=== PATIENT | male | born 1960 | race Caucasian/White ===

== ENCOUNTER 2024-08-05 10:20 | Outpatient (OUT) | payer BC, SELFPAY ==
--- NOTE | 2024-08-05 10:24 | XR_ITS ---
The [address] [address] Patient Name: CONCHIS ANDREWS MRN: [id number] date: 1960 Sex: M Assigned Patient Location: [facility] Current Patient Location: [facility] Accession/Order Number: [id number] Exam Date: 08/05/2024 10:24 Report Date: 08/05/2024 12:47 At the request of: AMARIS BURRELL Procedure: XR ankle SESAR min 3V EXAMINATION: XR foot SESAR min 3V, XR ankle SESAR min 3V HISTORY: Bilateral Foot Pain COMPARISON: No relevant comparison available. FINDINGS: RIGHT FINDINGS: BONES: No acute fracture or dislocation of the foot or ankle. Moderate to severe degenerative changes with hindfoot varus and flxm-fh-swyh articulation of the tibiotalar joint. Callus formation consistent with remote healed fracture of the third metatarsal SOFT TISSUES: Negative. No visible soft tissue swelling. OTHER: Negative. LEFT FINDINGS: BONES: No acute fracture or dislocation . Moderate to severe degenerative changes with hindfoot varus and knzw-qq-ahxg articulation the tibiotalar joint. There is bony remodeling of the medial talar dome SOFT TISSUES: Negative. No visible soft tissue swelling. OTHER: Negative. XR/XR ankle SESAR min 3V IMPRESSION: Moderate to severe osteoarthritis with bilateral hindfoot varus and wuiw-rv-aebl articulation of the tibiotalar joints Electronically authenticated by: NATHAN VAUGHN Date: 08/05/2024 12:47
--- NOTE | 2024-08-05 10:31 | XR_ITS ---
The [address] [address] Patient Name: CONCHIS ANDREWS MRN: [id number] date: 1960 Sex: M Assigned Patient Location: [facility] Current Patient Location: [facility] Accession/Order Number: [id number] Exam Date: 08/05/2024 10:30 Report Date: 08/05/2024 12:47 At the request of: AMARIS BURRELL Procedure: XR foot SESAR min 3V EXAMINATION: XR foot SESAR min 3V, XR ankle SESAR min 3V HISTORY: Bilateral Foot Pain COMPARISON: No relevant comparison available. FINDINGS: RIGHT FINDINGS: BONES: No acute fracture or dislocation of the foot or ankle. Moderate to severe degenerative changes with hindfoot varus and ktgc-pb-jslw articulation of the tibiotalar joint. Callus formation consistent with remote healed fracture of the third metatarsal SOFT TISSUES: Negative. No visible soft tissue swelling. OTHER: Negative. LEFT FINDINGS: BONES: No acute fracture or dislocation . Moderate to severe degenerative changes with hindfoot varus and yxdz-lt-xcmt articulation the tibiotalar joint. There is bony remodeling of the medial talar dome SOFT TISSUES: Negative. No visible soft tissue swelling. OTHER: Negative. XR/XR foot SESAR min 3V IMPRESSION: Moderate to severe osteoarthritis with bilateral hindfoot varus and uzeq-ms-jwip articulation of the tibiotalar joints Electronically authenticated by: NATHAN VAUGHN Date: 08/05/2024 12:47
--- NOTE | 2024-08-05 12:26 | CT_ITS ---
[place] [id number] Patient Name: CONCHIS ANDREWS MRN: [id number] date: 1960 Sex: M Assigned Patient Location: [facility] Current Patient Location: [facility] Accession/Order Number: [id number] Exam Date: 08/05/2024 12:30 Report Date: 08/05/2024 15:56 At the request of: AMARIS BURRELL Procedure: CT ankle LT wo con EXAMINATION: CT ankle LT wo con HISTORY: Ankle DJD COMPARISON: No relevant comparison available. TECHNIQUE: Multi-planar CT images were created without IV contrast. Dose reduction techniques were achieved by using automated exposure control and/or adjustment of mA and/or kV according to patient size and/or use of iterative reconstruction technique. FINDINGS: BONES: No acute fracture or dislocation. Moderate degenerative changes of the patella with enthesopathic spurring. Contour deformity of the proximal fibula, remote healed fracture. Enthesopathy of the anterior tibial tubercle, chronic apophysitis. Moderate to severe degenerative changes of the hindfoot with jynd-fa-grkb articulation bony remodeling and subchondral cystic changes of the tibial plateau and talus. Contour deformity of the fourth metatarsal, remote healed fracture. Mild to moderate enthesopathic spurring of the calcaneus SOFT TISSUES: Negative. No visible soft tissue swelling. EFFUSION: None visible. OTHER: Moderate diffuse vascular calcifications CT/CT ankle LT wo con IMPRESSION: Moderate to severe osteoarthritis, most significant along the tibiotalar joint Electronically authenticated by: NATHAN VAUGHN Date: 08/05/2024 15:56
== END 2024-08-05 10:21 | disposition home or self-care (01) ==
LOC: RAD 10:20
PROVIDERS: Visit Provider Podiatrist Foot & Ankle Surgery
DX: M25.572 Pain in left ankle and joints of left foot (principal); M25.571 Pain in right ankle and joints of right foot; M19.072 Primary osteoarthritis, left ankle and foot; M19.071 Primary osteoarthritis, right ankle and foot
CPT/HCPCS: 73610; 73630; 73700

== ENCOUNTER 2024-08-17 14:01 | Outpatient (OUT) | payer BC, SELFPAY ==
--- NOTE | 2024-08-17 14:05 | ECG_ITS ---
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
--- NOTE | 2024-08-17 14:53 | P.GSHP_ITS ---
History of Present Illness History of Present Illness Chief complaint: left ankle osteoarthritis Narrative: Patient presents for presurgical testing. Please see HPI from Dr. Gutierrez dated August 07, 2024. Review of Systems ROS Narrative REVIEW OF SYSTEMS: Negative except as stated in HPI, ten or more systems reviewed. Constitutional: No fever, chills, weakness ENT: No sore throat or epistaxis Cardiovascular: No edema, chest pain, palpitations, or activity intolerance Respiratory: No shortness of breath, cough, or wheezing Gastrointestinal: No abdominal pain, constipation, diarrhea, or vomiting Genitourinary: No dysuria or hematuria Neurological: No numbness, tingling, weakness, or headache Psychiatric: No mood changes PFSH [facility] Medical History (Updated 08/17/24 @ 14:56 by Tammy Gonzalez NP) Left ankle pain ?M25.572 - Pain in left ankle and joints of left foot (ICD-10) Rheumatic fever ?I00 - Rheumatic fever without heart involvement (ICD-10) Stress incontinence ?N39.3 - Stress incontinence (female) (male) (ICD-10) Erectile dysfunction ?N52.9 - Male erectile dysfunction, unspecified (ICD-10) Prostate cancer ?C61 - Malignant neoplasm of prostate (ICD-10) Elevated PSA ?R97.20 - Elevated prostate specific antigen [PSA] (ICD-10) Osteoarthritis ?M19.90 - Unspecified osteoarthritis, unspecified site (ICD-10) Hypertension ?I10 - Essential (primary) hypertension (ICD-10) Kidney stones ?N20.0 - Calculus of kidney (ICD-10) Contracture, left ankle ?M24.572 - Contracture, left ankle (ICD-10) Acquired clubfoot, left foot ?M21.542 - Acquired clubfoot, left foot (ICD-10) Varus deformity, not elsewhere classified, left ankle ?M21.172 - Varus deformity, not elsewhere classified, left ankle (ICD-10) Primary osteoarthritis, left ankle and foot ?M19.072 - Primary osteoarthritis, left ankle and foot (ICD-10) Surgical History (Updated 08/17/24 @ 14:26 by Tammy Gonzalez NP) S/P ureteral stent placement ?Z96.0 - Presence of urogenital implants (ICD-10) S/P cystoscopy ?Z98.890 - Other specified postprocedural states (ICD-10) H/O hand surgery ?Z98.890 - Other specified postprocedural states (ICD-10) H/O prostatectomy ?Z90.79 - Acquired absence of other genital organ(s) (ICD-10) H/O prostate biopsy ?Z98.890 - Other specified postprocedural states (ICD-10) S/P arthroscopic knee surgery ?Z98.890 - Other specified postprocedural states (ICD-10) H/O foot surgery ?Z98.890 - Other specified postprocedural states (ICD-10) History of surgery on arm ?Z98.890 - Other specified postprocedural states (ICD-10) Family History (Updated 08/17/24 @ 14:26 by Tammy Gonzalez NP) Other Family history of myocardial infarction Social History (Updated 08/17/24 @ 14:21 by Tammy Gonzalez NP) Within the past year, how often did you have a drink containing alcohol: 4 or more times a week Smoking status: Never smoker Non-prescribed substance use: denies use 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 Highest level of school completed/degree received: high school graduate Meds Home Medications and Allergies Home Medications ?Medication ?Instructions ?Recorded ?Confirmed ?Type diclofenac sodium 75 mg 75 mg PO Q12H 08/17/24 08/17/24 History tablet,delayed release lisinopril 20 1 tab PO QDAY 08/17/24 08/17/24 History mg-hydrochlorothiazide 12.5 mg tablet Allergies Allergy/AdvReac Type Severity Reaction Status Date / Time No Known Drug Allergies Allergy Verified 08/17/24 14:18 Exam Narrative Exam Narrative: Constitutional: Awake, alert, comfortable, well-appearing, nontoxic, interactive, vital signs as charted Head: Normocephalic, atraumatic Neck: Supple, normal appearance, normal range of motion, no meningeal signs, no lymphadenopathy Respiratory: No respiratory distress, breath sounds clear Cardiovascular: Regular rate and rhythm, strong and regular heart tones Abdomen: Nontender, normal bowel sounds, soft, no CVA tenderness Neuro: No neurological deficits, normal sensation Psychiatric: Oriented ?3, normal affect Assessment and Plan Assessment and Plan (1) Primary osteoarthritis, left ankle and foot: (2) Varus deformity, not elsewhere classified, left ankle: (3) Acquired clubfoot, left foot: (4) Contracture, left ankle: (5) Left ankle pain: Plan Left ankle and subtalar joint fusion with osteotomies, soft tissue balancing, and bone grafting as needed scheduled with Dr. Gutierrez August 31, 2024.
[2024-08-17 15:14] LABS: Anion Gap 12.1; BUN Creatinine Ratio 11.4; Carbon Dioxide 29.3 mmol/L (21.0-32.0); Chloride 100 mmol/L (98-107); Estimated GFR (African America >60 (>=60 mL/min/1.73m^2); Estimated GFR (Non-African Ame 55 (>=60 mL/min/1.73m^2); Glucose 96 mg/dL (74-106); Potassium 4.4 mmol/L (3.5-5.1); Sodium 137 mmol/L (136-145)
== END 2024-08-17 14:02 | disposition home or self-care (01) ==
LOC: PST 14:02
PROVIDERS: Visit Provider Podiatrist Foot & Ankle Surgery
DX: Z01.810 Encounter for preprocedural cardiovascular examination (principal); Z01.812 Encounter for preprocedural laboratory examination; Z01.818 Encounter for other preprocedural examination; M19.072 Primary osteoarthritis, left ankle and foot
CPT/HCPCS: 36415; 80048; 93005; G0463

== ENCOUNTER 2024-09-01 09:25 | Observation (INO) | payer BC, SELFPAY ==
[2024-08-17 14:49] VITALS: BP 138/83; PULSE 85; TEMP 36.4; O2SAT 100; BMI 27.1
[2024-08-31] VITALS (16 sets, daily range): BP systolic 95–129; BP diastolic 54–87; PULSE 73–106; TEMP 36.3–36.8; O2SAT 86–96; BMI 25.6; BMI 27.7
--- NOTE | 2024-08-31 | FL_ITS ---
[address] [address] Patient Name: CONCHIS ANDREWS MRN: [id number] date: 1960 Sex: M Assigned Patient Location: [facility] Current Patient Location: [place] Accession/Order Number: [id number] Exam Date: 08/31/2024 11:18 Report Date: 09/04/2024 07:46 At the request of: AMARIS BURRELL Procedure: FL fluoroscopy <1hr NON-READ EXAM: FL fluoroscopy <1hr NON-READ HISTORY: TECHNIQUE: FINDINGS: Please see Operative Report. Electronically authenticated by: RADIOLOGIST NO Date: 09/04/2024 07:46
--- OUTSIDE RECORDS SUMMARY | 2024-08-31 06:07 | XMS_ITS | CCD ---
Author Organization [facility] Care Team Providers Care Property Consultant Name Role Phone NATHAN PROCTOR Referring Unavailable ANDREW SHEN Primary Care Unavailable NATHAN PROCTOR Admitting Unavailable NATHAN PROCTOR Attending Unavailable ANDREW SHEN Primary Care Unavailable Andrew Shen Primary Care Provider Andrew Shen DO Primary Care Provider Andrew Shen Unavailable Kai Muse Unavailable MD Kai Muse Attending Provider [phone] DO Andrew Shen Primary Care Provider [phone] Kai Muse Attending Unavailable Andrew Shen Primary Care Unavailable Miley, Kai Admitting Unavailable Andrew Shen Admitting Unavailable Shruti, Andrew Primary Care Unavailable Andrew Shen Attending Unavailable Kai Muse Attending Unavailable Andrew Shen Primary Care Unavailable Oletana, Kai Admitting Unavailable Andrew Shen Primary Care Unavailable Oletana, Kai Admitting Unavailable Oletana, Kai Attending Unavailable ОЛЬГА PAIGE Attending Unavailable ОЛЬГА PAIGE Referring Unavailable ОЛЬГА PAIGE Referring Unavailable Andrew Shen MD Primary Care Provider [phone] ANDREW SHEN Attending Unavailable ANDREW SHEN Admitting Unavailable ANDREW SHEN Primary Care Unavailable MD Kai Muse Admitting Unavailable ANDREW SHEN Primary Care Unavailable MD Kai Muse Attending Unavailable Henri Gutierrez Attending Unavailable Henri Gutierrez Admitting Unavailable ANDREW SHEN Primary Care Unavailable MD Kai Muse Attending Unavailable MD Kai Muse Admitting Unavailable ANDREW SHEN Primary Care Unavailable Allergies Allergy Classification Reported Allergen(s) Allergy Type Date of Onset Reaction(s) Facility (20 sources) Iodine; Translations: [iodine] Drug Allergy 9 [place], [place] (2 sources) Shellfish-Deriv ed Products Propensity to adverse reactions to drug 9 [place], [place] (20 sources) Shellfish; Translations: [shellfish] Propensity to adverse reactions Unknown [facility] Repository (4 sources) Shellfish; Translations: [shellfish derived] Allergy to substance [address] [facility] (1 source) Iodine Drug Allergy 4 [facility] Repository Medications Current Medications Medication Drug Class(es) Dates Sig (Normalized) Sig (Original) acetaminophen 325 mg / HYDROcodone bitartrate 5 mg oral tablet (1 source) Opioid Agonist Start: 02-04-2024 take 1 tablet by mouth every four hours Hydrocodone-Aceta minophen Active 1 TAB PO Every 4 hours 10 5 February 04, 2024 Dispense quantity of ten tablets z98.890 post op Acetaminophen / oxyCODONE (2 sources) Opioid Agonist Start: 08-28-2019 oxyCODONE-acetami nophen (PERCOCET) 5-325 MG per tablet 1 tablet Start: 08-28-2019 End: 09-02-2019 take 1 tablet by mouth every six hours as needed for pain oxyCODONE-acetaminophen (PERCOCET) 5-325 MG per tablet Indications: Prostate cancer (HCC) Take 1 tablet by mouth every 6 hours as needed for Pain for up to 5 days. 20 tablet 0 08/28/2019 09/02/2019 Active celecoxib 100 mg oral capsule (7 sources) Nonsteroidal Anti-inflammatory Drug Start: 03-14-2022 take 1 capsule by mouth every twenty-four hours CeleBREX 100 MG 1 capsule with food Orally Once a day for 30 day(s) Feb, Active ciprofloxacin 500 mg oral tablet (1 source) Quinolone Antimicrobial Start: 08-28-2019 End: 08-31-2019 take 1 tablet by mouth twice daily ciprofloxacin (CIPRO) 500 MG tablet Take 1 tablet by mouth 2 times daily for 3 days Start taking the day before your catheter is scheduled to be removed. 6 tablet 0 08/28/2019 08/31/2019 Active diclofenac sodium 75 mg delayed release oral tablet (7 sources) Nonsteroidal Anti-inflammatory Drug Start: 10-30-2023 diclofenac (Voltaren) 75 MG EC tablet Take 75 mg by mouth 10/30/2023 Active Start: 08-28-2019 take 75 mg by mouth twice daily 75 mg, Oral, 2 TIMES DAILY, First dose on Sat08/28/19 at 2100 This medication is non-formulary. Please see if the patient can bring their home supply. Please send down to pharmacy for identification. take 75 mg by mouth twice daily DICLOFENAC PO Take 75 mg by mouth 2 times daily 0 Active docusate sodium 100 mg oral capsule (2 sources) Start: 08-28-2019 End: 09-27-2019 take 100 mg by mouth twice daily 100 mg, Oral, 2 TIMES DAILY, First dose on Sat08/28/19 at 2100 Do not crush or break fluticasone propionate 0.05 mg/actuat metered dose nasal spray (10 sources) Corticosteroid Start: 01-30-2022 take 1 spray(s) nasal route once daily Fluticasone Propionate 50 MCG/ACT 1 spray in each nostril Nasally Once a day for 30 day(s) January, Active hydroCHLOROthiazide 12.5 mg / lisinopril 20 mg oral tablet (20 sources) Thiazide Diuretic, Angiotensin Converting Enzyme Inhibitor Start: 01-22-2024 lisinopril-hydro CHLOROthiazide 20-12.5 MG tablet 2 tablets 01/22/2024 Active Start: 01-22-2024 take 2 tablets by mouth once daily in the morning Lisinopril-Hydrochlorothiazide Active 2 TAB PO Every morning January 22, 2024 12:00am Start: 11-13-2023 End: 01-22-2024 take 2 tablets by mouth once daily Lisinopril-Hydrochlorothiazide Discontin ued 0 .ROUTE .COMPLEX 180 November 13, 2023 11:16am January 22, 2024 3:12pm take 2 tablets by mouth once daily Start: 10-30-2023 End: 11-13-2023 take 2 tablets by mouth once daily Lisinopril-Hydrochlorothiazide Discontin ued 2 TAB PO Daily October 30, 2023 1:00am November 13, 2023 11:17am FreeTextSi tablet Orally Once a day; Note: Source Status: Taking; Refills: 3; Qty: 180 Tablet; Provider: Shruti Tamayo Start: 08-28-2019 take 2 tablets by mouth once daily 2 tablet, Oral, DAILY, First dose on Sat08/28/19 at 1830 take 2 tablets by mouth every twenty-four hours Lisinopril-hydroCHLOROthiazide 20-12.5 M G 2 tablet Orally Once a day for 90 days Active loratadine 10 mg oral tablet (20 sources) Start: 01-22-2024 take 1 tablet by mouth once daily Loratadine Active 10 MG PO Daily January 22, 2024 12:00am take 1 tablet by mouth once daily Start: 11-13-2023 End: 01-22-2024 take 1 tablet by mouth once daily Loratadine Discontinued 0 .ROUTE .COMPLEX 90 November 13, 2023 11:16am January 22, 2024 3:12pm take 1 tablet by mouth once daily Start: 10-30-2023 End: 11-13-2023 take 1 tablet by mouth once daily Loratadine Discontinued 1 TAB PO Daily October 30, 2023 1:00am November 13, 2023 11:17am Free[employer]Si tablet Orally Once a day; Note: Source Status: Taking; Refills: 0; Qty: 90 Tablet; Provider: Shruti Tamayo Start: 01-30-2022 take 1 tablet by jordi once daily Loratadine 10 MG 1 tablet Orally Once a day for 90 days January, Active meloxicam 15 mg oral tablet (6 sources) Nonsteroidal Anti-inflammatory Drug take 1 tablet by mouth every twenty-four hours Mobic 15 MG 1 tablet Orally Once a day for 90 day(s) Active methylPREDNISolone 4 mg oral tablet (3 sources) Corticosteroid Start: 2022 Medrol 4 MG as directed Orally Throughout the day as directed for 6 days Apr, Active Start: 01-30-2022 Medrol 4 MG as directed Orally Throughout the day as directed for 6 days January, Active morphine (PF) injection 2 mg (1 source) Start: 08-28-2019 morphine (PF) injection 2 mg ondansetron (ZOFRAN-ODT) disintegrating tablet 4 mg (1 source) Start: 08-28-2019 ondansetron (Z OFRAN-ODT) disintegrating tablet 4 mg potassium chloride 20 meq extended release oral tablet (12 sources) Start: 08-31-2021 take 1 tablet by mouth every twenty-four hours Potassium Chloride ER 20 MEQ 1 tablet with food Orally Once a day for 90 day(s) Aug, Active predniSONE 10 mg oral tablet (5 sources) Start: 07-29-2024 predniSONE (De ltasone) 10 MG tablet Indications: Primary osteoarthritis of left ankle , Pain and swelling of left ankle , Acquired talipes varus of left foot 1 tablet twice daily x 7 days; followed by 1 tablet daily as directed until complete 21 tablet 07/29/2024 Active Start: 12-25-2023 End: 01-07-2024 Prednisone Discontinued 10 M G PO .COMPLEX 05 05December 25, 2023 12:00am January 07, 2024 8:08am 10 mg orally Take 4 tablets X 2 days, then take 3 tablets X 2 days then take 2 tablets X 2 days then 1 tablet X 2 days then stop, take with food and without other NSAIDS.; 1000 ml sodium chloride 9 mg/ml injection (4 sources) Start: 08-28-2019 10 mL, Intrave nous, EVERY 12 HOURS SCHEDULED (2 times per day), First dose on Sat08/28/19 at 2100 Start: 08-28-2019 0.9 % sodium c hloride infusion Start: 08-28-2019 take 10 mL intraveno usly once as needed 10 mL, Intravenous, PRN, Line Care, After every IV line use, Starting Sat08/28/19 at 1808 Completed/Discontinued Medications Medication Drug Class(es) Dates Sig (Normalized) Sig (Original) azithromycin 250 mg oral tablet (3 sources) Macrolide Antimicrobial Start: 12-25-2023 End: 01-07-2024 Azithromycin (Zithromax) 250 mg tablet Discontinued 0 PO .COMPLEX December 25, 2023 12:00am January 07, 2024 8:08am For 250 mg dose pack: take 500 mg today (day 1), then 250 mg for 4 days (days 2-5) PO calcium chloride 0.0014 meq/ml / potassium chloride 0.004 meq/ml / sodium chloride 0.103 meq/ml / sodium lactate 0.028 meq/ml injectable solution (1 source) Start: 08-29-2019 End: 08-28-2019 lactated ringers infusion Start: 08-29-2019 End: 08-28-2019 lactated ringers infusion ceFAZolin (ANCEF) 2 g in dextrose 5 % 50 mL IVPB (1 source) Start: 08-28-2019 End: 08-29-2019 2 g, Intravenous, EVERY 8 HOURS, 3 doses, First dose on Sat08/28/19 at 2000, Last dose on Sat08/29/19 at 1200 2 ml fentaNYL 0.05 mg/ml injection (1 source) Opioid Agonist Start: 08-28-2019 End: 08-28-2019 fentaNYL (SUBLIMAZE) injection 25 mcg 1 ml heparin sodium, porcine 5000 unt/ml prefilled syringe (1 source) Unfractionated Heparin, Anti-coagulant Start: 08-28-2019 End: 08-28-2019 heparin (porcine) injection 5,000 Units naproxen 500 mg oral tablet (10 sources) Nonsteroidal Anti-inflammatory Drug Start: 10-30-2023 End: 10-30-2023 take 500 mg by mouth twice daily Naproxen Discontinued 500 MG PO Twice daily 180 90 October 30, 2023 1:00am October 30, 2023 5:00pm Start: 10-29-2022 take 1 tablet by jordi th every twelve hours at mealtime as needed Naproxen 500 MG 1 tablet with food or milk as needed Orally every 12 hrs Oct, Active triamcinolone acetonide 40 mg/ml injectable suspension (7 sources) Corticosteroid Start: 09-03-2022 Kenalog-40 Aug, 40 mg Problems Active Problems Problem Classification Problem Date Documented Date Episodic/Chronic Acquired foot deformities (2 sources) Talipes varus; Translations: [Acquired clubfoot, left foot] 07-29-2024 Episodic Anxiety disorders (13 sources) Generalized anxiety disorder; Translations: [Generalized anxiety disorder] Chronic Cancer of prostate (2 sources) Malignant tumor of prostate Onset: 08-28-2019 Chronic Cancer of prostate (20 sources) History of malignant neoplasm of prostate; Translations: [Personal history of malignant neoplasm of prostate] Episodic Essential hypertension (20 sources) Essential hypertension; Translations: [Essential (primary) hypertension] Onset: 08-14-2021 Resolved: 08-14-2021 Chronic Gout and other crystal arthropathies (13 sources) Primary gout; Translations: [Idiopathic gout, right ankle and foot] Chronic Joint disorders and dislocations; trauma-related (20 sources) Disorder of patellofemoral joint; Translations: [Chondromalacia patellae, left knee] Onset: 02-05-2024 Chronic Osteoarthritis (20 sources) Arthritis of left knee; Translations: [Unilateral primary osteoarthritis, left knee] Onset: 01-07-2024 Chronic Other connective tissue disease (1 source) Patellar tendinitis, left knee Episodic Other inflammatory condition of skin (16 sources) Plaque psoriasis; Translations: [Psoriasis vulgaris] 10-25-2023 Chronic Other inflammatory condition of skin (2 sources) Psoriasis vulgaris; Translations: [Other psoriasis] 10-30-2023 Chronic Other nervous system disorders (2 sources) Difficulty walking; Translations: [Difficulty in walking, not elsewhere classified] 07-29-2024 Chronic Other non-traumatic joint disorders (1 source) Pain in right shoulder Episodic Other non-traumatic joint disorders (2 sources) Pain in unspecified ankle and joints of unspecified foot; Translations: [Pain in joint, ankle and foot] 10-30-2023 Episodic Other non-traumatic joint disorders (2 sources) Ankle pain; Translations: [Pain in left ankle and joints of left foot] 07-29-2024 Episodic Other screening for suspected conditions (not mental disorders or infectious disease) (11 sources) Encounter for screening for cardiovascular disorders; Translations: [Encounter for screening for diseases of the blood and blood-forming organs and certain disorders involving the immune mechanism] Onset: 08-14-2021 Resolved: 03-15-2022 Episodic Other upper respiratory infections (3 sources) Acute sinusitis, unspecified; Translations: [Acute sinusitis, unspecified] 12-25-2023 Episodic Residual codes; unclassified (1 source) Postprocedural state finding; Translations: [Other specified postprocedural states] 02-04-2024 Episodic Spondylosis; intervertebral disc disorders; other back problems (13 sources) Lumbago with sciatica; Translations: [Lumbago with sciatica, unspecified side] Episodic Substance-related disorders (20 sources) Nicotine dependence; Translations: [Nicotine dependence, chewing tobacco, with other nicotine-induced disorders] 10-25-2023 Chronic Unclassified (1 source) Pain in right shoulder; Translations: [Pain in right shoulder] Onset: 04-30-2023 Past or Other Problems Problem Classification Problem Date Documented Da te Episodic/Chronic Immunizations and screening for infectious disease (2 sources) Encounter for immunization Onset: 01-30-2022 Resolved: 05-02-2022 Episodic Other non-traumatic joint disorders (2 sources) Pain in left knee Onset: 01-30-2022 Resolved: 02-28-2022 Episodic Unclassified (3 sources) Cough R05.9 Onset: 01-30-2022 Resolved: 01-30-2022 Results Test Name Value Interpretation Reference Range Facility Coding Summaryon 08-24-2024 Coding Summary [employer] 64 VthehukqTOx3tMh+PGhlYWQ +[id number] NMTElOSywgQVBQTElOSyIgb sOsAP4cmEVyUVCq IC8+LD1xOQSmUwcveBRej3B 4bVR9T26xql6iYArefGQ4FI CbGyFrmsnmk5tfkAy7HUngP mluOyBt XVNkyM52RYD2eQ63Bc27tXG fnCIft7nxjEp7WfGsPKAbCX T0nCncCOjpm4IbLMRwD15cy NQtg7G3 DURvfZnmrPVhAeImoIA3lO7 eRFpwqufll4dsnkgjRet2ht 50qTPgy8V1qGE7L4RrcjE8K GJvbGQg WmspfGOCjQ3jfegba5pvuat rIpWlFCDlPNw3XSr6OMRdfY ixSrCnPJ54CIM2ERObtaMqZ 2FsLWFs wDcoCmG2s0K9Ay3LD4RCYfw dM7GBBGRUTEszuKH+PC90cj 48E3VeIfuwJvp5EBSyLQI0m OE0pQ5l UEYuSOhzh5K6sFV1X4PduuP wmd1sq0jqAMFiNTswU13scH Hrh3V9KNDniKP0TQKnyDfxH iBzaG93 Oyc+BGHreAupb7WyLeaam0s gw6mjjSg1ZpnjXIRmetXsdC gjBMS0q3FpDq6xOWMpuYS9x KP8gU8p BtRkJkJ1ZFbkO984AfLorFS mWgukO46jU1YtbCS+PHRyPj z6SRZscEwzIT7kI3PqEQKvs mctbGVm nCkxEE9kSFEatwqbHIPsqJ2 nAMElG0j4NjBnDiX1TSrpX2 KmZBQaabooXz52cX7wAtYgR tW7JWfc U0BitjG1DUBaiCZxRFrlNBO 1O00no4K8WKToRDYnCNE1uK L1rQ9khRrfomkqzXEhpDdfm mVydGlj WRmyVQvyR780KGXdqIatAvE vZGluZyBEYXRlOiAgMTIvMD kvMjAyNDwvdGQ+OBSeKWS9u WxlPSAn wYZqASssTm3kiThnaBbuLW8 zLOJcqmgoZRCflU4rGVSztM EvdBxvIF1jOEPxzazmh100P iAxMHB0 FWAwgWUbZ2PieG8eYlPcINH pRBYrG2XobUQdDNmqQ966JG ihMiD5PWZyegYxK1EbFSNvr WduOiB0 f7F5Up2Ij5VmvjguU9ChiJJ cNpDxJgtgYNg3S1MzSrowfX I+AA25CZCjNV52EOx2DHC9i WxlPSdi MPXuF7RovE9bKjVnZIRmDHL kOyc+PHRhYmxlIHdpZHRoPS cxXNTsJaEqbRumTJ1lSv4fP GVyLWNv oEopdPDrJlKjv7krWPZwRJq gKT8pcHmtX3EbiJC1JYZdr0 d2Zy65M32lO7QrwGB+PGNvb IW6bJI9 iW2dHePjLxY5AHulK043WmE qkXHgCsufo8oqg9qoqDx7Tl D8IANhydHdlDviYRT2m0BiM w22F14o IHdpZHRoPSIxNSUiIHZhbGl zwl9doL2yIi2+RUUujZJ8sB C8cA4rCxIeKtS3AHrtM993A nRvcCIv Ijjzh7ejb8vmsCd1FtZnLQC hwyUjmYnvKLV7x1KcEa28U4 WsiAqey2FrWvr9jq52yUMft 8Y6sOA2 S8KjMWOdmvwnxYQmtZdzWD4 iUUKdretqBOPgkR9gNJHwF3 n8WfBdQnB8FZbbZ8YfwjW1K GJvbGQg KNDrrSSWdE0xvnhfh0iagpx uShLbSUMtRWi0BPu3EFOpqV fsDsKxXGX1OnX0SWV1vTHom G7ltYmj mblvcA5bRza+YMO0hBWrtHI KQR0gWibiwES+FCMpLGX5zD ddOCzgCKQhhE3qPEIuU3z9H iAwLjA1 VSwyI7JecgN0KNWpmUTpURJ sgVOFrM4wltjyo7zzwvndPk EnXXLqGNe3KSz7WRLjaXsvZ iBsZWZ0 GxQ3LQO4sVLrkB3ohIjznnb txK0aHcu+YdlsqAqxIKI1BG a3S1DfOzd1MHJchZroEY2sq GFkZGlu Ge7sxPbelZowUW8sCHMmfsx te604SkWzj9szTNUybXFyFX lvCSN0D99sp3A8AUTjSEEiH TC6xKB8 qE9qtBkxxtbarWDtpRtwsbI unRqeEBndUHblS875SCXhkV yeEgYrTXa7I7UmMdz6YCCjf KydSQ9x xBBeXRltEy4kyCvwqPzxIJ7 gKFYgleuui815WrZly0hqVP DqxYXyHFanCOM5G53yg3O4O CMwMDAw QIR1gOE8lK8omIxersvwgTK mdDsgdmVydGljYWwtYWxpZ2 20GFHfwXxqOwGzzAs5T9KxF dj6VSWh oZkbRI9dcTOcTTloCr6zfCo vcXufOK8tBWGporxlc028Ci Dgq9xdMCQagBHiEOnjKOR3L 57nt9U2 UOKaVOAlSUH7lLN9oD8myUq nbjogbGVmdDsgdmVydGljYW oeSWrnM038CYAwpAmiEtLix GllbnQg RJhdHEn4W8PkTumdbWG+PC9 4XNUsLF34mPJnbQBvw5wmeK e5HpAqCHGxMKD4bVtoOVqux 3JkZXIt V44roEHri2K2BMKcbYiacPX vYpGluDB4dC8oYFjahlmbf7 ayilinTubrz1kzut33gB50Y 29sIHdp ZHRoPSIzMCUiIHZhbGlnbj0 dlH4dPo6+FPSldWW8jJL3hN 5jZDHzJfD9CMciB908KoPdy CIvPjxj q1zzf0totAw8OjB3DBGdsdS ybYwhHTG3e5WxDh21P41aFA dpZHRoPSIyMCUiIHZhbGlnb r3izO4z Ii8+SIWgpBF0nIZ7qT0dBbE bAnX5XTyvY942AkDumSNaMk twO49jX2YukIW+MLUeMgh2Y CBzdHls ZT8llFSbGHsxYj1uRSM4FxG iNoHwPTogE9QbSCPjnyfqfh vgeNT2EAYhIERuzB18Nu8hj DogMTBw mCOScM3wbfbgh8dydmhrZuP oLQLsXAt8MVb2KSGazJafCb JdYIX9JbE5GAD4kHRbzI7zx Glnbjog eP4fL5DeLYPjrhovCj20oQ6 lNhLiKsU3BBirHzm+SEFWRU 9UKzvkMfMYR7SYSMFFZF62F K97uRJd c9H5rCI5V6ArKEQjrrzknru zxIX9ONLhFVImwU92wQRjXT zjPr2yk4M3h852DMGxWDJbr O44Jq2o xGagBZRebVJSxS1rnfivi8p fssrfQcDwWGCbKBu5UTk3OT TquCdzXqCeGVE2QuK5MFV9k IUqyJ2p gXpizzqvsZ6dIxk+MDUvMTM pVTe1DtbwsFB+JOJtWSR0wW ovGAhbPWQmkL7oAQRjM2i7F iAwLjA1 BPkmW1NdUOJvhhscJg37yY1 vLjMvRsG2AIytL8KnncR8UH EyqYUjIExlQQO5V01ix9C9E CMwMDAw GUE4vSG6sN3aaSzwukdvaUG mdDsgdmVydGljYWwtYWxpZ2 46IHRvcDsnPjYyIFllYXJzP X27YO69 iNNeh0L7wVI8P4YeNAYvutx pbwptqGU3WSTsMARkpJ46tF DfQDcoPc8bl1Q3y202PZBnE DUwaW47 Mq2utVxeCWGhuRSPmV7zqkc hk6fdsatjWvBjYZHqYHo5CZ b7VCFjeQnjPeQzBVM2OtQ6Z EY3tZAt aA4qqRyevrubbB4qNft+TUF MRTwvdGQ+MIZwFMM6yTmkWJ caNATrsP1iGTMfZ0i5LdCmU jQ7QDbv K4FmZBPssgnxHd34nN2sTgP gEgE1MNmbM6RzinJ8HPCkwB KeRTpdNRB6H32jl9L2WNTbE DAwMDA7 lDQ5uI1xvQdzlfkdsXZnqEe hhnWhlQlqNUhvFTbdY384ZS TboZtiRuMhT1CrbohbSoUEg XRwYXRp OC87GA41NU83I8PhNbkdgEB ibGU+PHRhYmxlIHdpZHRoPS bkFOHzVuIfoWsiWL1yCu5cB GVyLWNv gSfrkZUaLkJst6suRXStKXa dCQ4ysZsmO5IfmGZ2ESKjh5 v6Ca71A20gH7FgqXZ+PGNvb CN3kHH3 vA3mAaFrPnT1FTbjT776OfF egFHvHhcjw7lqo4imfSc8Gi JhZRRgebLtlVfgEFM3c4MbX w65V10k IHdpZHRoPSIyMCUiIHZhbGl lzd9msQ3pPk7+QAXyuGT6oC I1qJ8dWyFgRhL6YXnsG689U nRvcCIv JyqgB10kM7TceYX+PHRyPjx 5TRAwvOsdKP1mrEOfSWvaRb 1oZFA7HcRfYrUfQNuuY4KzS GRpbmct cfctvCC8AIEcGUVsgQ92Nj3 zvQjfKp1sTSEhRBG0GHSpcP QfH6DeyU1zKbSvHQXaCQQfS 3RleHQt OBvuW113TCpyHxY1DBFmaoI rS8ZeWARmtYytPxJ0c2K5Oa 8DvQqssRRxDW5rGdYeIQo4B 0DaItx6 RGPjeFbpLG9faVRnOHnlNx2 tcPzyjVkkMD4vBNIxzictp0 94ZePql4leNIHgmFIvJTygA BP4D75b a7S8THKrDJGkHCP8oLY8nJ6 hbGlnbjogbGVmdDsgdmVydG qyTPcdBOelK891PQOpqDwqX kZJTjo8 D4RsDfg0XUGalLwuSJ7omAR qPYjtTp9zxYurpTrnUW9pHL Togysuj117EdTza3hkXKBqm HQgVGlt CJN0G59dw6T7ZCJbLNKnRXN 0gGN8wN1syOvukglyfWFncN wcprCblTacGEnkCEaoI827M HRvcDsn Ir0LXsn8T0PkTrw5HRHtcDk iZN4deTLvTHqvEy3bjRzpxD tdHO4bLPHlantyq211MqImi 2xkIDEw fFZpCOzzYSL7K74nl8D4LJA yRCAgLDZ2mXV0xY7qaWkmfm ogbGVmdDsgdmVydGljYWwtY XlpQ469 IHRvcDsnPlBheWVyOjwvdGQ +QQ95hb16Q4UkVhkxNwp4GE UyRIB9uIP6xH7sMTIyKZmdq 8Q7iJB7 J2J (more content not included)... [facility] Provider Orderson 08-11-2024 Provider Orders [id number]#1.00O TGTIFF [facility] No Panel Informationon 07-29 Radiology Study observation (narrative) [facility] XR Ankle - left 3 [facility] Result: 3 vi ews left ankle: Weight-bearing: AP, mortise, lateral: 07/29/2024: Severe asymmetric joint space narrowing of the ankle mortise with significant ankle varus deformity. Relative sparing of the subtalar and midtarsal joints. Unremarkable for fracture or stress fracture changes unremarkable for acute osseous or joint pathology otherwise. [facility] XR Foot - left 2 [facility] Result: 2 vi ews left foot: Weight-bearing: DP and calcaneal axial: 07/29/2024: Unremarkable for acute osseous or joint pathology. Changes about the 4th metatarsal diaphysis likely consistent with old healed fracture or stress fracture. Mild metatarsus adductus. Calcaneal varus deformity appreciated. [facility] Coding Queryon 04-15-2024 Coding Query [id number] [facility] Coding Summaryon 04-14-2024 Coding Summary [facility] WnxrhzloHIu0dPd+PGhlYWQ +MW1EHGJvT62giVAmcH0yK0 NMTElOSywgQVBQTElOSyIgb kLeKM2xdCIfAKXt IC8+XD1fZUYqPgmwiFCtp7K 9gEM0T45pbr4tNDloaJA8KI OwQtQanuuxa0cenDa8JDgxH mluOyBt PWJruN58WTK1zP34Qa63hEB adAXea4uixYz2YwJeOYXpHS C0eVtoSTldc3KuVHTqX09kn GGwo2W3 MRQvoEpjaMNcJiReqUX6cH0 zUPymhggzh8zktfulUzk3ru 70zBVeq8J7eNH2B1YjslR1M GJvbGQg PaissKKOfP6niifah7cbppo gOfMnQQGsYOa7MPo2WDWmsE yxVjLnTW86COJ0RNHpfdLzL 2FsLWFs wGmsUjJ9p3Y5Vb7HZ6QBGks wY6BAXQFZDQisoTU+PC90cj 77I0WrZnmtGup2BTWjVXS6k NJ9tP7m QDIpPYdgn3W3kHQ4U7PyedH sgu2kr3qbSDEuAQkcC92fwF Kna2K5OPEwdSU1XPVufBjdX iBzaG93 Oyc+DVVhfKnro8MsWdvdc2p fs3hzcXi7MxbzLUHplxNjbL gaEZT1a2RdGu2tYJKpoEO9w RL3oZ2p OpPgVyF5SXumI821BxIktNF oCwebT51bI5YiqOT+PHRyPj q4WUQsdBjdYM8fC2RhNTKcg mctbGVm mDzyWG2wENQtmpolKDIwoE8 bQSElY6u0RvJeNbL1TQtzH9 DpTRMlatvdUt58kY4oLhUyW gE8XZoi P9WvnaQ9GLQhsQDnPCgcPHK 9R94bu3J2POHkGAKmJGP8fL W0oO5hwKjqjxmitFLlqCrrl mVydGlj IAwyZXtzY672ONIxxWsyBgG vZGluZyBEYXRlOiAgMDcvMz AvMjAyNDwvdGQ+TIZhGXW3b WxlPSAn rLMmWRzbMy7htTgazDrpZW6 eTTDkfofsFYOexV7dFOUzsU QbxAydRT3xVVPnlwqur640Z iAxMHB0 JHSlxCFpD3ZsnI4uQhVnTUS zEJCrK8WfuOYyREbpB354MN pgQdH6UVGmeuCqC2AvLLKcr WduOiB0 b2Q1Ww7Cu5JqhygiK8CmqHF oZlPsUhiwXVo9S5MnIjjugZ I+DW26VHHlOR13EKs8FYF8m WxlPSdi XCFbV3ZwsZ6kBoOdCNTaHJI kOyc+PHRhYmxlIHdpZHRoPS lpYUZlKlRtsCgnHI4wQb6dS GVyLWNv fDqxeVSkJkPiz1zcAVOfHTx aIN3ytJulN3BzcIR0DVDic9 m5Rw09H61nH9MugUV+PGNvb SQ5uXV7 kY4mIbWqJaO7ZMxlP423VyD yaLDaTtxwh8zfu1eugOb6Id E3YDGjtkVeiPwcFOS9z1ZfM o30A23n IHdpZHRoPSIxNSUiIHZhbGl fnn8ltB5eFe0+AABcwHU0pR E7jS7pNuIzOkJ3UAanD549J nRvcCIv Jvizl1vlg8nmvQl5VkDuIVE goxJhpDlkGVW8o8SlOv89O6 IyeQmvz4HbQwc1ei56nYUgb 2V0zTE3 F8QvRLNryulinYReiQsdEO1 nLHNvmuxvOCKhsK1fHCEsB6 m2MyZaPbJ7RUvvL2LsunZ7R GJvbGQg ZRDtrDMFjL3cwcyja8ncxlz iPtPcRBOxCAf1ABi9IWBjsW khRuZmJKZ7VaN7KHI1mSWfo H2enBkr cowadK9wYqc+CPF2iFQfeWH LQX3uBpwmjHY+GOCfPAA7qM bkLKzjJJTuyE2bUTKxE3e1N iAwLjA1 KJqcD5ApvlG1RVRieQQnZSI lyPKHwB8dkvwfm8qmduhqMl HgYUDuKGk0OOl3KOJoiMbeP iBsZWZ0 ZoZ6ZXN0dSEqeV1vkZvyzqb hnE4tUcu+UgrmjUbzRUY4OZ p0K1QfJng6SXStjUbcKL7js GFkZGlu Wn7kmZdagLqsAD5sEOFepdf zl368JfGsy5jhYKNmfLCkUL fyJHJ3L31ql5Y5JEEwMZBnS UZ7cFU4 oJ3qnYfujyxeaRJsoZrorgR zhQltWAvvQNdlX733DKKezC tyKyHsNQr9G1ZvIbd3DSYor DobUF8x uNIaAIsyXi7taOoxvWndVT5 oHDXjqknxz172YkRbv3jbWP NfcQGsCEfdEMU8P99hp5M8V CMwMDAw REO8vUE9rW2kbOoxhxehqPI mdDsgdmVydGljYWwtYWxpZ2 45RNUbiQcvKiEkwRh2G6NrF xy4PPJa qTcoVZ9gzGAjLDytVd9ajEi hnNwpHC3jCPBgrtnyw984Og Nqx7wxFRFgwQWwQBoiHBO3X 81rw2A4 TZWzOJVoLOF5sKI7oO7puCe nbjogbGVmdDsgdmVydGljYW yaGXdhG915NQOszMevLkAhe GllbnQg GZxdJSf0B3BwFybrxAZ+PC9 8PSXdFK48gCRmpGRgq3dzlF j8XeLqXADkYVT0aRaiEGsfb 3JkZXIt N40gyBHrl0V8QHThpAsmaYD gRlAwbRV2iS4fOKyjwvnyu3 afmusaVmgdp0zkak17sO02E 29sIHdp ZHRoPSIzMCUiIHZhbGlnbj0 coN0eKy2+BEBifKG0oOY8sM 8vSUZzRhT1PZabV601HzJqs CIvPjxj z9jsm6cuyUp6MjC9LVFxieX ztHibWUW8u0IfEk72I27zSO dpZHRoPSIyMCUiIHZhbGlnb k2ziI7m Ii8+YTEufCQ1fQE8jF0uOmD vZqE8HNkyN852TvPbmVUlXx yeH31oX6EqgVR+AZWoAfu5N CBzdHls ZG1suIPqNYnaOy0tVQY0UoR pTsOpSBfrX5UiPJJyfwsaoi yfzAF3QZDpUQIhjE18Sf7vj DogMTBw lQIJeQ2ltpxsj6nxdpewLwL oLFCiTTp8NGt9ZSMzjVroCd WmQAJ5NgU7YMP1sTDrsV3df Glnbjog zZ2rX2VaXORalgojVq96zL5 rMvWgOtV6XTpfJbi+SEFWRU 7VZdrsYdCFW7MXCCMRAT94J F87wIZv q0P7dWP7G0OlVGMvwtnwtft mdFE0IAHiVAZgpH65zGZbDC sjTg9db2Q8g020XTUmCOIob I14Ym6y iJccZENqeSKJdQ6eovmnt8i zggwlUeUsJMWbZSt8RWz3UC EbzNdnShTuAAP8FuS8GXK5l PGcfV7h bWusighduC3iZen+MDUvMTM pJSq8XhpsfLT+FSBxIMH8cF ddKLjyQONnxO2xMUTaW0u8W iAwLjA1 ZEavL3SuPOHmrrgsLu68yX4 hEhZxZtO9KNhzJ7SribC4VK IozFFkZVdjAZO9P41ge1W5T CMwMDAw DRW1uIN5qS1fyLmqlcoxfBG mdDsgdmVydGljYWwtYWxpZ2 46IHRvcDsnPjYyIFllYXJzP V10TQ61 bTOxr2I7oFF1Y4ToAUKptcl psqlreSB7TSKyBTCuzB90pM BjWPedXb0xx7E9l914IURoR DUwaW47 Sv8mwWrrBLLibOHNpO1twck aq3bezvcdGmAaDPPoLKr1EH s7BCLexHwcGcWfPOS2YaX4L SO0wVRz fF2jcSzlqegpaQ0uEkv+TUF MRTwvdGQ+HIYtTKT2lMmpOB gcZGQshL2aQOHrJ8b8YiDcH wC4MDbd E7NuEVYlklevBn25pV1iHcD uPqO8UQlcL7XzmyK5KGNxyJ IzUVqsJXB6K49sx3X0ESFwF DAwMDA7 iFG4fX6yjJdzzodjnVEnoGf nspYmxAcpBGigBTqmS802VT XbhNafImDgE4QyetuxTkEBz XRwYXRp MW62XK70TN28W2SsJukhsAO ibGU+PHRhYmxlIHdpZHRoPS tcERJsOqXnyUrfRR2vEq3qB GVyLWNv mHbxwQWjWlAuc8pyRDPlVPa kKL3gjRvvM3SuhCQ9AQUwe9 r9Ec93G60wR0QlcJO+PGNvb JD2kZU3 vA7aRhRuSiB5XNwoL894BnE cvHAsYfvzd0mzy3jdlQj2Dj SjVQVhaxKimCqvUNS3f1XvS b40O78q IHdpZHRoPSIyMCUiIHZhbGl toa9edM0sQb5+RKSucIT7hL O9pO6bQtYyWaO9HAtvX202W nRvcCIv DrpjK53kC6XdaPL+PHRyPjx 5TBJdcMflZQ0xjKQsKJpwQo 8tUSH9NzNnHfMhYLduJ7JbH GRpbmct fqvepVT2HWIeGBFdfN43Bx5 btDukBz4wPPPkEDA2UOGdrI LzT5OvlK0zBpTqVIHmCZZsX 3RleHQt LSgiS727EVumFcV3QHWedkM xN1BiTQEpjZbmVwK2p4L2Zh 5FmNfwwMDxVI2jSaLhDPn9M 0KtPyu0 MCIcrAcbTW3zcISzKCwsRn6 veBucfGhuDT7yIUNoadzbh8 57QyIrh6xsAUZqgPGtEUkhT OA4H32p x7L3JRIuCRZbXZX4oSY1xW3 hbGlnbjogbGVmdDsgdmVydG qwGYlvMGcuY233IUSykKaoZ kZJTjo8 L1ZeGco5BGEfgQxlBR1urGK rENzfAj2geVtddVgfPP2oOF Scwgryw511LgEnw0unXOGin HQgVGlt VAJ5S95sw4U7LDUgKZQjTDR 3rIL6bU0ncYevgadnfZOgsK okrnBwdVwtLUgtUWueS288N HRvcDsn Tc9NOyn8F1NeOac5ZMCpkSa eGN6swNUbNZatZm9eiXpzkK yjZQ4dPEGuszvms803AhHun 2xkIDEw tCAyESlpSMA9X84uf0Q4BVB vAMZfWBC9wSE8bV9mzDmuqp ogbGVmdDsgdmVydGljYWwtY PkkQ938 IHRvcDsnPlBheWVyOjwvdGQ +NS08mh36C5UlFobjWvl3XT CcADA6vLV5iI6pORXfZYqvt 1S9hLL9 J2J (more content not included)... [facility] Physical Therapy Noteon 03-16 Physical Therapy Note [id number] IFF [facility] Provider Orderson 02-28-2024 Provider Orders [id number] IFF [facility] Coding Summaryon 02-17-2024 Coding Summary HTMLBase 64 SssqdptrCSr4sUq+PGhlYWQ +LU6GXXHtI55yjJXrnF1oL0 NMTElOSywgQVBQTElOSyIgb jPhJN6awOLdOJPj IC8+RS4rPXFpEqhuhZPpv8Z 8iAV4G24nln5pGOygvBT6FI GmKsIwqxwhn9gqoCa9UMngK mluOyBt URGlaW26EJD0rU95Nd18cWU ixULbe2rakXh2JgQaEISzMJ Y7wEerQAzmz9NqNRCoL92do QTma8H5 GVOviPcuxXDtEcErsJW8pK0 rXQjrtqtck8riifhqYqc4yr 56jIAhw0K2vFE1X1FhgfT1Z GJvbGQg LojkbWPCgJ3gepigv3yknkb gWvZxRKTuINx2SYj5TRXfuL xsDwXzJR31JHR5BMDxboHnY 2FsLWFs yEfcSpZ8w2O3Xa2WN4ACZzq iS8VYJXGTUIdmoIQ+PC90cj 62A7TnEbeqEor3HXZoNPU8t PS7eR6g LVQyOUsyo1G8uLZ4L9RhutD yim5sn4wwXCWgUUvzI68edM Uge7R4FAUgeAD8SNQlxJmgW iBzaG93 Oyc+TZQvePtwp2HpXegsh2z hn4ikfQh0WanlQBIqipCvhZ qdLFZ0n4UiVy0cZESbaNX0p RH8iX2q EyWvCcD7GWliQ213AmOcxPH qOtpdG43pA9JrdFO+PHRyPj p0DMHpsZybFG4cB7JoPFIkq mctbGVm tOvhZB4eDZVuknqxVBZqdE1 pYOGdG4j3LmQyFlT1XRdiA4 WhMCPqmltnHx45gI1kMdZnU kG4XRlr D0TrxhB9MEQvjWHvLRamGMK 1B63lt7Q7UHPaDWElONY4fF W9jY9kqSouzphfgKSjrMqao mVydGlj XAraDCbaI190ULYooMpkTcB vZGluZyBEYXRlOiAgMDYvMD MvMjAyNDwvdGQ+JFBnFTT6b WxlPSAn rSCuPFdeCd3qhPkmyLggCQ2 uBXPaqlipKQOupI0uRLBvrD QfpYldVQ4aPXMsujsui806B iAxMHB0 DIArxYYpG4DrlO5nJyVlSLQ xSCLdJ8AmjKMgOBkmW133JX zxNkG4MNRsbpPkE4QgLVPrc WduOiB0 c8Q8Qd5Hi3UkyipoV7SxfDS pTlWsJcciVFz0N9HgOyxynV I+KU65CREpCJ90GLd1EKF5t WxlPSdi JSJfM9WzdR7zSkLxYUFoMVZ kOyc+PHRhYmxlIHdpZHRoPS mhNHSmYyMmfCgmJJ4uJg1dV GVyLWNv eFqohDFrOrPlh8kkHQQcOMf yAQ8owYjtI4JqpWH4IJJol0 n7Og98I72aP3PyzRZ+PGNvb WP9vME1 fN0rLkXgIlI8MSyiB598JgW yrYGkJreul0pqz7kuyPq5Gl L9CSTtlpImbNxhTMH3u9KlN f04E16g IHdpZHRoPSIxNSUiIHZhbGl wtb8saF1aGb7+BUUpzGG3tS G6fI4nFhBiAdW1NLqhT577O nRvcCIv Ldqps6wxw0aaxMg2KqIxEQX ignZdeRzvJBB3r6MsEy54K2 ZpyNcfp9TyUhp2wu57pEQjx 9G0zMI8 Y5WoTFQhknujhKYwdPplYP3 yZPWrfesyGSTaxE0jHHFmJ0 c7ReWpWvQ4BSieF5TbxfJ1M GJvbGQg QCDtoDGKmB8fqhfuo0phftc sMaGuYYTsEDy1MYj4NNHzzA uhQeQeCVD8ZtF6ELF9rBSpy K5mvEtg kzpsyR4uFha+BIZ8hEDgnLN VJE9zWqvpjHG+AXIcROL9kB vlHDedMQZtkS4sTFSzN4d5N iAwLjA1 EUwcR2HmrhT9QNSxcVIwJID jaCLNiH9ttqhwc5jszejgSa NkQBDoENr2LQv0NZBmhSsqN iBsZWZ0 UtM1VKS2tLUoxW9hvCmfxkf cdY3wDey+SgzfgZlwSRV4YI y9H9ArKho7ZCNfgSclZR0nl GFkZGlu Aa6xoHbafXwxDN5pGAAdrrf ct286LsZre7rjFCBwsDTcAJ euHNZ4H96nu0H7FLHiMFYgH OD2nYZ6 xP6faXwsdvknrKHaiGzzwqD neNpmSUjhZCpnE681VZAicK gaRdBzQXw9L2XnUmi2POBdn GthDN7x aKDgJOaaKn8jmKtpsBxmJV1 eZOFtuylfc482PhTvd0jxQB WkuYBbRGbwMOP9B41ho7M4J CMwMDAw JQZ2gVU0mD2uwNvawvuyjMA mdDsgdmVydGljYWwtYWxpZ2 07NYMrfIfqZyBwzLp5R8HoI ti3RHSa jLtwHQ1lcMBqAPljJo4vhNk bbGxuCF0lCNMbjcfmd222Ps Thr5jxKVOndSGkGFniIPN5K 23ys7N1 GZJuEGOaBMK2bDS8oM9dfOy nbjogbGVmdDsgdmVydGljYW xfGOptP326GHRcsZnoLoGjh GllbnQg ZGjyNCw8D3OsUmbbrGH+PC9 2TDPoWO66gHFpuAMpq0kaoE l8QmKtSGHrHBG7sQhuEVwjq 3JkZXIt F47rkAHvc6X9YXWgiPechPA gLoSchMP6eZ2tYNkyqaheb1 ferxrvDuhzo0tgzb78kJ62B 29sIHdp ZHRoPSIzMCUiIHZhbGlnbj0 clQ6aNj1+HOAjvAF2oQZ3rH 6jLPXeJgW7JSqqO947IkUvy CIvPjxj t7npd6fuuXa8XwQ9TJYukbR cyFhaGKG0d5TpHa53H25mKJ dpZHRoPSIyMCUiIHZhbGlnb u8smF5h Ii8+QUIhyML5gHR7dF6cGwO fNtY2YRykH936MtHyeGPqXj pnH30mR2GygQP+XZHjArm7S CBzdHls DF7liYZqRUnwGy4qWUT7WdV yJhSoAYswD1ZhTNXwhuxmxl umcKS2DDJrBCGxxD04Zh1ql DogMTBw xEUGcN8yivhbr6pkogccGeU hMLNiDOr0OMl2CKSyvTavXu KaROH3UhO8MML3zWMpxL6cu Glnbjog yU2lC9GqMWJulzswMb42rC5 sPcWhEuL2YOfvUjt+SEFWRU 1RMmweBoWJV2MKJIKTUN98K V58xGIk s4E5fLB0F3RgHRVltpfssso jnWO2AHIvZKKviM06hPCfCQ wlVu3mb5Y6a021SKDdKCBeg L92Tw6j vEqaKFHzgSDQfS6igapzg3f umoaoIhLvYRTuESd6BRl7NE ExhOjjWqZhVXX3BaN8UVP1b ZTvqU3k mHasaejngG7cKuq+MDUvMTM dDWj8LfkdxFG+PAMcLOW6mP zlQCwySSLcmV1iDXTqU4x8M iAwLjA1 ZRzoV8BmPAQpgveoRl50bH2 uEkOzSpT2YWlyK4FsngF3WT ZorNRqWDouDCD0Y81rk5P1G CMwMDAw NWG0uTV0tC9viStuxwrkaKV mdDsgdmVydGljYWwtYWxpZ2 46IHRvcDsnPjYyIFllYXJzP L50RM31 yRFtf6Y5dWY1P6LfFYLdcao ktxluhWH2YQVlOZWssN59mC RlLOceXh5xg7C4o632XOKvW DUwaW47 Hr9qsFjgUUUwzYHBwS0ojot fm8ahooqiIcEsNOPnSXu4TM p7USKjaYmjJeUoBFU7RlD9O FA1vESg oT9gcNmhgziutV4kPfu+TUF MRTwvdGQ+VVPbMJK2dKhrLF jaGEZbyL7zEVSiZ9z5DfFiH vZ7MZjw J1YfEMTldtxzWp83wC3lAbU dDyB4OCxtU3IrfmZ3ANIulD BrGOulJLL7M45pz4O2ZTToU DAwMDA7 gQM3eM5ufGnnuvpuqTPozSu jwgOoiNtxXOzuDDmzD881RO ImbNicRxXsD8IwlfcoIwNNj XRwYXRp VO51CT05OG41Y1IdJgvmsKI ibGU+PHRhYmxlIHdpZHRoPS srSUBaVoPdlBdsHP7pSm4vZ GVyLWNv pPbewXZvPpIvv1epCTDsSPu tUT2foJveJ6XkeLR8VAVaz7 q0Vu95V29rI2CcsTN+PGNvb FF9uJQ0 jA4lZvXmTcJ9OYiwG975VbB mzRQgQookl3lva4ejyOc7Jl HqUMQnqoSdmDnrUDI4j5GdC i67A11z IHdpZHRoPSIyMCUiIHZhbGl sfs7ooK7iDz0+OGYwqVX7eP X1nH5eSlCtEsC1ZYjxD947L nRvcCIv FtmxK04mP5HjwTX+PHRyPjx 6BPLcvYrpPN2eaKWwCGizTr 9gSNA0UwGrQoGmTDkuX6LxV GRpbmct bmgkfEO4VQIzDSQqtO82Aa8 zxJphJh4lBHOwGPR6UEBdzL IfR3KewY8sQqKwVTTvOLWpF 3RleHQt STxvL634IWjkDaW3KRHmhbT kQ4OxJKTsqYniTsF7w0U7Jw 7KjWfqhOKnTA1cIhHsKJi7A 5TfUvj7 ODQavKvxEN8ubRSoQCodEt5 gdTnzkRqhBT6xAPLgxaizx9 05VfJsq4bxCCTktTVvMIdjD EE0S44k g1R8QQGxWFGjKHZ3yWK7mU3 hbGlnbjogbGVmdDsgdmVydG hdYBllYBgmW276KMUhhObvJ kZJTjo8 M3ZwEuq0EVIsbSxnZR0jsJJ oFWnjUb9hqSpgvOvyDC7eFG Cwnithp349NuBzj9vrJMUer HQgVGlt PQP3P42uq0B0HEVwHGWfEEJ 1sTY3vP1qlRqsrcauuKObgI sugkOddTmxOMefFDbdM509T HRvcDsn Ak4BUwo2I9TdUwj5MPOwkYd dBW6lgWUiMYvaXq4evVxahP pnQC3sIZGrtburt331RfRxe 2xkIDEw nRUkVCxqAED8U85ck0B3MRW hSQMaKWS8aIP9aI3qlPkzuh ogbGVmdDsgdmVydGljYWwtY ZjhF533 IHRvcDsnPlBheWVyOjwvdGQ +RS58qh27G9SfDmlnKey2OQ UoYKQ3uET3hL2bFUKxJGtbu 8H0oKX2 J2J (more content not included)... [facility] Provider Orderson 02-06-2024 Provider Orders [id number] [id number] [facility] Alanine aminotransferase [En zymatic activity/volume] in Serum or PlasmaOrdered By: Kai Muse on 01-22-2024 ALT [Catalytic activity/Vol] 22 U/L Normal [facility] Comment on above: Performed By: #### C MP wRFX A1C, CBC, EBS A1C #### [address] Albumin [Mass/volume] in Ser um or Plasma by Bromocresol green (BCG) dye binding methoOrdered By: Kai Muse on 01-22-2024 Albumin BCG dye [Mass/Vol] 4.2 g/dL 3.5-5.7 [facility] Alkaline phosphatase [Enzyma tic activity/volume] in Serum or PlasmaOrdered By: Kai Muse on 01-22-2024 ALP [Catalytic activity/Vol] 81 U/L Normal 34-104 [facility] Comment on above: Result Comment: PERF ORMED BY: [place] [address] PATHOLOGIST SEO ENGINEER MARQUISE FIGUEROA M.D. Performed By: #### C MP wRFX A1C, CBC, EBS A1C #### [facility] [address] Aspartate aminotransferase [ Enzymatic activity/volume] in Serum or PlasmaOrdered By: Kai Muse on 01-22-2024 AST [Catalytic activity/Vol] 18 U/L Normal 13-39 [facility] Comment on above: Performed By: #### C MP wRFX A1C, CBC, EBS A1C #### [facility] [address] [place] [address] Automated basophil %Ordered By: Kai Muse on 01-22-2024 Basophils/100 WBC (Bld) 1.0 % Normal . [facility] Comment on above: Performed By: #### C MP wRFX A1C, CBC, EBS A1C #### [address] Automated basophil countOrde red By: Kai Muse on 01-22-2024 Basophils (Bld) [#/Vol] 0.1 10*3/uL Normal 0.0-0.2 [facility] Comment on above: Result Comment: PERF ORMED BY: [place] [address] PATHOLOGIST SEO ENGINEER MARQUISE FIGUEROA M.D. Performed By: #### C MP wRFX A1C, CBC, EBS A1C #### [address] Automated blood monocyte cou ntOrdered By: Kai Muse on 01-22-2024 Monocytes (Bld) [#/Vol] 1.0 10*3/uL High 0.0-0.8 [facility] Comment on above: Performed By: #### C MP wRFX A1C, CBC, EBS A1C #### [address] Automated eosinophil %Ordere d By: Kai Muse on 01-22-2024 Eosinophils/100 WBC (Bld) 3.3 % Normal . [facility] Comment on above: Performed By: #### C MP wRFX A1C, CBC, EBS A1C #### [address] Automated eosinophil countOr dered By: Kai Muse on 01-22-2024 Eosinophils (Bld) [#/Vol] 0.3 10*3/uL Normal 0.0-0.45 [facility] Comment on above: Performed By: #### C MP wRFX A1C, CBC, EBS A1C #### [address] Automated monocyte %Ordered By: Kai Muse on 01-22-2024 Monocytes/100 WBC (Bld) 11.3 % Normal . [facility] Comment on above: Performed By: #### C MP wRFX A1C, CBC, EBS A1C #### [address] Automated neutrophil %Ordere d By: Kai Muse on 01-22-2024 Neutrophils/100 WBC (Bld) 59.7 % Normal . [facility] Comment on above: Performed By: #### C MP wRFX A1C, CBC, EBS A1C #### [address] Bilirubin.total [Mass/volume ] in Serum or PlasmaOrdered By: Kai Muse on 01-22-2024 Bilirubin [Mass/Vol] 0.5 mg/dL Normal 0.3-1.0 [facility] Comment on above: Performed By: #### C MP wRFX A1C, CBC, EBS A1C #### [address] CMP with reflex to A1Con Albumin [Mass/Vol] 4.2 g/dL Normal 3.5-5.7 [facility] Comment on above: Performed By: #### C MP wRFX A1C, CBC, EBS A1C #### [facility] [address] [place] [address] [place] GFR/1.73 sq M.predicted MDRD (S/P/Bld) [Vol rate/Area] mL/min/{1.73_m2} Normal [facility] Comment on above: Performed By: #### C MP wRFX A1C, CBC, EBS A1C #### [facility] [address] Calcium [Mass/volume] in Ser um or PlasmaOrdered By: Kai Muse on 01-22-2024 Calcium [Mass/Vol] 9.1 mg/dL Normal 8.6-10.3 [place] [facility] Comment on above: Performed By: #### C MP wRFX A1C, CBC, EBS A1C #### [address] Carbon dioxide, total [Moles /volume] in Serum or PlasmaOrdered By: Kai Muse on 01-22-2024 CO2 [Moles/Vol] 26.4 mmol/L Normal 21.0-31.0 [facility] Comment on above: Performed By: #### C MP wRFX A1C, CBC, EBS A1C #### [place] [address] [place] Chloride [Moles/volume] in S antonia or PlasmaOrdered By: Kai Muse on 01-22-2024 Chloride [Moles/Vol] 104 mmol/L Normal 98-107 [facility] Comment on above: Performed By: #### C MP wRFX A1C, CBC, EBS A1C #### [address] Complete Blood Count Auto Di ffon 01-22-2024 Mean Corpuscular HGB Conc 34.6 g/dL Normal 32.5-35.6 [facility] Comment on above: Performed By: #### C MP wRFX A1C, CBC, EBS A1C #### [place] [address] [place] NRBC% 0.1 /100{WBC} Normal 0-0.5 [facility] Comment on above: Performed By: #### C MP wRFX A1C, CBC, EBS A1C #### [facility] [address] Creatinine [Mass/volume] in Serum or PlasmaOrdered By: Kai Muse on 01-22-2024 Creatinine [Mass/Vol] 1.21 mg/dL Normal 0.70-1.30 [facility] Comment on above: Performed By: #### C MP wRFX A1C, CBC, EBS A1C #### [facility] [address] EBS A1C with Estimated Ave G luon 01-22-2024 Glucose [Mass/Vol] 108 mg/dL Normal [facility] Comment on above: Result Comment: PERF ORMED BY: [place] [address] PATHOLOGIST SEO ENGINEER MARQUISE FIGUEROA M.D. Performed By: #### C MP wRFX A1C, CBC, EBS A1C #### [address] EBS A1C with Estimated Ave G luOrdered By: Kai Muse on 01-22-2024 HbA1c (Bld) [Mass fraction] 5.4 % Normal 4.3-5.6 [facility] Comment on above: Increased risk for d iabetes: 5.7 - 6.4diabetes: >6.4glycemic control for adults with diabetes: <7.0 Result Comment: Incr eased risk for diabetes: 5.7 - 6.4 diabetes: >6.4 glycemic control for adults with diabetes: <7.0 Performed By: #### C MP wRFX A1C, CBC, EBS A1C #### [address] ECG 12 lead ECGon 01-22-2024 ECG 12 lead ECG [facility] [place] [address] [place] [address] Electrocardiograph Report Signed Patient: Conchis Andrews MR#: [id number] : 1960 Acct:[id number] Age/Sex: 63 / M ADM Date: 01/22/24 Loc: PS Room: Type: [facility] Attending Dr: Kai Muse MD Ordering Provider: Kai Muse MD Date of Service: 01/22/2405/09/1449 ECG/ECG 12 lead ECG: Pre op Copies to: Test Reason : Blood Pressure : / mmHG Vent. Rate : 075 BPM Atrial Rate : 075 BPM P-R Int : 148 ms QRS Dur : 066 ms QT Int : 376 ms P-R-T Axes : 047 039 055 degrees QTc Int : 419 ms Normal sinus rhythm Normal ECG No previous ECGs available Confirmed by KADEN HOANG FACC, NORMA ([id number]) on 01/22/2024 4:39:03 PM Referred By: MILEY Electronically Signed By:NORMA BURTON MD FAC Transcribed By: ENRIQUE Signed By Norma Burton MD, FACC 01/22/24 1639 Normal [facility] Erythrocyte distribution wid th [Ratio] by Automated countOrdered By: Kai Muse on 01-22-2024 Erythrocyte distribution width (RBC) [Ratio] 13.7 % Normal 12.0-14.8 [facility] Comment on above: Performed By: #### C MP wRFX A1C, CBC, EBS A1C #### [facility] [address] [place] [address] [place] Erythrocytes [#/volume] in B lood by Automated countOrdered By: Kai Muse on 01-22-2024 RBC (Bld) [#/Vol] 3.96 10*6/uL Normal 3.90-5.60 [facility] Comment on above: Performed By: #### C MP wRFX A1C, CBC, EBS A1C #### [facility] [address] [place] [id number] [place] Glucose [Mass/volume] in Ser um or PlasmaOrdered By: Kai Muse on 01-22-2024 Glucose [Mass/Vol] 103 mg/dL High 70-100 [place] [facility] Comment on above: ADA recommended refe rence range Result Comment: ADA recommended reference range Performed By: #### C MP wRFX A1C, CBC, EBS A1C #### [facility] [address] Glucose mean value [Mass/vol ume] in Blood Estimated from glycated hemoglobinOrdered By: Kai Muse on 01-22-2024 Average glucose Estimated from glycated hemoglobin (Bld) [Mass/Vol] 108 mg/dL [facility] Hematocrit [Volume Fraction] of Blood by Automated countOrdered By: Kai Muse on 01-22-2024 Hematocrit (Bld) [Volume fraction] 38.8 % Normal 38.8-50.0 [facility] Comment on above: Performed By: #### C MP wRFX A1C, CBC, EBS A1C #### [address] Hemoglobin [Mass/volume] in BloodOrdered By: Kai Muse on 01-22-2024 Hemoglobin (Bld) [Mass/Vol] 13.4 g/dL Normal 13.0-17.0 [facility] Comment on above: Performed By: #### C MP wRFX A1C, CBC, EBS A1C #### [address] Leukocytes [#/volume] correc laurie for nucleated erythrocytes in Blood by Automated counOrdered By: Kai Muse on 01-22-2024 WBC corrected for nucl RBC Auto (Bld) [#/Vol] 8.7 10*3/uL 4.1-10.5 [facility] Leukocytes [#/volume] in Blo od by Automated countOrdered By: Kai Muse on 01-22-2024 WBC (Bld) [#/Vol] 8.7 10*3/uL Normal 4.1-10.5 [place] [facility] Comment on above: Performed By: #### C MP wRFX A1C, CBC, EBS A1C #### [facility] [address] [place] [address] [place] Lymphocytes [#/volume] in Bl ood by Automated countOrdered By: Kai Muse on 01-22-2024 Lymphocytes (Bld) [#/Vol] 2.1 10*3/uL Normal 1.00-4.8 [facility] Comment on above: Performed By: #### C MP wRFX A1C, CBC, EBS A1C #### [address] Lymphocytes/100 leukocytes i n Blood by Automated countOrdered By: Kai Muse on 01-22-2024 Lymphocytes/100 WBC (Bld) 24.7 % Normal . [facility] Comment on above: Performed By: #### C MP wRFX A1C, CBC, EBS A1C #### [address] MCH [Entitic mass] by Automa laurie countOrdered By: Kai Muse on 01-22-2024 MCH (RBC) [Entitic mass] 33.9 pg Normal 27.5-35.2 [facility] Comment on above: Performed By: #### C MP wRFX A1C, CBC, EBS A1C #### [address] MCHC Auto (RBC) [Mass/Vol]Or dered By: Kai Muse on 01-22-2024 MCHC (RBC) [Mass/Vol] 34.6 g/dL 32.5-35.6 [facility] MCV [Entitic volume] by Auto mated countOrdered By: Kai Muse on 01-22-2024 MCV (RBC) [Entitic vol] 98.0 fL Normal 83.5-101 [facility] Comment on above: Performed By: #### C MP wRFX A1C, CBC, EBS A1C #### [address] Neutrophils [#/volume] in Bl ood by Automated countOrdered By: Kai Muse on 01-22-2024 Neutrophils (Bld) [#/Vol] 5.2 10*3/uL Normal 1.8-7.7 [facility] Comment on above: Performed By: #### C MP wRFX A1C, CBC, EBS A1C #### [address] No Panel InformationOrdered By: Kai Muse on 01-22-2024 Estimated GFR (CKD-EPI) > 60.0 mL/Min [facility] Creatinine Clearance (Chem N/A [facility] Nucleated erythrocytes [Pres ence] in Blood by Automated countOrdered By: Kai Muse on 01-22-2024 Nucleated RBC Auto Ql (Bld) 0.1 /100{WBC} 0-0.5 [facility] Platelet mean volume [Entiti c volume] in Blood by Automated countOrdered By: Kai Muse on 01-22-2024 Platelet mean volume (Bld) [Entitic vol] 8.0 fL Normal 6.6-10.1 [facility] Comment on above: Performed By: #### C MP wRFX A1C, CBC, EBS A1C #### [facility] [address] [place] [address] [place] Platelets [#/volume] in Bloo d by Automated countOrdered By: Kai Muse on 01-22-2024 Platelets (Bld) [#/Vol] 293 10*3/uL Normal 150-450 [facility] Comment on above: Performed By: #### C MP wRFX A1C, CBC, EBS A1C #### [place] [address] [place] Potassium [Moles/volume] in Serum or PlasmaOrdered By: aKi Muse on 01-22-2024 Potassium [Moles/Vol] 4.1 mmol/L Normal 3.5-5.1 [facility] Comment on above: Performed By: #### C MP wRFX A1C, CBC, EBS A1C #### [facility] [address] [place] [address] [place] Protein [Mass/volume] in Ser um or PlasmaOrdered By: Kai Muse on 01-22-2024 Protein [Mass/Vol] 6.9 g/dL Normal 6.4-8.9 [facility] Comment on above: Performed By: #### C MP wRFX A1C, CBC, EBS A1C #### [place] [address] [place] Serum globulin measurement b y calculation (mass/volume)Ordered By: Kai Muse on 01-22-2024 Globulin (S) [Mass/Vol] 2.7 g/dL Normal [facility] Comment on above: Performed By: #### C MP wRFX A1C, CBC, EBS A1C #### [facility] [address] Serum or plasma albumin/glob ulin mass ratioOrdered By: Kai Muse on 01-22-2024 Albumin/Globulin [Mass ratio] 1.6 {ratio} Normal [facility] Comment on above: Performed By: #### C MP wRFX A1C, CBC, EBS A1C #### [facility] [address] Serum or plasma anion gap de terminationOrdered By: Kai Muse on 01-22-2024 Anion gap [Moles/Vol] 11.7 mmol/L Normal 6.0-15.0 [facility] Comment on above: Performed By: #### C MP wRFX A1C, CBC, EBS A1C #### [facility] [address] [place] [address] Sodium [Moles/volume] in Ser um or PlasmaOrdered By: Kai Muse on 01-22-2024 Sodium [Moles/Vol] 138 mmol/L Normal 136-145 [facility] Comment on above: Performed By: #### C MP wRFX A1C, CBC, EBS A1C #### [facility] [address] [place] [address] Urea nitrogen [Mass/volume] in Serum or PlasmaOrdered By: Kai Muse on 01-22-2024 Urea nitrogen [Mass/Vol] 22 mg/dL Normal 7-25 [facility] Comment on above: Performed By: #### C MP wRFX A1C, CBC, EBS A1C #### [facility] [address] Coding Summaryon 01-15-2024 Coding Summary HTMLBase 64 HxqusbxbKKo0qWn+PGhlYWQ +YC5OEXCuI48rrKYumR3gA0 NMTElOSywgQVBQTElOSyIgb yEkQK2ksWSrEAUy IC8+UV1rUMWiHksoeQOli5S 5uXX1E82xox6qQRattKA1NF EaHuKpmaqta8ajzCb3RArjG mluOyBt HMXvoZ95MRA7tG48Zt22cIC jyXJgc1zgsNv6TnInZCYzTA K6fYjvLPsdf0WzNDUaB37lo ULqk6D2 VHDjfMfeiLDmHqHtzDH4iW3 fSJfbxcuvg5bcyyhsCyl0dd 34wFUry4S1kCR6O0UzryB0G GJvbGQg KcdmnMPIrO4zkksjf5grwlw eJgKmKOZpNIn5UJq9YSFlqV wdTrUcUX61PZL1PGDjudMmD 2FsLWFs wXcsLeC1q4K6Xi9PH6NEVwa tD9UKQMXQMDsyuXM+PC90cj 75B5JyUrqvAhi0AFIxPKF4k ZA7bO3w OJKfGPnct2E1mWK1W0NmsyZ htm6zb4zsGYGiKIwtN10koV Ggl0Z8GZFeqSC7YPDsjZfqV iBzaG93 Oyc+KHIubDcge6UcCpclg6a hg6cfnIj7GjjhWRPefwKkzF iaGAB4c8WgMh0oNNRwzTQ8p QZ7xQ0r PkFsZoM8QPnaE639RjJesPA iBanmV33sO5RkwAW+PHRyPj q4ITIxiSxuYQ9cA1ZqIQWqa mctbGVm gFjzDE3gRCPijbtfJPTieJ5 dGJDoK3w7TyJrUuH5MDbgO3 IiXBEnldxnGt15xN8rGzKjA gF3VUfj V4YeywZ2SDEjrXNkGYzvUJP 7G01wj1D2VVBsUGFdHYH0oS O5jU5qnZpvsotmeDUztHedd mVydGlj UBrlQElyL379HQSicGmkVsF vZGluZyBEYXRlOiAgMDUvMD EvMjAyNDwvdGQ+TSXfDTH6n WxlPSAn gFOdMQypLk0qyPgbrNcoPN2 rREClfpgeUAFfmD2lJRLpeH VpqFgvLE4fIRXiphqqc601U iAxMHB0 GHCjqUMrY3VacJ0lIjDiVNR zSMNhX0KqtWKqXFwcC740BT hnTlA5EYGiegLmH4QqRHRkb WduOiB0 r0N7Ti2Jh4ToxpsyA6JnfSF qEfMvKplpYGb8F4KmXxfbyJ I+OI34VCJvVH46WSx7IDN8x WxlPSdi BDEhP8ZdiD3kEuTeYWVxJPP kOyc+PHRhYmxlIHdpZHRoPS clSSSpPuXmbPuwGK2zAn0eQ GVyLWNv sUfvcEXjZxAfz1ddOEApGDs dQV6hjFeeM6WsgMK4HQSsv3 z6Hv76S45jF0FgsFK+PGNvb DC3kMG8 hI5dRfRdGyS1CWzpF725QzQ jdJSyYxpge6zbz8axgTw5Hb B5JMMztwWhtZsiGJD2r8FnI j79F05r IHdpZHRoPSIxNSUiIHZhbGl yyc0mdJ9tQp1+VSLbyUD7nE D2pB2mByNsFeU4HFekX430J nRvcCIv Ywtxu2bvb8vaiIp1KlThQTC kyuJlwZmuOFJ4j2VcUr09L5 FfpEfqa1CvBnn2ug38qLRjt 3H0bZE5 X8PvNLFqwgmhxQGpgZykCE3 nCNLxjcksEHAkuK4gRNDvV1 m3UcIzPpH7DYjhO4KuvaC6J GJvbGQg RUNidVWBrR8vedkrl3plnsp gUjXeRHOqHKl6MAj9BDPgdD mkGrIuMCS9YgY4CHE9oURbj X7zkAdl wcnhwP5cRxz+NGV7qREmiTQ WFF0vLrhnhBF+VIAeICR2uS jbOVlgSKDseV1cVFAjZ4e5P iAwLjA1 YIqsC6YdzkE7QJLahJEgHNH pvNAXrY4ohcynu0lghlagNy JwEKYzVKz2WWo6LYJntJxuC iBsZWZ0 BeW5KTJ7cGZqsH8hgAdgakt cuK4bXji+MoaklMdkYRC7NJ h2F4RoWnb4PBDigUuxYT9zl GFkZGlu Xn9mpLpkbGhlUE6kZSAyflp oz602RvPee5cdYUBrgQYjPN vkYCY3R16zx6Q3REXxIKXoG CQ4vSS1 yV1wtSdzrlqahHAoxXgzvuO mdLptHDqfZOvjR905OKWxcM fjDpWeZIh0B2LiGmu1FXWsp OxcIO2n aYGpXBhxZn4usSqvuWnjNP2 qDYCgddhzd876EuEmw4uxYL CvjYYfBFvqJJA1F41nc8K4A CMwMDAw ZGA5bPV7sK5fbCymtoiadNJ mdDsgdmVydGljYWwtYWxpZ2 79GVBmnWpeOhVnwSa5C0IuZ cn7XWEm zYiwHA7rvNIaQUohRp0uhRb uzGvrUO1pYUIfekvro934Ne Buc5moDPLqlFKgWFccFOE4V 55hz2X2 GHKvYLYcMHA8wLQ4oF3vnIm nbjogbGVmdDsgdmVydGljYW vlPZfzZ627QENvcLcjAfDdg GllbnQg AQczHLf9G6LqTawtrCP+PC9 4QMWhME10tAOvzBYlt2wlbE u2RiTkMIBhHSL1uFpaEIsrs 3JkZXIt U81cbTUuc8F8HFVgmPbsfAK wHqWoqIS0xV0iJMzkiuiie0 lcizdqOhahs1awio03yZ71S 29sIHdp ZHRoPSIzMCUiIHZhbGlnbj0 cqD8kQg6+FEDubMM6wPX7iP 6dGSJyHjD1DVcoE334TnZub CIvPjxj q2wsj3lreZf3HnK9YSJyowR mkSfzRBR4m4FpPb65K84lKX dpZHRoPSIyMCUiIHZhbGlnb p4kgX7z Ii8+RWSznHU1fGI8kY1bIbZ fSoB3XOvdR213RkIxcZQtOr ceE66eL1UjlVA+SEWoMky4V CBzdHls ZX1nzVTiYQtwKf8wGTU7PqC aPxGcVExzF4CkHHIgfbbpvy jbiUL8NJMfVYOksY82Lw9yy DogMTBw dOKQdN4ojgbpl6gunygmEkR tPZShCUx5OQh3YMSqgXveRe QaAEK9JxT2MGR1kYDymP6xe Glnbjog bS1tI1KwMDRppqtuBo61hI2 vGqUyAtJ1SCzbDza+SEFWRU 4YAbeiJrWET4YAJNCURW04D K75dRGo j2J1tBE6I5AySWYwxkmsdgv lhYD5CBHiYVEtiX42bJRmWV ymPq1uh2G9r114NZXxCTYyr Q53Ve3p mFnqFQWpeVIJpG3ojmhwo8w pysyjAvWyVHSlDTh8TIx1DU VeaKyrRjMvVDH3YwC7TDN6z EXqhK9d rCqdbnrafP5iAfv+MDUvMTM jOGc7IotsfZY+MYKiGZZ5zC aiBRwoIPAqfH6yZSZtY1c4C iAwLjA1 THhyN4XjLYWutldwMl42yT9 aPbUjArR0APywU0JifbX9AX RybRVnAHgtIZW5B02br3Y5S CMwMDAw UWM1eFA2vS8viGizkddirCD mdDsgdmVydGljYWwtYWxpZ2 46IHRvcDsnPjYxIFllYXJzP N55IS48 vYTqu3L3qBW6G3HjRWNevhp atvbhgRV8XBHtQSGjhE70eK OhODkqIw8pm9M0n805HJEkJ DUwaW47 Kg9hbRjhJRXhqTSIeT5lexl ce7ekmxtjAwEjVQTuEMs5PL f7GHVriBneNkCnMNY7KzW2J SE0mZSs rR9tfEfrawvcpH4oFit+TUF MRTwvdGQ+QOElSNS8eMsaWX qbMOCuhP4eSPWsK5b3OlVhK oD6PMom T8QhUHIsxuvwYm99kO9uDpW zPmR0TMchR9VcbhC5HQOdjF GfYWozNEQ9G22mb3N7KFBiL DAwMDA7 cCO5fJ3ggJjpuecgaZFmpAh nweDmaYfiFPtaFCnaC581ZZ MymYtmNk9WYN88PC51F0MqI jwvdGFi bGU+PHRhYmxlIHdpZHRoPSc vMTUrVtKynQmaUJ2kEl8dFI DyKGUnnBkviNLfSdYbl6sgP XBzZTsg WV1hkCgwF9WtwUF4YNHpo5s 7Hz55C75mV8FoqUE+PGNvbC K5jUL6tA4gOoKnDwR9ARteB 249InRv xZPvWqssa6cem9tbbMd7ZdW vGFLeilMqxXkyZOV2x6PlHv 89H28yFBivAKGiSLOyMRHzA HZhbGln bg6laS5bTv9+UNDbpNE6qVS 9rF7kJvFbNqI5KMttK282Sn QlzIHdKtqmE78cI6KfbMX+P HRyPjx0 LNPymXgsSV3zsGKqKRjtPp5 cETC2JkBuGjVjOXdlT9VwRI SpcszqqjmliOO1HQMkCGJgy G80Yh6s aKxjOl4bGZDjDCQ1FBHxwPC mE5EtjC5bKxKgRYJoTQKtU4 XxyVSkTPuxL477VCikKzW2V HZlcnRp B3MmYFBxkLteGuL6e2J3Ua1 DqAgpsUBfAV8kNgXjHNa0P7 VbUfv8ZOHdnJohUN1ghPPcM GxrUp9j gOcrgTinYV4oJCXlaiouf87 5ZrUuk5hvWQBalUBkMCmyQV L1U97pc0D2PSQiUNIqXVC3b GN7eS0x bGlnbjogbGVmdDsgdmVydGl iNQgcLCxgI329YRUswNcuJv TVKpr3Z5TfDlg8PHOcsWfyU Y2taBQs DDljRq7ftPftdQytKA4fPMY psghih783QuYgk7mgPCImsL ElTVdpKET6L40rk6O2VEXcW DAwMDA7 vFI8gD6whMyysekgxOEiaRk sijGthIpkZKnkNVdtM380EM PmeXxnNn4MPva4C3GyPpd2N CBzdHls AH4vgGDnZEbaQz7atIeqzWw wXW8tKGYsbwkod759BuMsr1 ylBEVziNNhBKwsWJW0S91ut 7O9QCFs SYKfKXP5uTS0sD8usGdgmpf gbGVmdDsgdmVydGljYWwtYW apC401YOHhoXcuTkTggNTvW jwvdGQ+ FL13jx91T7QhSejzQqa0DVH cAFB9zVJ5oU0yHAWjDKjgr7 H7zKZ2L4UmegLdyz0wh4bqP XBzZTog Y29 (more content not included)... [facility] Rad - MRI Reporton Rad - MRI Report [id number] IFF Normal [facility] MRI LE Joint w/o Contrast Le fton 01-10-2024 MRI LE Joint w/o Contrast Left EXAM: MRI LE Joint w/o Contrast Left REASON FOR EXAM: Internal derangement of left knee. TECHNIQUE: Multiplanar, multisequence imaging of the left knee was performed without contrast COMPARISON: 03/20/2022. FINDINGS: Laterally, the iliotibial band, fibular collateral ligament, popliteus tendon and biceps tendon are intact. The ACL is intact. Lateral meniscus demonstrates focal free edge blunting of the lateral meniscal body (series 7, image 22) suspicious for small focal radial tear. No displaced meniscal fragment identified. Low to intermediate grade chondrosis of the lateral compartment. Medially, the medial collateral ligament is intact. The PCL is intact. There is some free edge fraying of the body of the medial meniscus. There is horizontal undersurface oblique tear involving the body posterior horn junction. No displaced meniscal fragment or significant meniscal extrusion. There is also free edge radial tear involving the posterior horn of the posterior horn root attachment. This is new from prior study. Low to intermediate grade chondrosis in the medial compartment. There is a chronic distal quadriceps tendon tear. A complete rupture not identified. Distal quadriceps enthesophytes are noted. The patella tendon is thickened with intermediate signal consistent with tendinosis. Proximal patellar enthesophytes is present. There is low-grade partial tearing of the proximal patellar tendon. The bone marrow signal is without fracture. Small joint effusion. The remaining regional musculature is without muscle strain or tendon tear. IMPRESSION: 1. New complex medial meniscal tear. 2. Likely small focal free edge radial tear of the lateral meniscus. 3. Chronic partial tear of the distal quadriceps tendon. 4. Moderate patellar tendinosis with low-grade partial tear involving the proximal tendon. 5. Moderate tricompartmental chondrosis. 6. Trace joint effusion Final Dictated by: Raymundo Almonte MD Dictated DT/TM: 01/10/24 1:32 Signed (Electronic Signature): Raymundo Almonte MD 01/10/24 1:46 pm Technologist: FILI Normal [facility] XR Skull < 4 Viewson 024 XR Skull < 4 Views EXAMINATION: XR Skul l < 4 Views HISTORY: PRE MRI COMPARISON: 03/20/2022 FINDINGS: ORBITS: Negative for a metallic foreign body. OTHER: Dentures are identified with metallic components IMPRESSION: No metallic foreign body in the orbits Final Dictated by: Christian Paniagua MD Dictated DT/TM: 01/10/24 8:19 Signed (Electronic Signature): Christian Paniagua MD 01/10/24 8:20 am Technologist: FILI [facility] Provider Orderson 01-07-2024 Provider Orders [id number] [facility] XR knee LT 2Von 01-07-2024 XR knee LT 2V [facility] [address] [place] [address] XRay Report Signed Patient: Conchis Andrews MR#: [id number] : 1960 Acct:[id number] Age/Sex: 63 / M ADM Date: 01/07/24 Loc: [facility] Room: Type: [facility] Attending Dr: Kai Muse MD Copies to: Kai Muse MD Ordering Provider: Kai Muse MD Date of Service: 01/07/24 XR/XR knee LT 2V: M17.12 - Unilateral primary osteoarthritis, left knee WEIGHTBEARING LEFT KNEE - 2 views COMPARISON: 04/11/2012 CLINICAL DATA: Generalized knee pain for months. No injury. AP and lateral views were obtained. There is no acute fracture or dislocation. No disproportionate joint space narrowing is present. There are enthesophytes at the superior and inferior pole of the patella as well as at the tibial tubercle. There are increasing bony ossicles superior to the patella which could be within the quadriceps tendon and/or loose bodies. There is no joint effusion. Atherosclerotic disease is seen. XR/XR knee LT 2V IMPRESSION: DEGENERATIVE CHANGES, GREATEST AROUND THE PATELLA. Impression dictated by: Chrissie Pfeiffer M.D.01/07/2024 12:12 PM Dictation Location: [place] [address] Transcribed By: PWS 01/07/24 1212 Dictated By: Chrissie Pfeiffer MD 01/07/24 1208 Signed By: 01/07/24 1212 Normal [facility] Coding Summaryon 11-13-2023 Coding Summary HTMLBase 64 YwqsfjslBYf4rKu+PGhlYWQ +EL2PJBDpA36nmJEqyB7bS8 NMTElOSywgQVBQTElOSyIgb eVkFM1wgMAhVKOh IC8+YM6iZRDgLrvvaBLqf3F 5iMS6L99gcp4wVHijcSD3ZT VlFfXpnhpbl7tteEz4BFgeA mluOyBt LQZeuE82XIG5eQ64Fz34xVN rnSZol6asdBr8FkDnVJUrEW L9cJydQDygf5QzQYTtC28id QTic2A1 PQYweIwjxIGpHeBvrXQ8dN5 nZNsywvzjs4khvjxbUyk5ip 41xTElr5V9bYV0T9UpubR4S GJvbGQg KkobyIZKyE6qwmmgq9rbqli qFwKyJPOaMYc7ZMa1MODgqD vfUvCcQA97KVT5UPNfqcFkT 2FsLWFs wDxeTcF4z8I3Ot7AB1PFCxx qA3WRJMHQVBhivDN+PC90cj 49R5VxDrjxVng4NDRbMZE0h BE1aT3d LCOgREwrk3S7oLC2H3AjvlF fyu2qt9lyVGYsVBfbB92ufJ Urg3L6LJXpeNQ0HJMqeBxbC iBzaG93 Oyc+AZOlxLjgy8VoVrluz0j pn5mslJe8NeljMDYhweKbxJ laUCR9t5NjOz2kDRApgCU2i QE1hS3o DiIvMpJ6MHxhQ731SxEeiPZ bErqhA44gH4LsnBN+PHRyPj s9YWWvgKrwRL3lQ9BtJOVll mctbGVm vXceHZ7lDOYxszafSECjqY0 zPIGvZ5l5FwWmPtG3HPblM9 UtBEQykgvrWo72fG9wFrJsU pV7VHnv W9KxecN3IEKhmIMdDDbdYMQ 3Z15ue5J0NKJhDFNrMZO2pL N2vI7vnTqdlaehnNXrrUxba mVydGlj MIeoKOqlE696FBJxnSrlUpG vZGluZyBEYXRlOiAgMDIvMj gvMjAyNDwvdGQ+HIGaNGN8s WxlPSAn tLNsQJxkHk9ggWyalFtbUY8 rCDFddzzsKZIhbN1vOIDpwK RsuXivOM6jNLJccythi962T iAxMHB0 FFFavZSeN8JxqW6qAtYnVYX jIVLzZ6GxkTCsZVrfL176QX okFxL0ARSzfuAcA0AsFEVgr WduOiB0 l9O7Vp1Gd2TpblrdL9GpeYA bVvQlLfibEMx8G4JuQazipP I+KD08WASjHT11JHa4XGO8y WxlPSdi RAVpG2TdiF2iPuXdQYGmVLX kOyc+PHRhYmxlIHdpZHRoPS laNEZoPrHudYdhMT4sEf7uE GVyLWNv bJtsuXSvKeNdo5jnRWGwJMh lNQ5dkDryM0DetAE4XZZbe7 y1Vw22V27hT0BnkFQ+PGNvb ZE2vZS2 dU8aClNoXzW5LVeyW298HxP mtJBkKictf7ydg3yqaMl6Da H2UNHoetUymHyxFHU7j0CnH w34T15b IHdpZHRoPSIxNSUiIHZhbGl vrp3bcF8aIr5+LKRuqPQ9xP A2aY6aAzOmLbF1WGztU187U nRvcCIv Igwcj7zur8qesLm4ImNwEED bpsBasDhfTCJ5c0DoTs86G6 NvoCehq5PnHxf1sa96rSXzz 3U1wRZ5 K5BbNTKgocvbsCHanOsfIF0 lARIfyijyYVGcvG7eBKXzG4 d8YsZkWkV7MYkrU5AojfA8L GJvbGQg ECFefRSTuQ1tdnmby9lvuqd aFtRhMZEbFWv3ZUc8RKZxvG tdLkSnQAW3OgH4KPB0aAJaj V1pyJlf ymzyqK3sCdb+JVS1xGKsuKX AIR8lEclreLP+SADpGKA3tX tdLXuiPBCyqB6vZESkJ7e5S iAwLjA1 RRpzB7SiwgD2ARUyhHZvLBF ikZFFwE4povqff7fybaqwYv LbWUIrURx6UJr9IROsbJmvY iBsZWZ0 AcR6RIH3iMXakI8twJbccgx glT1rZwt+JfqsbAscKJN0SK t0U2WiYvm1OTFyePivFS0bj GFkZGlu La9ilQthaFafZX9zSBTypgw vd047DpCea2kgSJJmkODnHQ dbDJU3F19uc3W4QZCsDCLyN BC9fJI8 uV5lmVqehabvuAZveFekouD vnSnjDZriTMmwX319OVBmkI pjJkExXKn5C7MlPbv5BHVqx SgdIK3u aYDqHCbeSq2jjQdtuQnpLB4 vZYBatbbwo025ZbAlp2rhXO DduMDfPAohYQB4S45jh6R4R CMwMDAw RPM7wCH0lH7ewUevctrpdCO mdDsgdmVydGljYWwtYWxpZ2 88EUMvaAyyPkBgsYp3C4BzC bg5SIWo nZvaLV5biIWnUCvqTo7wcGd njUewIU5kSYBkefymu062Vv Bzm0lcJERnjHDlJUzjTUG0V 89fe9E0 GAReYCDyRKH0uFS4yU7uuFf nbjogbGVmdDsgdmVydGljYW kyGZxrO383CTEvkNplAlCjm GllbnQg WBirKLx6S2HkMqkiwBX+PC9 6DNQpXW35hITsoRYlq9qnbN h2WfSsDVXeIKW4sWxoSTixg 3JkZXIt H94fkZFcv9T1ZLIjiXikfNT lXoVfzCQ0wM0fYGlrphycc8 hqdappAeslo5dxpn25gM76W 29sIHdp ZHRoPSIzMCUiIHZhbGlnbj0 lzH1kJn0+PALbtFL7uIE9gA 1pUMTsEhW0GJjdB356FyDgj CIvPjxj q7vry5lhaFl7MgB8TRIcrfJ hsGaxHIR6g5AoUq51S58sYT dpZHRoPSIyMCUiIHZhbGlnb u5nnD1v Ii8+RUTikJB8oII3qX8aAhO sPpH9XDowJ223ByJehBWqVi cpD96cE7FwuZK+ADCoSjl5L CBzdHls MR9iuHThHNafOq9hHDA5TnM hNnBwSLzuB6DqXPYwmutjuk ctxQU5GBUhJQMyzP57Vm5jc DogMTBw hOMZlQ3biwjrf2jqchayIkL wZBZrMQa9ERr2IHGxfPswJh RpJSW8GcB0NKI0xICuzY0us Glnbjog yJ2yY0WcFNSygwklMs90pZ2 sOxHdYdB2IIcwIns+SEFWRU 8PPdsoRtDES2UICPADEH52H O50uIXj y0T4xCL4C3DbQRWqwxetozz veIR6MXYrTRBvbY38aJSdIY jzPp0gp6Z7u535MKLdHIYds D78Kj0t oEfeQFBrzMWJbO6hkcueq4d qwerfTbAhVGWgDKp7PZt8PZ NkqXraPjEhKPG6PwB0DHW1g MJryP1t pFbmehyvwW2jOuh+MDUvMTM kYAj5UwbupOH+DFDfVRA4kR joRUqeLUWjrG1pFUEuG8a5K iAwLjA1 ASrzM9NlBHFssjprUe13eG4 fUnIcQoR5YUcwN3BoysR3SH ZivIQjUGqrZGL0P80bp6I0H CMwMDAw MGJ5vTR6tK1uvNqealnzoUE mdDsgdmVydGljYWwtYWxpZ2 46IHRvcDsnPjYxIFllYXJzP H33AT54 qAXln1N6eNK5R0SaDLApkiw ckcdltBD6FMIgFCNqnJ66mL FsCYjiTh4bf3W0c451QUPsR DUwaW47 Zc3crXtgUMTuiCJMfJ3swev dr7beslnfYkOuYIEvUEi6WH e1TLYjfEnaNrFlTVW3AiM7M RU1mXWc eU7qlJgkficnbM5rSdo+TUF MRTwvdGQ+RHDtYYR9jKqyPL kuYMGbeB5jLRCvZ1f3NxNoS vX4ZMlj X4ZsCPUbctefPe31gD4aQbO oGpK4BAvjW0ObhoQ3TJYlgV IyBLiuNXV1K54lu5B7KMVxS DAwMDA7 wEB5rG7hwBodoinsbOWfuTj ffqKygJdaRWepASdsR051BG VroTmpYr8CDC96MM82G6XuR jwvdGFi bGU+PHRhYmxlIHdpZHRoPSc vFWJkDnWitHcxGN8xTi6bEV MsENEdmSmzdXSiZwDkq7gvB XBzZTsg UX9orOfsZ2IfaLB6YQNth7f 0Oe87L56yP9KkaKN+PGNvbC K8cBG7uU6iDjAtCzW0LPzvF 249InRv aUCdGolnh1gyu8yceYn8NuV eAFMenfItqKsrPFE6x8HjSx 15F83jSMtkZYRdSLGfGFThE HZhbGln iw7qnJ5uRb4+GYJvgAS2hGW 7pA8dYdQcDiF4ADcqV051It IjcHHpIjviU39oY9KecKR+P HRyPjx0 VYQgaEwaOO1ewOJeJJpxQs0 fZHN9DrJzZeJpXOgyN3MuVI WujswqanldsSR2OHVpUOKcw I85Lb3n mRgkPz9kPIBsVPN6WFHzyIZ zF2HfgQ6oMlOcOGBdLFLtS4 CcmEQyBHobA194AZnrCpJ1G HZlcnRp D5NgZHOdoQziXgI2s0J3Wy8 KkVzjuNEvLA3cWtReEFi6N7 YcAsl7LACqsHehTD1vsFJkM ObpQp8t wIirxGgcDV2xTQJuawiuy07 0YqIhn0mgCRJnaBZlKAonQT B5J44lq9S7SLZlSEPcCDM0s YS7sB3a bGlnbjogbGVmdDsgdmVydGl fRYnrQCdrW869SQGrdOctOc QBErt7L5RkUmz0CEYeyEtuQ R4bzTDc AUxzQh2utYcemJyrTW7nSDA pbpsjq311ZwKtk7gjFHWwzX DrMHbuCJA4E49sp6Q2DYJmN DAwMDA7 gHN4kV2giLarfhdluYOigSs zzxHzdPujSIikHLtyJ514TB MbjFplCs1UDml0U2ZfCrx3E CBzdHls TO7fvFByQPadBa5ukWifrQk gAK0bWVSxblkax937BeBnt5 efAEVpzEVdBZlpFKD5Y44ib 6T2RFIx OLQnXVZ8hTX4gO6iiCcffiw gbGVmdDsgdmVydGljYWwtYW ebR846KJGwxWseNjCtxNPcH jwvdGQ+ AE11jm36Z4PrOcvzGxa6FJL rFSQ8bIR8xR8gNXSkFLqkv8 R5iBS7E7NlbsSwsa4fb1rjZ XBzZTog Y29 (more content not included)... Normal [facility] PSA Total+% Free (Serial) LC on 11-12-2023 % Free PSA Analyte Not Required Invalid Interpretation Code [facility] Comment on above: Result Comment: Unab le to calculate result since non-numeric result obtained for component test. The table below lists the probability of prostate cancer for men with non-suspicious CLARK results and total PSA between 4 and 10 ng/mL, by patient age (Lois et al, BHARATH 1998, 279:1542). % Free PSA 50-64 yr 65-75 yr 0.00-10.00% 56% 55% 10.01-15.00% 24% 35% 15.01-20.00% 17% 23% 20.01-25.00% 10% 20% >25.00% 5% 9% Please note: Lois et al did not make specific recommendations regarding the use of percent free PSA for any other population of men. Performed By: #### 7 592877, 48091729, [id number], [id number], [id number], [id number] ####[facility] (DEFAULT)[address] [place] [address] Prostate Specific Ag, Serum LC <0.1 Invalid Interpretation Code 0.0-4.0 [facility] Comment on above: Result Comment: Isabell martinez ECLUSHA methodology. According to the [employer], Serum PSA should decrease and remain at undetectable levels after radical prostatectomy. The AUA defines biochemical recurrence as an initial PSA value 0.2 ng/mL or greater followed by a subsequent confirmatory PSA value 0.2 ng/mL or greater. Values obtained with different assay methods or kits cannot be used interchangeably. Results cannot be interpreted as absolute evidence of the presence or absence of malignant disease. Performed By: #### 7 337638, 26032049, [id number], 904095050, [id number], [id number] ####[facility] (DEFAULT)[address] [place] [address] PSA, Free LC <0.02 Invalid Interpretation Code N/A [facility] Comment on above: Result Comment: Isabell AGOSTO methodology. Performed At: [facility] [address] [id number] Sanjay Dumas PhD Ph:[phone] Performed By: #### 7 206213, 50102380, [id number], 783316070, [id number], [id number] ####[facility] (DEFAULT)[address] [place] [address] .Auto Diff 11-09-2023 Auto [place] % 10 % Normal -12 [facility] Comment on above: Performed By: #### 7 876926, 66198934, 8759533690, 865465676, 4562730477, 55492482 ####[facility] (DEFAULT)[address] [place] [address] Baso Abs# 0.0 x10 Normal 0.0-0.2 [facility] Comment on above: Performed By: #### 7 988378, 98241043, 5121695128, 343291661, 0880938066, [id number] ####[facility] (DEFAULT)[address] [place] [address] Basophils/100 WBC (Bld) 0.8 % Normal 0.2-2.0 [facility] Comment on above: Performed By: #### 7 131634, 98741223, 4732801236, 163220193, 4779607213, 43777429 ####[facility] (DEFAULT)[address] [place] [address] Eos Abs# 0.4 x10 Normal 0.0-0.4 [facility] Comment on above: Performed By: #### 7 739366, 96475695, 4531017354, 134145295, 6382295124, 99200002 ####[facility] (DEFAULT)[address] [place] [address] Eosinophils/100 WBC (Bld) 7.1 % High 0.9-4.0 [facility] Comment on above: Performed By: #### 7 004704, 42023591, 2662716445, 553405216, 3318723350, 76123904 ####[facility] (DEFAULT)[address] [place] [address] Lymph Abs# 1.5 x10 Normal 1.3-2.9 [facility] Comment on above: Performed By: #### 7 852649, 22798651, 9410430084, 083327616, 8276421364, 30376879 ####[facility] (DEFAULT)[address] [place] [address] Lymphocytes/100 WBC (Bld) 25 % Normal 14-48 [facility] Comment on above: Performed By: #### 7 063022, 15801415, 5132715252, 135200677, 1659873391, 33346634 ####[facility] (DEFAULT)[address] [place] [address] [place] Abs# 0.7 x10 Normal 0.0-0.8 [facility] Comment on above: Performed By: #### 7 390491, 70244268, 1024846564, 095325800, 2728691493, 31854438 ####[facility] (DEFAULT)[address] [place] [address] 18858 Neut Abs# 3.6 x10 Normal 1.5-9.2 [facility] Comment on above: Performed By: #### 7 512152, 74324332, 5846804350, 466415092, 6602148939, 68025504 ####[facility] (DEFAULT)[address] [place] [address] Neutrophils/100 WBC (Bld) 57 % Normal 44-88 [facility] Comment on above: Performed By: #### 7 001560, 20975550, 8360226521, 488167314, 3733302198, 79339324 ####[facility] (DEFAULT)[address] [place] [address] Basophils Auto (Bld) [#/Vol] on 11-09-2023 Basophils (Bld) [#/Vol] 0.0 x10 0.0-0.2 [facility] Basophils/100 WBC Auto (Bld) on 11-09-2023 Basophils/100 WBC (Bld) 0.8 % 0.2-2.0 [facility] CBC w/ Auto Diffon Erythrocyte distribution width (RBC) [Ratio] 12.7 % Normal 11.5-15.0 [facility] Comment on above: Performed By: #### 7 120075, 86001499, 4782855395, 767571133, 3404794582, 68091578 ####[facility] (DEFAULT)[address] [place] [address] 22700 Hematocrit (Bld) [Volume fraction] 44.1 % Normal 34.8-51.9 [facility] Comment on above: Performed By: #### 7 049668, 62855650, 1360237605, 204217108, 1847380451, 51269067 ####[facility] (DEFAULT)[address] [place] [address] 29576 Hemoglobin (Bld) [Mass/Vol] 15.4 g/dL Normal 11.8-17.7 [facility] Comment on above: Performed By: #### 7 499332, 25771244, 2092167794, 203347396, 0954808274, 11703177 ####[facility] (DEFAULT)[address] [place] [address]604 Man Diff? Auto Invalid Interpretation Code [facility] Comment on above: Performed By: #### 7 293467, 74609904, 3581879131, 442179143, 7649439985, 33075652 ####[facility] (DEFAULT)[address] [place] [address] 07464 MCH (RBC) [Entitic mass] 34 pg Normal 24-34 [facility] Comment on above: Performed By: #### 7 318201, 63271070, 9296506076, 907893081, 9790971956, 22971303 ####[facility] (DEFAULT)[address] [place] [address] 89635 MCHC (RBC) [Mass/Vol] 35 g/dL Normal 26-37 [facility] Comment on above: Performed By: #### 7 125364, 21007109, 6614628466, 845371999, 1334973476, 69460569 ####[facility] (DEFAULT)[address] [place] [address] MCV (RBC) [Entitic vol] 96 fL Normal 81-100 [facility] Comment on above: Performed By: #### 7 656135, 84513986, 7156520037, 428693985, 5604283539, 04677202 ####[facility] (DEFAULT)[address] [place] [address] 25771 Platelet 314 x10 Normal 138-427 [facility] Comment on above: Performed By: #### 7 296957, 08290272, 3242188731, 819117215, 8819719448, 05004791 ####[facility] (DEFAULT)[address] [place] [address] 93053 Platelet mean volume (Bld) [Entitic vol] 7.7 fL Normal 6.3-10.2 [facility] Comment on above: Performed By: #### 7 637314, 23756492, 2646081363, 731041600, 9087636173, 99084541 ####[facility] (DEFAULT)[address] [place] [address] 07817 RBC 4.58 x10 Normal 3.70-5.30 [facility] Comment on above: Performed By: #### 7 639088, 39427489, 4472871884, 739259577, 5048250501, 95666536 ####[facility] (DEFAULT)[address] [place] [address] 08292 WBC 6.2 x10 Normal 3.5-10.5 [facility] Comment on above: Performed By: #### 7 251794, 01699828, 2968266442, 164720104, 2264450630, 09530120 ####[facility] (DEFAULT)[address] [place] [address] CMP Standardon 11-09-2023 eGFR Non AA >60 Invalid Interpretation Code [facility] Comment on above: Performed By: #### 7 282320, 09119576, 2037022637, 971330951, 2585939531, 90131778 ####[facility] (DEFAULT)[address] [place] [address] eGFR AA >60 Invalid Interpretation Code [facility] Comment on above: Performed By: #### 7 855087, 26554375, 9009728606, 251363847, 8692248080, 14894787 ####[facility] (DEFAULT)[address] [place] [address] Albumin [Mass/Vol] 3.9 g/dL Normal 3.5-5.0 [facility] Comment on above: Performed By: #### 7 977058, 62956868, [id number], 070854317, [id number], 89541183 ####[facility] (DEFAULT)[address] [place] [address] Albumin/Globulin [Mass ratio] 1.0 {ratio} Low 1.4-2.6 [facility] Comment on above: Performed By: #### 7 970609, 87574715, 0254956812, 111810162, 5460838469, 02657500 ####[facility] (DEFAULT)[address] [place] [address] 59095 Alk Phos 67 IU/L Normal 32-91 [facility] Comment on above: Performed By: #### 7 475810, 99046028, 2929147313, 004265102, 0321587482, 50138197 ####[facility] (DEFAULT)[address] [place] [address] ALT [Catalytic activity/Vol] 23.0 U/L Normal 17.0-63.0 [facility] Comment on above: Performed By: #### 7 439368, 79981878, 9336384853, 483516553, 3421171587, 81928468 ####[facility] (DEFAULT)[address] [place] [address] 18666 Anion gap [Moles/Vol] 12.9 mmol/L Normal 5.0-19.0 [facility] Comment on above: Performed By: #### 7 583577, 02895381, 0023782858, 819031369, 7969839754, 95790133 ####[facility] (DEFAULT)[address] [place] [address] 14519 AST [Catalytic activity/Vol] 25 U/L Normal 15-41 [facility] Comment on above: Performed By: #### 7 750398, 19067792, 9920914123, 881266403, 2000534887, 52417884 ####[facility] (DEFAULT)[address] [place] [address] 66654 Bili Total 0.8 mg/dL Normal 0.3-1.2 [facility] Comment on above: Performed By: #### 7 072723, 02669496, 1458446837, 784287017, 9884734868, 12424817 ####[facility] (DEFAULT)[address] [place] [address] 65342 Calcium [Mass/Vol] 9.0 mg/dL Normal 8.9-10.3 [facility] Comment on above: Performed By: #### 7 858936, 43422528, 7447033856, 924360546, 7462125129, 70466592 ####[facility] (DEFAULT)[address] [place] [address] 48520 Chloride [Moles/Vol] 102 mmol/L Normal 101-111 [facility] Comment on above: Performed By: #### 7 533579, 33694993, 7583588568, 683244528, 8927479219, 37900770 ####[facility] (DEFAULT)[address] [place] [address] 24717 CO2 [Moles/Vol] 24 mmol/L Normal 21-32 [facility] Comment on above: Performed By: #### 7 255586, 07015323, 0826728084, 877691598, 1500097663, 22756816 ####[facility] (DEFAULT)[address] [place] [address] 34493 Creatinine [Mass/Vol] 0.95 mg/dL Normal 0.90-1.30 [facility] Comment on above: Performed By: #### 7 584586, 21493966, 1571234051, 994648945, 7304044799, 56489316 ####[facility] (DEFAULT)[address] [place] [address] 07804 Globulin (S) [Mass/Vol] 3.8 g/dL Normal 1.5-4.3 [facility] Comment on above: Performed By: #### 7 818915, 90119729, 1424239911, 581624139, 2985253814, 60769852 ####[facility] (DEFAULT)[address] [place] [address] 92803 Glucose [Mass/Vol] 105.0 mg/dL Normal 74.0-118.0 [facility] Comment on above: Performed By: #### 7 763904, 07247004, 1718612326, 192731449, 8550882631, 98786240 ####[facility] (DEFAULT)[address] [place] [address] 05067 Osmolality 270 mOsm/L Invalid Interpretation Code [facility] Comment on above: Performed By: #### 7 883939, 03616417, 8849247242, 674765481, 7720359890, 44035455 ####[facility] (DEFAULT)[address] [place] [address] 21511 Potassium [Moles/Vol] 3.9 mmol/L Normal 3.6-5.1 [facility] Comment on above: Performed By: #### 7 179067, 31020551, 6228829917, 587295377, 6278699991, 39702336 ####[facility] (DEFAULT)[address] [place] [address] 03461 Protein [Mass/Vol] 7.7 g/dL Normal 6.5-8.1 [facility] Comment on above: Performed By: #### 7 055805, 34985408, 9954002257, 366852984, 8602092924, 48942272 ####[facility] (DEFAULT)[address] [place] [address] 99339 Sodium [Moles/Vol] 135.0 mmol/L Low 136.0-144.0 [facility] Comment on above: Performed By: #### 7 127063, 19454481, 0458168687, 191387000, 0917658923, 48900784 ####[facility] (DEFAULT)[address] [place] [address] 19135 Urea nitrogen [Mass/Vol] 13 mg/dL Normal 8-26 [facility] Comment on above: Performed By: #### 7 321976, 67871568, 0911573335, 069418980, 3371568429, 61356330 ####[facility] (DEFAULT)[address] [place] [address] 92889 Urea nitrogen/Creatinine [Mass ratio] 13.6 mg/mg Normal 4.6-16.2 [facility] Comment on above: Performed By: #### 7 260048, 92884207, 4146728945, 668782577, 7138669146, 16120190 ####[facility] (DEFAULT)[address] [place] [address] 60815 Cholesterol in LDL Calc [Mas s/Vol]on 11-09-2023 Cholesterol in LDL [Mass/Vol] 66 mg/dL 1-100 [facility] Cholesterol in VLDL Calc [Ma ss/Vol]on 11-09-2023 Cholesterol in VLDL [Mass/Vol] 48 mg/dL 5-40 [facility] Eosinophils/100 WBC Auto (Bl d)on 11-09-2023 Eosinophils/100 WBC (Bld) 7.1 % 0.9-4.0 [facility] Erythrocyte distribution wid th Auto (RBC) [Ratio]on 11-09-2023 Erythrocyte distribution width (RBC) [Ratio] 12.7 % 11.5-15.0 [facility] Estimated glomerular filtrat ion rate (GFR) non- Americanon 11-09-2023 GFR/1.73 sq M.predicted among non-blacks MDRD (S/P/Bld) [Vol rate/Area] mL/min/{1.73_m2} [facility] Globulin Calc (S) [Mass/Vol] on 11-09-2023 Globulin (S) [Mass/Vol] 3.8 g/dL 1.5-4.3 [facility] Hematocrit Auto (Bld) [Volum e fraction]on 11-09-2023 Hematocrit (Bld) [Volume fraction] 44.1 % 34.8-51.9 [facility] Hemoglobin [Mass/volume] in Bloodon 11-09-2023 Hemoglobin (Bld) [Mass/Vol] 15.4 g/dL 11.8-17.7 [facility] - Chemistry and C hemistry - challengeon 11-09-2023 Albumin [Mass/Vol] 3.9 g/dL 3.5-5.0 [facility] ALP [Catalytic activity/Vol] 67 U/L 32-91 [facility] ALT [Catalytic activity/Vol] 23.0 U/L 17.0-63.0 [facility] AST [Catalytic activity/Vol] 25 U/L 15-41 [facility] Bilirubin [Mass/Vol] 0.8 mg/dL 0.3-1.2 [facility] Calcium [Mass/Vol] 9.0 mg/dL 8.9-10.3 [facility] Chloride [Moles/Vol] 102 mmol/L 101-111 [facility] Cholesterol [Mass/Vol] 166.0 mg/dL 66.0-200.0 [facility] Cholesterol in HDL [Mass/Vol] 52 mg/dL 40-71 [facility] CO2 [Moles/Vol] 24 mmol/L 21-32 [facility] Creatinine [Mass/Vol] 0.95 mg/dL 0.90-1.30 [facility] GFR/1.73 sq M.predicted MDRD (S/P/Bld) [Vol rate/Area] mL/min/{1.73_m2} [facility] Glucose [Mass/Vol] 105.0 mg/dL 74.0-118.0 [facility] Potassium [Moles/Vol] 3.9 mmol/L 3.6-5.1 [facility] Protein [Mass/Vol] 7.7 g/dL 6.5-8.1 [facility] Sodium [Moles/Vol] 135.0 mmol/L 136.0-144.0 [facility] Triglyceride [Mass/Vol] 240.0 mg/dL 0.0-150.0 [facility] TSH Qn 3.23 m[IU]/L 0.45-5.33 [facility] Comment on above: General Population ( males and non- females, aged 21-88) 0.45 - 5.33 Females, 1st Trimester 0.05 - 3.70 Females, 2nd Trimester 0.31 - 4.35 Females, 3rd Trimester 0.41 - 5.18 Urea nitrogen [Mass/Vol] 13 mg/dL 8-26 [facility] Urea nitrogen/Creatinine [Mass ratio] 13.6 mg/mg 4.6-16.2 [facility] Leukocytes [#/volume] correc laurie for nucleated erythrocytes in Blood by Automated counon 11-09-2023 WBC corrected for nucl RBC Auto (Bld) [#/Vol] 6.2 x10 3.5-10.5 [facility] Lipid Panel Standardon 11-09 Cholesterol [Mass/Vol] 166.0 mg/dL Normal 66.0-200.0 [facility] Comment on above: Performed By: #### 7 [id number], [id number], [id number], [id number], [id number], [id number] ####[facility] (DEFAULT)[address] [place] [address] Cholesterol in HDL [Mass/Vol] 52 mg/dL Normal 40-71 [facility] Comment on above: Performed By: #### 7 [id number], [id number], [id number], [id number], [id number], [id number] ####[facility] (DEFAULT)[address] [place] [address] Cholesterol in LDL [Mass/Vol] 66 mg/dL Normal 1-100 [facility] Comment on above: Performed By: #### 7 [id number], [id number], [id number], [id number], [id number], [id number] ####[facility] (DEFAULT)[address] [place] [address] Cholesterol.total/Thania sterol in HDL [Mass ratio] 3.1 {ratio} Normal 0.0-4.5 [facility] Comment on above: Performed By: #### 7 [id number], [id number], [id number], [id number], [id number], [id number] ####[facility] (DEFAULT)[address] [place] [address] Triglyceride [Mass/Vol] 240.0 mg/dL High 0.0-150.0 [facility] Comment on above: Performed By: #### 7 [id number], [id number], [id number], [id number], [id number], [id number] ####[facility] (DEFAULT)[address] [place] [address] VLDL. 48 mg/dL High 5-40 [facility] Comment on above: Performed By: #### 7 [id number], [id number], [id number], [id number], [id number], [id number] ####[facility] (DEFAULT)[address] [place] [address] Lymphocytes Auto (Bld) [#/Vo l]on 11-09-2023 Lymphocytes (Bld) [#/Vol] 1.5 x10 1.3-2.9 [facility] Lymphocytes/100 WBC Auto (Bl d)on 11-09-2023 Lymphocytes/100 WBC (Bld) 25 % 14-48 [facility] MCH Auto (RBC) [Entitic mass ]on 11-09-2023 MCH (RBC) [Entitic mass] 34 pg 24-34 [facility] MCHC Auto (RBC) [Mass/Vol]on 11-09-2023 MCHC (RBC) [Mass/Vol] 35 g/dL 26-37 [facility] MCV Auto (RBC) [Entitic vol] on 11-09-2023 MCV (RBC) [Entitic vol] 96 fL 81-100 [facility] Microalb/Creat Ratioon 11-09 U Creatinine 95.71 mg/dL Invalid Interpretation Code [facility] Comment on above: Performed By: #### 2 [id number] ####[facility] (DEFAULT)[address] [place] [address] U Micro Albumin 5.7 mcg/mL Normal 0.0-18.9 [facility] Comment on above: Performed By: #### 2 [id number] ####[facility] (DEFAULT)[address] [place] [address] U Micro/Creat 6 mcg/mg Normal 0-30 [facility] Comment on above: Performed By: #### 2 [id number] ####[facility] (DEFAULT)[address] [place] [address] Monocytes Auto (Bld) [#/Vol] on 11-09-2023 Monocytes (Bld) [#/Vol] 0.7 x10 0.0-0.8 [facility] Monocytes/100 WBC Auto (Bld) on 11-09-2023 Monocytes/100 WBC (Bld) 10 % 1-12 [facility] Neutrophils Auto (Bld) [#/Vo l]on 11-09-2023 Neutrophils (Bld) [#/Vol] 3.6 x10 1.5-9.2 [facility] Neutrophils/100 WBC Auto (Bl d)on 11-09-2023 Neutrophils/100 WBC (Bld) 57 % 44-88 [facility] No Panel Informationon 11-09 Urine Microalbumin mg/dl 5.7 mcg/mL 0.0-18.9 [facility] Urine Random Creatinine 95.71 mg/dL [facility] Add Manual Differential Auto Auto [facility] Eosinophils # (Auto) 0.4 x10 0.0-0.4 [facility] Free Prostate Specific Antigen <0.02 ng/mL N/A [facility] Comment on above: Farhat ECLIA methodol ogy.Performed At: Lab[address] [id number] Vincent PhD Ph:[phone] Osmolality 270 mOsm/L [facility] Prostate Specific Antigen Total <0.1 ng/mL 0.0-4.0 [facility] Comment on above: Farhat ECLIA methodol ogy.According to the [employer] [employer], Serum PSAshould decrease and remain at undetectable levels afterradical prostatectomy. The AUA defines biochemicalrecurrence as an initial PSA value 0.2 ng/mL or greaterfollowed by a subsequent confirmatory PSA value 0.2 ng/mLor greater. Values obtained with different assay methods orkits cannot be used interchangeably. Results cannot beinterpreted as absolute evidence of the presence or absenceof malignant disease. Platelet mean volume Auto (B ld) [Entitic vol]on 11-09-2023 Platelet mean volume (Bld) [Entitic vol] 7.7 fL 6.3-10.2 [facility] Platelets Auto (Bld) [#/Vol] on 11-09-2023 Platelets (Bld) [#/Vol] 314 x10 138-427 [facility] Provider Orderson 11-09-2023 Provider Orders [id number] [facility] RBC Auto (Bld) [#/Vol]on RBC (Bld) [#/Vol] 4.58 x10 3.70-5.30 [facility] Serum or plasma albumin/glob ulin mass ratioon 11-09-2023 Albumin/Globulin [Mass ratio] 1.0 {ratio} 1.4-2.6 [facility] Serum or plasma anion gap de terminationon 11-09-2023 Anion gap [Moles/Vol] 12.9 mmol/L 5.0-19.0 [facility] Serum or plasma free prostat e specific antigen (PSA)/total PSA ratioon 11-09-2023 Free PSA/Total PSA [Mass fraction] Analyte Not Required % [facility] Comment on above: Unable to calculate result since non-numeric resultobtained for component test.The table below lists the probability of prostate cancer formen with non-suspicious CLARK results and total PSA between4 and 10 ng/mL, by patient age (Lois et al, BHARATH 1998,279:1542). % Free PSA 50-64 yr 65-75 yr 0.00-10.00% 56% 55% 10.01-15.00% 24% 35% 15.01-20.00% 17% 23% 20.01-25.00% 10% 20% >25.00% 5% 9%Please note: Lois et al did not make specific recommendations regarding the use of percent free PSA for any other population of men. Serum or plasma total choles terol/high density lipoprotein (HDL) cholesterol mass eneida 11-09-2023 Cholesterol.total/Thania sterol in HDL [Mass ratio] 3.1 {ratio} 0.0-4.5 [facility] TSH w/ Reflex to FT4on 11-09 TSH Qn 3.23 m[IU]/L Normal 0.45-5.33 [facility] Comment on above: Result Comment: Gene ral Population (males and non- females, aged 21-88) 0.45 - 5.33 Females, 1st Trimester 0.05 - 3.70 Females, 2nd Trimester 0.31 - 4.35 Females, 3rd Trimester 0.41 - 5.18 Performed By: #### 7 [id number], [id number], [id number], [id number], [id number], [id number] ####[facility] (DEFAULT)[address] [place] [address] Urine microalbumin/creatinin e mass ratioon 11-09-2023 Albumin/Creatinine DL <= 20 mg/L (U) [Mass ratio] 6 mcg/mg 0-30 [facility] XR shoulder RT min 2V*on XR shoulder RT min 2V* [facility] [place] [address] XRay Report Signed Patient: Conchis Andrews MR#: [id number] : 1960 Acct:[id number] Age/Sex: 63 / M ADM Date: 04/30/23 Loc: [facility] Room: Type: [facility] CLI Attending Dr: Andrew Shen DO Copies to: Andrew Shen DO Ordering Provider: Andrew Shen DO Date of Service: 04/30/23 XR/XR shoulder RT min 2V*: M25.511 RIGHT SHOULDER - 3 views CLINICAL HISTORY: Right shoulder pain for the past month COMPARISON: None AP, Y and Grashey views were obtained. There is no evidence of fracture or dislocation. There is slight superior subluxation of the humeral head with narrowing of the acromiohumeral interval. This may suggest impingement, if not rotator cuff disease. There is mild hypertrophic degenerative change at the acromioclavicular joint. There is subchondral cystic change and sclerosis at the greater tuberosity. There is minimal marginal spurring at the inferior glenohumeral joint. There are no significant soft tissue abnormalities. XR/XR shoulder RT min 2V* IMPRESSION: DEGENERATIVE CHANGES AND POSSIBLE ROTATOR CUFF DISEASE. Impression dictated by: Chrissie Pfeiffer M.D.04/30/2023 2:29 PM Dictation Location: [place] [address] Transcribed By: [facility] 04/30/23 1429 Dictated By: Chrissie Pfeiffer MD 04/30/23 1427 Signed By: 04/30/23 1429 Normal [facility] Basic Metabolic PanelOrdered By: Nathan Proctor on 08-29-2019 Anion gap [Moles/Vol] 10 mmol/L 9 - 17 mmol/L [facility] Phone: Bun/Cre Ratio 13 [employer] Phone: Calcium [Mass/Vol] 8.6 mg/dL 8.6 - 10. 4 mg/dL [facility] Phone: Chloride [Moles/Vol] 102 mmol/L 98 - 10 7 mmol/L [facility] Phone: CO2 [Moles/Vol] 26 mmol/L 20 - 31 mmol/L [facility] Phone: Creatinine [Mass/Vol] 1.05 mg/dL 0.7 - 1.2 mg/dL [facility] Phone: GFR >60 >60 mL/min [employer] Phone: GFR Comment [facility] Phone: Comment on above: Average GFR for 50-5 9 years old: 93 mL/min/1.73sq m Chronic Kidney Disease: <60 mL/min/1.73sq m Kidney failure: <15 mL/min/1.73sq m eGFR calculated using average adult body mass. Additional eGFR calculator available at: http://www.SentiOne/Cheezburger_crcl_2011.htm GFR Non- >60 >60 mL/min [facility] Phone: GFR Staging NOT REPORTED [employer] Phone: Glucose [Mass/Vol] 132 mg/dL High 70 - 99 mg/dL [facility] Phone: Interpretation and review of laboratory results Abnormal [facility] Phone: Potassium [Moles/Vol] 4.2 mmol/L 3.7 - 5.3 mmol/L [facility] Phone: Sodium [Moles/Vol] 138 mmol/L 135 - 144 mmol/L [facility] Phone: Urea nitrogen [Mass/Vol] 14 mg/dL 6 - 20 mg/dL [facility] Phone: Basic Metabolic Profon 08-29 (cont.) Normal [facility] Comment on above: Result Comment: Aver age GFR for 50-59 years old: 93 mL/min/1.73sq m Chronic Kidney Disease: <60 mL/min/1.73sq m Kidney failure: <15 mL/min/1.73sq m eGFR calculated using average adult body mass. Additional eGFR calculator available at: http://www.SentiOne/Cheezburger_crcl_2011.htm Performed By: #### C BC, BMP #### [facility] [address] [place] [address] Veneer Sample Maker: Zhou Blackburn MD Anion gap [Moles/Vol] 10 mmol/L Normal 9-17 [facility] Comment on above: Performed By: #### C MATEUS, BMP #### [facility] [address] [place] [address] [employer]eneer Sample Maker: Zhou Blackburn MD BUN/CRE Ratio 13 Normal 9-20 [facility] Comment on above: Performed By: #### C MATEUS, BMP #### [facility] [address] [place] [address] [employer]eneer Sample Maker: Zhou Blackburn MD Calcium [Mass/Vol] 8.6 mg/dL Normal 8.6-10.4 [facility] Comment on above: Performed By: #### C MATEUS, BMP #### [facility] [address] [place] [address] [employer]eneer Sample Maker: Zhou Blackburn MD Chloride [Moles/Vol] 102 mmol/L Normal 98-107 [facility] Comment on above: Performed By: #### C MATEUS, BMP #### [facility] [address] [place] [address] [employer]eneer Sample Maker: Zhou Blackburn MD CO2 [Moles/Vol] 26 mmol/L Normal 20-31 [facility] Comment on above: Performed By: #### C MATEUS, BMP #### [facility] [address] [place] [address] [employer]eneer Sample Maker: Zhou Blackburn MD Creatinine [Mass/Vol] 1.05 mg/dL Normal 0.70-1.20 [facility] Comment on above: Performed By: #### C BC, BMP #### [facility] [address] [place] [address] [employer] Sample Maker: Zhou Blackburn MD GFR, Amer >60 Normal >60 [facility] Comment on above: Performed By: #### C BC, BMP #### [facility] [address] [place] [place] [address] Veneer Sample Maker: Zhou Blackburn MD GFR,non Amer >60 Normal >60 [facility] Comment on above: Performed By: #### C BC, BMP #### [facility] [place] [address] Veneer Sample Maker: Zhou Blackburn MD Glucose [Mass/Vol] 132 mg/dL High 70-99 [facility] Comment on above: Performed By: #### C BC, BMP #### [facility] [place] [address] Veneer Sample Maker: Zhou Blackburn MD Potassium [Moles/Vol] 4.2 mmol/L Normal 3.7-5.3 [facility] Comment on above: Performed By: #### C BC, BMP #### [facility] [place] [address] Veneer Sample Maker: Zhou Blackburn MD Sodium [Moles/Vol] 138 mmol/L Normal 135-144 [facility] Comment on above: Performed By: #### C BC, BMP #### [facility] [place] [address] Veneer Sample Maker: Zhou Blackburn MD Urea nitrogen [Mass/Vol] 14 mg/dL Normal 6-20 [facility] Comment on above: Performed By: #### C BC, BMP #### [facility] [place] [place] [address] Veneer Sample Maker: Zhou Blackburn MD Staging: NOT REPORTED Normal [facility] Comment on above: Performed By: #### C BC, BMP #### [facility] [address] [facility] [place] [address] Veneer Sample Maker: Zhou Blackburn MD CBCon 08-29-2019 Erythrocyte distribution width (RBC) [Ratio] 11.9 % Normal 11.8-14.4 [facility] Comment on above: Performed By: #### Krys IGNACIO, BMP #### [facility] [place] [address] Veneer Sample Maker: Zhou Blackburn MD Hematocrit (Bld) [Volume fraction] 41.2 % Normal 40.7-50.3 [facility] Comment on above: Performed By: #### C MATEUS, BMP #### [facility] [place] [address] Veneer Sample Maker: Zhou Blackburn MD Hemoglobin (Bld) [Mass/Vol] 13.6 g/dL Normal 13.0-17.0 [facility] Comment on above: Performed By: #### Krys IGNACIO, BMP #### [facility] [address] [place] [address]. [place] [address] Veneer Sample Maker: Zhou Blackburn MD MCH (RBC) [Entitic mass] 32.9 pg Normal 25.2-33.5 [facility] Comment on above: Performed By: #### C MATEUS, BMP #### [facility] [address] [place] [address]. [place] [address] Veneer Sample Maker: Zhou Blackburn MD MCHC (RBC) [Mass/Vol] 33.0 g/dL Normal 28.4-34.8 [facility] Comment on above: Performed By: #### C MATEUS, BMP #### [facility] [place] [place] [address] Veneer Sample Maker: Zhou Blackburn MD MCV (RBC) [Entitic vol] 99.8 fL Normal 82.6-102.9 [facility] Comment on above: Performed By: #### C MATEUS, BMP #### [facility] [address] [place] [address] Veneer Sample Maker: Zhou Blackburn MD NRBC Automated 0.0 per 100 WBC Normal 0.0 [facility] Comment on above: Performed By: #### C MATEUS, BMP #### [facility] [place] [address] Veneer Sample Maker: Zhou Blackburn MD Platelet mean volume (Bld) [Entitic vol] 10.1 fL Normal 8.1-13.5 [facility] Comment on above: Performed By: #### C MATEUS, BMP #### [facility] [address] [place], [place] [address] [place] [address] Veneer Sample Maker: Zhou Blackburn MD Platelets (Bld) [#/Vol] 245 10*3/uL Normal 138-453 [facility] Comment on above: Performed By: #### C MATEUS, BMP #### [facility] [facility] [place] [address] Veneer Sample Maker: Zhou Blackburn MD RBC (Bld) [#/Vol] 4.13 10*6/uL Low 4.21-5.77 [facility] Comment on above: Performed By: #### C MATEUS, BMP #### [facility] [facility] [place] [address] Veneer Sample Maker: Zhou Blackburn MD WBC (Bld) [#/Vol] 19.3 10*3/uL High 3.5-11.3 [facility] Comment on above: Performed By: #### C MATEUS, BMP #### [facility] [place] [address] Veneer Sample Maker: Zhou Blackburn MD CBCOrdered By: Nathan Proctor on 08-29-2019 Erythrocyte distribution width (RBC) [Ratio] 11.9 % 11.8 - 14.4 % [facility] Phone: Hematocrit (Bld) [Volume fraction] 41.2 % 40.7 - 50.3 % [facility] Phone: Hemoglobin (Bld) [Mass/Vol] 13.6 g/dL 13 - 17 g/dL [facility] Phone: Interpretation and review of laboratory results Abnormal [facility] Phone: MCH (RBC) [Entitic mass] 32.9 pg 25.2 - 33.5 pg [facility] Phone: MCHC (RBC) [Mass/Vol] 33.0 g/dL 28.4 - 34.8 g/dL [facility] Phone: MCV (RBC) [Entitic vol] 99.8 fL 82.6 - 102.9 fL [facility] Phone: NRBC Automated 0.0 0.0 per 100 WBC [facility] Phone: Platelet mean volume (Bld) [Entitic vol] 10.1 fL 8.1 - 13.5 fL [facility] Phone: Platelets (Bld) [#/Vol] 245 10*3/uL [facility] Phone: RBC (Bld) [#/Vol] 4.13 10*6/uL Low 4.21 - 5.7 7 m/uL [facility] Phone: WBC (Bld) [#/Vol] 19.3 10*3/uL High [facility] Phone: Basic Metabolic PanelOrdered By: Nathan Proctor on 08-28-2019 Anion gap [Moles/Vol] 15 mmol/L 9 - 17 mmol/L [facility] Phone: Bun/Cre Ratio 15 [employer] Phone: Calcium [Mass/Vol] 8.9 mg/dL 8.6 - 10. 4 mg/dL [facility] Phone: Chloride [Moles/Vol] 99 mmol/L 98 - 10 7 mmol/L [facility] Phone: CO2 [Moles/Vol] 22 mmol/L 20 - 31 mmol/L [facility] Phone: Creatinine [Mass/Vol] 1.06 mg/dL 0.7 - 1.2 mg/dL [facility] Phone: GFR >60 >60 mL/min [employer] Phone: GFR Comment [facility] Phone: Comment on above: Average GFR for 50-5 9 years old: 93 mL/min/1.73sq m Chronic Kidney Disease: <60 mL/min/1.73sq m Kidney failure: <15 mL/min/1.73sq m eGFR calculated using average adult body mass. Additional eGFR calculator available at: http://www.SentiOne/multiple_crcl_2012.htm GFR Non- >60 >60 mL/min [facility] Phone: GFR Staging NOT REPORTED [employer] Phone: Glucose [Mass/Vol] 154 mg/dL High 70 - 99 mg/dL [facility] Phone: Interpretation and review of laboratory results Abnormal [facility] Phone: Potassium [Moles/Vol] 4.3 mmol/L 3.7 - 5.3 mmol/L [facility] Phone: Sodium [Moles/Vol] 136 mmol/L 135 - 144 mmol/L [facility] Phone: Urea nitrogen [Mass/Vol] 16 mg/dL 6 - 20 mg/dL [facility] Phone: Basic Metabolic Profon 08-28 (cont.) Normal [facility] Comment on above: Result Comment: Aver age GFR for 50-59 years old: 93 mL/min/1.73sq m Chronic Kidney Disease: <60 mL/min/1.73sq m Kidney failure: <15 mL/min/1.73sq m eGFR calculated using average adult body mass. Additional eGFR calculator available at: http://www.SentiOne/multiple_crcl_2012.htm Performed By: #### C MATEUS, BMP #### [facility] [address] [place] [address] Veneer Sample Maker: Zhou Blackburn MD Anion gap [Moles/Vol] 15 mmol/L Normal 9-17 [facility] Comment on above: Performed By: #### C MATEUS, BMP #### [facility] [address] [place] [address] [employer]eneer Sample Maker: Zhou Blackburn MD BUN/CRE Ratio 15 Normal 9-20 [facility] Comment on above: Performed By: #### C MATEUS, BMP #### [facility] [address] [place] [address] Veneer Sample Maker: Zhou Blackburn MD Calcium [Mass/Vol] 8.9 mg/dL Normal 8.6-10.4 [facility] Comment on above: Performed By: #### C MATEUS, BMP #### [facility] [address] [place] [address] Veneer Sample Maker: Zhou Blackburn MD Chloride [Moles/Vol] 99 mmol/L Normal 98-107 [facility] Comment on above: Performed By: #### C MATEUS, BMP #### [facility] [address] [place] [address] [employer]eneer Sample Maker: Zhou Blackburn MD CO2 [Moles/Vol] 22 mmol/L Normal 20-31 [facility] Comment on above: Performed By: #### C BC, BMP #### [facility] [address] [place] [address] [employer] Sample Maker: Zhou Blackburn MD Creatinine [Mass/Vol] 1.06 mg/dL Normal 0.70-1.20 [facility] Comment on above: Performed By: #### C BC, BMP #### [facility] [address] [place] [address] [employer] Sample Maker: Zhou Blackburn MD GFR, Amer >60 Normal >60 [facility] Comment on above: Performed By: #### C MATEUS, BMP #### [facility] [address] [place] [address] [employer] Sample Maker: Zhou Blackburn MD GFR,non Amer >60 Normal >60 [facility] Comment on above: Performed By: #### C BC, BMP #### [facility] [address] [facility] [place] [address] [employer]eneer Sample Maker: Zhou Blackburn MD Glucose [Mass/Vol] 154 mg/dL High 70-99 [facility] Comment on above: Performed By: #### C MATEUS, BMP #### [facility] [address] [facility] [place] [address] [employer] Sample Maker: Zhou Blackburn MD Potassium [Moles/Vol] 4.3 mmol/L Normal 3.7-5.3 [facility] Comment on above: Performed By: #### C BC, BMP #### [facility] [address] [place] [address] [employer] Sample Maker: Zhou Blackburn MD Sodium [Moles/Vol] 136 mmol/L Normal 135-144 [facility] Comment on above: Performed By: #### C MATEUS, BMP #### [facility] [address] [place] [place] [address] [employer] Sample Maker: Zhou Blackburn MD Urea nitrogen [Mass/Vol] 16 mg/dL Normal 6-20 [facility] Comment on above: Performed By: #### C MATEUS, BMP #### [facility] [address] [place] [address] [employer] Sample Maker: Zhou Blackburn MD Staging: NOT REPORTED Normal [facility] Comment on above: Performed By: #### C MATEUS, BMP #### [facility] [address] [place] [address] [employer] Sample Maker: Zhou Blackburn MD CBCon 08-28-2019 Erythrocyte distribution width (RBC) [Ratio] 12.0 % Normal 11.8-14.4 [facility] Comment on above: Performed By: #### C MATEUS, BMP #### [facility] [address] [place] [address] [employer] Sample Maker: Zhou Blackburn MD Hematocrit (Bld) [Volume fraction] 44.7 % Normal 40.7-50.3 [facility] Comment on above: Performed By: #### C MATEUS, BMP #### [facility] [address] [place] [address] [employer] Sample Maker: Zhou Blackburn MD Hemoglobin (Bld) [Mass/Vol] 15.1 g/dL Normal 13.0-17.0 [facility] [facility] Comment on above: Performed By: #### C MATEUS, BMP #### [facility] [address] [place] [id number] Veneer Sample Maker: Zhou Blackburn MD MCH (RBC) [Entitic mass] 33.2 pg Normal 25.2-33.5 [facility] Comment on above: Performed By: #### C MATEUS, BMP #### [facility] [address] [place] [address] Veneer Sample Maker: Zhou Blackburn MD MCHC (RBC) [Mass/Vol] 33.8 g/dL Normal 28.4-34.8 [facility] Comment on above: Performed By: #### C MATEUS, BMP #### [facility] [facility] [place] [address] Veneer Sample Maker: Zhou Blackburn MD MCV (RBC) [Entitic vol] 98.2 fL Normal 82.6-102.9 M [facility] Comment on above: Performed By: #### C MATEUS, BMP #### [facility] [address] [place] [address]. [place] [address] Veneer Sample Maker: Zhou Blackburn MD NRBC Automated 0.0 per 100 WBC Normal 0.0 [facility] Comment on above: Performed By: #### C MATEUS, BMP #### [facility] [address] [place] [address]. [place] [address] Veneer Sample Maker: Zhou Blackburn MD Platelet mean volume (Bld) [Entitic vol] 9.9 fL Normal 8.1-13.5 [facility] Comment on above: Performed By: #### C MATEUS, BMP #### [facility] [place] [address] Veneer Sample Maker: Zhou Blackburn MD Platelets (Bld) [#/Vol] 264 10*3/uL Normal 138-453 [facility] Comment on above: Performed By: #### C MATEUS, BMP #### [facility] [address] [place], [place] [address] [place] [address] Veneer Sample Maker: Zhou Blackburn MD RBC (Bld) [#/Vol] 4.55 10*6/uL Normal 4.21-5.77 [facility] Comment on above: Performed By: #### C MATEUS, BMP #### [facility] [address] [place], [place] [id number] Veneer Sample Maker: Zhou Blackburn MD WBC (Bld) [#/Vol] 11.9 10*3/uL High 3.5-11.3 [facility] Comment on above: Performed By: #### C MATEUS, BMP #### [facility] [address] [facility] [place], [place] [id number] Veneer Sample Maker: Zhou Blackburn MD CBCOrdered By: Nathan Proctor on 08-28-2019 Erythrocyte distribution width (RBC) [Ratio] 12.0 % 11.8 - 14.4 % [facility] Phone: Hematocrit (Bld) [Volume fraction] 44.7 % 40.7 - 50.3 % [facility] Phone: Hemoglobin (Bld) [Mass/Vol] 15.1 g/dL 13 - 17 g/dL [facility] Phone: Interpretation and review of laboratory results Abnormal [facility] Phone: MCH (RBC) [Entitic mass] 33.2 pg 25.2 - 33.5 pg [facility] Phone: MCHC (RBC) [Mass/Vol] 33.8 g/dL 28.4 - 34.8 g/dL [facility] Phone: MCV (RBC) [Entitic vol] 98.2 fL 82.6 - 102.9 fL [facility] Phone: NRBC Automated 0.0 0.0 per 100 WBC [facility] Phone: Platelet mean volume (Bld) [Entitic vol] 9.9 fL 8.1 - 13.5 fL [facility] Phone: Platelets (Bld) [#/Vol] 264 10*3/uL [facility] Phone: RBC (Bld) [#/Vol] 4.55 10*6/uL 4.21 - 5.7 7 m/uL [facility] Phone: WBC (Bld) [#/Vol] 11.9 10*3/uL High [facility] Phone: Surgical Pathologyon 019 Surgical Pathology (NOTE) [id number] [employer] CONSULTING PATHOLOGISTS [facility] ANATOMIC PATHOLOGY [address] [place] [id number] SURGICAL PATHOLOGY CONSULTATION Patient Name: CONCHIS ANDREWS [facility] Rec: [id number] Path Number: [id number] Collected: 08/28/2019 Received: 08/31/2019 Reported: 09/01/2019 16:41 -- Diagnosis -- 1. PROSTATE GLAND INCLUDING SEMINAL VESICLES, RADICAL RESECTION: - ADENOCARCINOMA, TYRONE 4+3 = 7; WHO GRADE GROUP 3. - NEGATIVE FOR EXTRAPROSTATIC EXTENSION. - NEGATIVE FOR BLADDER NECK INVASION. - NEGATIVE FOR SEMINAL VESICLE INVASION. - MARGINS OF APEX, BLADDER NECK, AND SURFACES NEGATIVE FOR CARCINOMA. 2. LYMPH NODES, REGIONAL RESECTION (BILATERAL PELVIC): - NO NEOPLASM DETECTED. 3. PERIURETHRAL TISSUES (NEW RIGHT MARGIN): - NO NEOPLASM DETECTED. Gelacio Hein M.D. Electronically Signed Out [facility]/09/01/2019 Clinical Information Pre-op Diagnosis: PROSTATE CANCER Operative Findings: PROSTATE AND SEMINAL VESICLES; BILATERAL PELVIC LYMPH NODES; NEW RIGHT URETHRAL MARGIN Operation Performed: PROSTATECTOMY LAPAROSCOPIC XI ROBOTIC WITH BILATERAL PELVIC LYMPH NODE DISSECTION Source of Specimen 1: PROSTATE AND SEMINAL VESSICLES 2: BILATERAL PELVIC LYMPH NODES 3: NEW RIGHT URETHRAL MARGIN Gross Description 1. CONCHIS ANDREWS, PROSTATE AND SEMINAL VESICLES 32 gram, 4.0 x 3.5 x 3.0 cm (L x W x H) prostate with attached intact seminal vesicles, left vas deferens, short attached right vas deferens and separate, are fragments of fat, 2.0 x 2.0 x 1.0 cm in aggregate and a vas deferens segment, 1.8 cm long x 0.4 cm in diameter. The external surface of the prostate is ragged pink-torres with the right half inked blue, left half black and anterior aspect tagged green. Sectioning reveals ill-defined periurethral induration that extends anteriorly in the mid portion of the gland. The seminal vesicles and vasa deferentia are grossly unremarkable. Cassette summary: A-B apex margin perpendicular, C-L cross sections submitted from apex to base, M additional base of seminal vesicles, N-P bladder neck margin perpendicular, Q seminal vesicles and left vas deferens, R separate segment of vas deferens and separate fat. 2. CONCHIS DARRYL, BILATERAL PELVIC LYMPH NODES Fragments of fat, 8.0 x 4.5 x 2.5 cm in aggregate. Sectioning reveals fatty nodes that measure up to 3.5 cm. Cassette summary: A intact nodes, B-C one node. 3. CONCHIS ANDREWS, NEW RIGHT URETHRAL MARGIN 0.6 x 0.4 x 0.2 cm rubbery victor-torres fragment. Intact, 1cs. tm Microscopic Description 1-3. PROCEDURE: Radical prostatectomy HISTOLOGIC TYPE: Adenocarcinoma HISTOLOGIC GRADE (TYRONE SCORE): 4+3 = 7 GRADE GROUP (ISUP / WHO): 3 PERCENT PATTERN 4 IN TYRONE 7: 70% TUMOR QUANTITATION: Carcinoma is present in 8 of 16 slides of prostate examined EXTRAPROSTATIC EXTENSION (pT3a): Negative URINARY BLADDER NECK INVASION (pT3a): Negative SEMINAL VESICLE INVASION (MUSCLE WALL) (pT3b): Negative MARGINS (LOCATION IF POSITIVE): [place], bladder neck, surface margins negative for carcinoma TREATMENT EFFECT ON CARCINOMA: N/A REGIONAL LYMPH NODES -NUMBER OF LYMPH NODES EXAMINED: 4 -NUMBER WITH METASTASIS: 0 DISTANT METASTASIS (pM only if confirmed in this case):N/A PATHOLOGIC STAGE CLASSIFICATION: pT2 pN0 (add TNM descriptors if applicable) Hand Developer slides are reviewed by a second Pathologist who concurs with the diagnosis (OMID). CAP Prostate 4041 in conjunction with AJCC 8 ed. Normal [facility] Comment on above: Performed By: #### P PPVS #### [facility] [place] [address] Veneer Sample Maker: Portillo Hein MD Cult,Urine,CCon 08-08-2019 Cult,Urine,CC Specimen Description .CLEAN CATCH URINE Special Requests NOT REPORTED Culture NO GROWTH Report Status FINAL 08/08/2019 Normal [facility] Comment on above: Performed By: #### C TYSON #### [facility] [address] [place], [place] [id number] Veneer Sample Maker: Zhou Blackburn MD [place] [address] [place], [place] [id number] Veneer Sample Maker: Portillo Hein MD Culture NO GROWTH [place] Special Requests NOT REPORTED [place] Specimen Description .CLEAN CATCH URINE [place] Basic Metabolic Profon 08-07 (cont.) Normal [facility] Comment on above: Result Comment: Aver age GFR for 50-59 years old: 93 mL/min/1.73sq m Chronic Kidney Disease: <60 mL/min/1.73sq m Kidney failure: <15 mL/min/1.73sq m eGFR calculated using average adult body mass. Additional eGFR calculator available at: http://www.SentiOne/multiple_crcl_2012.htm Performed By: #### C BC, BMP #### [facility] [address] [place], [place] [phone] Veneer Sample Maker: Zhou Blackburn MD Anion gap [Moles/Vol] 11 mmol/L Normal 9-17 [facility] Comment on above: Performed By: #### C BC, BMP #### [facility] [address], [place] [phone] Veneer Sample Maker: Zhou Blackburn MD BUN/CRE Ratio 15 Normal 9-20 [facility] Comment on above: Performed By: #### C BC, BMP #### [facility] [address] [place], [place] [phone] Veneer Sample Maker: Zhou Blackburn MD Calcium [Mass/Vol] 9.3 mg/dL Normal 8.6-10.4 [facility] Comment on above: Performed By: #### C BC, BMP #### [facility] [address] [place] [address] Veneer Sample Maker: Zhou Blackburn MD Chloride [Moles/Vol] 102 mmol/L Normal 98-107 [facility] Comment on above: Performed By: #### C BC, BMP #### [facility] [address] [place] [address] Veneer Sample Maker: Zhou Blackburn MD CO2 [Moles/Vol] 26 mmol/L Normal 20-31 [facility] Comment on above: Performed By: #### C BC, BMP #### [facility] [address] [place] [address] Veneer Sample Maker: Zhou Blackburn MD Creatinine [Mass/Vol] 0.89 mg/dL Normal 0.70-1.20 [facility] Comment on above: Performed By: #### C BC, BMP #### [facility] [address] [place] [address] Veneer Sample Maker: Zhou Blackburn MD GFR, Amer >60 Normal >60 [facility] Comment on above: Performed By: #### C BC, BMP #### [facility] [place] [address] Veneer Sample Maker: Zhou Blackburn MD GFR,non Amer >60 Normal >60 [facility] Comment on above: Performed By: #### C BC, BMP #### [facility] [address] [place] [address] Veneer Sample Maker: Zhou Blackburn MD Glucose [Mass/Vol] 89 mg/dL Normal 70-99 [facility] Comment on above: Performed By: #### C BC, BMP #### [facility] [place] [address] Veneer Sample Maker: Zhou Blackburn MD Potassium [Moles/Vol] 3.8 mmol/L Normal 3.7-5.3 [facility] Comment on above: Performed By: #### C MATEUS, BMP #### [facility] [address] [place] [address] Veneer Sample Maker: Zhou Blackburn MD Sodium [Moles/Vol] 139 mmol/L Normal 135-144 [facility] Comment on above: Performed By: #### C MATEUS, BMP #### [facility] [address] [place] [address] Veneer Sample Maker: Zhou Blackburn MD Urea nitrogen [Mass/Vol] 13 mg/dL Normal 6-20 [facility] Comment on above: Performed By: #### C MATEUS, BMP #### [facility] [address] [facility] [place] [address] Veneer Sample Maker: Zhou Blackburn MD Staging: NOT REPORTED Normal [facility] Comment on above: Performed By: #### C MATEUS, BMP #### [facility] [address] [place] [address] Veneer Sample Maker: Zhou Blackburn MD Anion gap [Moles/Vol] 11 mmol/L 9 - 17 mmol/L [place] Bun/Cre Ratio 15 [place] Calcium [Mass/Vol] 9.3 mg/dL 8.6 - 10. 4 mg/dL [place] Chloride [Moles/Vol] 102 mmol/L 98 - 10 7 mmol/L [place] CO2 [Moles/Vol] 26 mmol/L 20 - 31 mmol/L [place] Creatinine [Mass/Vol] 0.89 mg/dL 0.7 - 1.2 mg/dL [place] GFR >60 >60 mL/min [place] GFR Non- >60 >60 mL/min [place] GFR/1.73 sq M predicted among non-blacks MDRD (S/P/Bld) [Vol rate/Area] NOT REPORTED [place] GFR/1.73 sq M predicted among non-blacks MDRD (S/P/Bld) [Vol rate/Area] [place] Comment on above: Average GFR for 50-5 9 years old: 93 mL/min/1.73sq m Chronic Kidney Disease: <60 mL/min/1.73sq m Kidney failure: <15 mL/min/1.73sq m eGFR calculated using average adult body mass. Additional eGFR calculator available at: http://www.SentiOne/Cheezburger_crcl_2011.htm Glucose [Mass/Vol] 89 mg/dL 70 - 99 mg/dL [place] Potassium [Moles/Vol] 3.8 mmol/L 3.7 - 5.3 mmol/L [place] Sodium [Moles/Vol] 139 mmol/L 135 - 144 mmol/L [place] Urea nitrogen [Mass/Vol] 13 mg/dL 6 - 20 mg/dL [place] CBCon 08-07-2019 Erythrocyte distribution width (RBC) [Ratio] 12.4 % Normal 11.8-14.4 [facility] Comment on above: Performed By: #### C MATEUS, BMP #### [facility] [address] [place], [place] [id number] Veneer Sample Maker: Zhou Blackburn MD Hematocrit (Bld) [Volume fraction] 43.7 % Normal 40.7-50.3 [facility] Comment on above: Performed By: #### C BC, BMP #### [facility] [address] [place] [address] Veneer Sample Maker: Zhou Blackburn MD Hemoglobin (Bld) [Mass/Vol] 14.9 g/dL Normal 13.0-17.0 [facility] Comment on above: Performed By: #### C MATEUS, BMP #### [facility] [address] [facility] [place] [address] Veneer Sample Maker: Zhou Blackburn MD MCH (RBC) [Entitic mass] 33.3 pg Normal 25.2-33.5 [facility] Comment on above: Performed By: #### C MATEUS, BMP #### [facility] [place] [place] [address] Veneer Sample Maker: Zhou Blackburn MD MCHC (RBC) [Mass/Vol] 34.1 g/dL Normal 28.4-34.8 [facility] Comment on above: Performed By: #### C MATEUS, BMP #### [facility] [address] [place] [address]. [place] [address] Veneer Sample Maker: Zhou Blackburn MD MCV (RBC) [Entitic vol] 97.8 fL Normal 82.6-102.9 [facility] Comment on above: Performed By: #### C MATEUS, BMP #### [facility] [address] [place] [address]. [place] [address] Veneer Sample Maker: Zhou Blackburn MD NRBC Automated 0.0 per 100 WBC Normal 0.0 [facility] Comment on above: Performed By: #### C MATEUS, BMP #### [facility] [address] [place] [address]. [place] [address] Veneer Sample Maker: Zhou Blackburn MD Platelet mean volume (Bld) [Entitic vol] 9.9 fL Normal 8.1-13.5 [facility] Comment on above: Performed By: #### C MATEUS, BMP #### [facility] [address] [place] [address]. [place] [address] Veneer Sample Maker: Zhou Blackburn MD Platelets (Bld) [#/Vol] 273 10*3/uL Normal 138-453 [facility] Comment on above: Performed By: #### C MATEUS, BMP #### [facility] [address] [facility] [place] [address] Veneer Sample Maker: Zhou Blackburn MD RBC (Bld) [#/Vol] 4.47 10*6/uL Normal 4.21-5.77 [facility] Comment on above: Performed By: #### C MATEUS, BMP #### [facility] [address] [facility] [place] [address] Veneer Sample Maker: Zhou Blackburn MD WBC (Bld) [#/Vol] 7.6 10*3/uL Normal 3.5-11.3 [facility] Comment on above: Performed By: #### C MATEUS, BMP #### [facility] [address] [place] [address]. [place] [address] Veneer Sample Maker: Zhou Blackburn MD Erythrocyte distribution width (RBC) [Ratio] 12.4 % 11.8 - 14.4 % [place] Hematocrit (Bld) [Volume fraction] 43.7 % 40.7 - 50.3 % [place] Hemoglobin (Bld) [Mass/Vol] 14.9 g/dL 13 - 17 g/dL [place] MCH (RBC) [Entitic mass] 33.3 pg 25.2 - 33.5 pg [place] MCHC (RBC) [Mass/Vol] 34.1 g/dL 28.4 - 34.8 g/dL [place] MCV (RBC) [Entitic vol] 97.8 fL 82.6 - 102.9 fL [place] Platelet mean volume (Bld) [Entitic vol] 9.9 fL 8.1 - 13.5 fL [place] Platelets (Bld) [#/Vol] 273 10*3/uL [place] RBC (Bld) [#/Vol] 4.47 10*6/uL 4.21 - 5.7 7 m/uL [place] WBC (Bld) [#/Vol] 7.6 10*3/uL [place] WBC (Bld) [#/Vol] 0.0 10*3/uL 0.0 per 10 0 WBC [place] TYPE AND SCREENon 08-07-2019 ABO/Rh Positive [place], [place] Arm Band Number BE [id number] [place] Expiration Date 08/31/2019,2359 [place], [place] Type + Screenon 08-07-2019 Type + Screen Sample Expiration 08/31/2019,2359 Arm Band Number BE [id number] ABO/Rh(D) O POSITIVE Antibody Screen NEGATIVE Normal [facility] Comment on above: Performed By: #### T YS #### [facility] [address] [place], [place] [id number] Veneer Sample Maker: Zhou Blackburn MD Urinalysis, Routineon 2018 Acetoacetic Acid,Ur Negative Normal NEG [facility] Comment on above: Performed By: #### U A #### [facility] [address] [place] [address] Veneer Sample Maker: Zhou Blackburn MD Bilirubin, SemiQt,Ur Negative Normal NEG [facility] Comment on above: Performed By: #### U A #### [facility] [address] [place] [address] Veneer Sample Maker: Zhou Blackburn MD Color (U) YELLOW Normal YEL [facility] Comment on above: Performed By: #### U A #### [facility] [address] [place] [address] Veneer Sample Maker: Zhou Blackburn MD Comment Microscopic exam not performed based on chemical results unless requested in Normal [facility] Comment on above: Result Comment: orig inal order. Performed By: #### U A #### [facility] [address] [place] [address] Veneer Sample Maker: Zhou Blackburn MD Glucose Ql (U) Negative Normal NEG [facility] Comment on above: Performed By: #### U A #### [facility] [address] [place] [address] Veneer Sample Maker: Zhou Blackburn MD Hemoglobin, Ur Negative Normal NEG [facility] Comment on above: Performed By: #### U A #### [facility] [address] [place] [place] [address] Veneer Sample Maker: Zhou Blackburn MD Leukocyte esterase Test strip Ql (U) Negative Normal NEG [facility] Comment on above: Performed By: #### U A #### [facility] [address] [facility] [place] [address] Veneer Sample Maker: Zhou Blackburn MD Nitrite,Ur Negative Normal NEG [facility] Comment on above: Performed By: #### U A #### [facility] [address] [place] [place] [address] Veneer Sample Maker: Zhou Blackburn MD pH (U) 6.0 [pH] Normal 5.0-8.0 [facility] Comment on above: Performed By: #### U A #### [facility] [address] [facility] [place] [address] Veneer Sample Maker: Zhou Blackburn MD Protein Ql (U) Negative Normal NEG [facility] Comment on above: Performed By: #### U A #### [facility] [address] [facility] [place] [address] Veneer Sample Maker: Zhou Blackburn MD Specific gravity (U) [Rel density] 1.020 Normal 1.005-1.030 [facility] Comment on above: Performed By: #### U A #### [facility] [address] [facility] [place], [place] [phone] Veneer Sample Maker: Zhou Blackburn MD Turbidity CLEAR Normal CLEAR [facility] Comment on above: Performed By: #### U A #### [facility] [address] [facility] [place], [place] [phone] Veneer Sample Maker: Zhou Blackburn MD Urobilinogen,Ur Normal Normal NORM [facility] Comment on above: Performed By: #### U A #### [facility] [address] [facility] [place], [place] [id number] Veneer Sample Maker: Zhou Blackburn MD Bilirubin Urine Negative NEGATIVE [facility] [employer]- [place], [place] Color, UA YELLOW YELLOW [facility] [employer] Glucose, Ur Negative NEGATIVE [facility] [employer] Ketones Ql (U) Negative NEGATIVE [facility] [place] Leukocyte esterase Test strip Ql (U) Negative NEGATIVE [facility] [employer] Nitrite, Urine Negative NEGATIVE [facility] [employer] pH, UA 6.0 [facility] [employer] Protein (U) [Mass/Vol] Negative NEGATIVE [facility] [employer] Specific [place], UA 1.020 [facility] [employer] Turbidity UA CLEAR CLEAR [facility]- [place] Urinalysis Comments Microscopic exam not performed based on chemical results unless requested in original order. [facility] [employer] Urine Hgb Negative NEGATIVE [facility] [employer] Urobilinogen, Urine Normal Normal [facility] Vital Signs Date Time Vital Sign Value Performing Clinician Facility 07-29-2024 10:59-0500 Body height 180.3 cm Ольга Paige DPM Work Phone: [facility] 07-29-2024 10:59-0500 Body mass index (BMI) [Ratio] 26.22 kg/m2 Ольга Paige DPM Work Phone: [facility] 07-29-2024 10:59-0500 Body weight 85.28 kg Ольга Paige DPM Work Phone: [facility] 02-05-2024 13:30-0400 Diastolic blood pressure 63 mm[Hg] DO Andrew Shen Work Phone: [facility] 02-05-2024 13:30-0400 Heart rate 60 /min DO Andrew Shen Work Phone: [facility] 02-05-2024 13:30-0400 Respiratory rate 16 /min DO Andrew Shen Work Phone: [facility] 02-05-2024 13:30-0400 SaO2% (BldA) [Mass fraction] 96 % DO Andrew Shen Work Phone: [facility] 02-05-2024 13:30-0400 Systolic blood pressure 120 mm[Hg] DO Andrew Shen Work Phone: [facility] 02-05-2024 12:22-0400 Body temperature 97.2 [degF] DO Andrew Shen Work Phone: [facility] 02-05-2024 12:22-0400 Inhaled oxygen flow rate 6 L/min DO Andrew Shen Work Phone: [facility] 02-05-2024 10:36-0400 Body height 180.34 cm DO Andrew Shen Work Phone: [facility] 02-05-2024 10:36-0400 Body mass index (BMI) [Ratio] 25.4 kg/m2 DO Andrew Shen Work Phone: [facility] 02-05-2024 10:36-0400 Body weight 82.6 kg DO Andrew Salazari Work Phone: [facility] 01-20-2024 08:56-0400 Body height 180.34 cm DO Andrew Shen Work Phone: [facility] 01-20-2024 08:56-0400 Body mass index (BMI) [Ratio] 24.7 kg/m2 DO Andrew Salazari Work Phone: [facility] 01-20-2024 08:56-0400 Body weight 80.28 kg DO Andrew Salazari Work Phone: [facility] 12-25-2023 10:19-0400 Body height 180.34 cm DO Andrew Salazari Work Phone: [facility] 12-25-2023 10:19-0400 Body mass index (BMI) [Ratio] 24.7 kg/m2 DO Andrew Salazari Work Phone: [facility] 12-25-2023 10:19-0400 Body weight 80.28 kg DO Andrew Salazari Work Phone: [facility] 12-25-2023 10:19-0400 Diastolic blood pressure 66 mm[Hg] DO Andrew Shen Work Phone: [facility] 12-25-2023 10:19-0400 Heart rate 87 /min DO Andrew Shen Work Phone: [facility] 12-25-2023 10:19-0400 SaO2% (BldA) [Mass fraction] 96 % DO Andrew Salazari Work Phone: [facility] 12-25-2023 10:19-0400 Systolic blood pressure 103 mm[Hg] DO Andrew Salazari Work Phone: [facility] 10-30-2023 15:26-0500 Body height 180.34 cm DO Andrew Salazari Work Phone: [facility] 10-30-2023 15:26-0500 Body mass index (BMI) [Ratio] 26.4 kg/m2 DO Andrew Moorecki Work Phone: [facility] 10-30-2023 15:26-0500 Body weight 86.18 kg DO Andrew Shen Work Phone: [facility] 10-30-2023 15:26-0500 Diastolic blood pressure 86 mm[Hg] DO Andrew Shen Work Phone: [facility] 10-30-2023 15:26-0500 Respiratory rate 18 /min DO Andrew Shen Work Phone: [facility] 10-30-2023 15:26-0500 SaO2% (BldA) [Mass fraction] 97 % DO Andrew Shen Work Phone: [facility] 10-30-2023 15:26-0500 Systolic blood pressure 137 mm[Hg] DO Andrew Shen Work Phone: [facility] 04-30-2023 08:45-0400 Body height 180.34 cm Andrew Shen Other [employer] [facility] [employer] Other 04-30-2023 08:45-0400 Body mass index (BMI) [Ratio] 26.22 kg/m2 Andrew Shen Other [employer] Other 04-30-2023 08:45-0400 Body weight 85.28 kg Andrew Shen Other [employer] Other 04-30-2023 08:45-0400 Diastolic blood pressure 84 mm[Hg] Andrew Shen Other [employer] Other 04-30-2023 08:45-0400 Respiratory rate 18 /min Andrew Shen Other [employer] Other 04-30-2023 08:45-0400 SaO2% (BldA) [Mass fraction] 100 % Andrew Shen Other [employer] Other 04-30-2023 08:45-0400 Systolic blood pressure 130 mm[Hg] Andrew Shen Other [employer] Other 10-29-2022 16:00-0500 Body height 180.34 cm Andrew Shen Other [employer] Other 10-29-2022 16:00-0500 Body mass index (BMI) [Ratio] 26.64 kg/m2 Andrew Shen Other [employer] Other 10-29-2022 16:00-0500 Body weight 86.64 kg Andrew Shen Other [employer] Other 10-29-2022 16:00-0500 Diastolic blood pressure 86 mm[Hg] Andrew Shen Other [employer] Other 10-29-2022 16:00-0500 Respiratory rate 16 /min Andrew Shen Other [employer] Other 10-29-2022 16:00-0500 SaO2% (BldA) [Mass fraction] 99 % Andrew Shen Other [employer] Other 10-29-2022 16:00-0500 Systolic blood pressure 138 mm[Hg] Andrew Shen Other [employer] Other 10-01-2022 15:30-0500 Body height 180.34 cm Kai Muse Other [employer] Other 10-01-2022 15:30-0500 Body mass index (BMI) [Ratio] 26.22 kg/m2 Kai Chowdhuryxa Other [employer] Other 10-01-2022 15:30-0500 Body weight 85.28 kg Kai Chowdhuryxa Other [employer] Other 05-02-2022 16:00-0400 Body height 180.34 cm Andrew Shruti Other [employer] Other 02-28-2022 16:00-0400 Body height 180.34 cm Andrew Shruti Other [employer] Other 02-28-2022 16:00-0400 Body mass index (BMI) [Ratio] 26.22 kg/m2 Andrewwil Shen Other [employer] Other 02-28-2022 16:00-0400 Body weight 85.28 kg Andrew Shruti Other [employer] Other 02-28-2022 16:00-0400 Diastolic blood pressure 82 mm[Hg] Andrewwil Shen Other [employer] Other 02-28-2022 16:00-0400 Respiratory rate 18 /min Andrew Shruti Other [employer] Other 02-28-2022 16:00-0400 SaO2% (BldA) [Mass fraction] 98 % Andrewwil Shen Other [employer] Other 02-28-2022 16:00-0400 Systolic blood pressure 130 mm[Hg] Andrew Shen Other [employer] Other 01-30-2022 16:30-0400 Body height 180.34 cm Andrew Shen Other [employer] Other 01-30-2022 16:30-0400 Body mass index (BMI) [Ratio] 26.36 kg/m2 Andrew Shen Other [employer] Other 01-30-2022 16:30-0400 Body temperature 98.5 [degF] Andrew Shen Other [employer] Other 01-30-2022 16:30-0400 Body weight 85.73 kg Andrew Shen Other [employer] Other 01-30-2022 16:30-0400 Diastolic blood pressure 94 mm[Hg] Andrew Shen Other [employer] Other 01-30-2022 16:30-0400 Respiratory rate 18 /min Andrwe Shen Other [employer] Other 01-30-2022 16:30-0400 SaO2% (BldA) [Mass fraction] 97 % Andrew Shen Other [employer] Other 01-30-2022 16:30-0400 Systolic blood pressure 155 mm[Hg] Andrew Shen Other [employer] Other 08-14-2021 11:30-0500 Body height 180.34 cm Andrew Shen Other [employer] Other 08-14-2021 11:30-0500 Body mass index (BMI) [Ratio] 26.64 kg/m2 Andrew Shen Other [employer] Other 08-14-2021 11:30-0500 Body weight 86.64 kg Andrew Shen Other [employer] Other 08-14-2021 11:30-0500 Diastolic blood pressure 86 mm[Hg] Andrew Shen Other [employer] Other 08-14-2021 11:30-0500 Respiratory rate 20 /min Andrew Shen Other [employer] Other 08-14-2021 11:30-0500 SaO2% (BldA) [Mass fraction] 99 % Andrew Shen Other [employer] Other 08-14-2021 11:30-0500 Systolic blood pressure 120 mm[Hg] Andrew Shen Other [employer] Other 08-29-2019 07:24-0500 Body temperature 97.9 [degF] Nathan Proctor MD Work Phone: [employer] Work Phone: 08-29-2019 07:24-0500 Diastolic blood pressure 68 mm[Hg] Nathan Proctor MD Work Phone: [employer] Work Phone: 08-29-2019 07:24-0500 Heart rate 57 /min Nathan Proctor MD Work Phone: [employer] Work Phone: 08-29-2019 07:24-0500 Respiratory rate 16 /min Nathan Proctor MD Work Phone: [employer] Work Phone: 08-29-2019 07:24-0500 SaO2% (BldA) [Mass fraction] 98 % Nathan Proctor MD Work Phone: [employer] Work Phone: 08-29-2019 07:24-0500 Systolic blood pressure 128 mm[Hg] Nathan Proctor MD Work Phone: [employer] Work Phone: 08-28-2019 18:16-0500 Body height 180.3 cm Nathan Proctor MD Work Phone: [employer] Work Phone: 08-28-2019 18:16-0500 Body mass index (BMI) [Ratio] 26.62 kg/m2 Nathan Proctor MD Work Phone: [employer] Work Phone: 08-28-2019 18:16-0500 Body weight 86.58 kg Nathan Proctor MD Work Phone: [employer] Work Phone: 08-07-2019 10:30-0500 BMI (Body Mass Index) 26.63 kg/m2 [address] [place] 08-07-2019 10:30-0500 Body weight 86.[address] [place] 08-07-2019 10:30-0500 BP Diastolic 78 mm[Hg] [address] 08-07-2019 10:30-0500 BP Systolic 140 mm[Hg] [address] 08-07-2019 10:30-0500 Height 180.[address] 08-07-2019 10:30-0500 Pulse (Heart Rate) 58 /min [address] [place] 08-07-2019 10:30-0500 Pulse Oximetry 100 % [address] 08-07-2019 10:30-0500 Respiratory Rate 16 /min [address] [place], [place] Encounters Encounter Date Encounter Type Care Provider Facility Start: 08-20-2024 End: 08-20-2024 ambulatory Henri Headleyjosé Facility:[facility] Start: 07-29-2024 End: 07-29-2024 Bamboo flowsheet Ольга Paige DPM Work Phone: [facility] Start: 07-29-2024 End: 07-29-2024 Bamboo flowsheet Ольга Paige DPM Work Phone: [facility] Start: 07-29-2024 End: 07-29-2024 ambulatory ОЛЬГА PAIGE Not Available Start: 07-29-2024 End: 07-29-2024 ambulatory ОЛЬГА PAIGE Not Available Start: 07-29-2024 End: 07-29-2024 Office outpatient new 45 minutes Ольга Paige DPM Work Phone: [facility] Comment on above: Primary osteoarthrit is of left ankle (Primary Dx); Pain and swelling of left ankle; Acquired talipes varus of left foot; Difficulty walking Start: 02-06-2024 End: 03-25-2024 ambulatory MD Kai Muse Facility:[facility] Start: 02-05-2024 End: 02-05-2024 Admission to same day surgery center DO Andrew Shen Work Phone: [facility] [place] Start: 02-05-2024 End: 02-05-2024 ambulatory DO Andrew Shen Work Phone: [facility] Work Phone: Start: 01-22-2024 End: 01-22-2024 Patient encounter procedure DO Andrew Shen Work Phone: [facility] Work Phone: Start: 01-22-2024 End: 01-22-2024 ambulatory DO Andrew Shen Work Phone: [facility] Work Phone: Start: 01-22-2024 Encounter for preprocedural laboratory examination Kai Muse [facility] Start: 01-20-2024 End: 01-20-2024 Patient encounter procedure DO Andrew Mooretamelatwin Work Phone: [facility] Work Phone: Start: 01-10-2024 End: 01-10-2024 ambulatory MD Kai Muse Facility:[facility] Start: 01-07-2024 End: 01-07-2024 ambulatory DO Andrew Mooretamelai Work Phone: [facility] Work Phone: Start: 01-07-2024 End: 01-07-2024 Patient encounter procedure DO Andrew Mooretamelai Work Phone: [facility] Work Phone: Start: 12-25-2023 End: 12-25-2023 Patient encounter procedure DO Andrew Mooretamelatwin Work Phone: [facility] Work Phone: Start: 11-14-2023 Non-patient / Non-visit DO Mat maureenpeter Moorecki Work Phone: [facility] Work Phone: Start: 11-09-2023 Non-patient / Non-visit DO Mat aaron Teresacki Work Phone: [facility] Work Phone: Start: 11-09-2023 End: 11-09-2023 ambulatory ANDREW SHEN Facility:[facility] Start: 10-30-2023 End: 10-30-2023 Encounter for general adult medical examination without abnormal findings DO Andrew Samaniegomynortamelai Work Phone: [facility] Start: 10-30-2023 End: 10-30-2023 Patient encounter procedure DO Andrew Salazari Work Phone: [facility] Work Phone: Start: 10-23-2023 Non-patient / Non-visit DO Jerald Shen Work Phone: [facility] Work Phone: Start: 04-30-2023 Office outpatient vi sit 25 minutes Andrew Mooreyue [facility] Start: 04-30-2023 End: 04-30-2023 ambulatory Andrew Samaniegogladystwin [facility] Other Start: 10-29-2022 End: 10-29-2022 ambulatory Andrew Mooretamelatwin Other [employer] Other Start: 10-29-2022 Encounter for genera l adult medical examination without abnormal findings Andrew Shruti [facility] Start: 10-29-2022 Periodic preventive med est patient 40-64yrs Andrew Shruti [facility] Start: 10-29-2022 Telephone encounter Andrew Salazar i [facility] Start: 10-16-2022 End: 10-16-2022 ambulatory Andrew Shen Other [employer] Other Start: 10-16-2022 Telephone encounter Andrew Salazar i [facility] Start: 10-01-2022 End: 10-01-2022 ambulatory Kai Olexa Other [employer] Other Start: 10-01-2022 Office outpatient vi sit 15 minutes Kai Trentonxa [facility] Start: 09-18-2022 End: 09-18-2022 ambulatory Andrew Mooreyue Other [employer] Other Start: 09-18-2022 Telephone encounter Andrew Mooretamela twin [facility] Start: 09-04-2022 End: 09-04-2022 ambulatory Kai Olexa Other [employer] Other Start: 09-04-2022 Telephone encounter Kai Muse [facility] Start: 08-17-2022 End: 08-17-2022 ambulatory Andrew Shen Other [employer] Other Start: 08-17-2022 Telephone encounter Andrew Salazar i [facility] Start: 05-02-2022 End: 05-02-2022 ambulatory Andrew Shen Other [employer] Other Start: 05-02-2022 Nursing evaluation o f patient and report Andrew Shen [facility] Start: 04-20-2022 End: 04-20-2022 ambulatory Andrew Shen Other [employer] Other Start: 04-20-2022 Telephone encounter Andrew Salazar i [facility] Start: 03-22-2022 End: 03-22-2022 ambulatory Andrew Shen Other [employer] Other Start: 03-22-2022 Telephone encounter Andrew Salazar i [facility] Start: 03-20-2022 End: 03-20-2022 ambulatory Andrew Shen Other [employer] Other Start: 03-20-2022 Telephone encounter Andrew Salazar i [facility] Start: 03-15-2022 End: 03-15-2022 ambulatory Andrew Shen Other [employer] Other Start: 03-15-2022 Telephone encounter Andrew Salazar i [facility] Start: 03-14-2022 End: 03-14-2022 ambulatory Andrew Shen Other [employer] Other Start: 03-14-2022 Telephone encounter Andrew Salazar i [facility] Start: 02-28-2022 End: 02-28-2022 ambulatory Andrew Shen Other [employer] Other Start: 02-28-2022 Office outpatient vi sit 15 minutes Andrew Shen [facility] Start: 02-19-2022 End: 02-19-2022 ambulatory Andrew Shen Other [employer] Other Start: 02-19-2022 Telephone encounter Andrew Salazar i [facility] Start: 01-30-2022 End: 01-30-2022 ambulatory Andrew Shen Other [employer] Other Start: 01-30-2022 Office outpatient vi sit 25 minutes Andrew Shen [facility] Start: 01-08-2022 End: 01-08-2022 ambulatory Andrew Shen Other [employer] Other Start: 01-08-2022 Telephone encounter Andrew Salazar i [facility] Start: 08-31-2021 End: 08-31-2021 ambulatory Andrew Shen Other [employer] Other Start: 08-31-2021 Telephone encounter Andrew Salazar i [facility] Start: 08-14-2021 End: 08-14-2021 ambulatory Andrew Shen Other [employer] Other Start: 08-14-2021 Encounter for genera l adult medical examination without abnormal findings Andrew Shen [facility] Start: 08-14-2021 Periodic preventive med est patient 40-64yrs Andrew Samaniegogladystwin [facility] Start: 08-28-2019 End: 08-29-2019 Patient encounter procedure NATHAN PROCTOR [facility] Start: 08-28-2019 End: 08-29-2019 Subsequent hospital visit by physician Nathan Proctor MD Work Phone: [facility] Comment on above: Prostate cancer (HCC ) (Primary Dx) Start: 08-07-2019 End: 08-12-2019 Patient encounter procedure NATHAN PROCTOR [facility] Start: 08-07-2019 End: 08-11-2019 Subsequent hospital visit by physician Diana Lara Rm 1 [facility] PRE-ADMIT TESTING Procedures Date Procedure Procedure Detail Performing Clinician Start: 07-29-2024 Radex ankle complete minimum 3 views Ольга CRAIGM Work Phone: Start: 02-05-2024 Arthroscopy of knee DO Andrew Shruti Work Phone: Start: 01-07-2024 X-ray of left knee DO Shawn hermosillo Shurti Work Phone: Start: 08-29-2019 DISCHARGE PATIENT LORI IBARRA DUSTIN Start: 08-29-2019 INITIATE OXYGEN THER APY PROTOCOL NATHAN PROCTOR Start: 08-29-2019 Basic metabolic pane l calcium total NATHAN PROCTOR Start: 08-29-2019 Blood count complete automated NATHAN PROCTOR Start: 08-29-2019 Basic metabolic pane l calcium total Nathan Proctor MD Work Phone: Start: 08-29-2019 INTAKE AND OUTPUT LORI PROCTOR Start: 08-28-2019 Basic metabolic pane l calcium total NATHAN PROCTOR Start: 08-28-2019 Blood count complete automated NATHAN PROCTOR Start: 08-28-2019 AMBULATE PATIENT SHERRILL PROCTOR Start: 08-28-2019 DIET GENERAL NATHAN MILLARD CK Start: 08-28-2019 ARMAS/UROLOGY CARE ZOHAIB ANDREWS DUSTIN Start: 08-28-2019 FULL CODE NATHAN MILLARD CK Start: 08-28-2019 Gluc bld gluc mntr d ev cleared fda spec home use NATHAN PROCTOR Start: 08-28-2019 INITIATE OXYGEN THER APY PROTOCOL NATHAN PROCTOR Start: 08-28-2019 INTAKE AND OUTPUT LORI FRED DUSTIN Start: 08-28-2019 PLACE INTERMITTENT PNEUMATIC COMPRESSION DEVICE NATHAN PROCTOR Start: 08-28-2019 REASON FOR NO CHEMIC AL VTE PROPHYLAXIS NATHAN DUSTIN Start: 08-28-2019 VITAL SIGNS NATHAN MILLARD CK Start: 08-28-2019 PATIENT STATUS (FROM ED OR OR/PROCEDURAL) NATHAN PROCTOR Start: 08-28-2019 TRANSFER PATIENT SHERRILL Newell DUSTIN Start: 08-28-2019 Basic metabolic pane l calcium total Nathan Proctor MD Work Phone: Start: 08-28-2019 Level iv surg pathol ogy gross&microscopic exam NATHAN PROCTOR Start: 08-07-2019 Culture bacterial quanttative colony count urine NATHAN PROCTOR Start: 08-07-2019 Urnls dip stick/tabl et rgnt auto w/o microscopy NATHAN PROCTOR Start: 08-07-2019 Basic metabolic pane l calcium total NATHAN PROCTOR Start: 08-07-2019 Blood count complete automated NATHAN DUSTIN Start: 08-07-2019 TYPE AND SCREEN NATHAN DUSTIN Start: 08-07-2019 Antibody screen Sta 1 Start: 08-07-2019 Culture bacterial quanttative colony count urine Nathan Proctor Work Phone: Start: 08-07-2019 Urnls dip stick/tabl et rgnt auto w/o microscopy Nathan Proctor Work Phone: Start: 08-07-2019 Basic metabolic pane l calcium total Hermela Tezera Work Phone: Start: 08-07-2019 Blood count complete automated Hermela Tezera Work Phone: Start: 08-07-2019 Blood typing serologic abo Nathan Proctor Work Phone: Plan of Treatment Date Care Activity Detail Author Start: 02-05-2024 [facility] Start: 02-05-2024 [facility] Start: 12-25-2023 Patient referral [facility] Work Phone: Start: 08-28-2020 Creatinine monitoring Creatinine mon [facility] Work Phone: Start: 08-28-2020 Potassium monitoring Potassium monit [facility] Work Phone: Start: 08-07-2020 Creatinine monitoring Creatinine mon [place] Start: 08-07-2020 Potassium monitoring Potassium monit [place] Start: 08-28-2019 End: 08-28-2019 Hospital Encounter [facility] OR Comment on above: RADICAL PROSTATECTOM Y LAPAROSCOPIC ROBOTIC XI WITH POSSIBLE PELVIC LYMPH NODE DISSECTION Start: 05-17-2019 Influenza vaccination Flu vaccine (# 1) [place] Start: 01-27-2012 Colon cancer screen colonoscopy Colon cancer screen colonoscopy [place] Start: 01-27-2012 Shingles Vaccine (1 of 2) Shingles Vaccine (1 of 2) [place], [place] Start: 2002 Diabetes screen Diabetes screen [facility] [employer] [facility] Phone: Start: 2002 Lipid screen Lipid screen [place], [place] Start: 1977 HIV screen HIV screen [place], [place] Start: 1973 DTaP/Tdap/Td vaccine (1 - Tdap) DTaP/Tdap/Td vaccine (1 - Tdap) [place], [place] Start: 1962 Hepatitis C screen Hepatitis C scree [place] End: 08-29-2019 Blood glucose - POCT Blood glucose - POCT Point of Care Testing Routine One Time for 1 Occurrences starting 08/29/2019 until 08/29/2019 [facility] Phone: Comment on above: One Time for 1 Occur rences starting 08/29/2019 until 08/29/2019 Initiate Oxygen Ther apy Protocol Initiate Oxygen Therapy Protocol Respiratory Care Routine Daily until discontinued starting 08/28/2019 [facility] Phone: Comment on above: Daily until disconti nued starting 08/28/2019 MR Knee - left WO contrast [facility] Patient Education Know your Meds [facility] Work Phone: Patient referral [facility] Work Phone: Surgical Pathology Surgical Path ology Lab Routine ONE TIME for 1 Occurrences starting 08/28/2019 [facility] Phone: Comment on above: ONE TIME for 1 Occur rences starting 08/28/2019 [facility] Immunizations Immunization Date Immunization Notes Care Provider Flori basiarose marie 05-02-2022 zoster vaccine recombinant Andrew Branmynorcki Other [facility] 03-21-2022 tetanus toxoid, reduced diphtheria toxoid, and acellular pertussis vaccine, adsorbed Ольга Rusher DPM Work Phone: [facility] 01-30-2022 zoster vaccine recombinant Andrew Branmynorcki Other [facility] 07-18-2020 influenza, injectable, quadrivalent, preservative free DO Andrew Moorecki Work Phone: [facility] 07-18-2020 influenza, injectable, quadrivalent, contains preservative Andrew Braniecki Other [employer] Other 07-09-2019 influenza, injectable, quadrivalent, preservative free DO Andrew Braniecki Work Phone: [facility] 07-09-2019 influenza, injectable, quadrivalent, contains preservative Andrew Braniecki Other [employer] Other 07-09-2017 influenza, injectable, quadrivalent, preservative free Ольга Rusher DPM Work Phone: [facility] 05-03-2017 influenza, injectable, quadrivalent, preservative free Ольга Rusher DPM Work Phone: [facility] 06-27-2016 influenza, injectable, quadrivalent, preservative free Ольга Rusher DPM Work Phone: [facility] NEGATED: Highlighted row has not occurred!08-14-2021 influenza, seasonal, injectable Patient Objection Andrew Teresacki Other [employer] Other NEGATED: Highlighted row has not occurred!12-25-2018 influenza, seasonal, injectable Patient Objection Andrew Shen Other [employer] Other Payers Date Payer Category Payer Self-pay [id number] 2018 [facility] [employer] [id number] 2018 Unknown BCBS BCBS OUT OF STATE xxxxxxxxxxxx 2018-Present [address] [place] [address] xxxxxxxxxxxx [id number] 2018 Unknown [id number] 1960 Unknown [id number] 1962 Unknown [id number] .177 1962 Unknown [id number] [id number] .1259 1962 Unknown [id number] [id number] .1259 1962 Unknown [id number] [id number] .1259 1962 Unknown [id number] [id number] .718 1962 Unknown [id number] [id number] .718 1962 Unknown [id number] [id number] .718 1962 Unknown [id number] [id number] .718 Unknown [id number] [id number] .531 Unknown [id number] [id number] .531 Unknown [id number] [id number] .531 Unknown [id number] .531 [employer]er'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 [employer] [facility] [id number] Social History Date Type Detail Facility Start: 08-07-2019 End: 07-29-2024 Tobacco smoking status WAIS Never smoker [facility] Start: 08-07-2019 End: 07-29-2024 Alcohol intake Current drinker of alcohol (finding) [place], [place] Start: 1960 Sex Assigned At Not on file [facility] [place] Start: 07-29-2024 Sex Assigned At N [facility] [employer] Other Start: 10-22-2018 Tobacco smoking status WAIS Ex-smoker (finding) [facility] Start: 1960 Sex Assigned At Male F [facility] Start: 02-05-2024 Tobacco smoking status WAIS Smoker (finding) [facility] Start: 07-29-2024 Tobacco use and exposure Smokeless tobacco non-user [facility] Start: 07-29-2024 History of Social function [facility] Start: 07-29-2024 Alcohol Comment socially [facility] Medical Equipment Procedure Code Equipment Code Equipment Origin al Text Equipment Identifier Dates Pasha-Matrix Kathia x 1k Regenerative 6x3cm - [id number] Start: 08-28-2019 Clip Lg Binding Printer Hem-[employer]-Breanne Polymer Endo Ster Pk/6 [id number] Start: 08-28-2019 Clip Lg Binding Printer [employer] Endo Ster Pk/6 [id number] Start: 08-28-2019 Goals Date Patient Goal Desired Activity /State Clinical Notes 08-28-2019 to 08-21-2024 Ольга Paige DPM - 07/29/2024 10:45 AM ESTPatient Instructions Note Date & Type Note Facility 08-21-2024 Note [id number] 07-29-2024 History of Presen t illness Narrative Images from the original note were not included. Subjective Patient ID: Lisandro Andrews is a 64 y.o. 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 Relates popping in left ankle, pain with ankle. No recent xrays. SS: 10.5). HPI Initial patient encounter and assessment. Accompanied by his spouse. Chief complaint: Pain and swelling with deformity of the left ankle. Denies injury or trauma. Patient indicates that both ankles have been somewhat problematic/symptomatic with deformity over multiple years. Reports progressive pain, swelling, crepitus and deformity of the left ankle subsequent to left knee endoprosthesis in 2022. His spouse comments looks like his leg is falling off his foot . Symptoms have been unresponsive to various OTC compression sleeves and Voltaren EC. Progressive symptoms impacting ADLs, walking and work activity. He is able to gain temporary relief with relative rest and/or activity modification. Medications Current Outpatient Medications: diclofenac (Voltaren) 75 MG EC tablet, Take 75 mg by mouth, Disp: , Rfl: lisinopril-hydroCHLOROthiazide 20-12.5 MG tablet, 2 tablets, Disp: , Rfl: Allergies Patient has no known allergies. Past Surgical History Past Surgical History: Procedure Laterality Date FOOT SURGERY Bilateral 1983 KNEE SURGERY 1989 KNEE SURGERY Left 2022 OTHER SURGICAL HISTORY Left 2003 arm PROSTATE SURGERY 08/2019 removal Family History Family History Problem Relation Name Age of Onset Heart attack Father Objective GENERAL ASSESSMENT: Alert and oriented. Pleasant disposition. Wearing high top work boots. Accompanied by his spouse. Vascular: DP 2/4 bilateral. PT 2/4 bilateral. CFT brisk all digits. Gradient temperature: Warm-warm bilateral. Mild swelling of the left ankle; associated with arthritic ankle deformity. Neurologic: Tactile and light touch sensation intact. Dermatologic: Skin turgor is good. Unremarkable for eczema or dermatitis. Orthopedic: Focused exam left foot and ankle: Passive ankle range of motion is limited; notable for joint crepitus, pops, clicks and guarding. Maintains functional subtalar and midtarsal joint range of motion without crepitus or guarding. Stance assessment: Relaxed hindfoot position is notably inverted; somewhat worse on the left; with concomitant ankle varus deformity. Lesion pattern: No forefoot or digital discrete keratotic lesions are noted. Gait assessment: Notably antalgic. Radiology: Radiographs 2 views left foot: Weight-bearing: DP and calcaneal axial: 07/29/2024: Unremarkable for acute osseous or joint pathology. Changes about the 4th metatarsal likely consistent with old healed fracture or stress fracture. Mild metatarsus adductus. Calcaneal varus deformity appreciated. Radiographs: 3 views left ankle: Weight-bearing: AP, mortise, lateral: 07/29/2024: Severe asymmetric joint space narrowing of the ankle mortise with significant ankle varus deformity. Relative sparing of the subtalar and midtarsal joints. Unremarkable for acute osseous or joint pathology. Assessment/Plan Progressively symptomatic DJD/ankle varus deformity left. Acquired hindfoot varus deformity bilateral. Left knee endoprosthesis (2022). Plan: Review of clinical and x-ray findings, differential diagnosis, etiology and contributing/aggravating factors, treatment strategy, rationale and objectives. Lindsay agreement for prednisone taper dose as a means of temporary relief. Referral: Dr. Gutierrez for elective surgical care options. Procedure: This note was created with the assistance of a speech recognition program. While intending to generate a timely document that accurately reflects the content of the visit, no guarantee can be provided that every grammatical or spelling mistake has been or will be identified or corrected. Thank you for your understanding. Ольга Paige DPM documented in this encounter [facility] 07-29-2024 Instructions Ольга Paige DPM - 07/29/2024 10:45 AM EST Appropriate referral as noted documented in this encounter [facility] 02-07-2024 Note [id number] 04-30-2023 Evaluation note Encounter Date Diagnosis Assessment Notes Apr, Acute pain of right shoulder (ICD-10 - M25.511) Will start with x-rays. Suspect he has some degree of rotator cuff tendonitis, possible impingement syndrome. I will have him hold on the naproxen while taking a 6 day steroid taper. Ice the area. further recommendations pending x-rays and his progress. [employer] Other 02-13-2023 Evaluation note* Encounter Date Diagnosis Assessment Notes Treatment Notes Treatment Clinical Notes Oct, Cough (ICD-10 - R05.9) [facility] [employer] Other 02-13-2023 Evaluation note* Encounter Date Diagnosis Assessment Notes Treatment Notes Treatment Clinical Notes Oct, Wellness examination (ICD-10 - Z00.00) Overall, patient doing quite well. Continue current care. He will update his screening labs at this time. I will add a PSA, as he is no longer seeing Dr. Proctor. Oct, Essential hypertension (ICD-10 - I10) Controlled. Continue current care. 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 I will trial him on a longer-acting NSAID, not to be combined with other NSAIDs. Stop the medication and notify me immediatley of any SEs. Oct, History of prostate cancer (ICD-10 - Z85.46) Patient is no longer following with Dr. Proctor. He is s/p prostatectomy (2019). I will check a PSA now. Oct, Screening for cardiovascular condition (ICD-10 - Z13.6) Oct, Screening for deficiency anemia (ICD-10 - Z13.0) Oct, Screening for metabolic disorder (ICD-10 - Z13.228) Oct, Screening for colon cancer (ICD-10 - Z12.11) Patient refuses colonoscopy and cologuard. He will call at any time if he changes his mind. [employer] Other 01-31-2023 Evaluation note* Encounter Date Diagnosis Assessment Notes Treatment Notes Treatment Clinical Notes Sep, Essential hypertension (ICD-10 - I10) [employer] Other 01-16-2023 Evaluation note* Encounter Date Diagnosis Assessment Notes Treatment Notes Treatment Clinical Notes Sep, Patellar tendinitis, left knee (ICD-10 - M76.52) Sep, Arthritis of left knee (ICD-10 - M17.12) Patient instructed on light controlled non impact exercises like biking and swimming. 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) [employer] Other 01-03-2023 Evaluation note* Encounter Date Diagnosis Assessment Notes Treatment Notes Treatment Clinical Notes Sep, Cough (ICD-10 - R05.9) [employer] Other 08-17-2022 Evaluation note* Encounter Date Diagnosis Assessment Notes Treatment Notes Treatment Clinical Notes Apr, Encounter for vaccination (ICD-10 - Z23) [employer] Other 06-30-2022 Evaluation note* Encounter Date Diagnosis Assessment Notes Treatment Notes Treatment Clinical Notes Feb, Screening for other eye conditions (ICD-10 - Z13.5) [employer] Other 06-15-2022 Evaluation note* Encounter Date Diagnosis Assessment Notes Treatment Notes Treatment Clinical Notes Feb, Acute pain of left knee (ICD-10 - M25.562) Exam findings and history continue to be concerning for injury to the meniscus. PT has only exacerbated his pain, so I feel he will not benefit from any further attempts and instead he will need MRI to evaluate the meniscus. Further recommendations pending. [employer] Other 05-17-2022 Evaluation note* Encounter Date Diagnosis Assessment Notes Treatment Notes Treatment Clinical Notes January, Acute pain of left knee (ICD-10 - M25.562) Exam findings and history are concerning for injury to the meniscus. Recommend he trial PT and supportive care as discussed. If no improvement by f/u, will need to consider MRI to evaluate the meniscus. He has not seen improvement with NSAIDs, so I will trial him on a steroid taper to help with pain/swelling. January, Cough (ICD-10 - R05.9) It seems most likely that his cough is seconary to allergies/PND. I've recommended he start loratadine and flonase qHS. If no better in 1-2 weeks, he can call and I will consider adding Singulair. Less likely causes would include nocturnal reflux, SE to lisinopril, and adult-onset asthma. January, Encounter for vaccination (ICD-10 - Z23) [employer] Other 11-29-2021 Evaluation note* Encounter Date Diagnosis Assessment Notes Treatment Notes Treatment Clinical Notes Jul, Wellness examination (ICD-10 - Z00.00) Overall, patient doing quite well. Continue current care. He will update his screening labs at the time of his next PSA draw for Dr. Proctor. Jul, Essential hypertension (ICD-10 - I10) Controlled. Continue current care. Jul, Screening for cardiovascular condition (ICD-10 - Z13.6) Jul, Screening for deficiency anemia (ICD-10 - Z13.0) Jul, Screening for metabolic disorder (ICD-10 - Z13.228) Jul, Screening for colon cancer (ICD-10 - Z12.11) Patient refuses colonoscopy and cologuard. He will call if he changes his mind. [employer] Other 12-14-2019 Hospital Discharge instructions* Discharge Instr - Activity* Dagmar Cardoso RN - 08/29/2019 1:16 PM EST Light activity * Discharge Instr - Diet* Dagmar Cardoso RN - 08/29/2019 1:17 PM EST ? Good nutrition is important when healing from an illness, injury, or surgery. Follow any nutrition recommendations given to you during your hospital stay. ? If you were given an oral nutrition supplement while in the hospital, continue to take this supplement at home. You can take it with meals, in-between meals, and/or before bedtime. These supplements can be purchased at most local grocery stores, pharmacies, and [employer]. ? If you have any questions about your diet or nutrition, call the hospital and ask for the dietitian. General Diet * Additional Instructions* Ira Jung RN - 08/29/2019 -Regular Diet. -Resume all home medications. 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 These medications may affect your reaction time and impair your decision making abilities. Additionally, these medications are quite constipating. To combat this you will be prescribed a medication called Colace (docusate sodium). We recommend that youtake this stool softener twice daily. -At this time it is ok for you to resume showering. If you have wounds, gently pat them dry when toweling off. Additionally, you should avoid from submerging any wounds under water. -Walking is important and encourage. Although you may experience pain after leaving us, frequent short walks are important. -Please no lifting more than 10 lbs until your follow-up with me in clinic. Best, Dr. Nathan Proctor MD CALL DR AGUILAR OFFICE ON Saturday TO GIVE THEM AN UPDATE. * Attachments The following attachments cannot be sent through Care Everywhere. * Radical Prostatectomy: Laparoscopic: Post-op (Hebrew) * Prostate Cancer (Hebrew) documented in this [employer] Work Phone: [phone] [phone] History of Present illness Narrative* Elodia Patino RN - 08/28/2019 6:25 PM EST Pt admitted to room 2002 from PACU Oriented to room and call light/tv controls. Bed in lowest position, wheels locked, 2/4 side rails up Call light in reach, room free of clutter, adequate lighting provided. [facility]: evaluation note* Diagnosis Prostate cancer (HCC)- Primary Malignant neoplasm of prostate documented in this encounter [facility] [employer] Work Phone: [email or web address] noteNo [employer] [employer] Other Evaluation note* Diagnosis Onset Date Resolution Status Essential hypertension acute History of prostate cancer a cute Nicotine dependence, chewing tobacco, with other nicotine-induced disorders acute Plaque psoriasis acute Screening for colon cancer n oneactive Encounter for wellness examination noneactive Ankle pain noneactive Tricompartment degenerative joint disease of knee acute Acute sinus infection noneac tive Arthritis of left knee acute Internal derangement of left knee acute Patellofemoral chondrosis of left knee acute [facility] Work Phone: Evaluation note* Diagnosis Onset Date Resolution Status Essential hypertension acute History of prostate cancer a cute Nicotine dependence, chewing tobacco, with other nicotine-induced disorders acute Plaque psoriasis acute Screening for colon cancer n oneactive Encounter for wellness examination noneactive Ankle pain noneactive Tricompartment degenerative joint disease of knee acute Acute sinus infection noneac tive Arthritis of left knee acute Internal derangement of left knee acute Patellofemoral chondrosis of left knee acute Arthritis of left knee acute Degenerative tear of left medial meniscus acute Internal derangement of left knee acute Patellofemoral chondrosis of left knee acute [facility] Work Phone: Evaluation note* Diagnosis Onset Date Resolution Status Tricompartment degenerative joint disease of knee acute Acute sinus infection noneac tive Arthritis of left knee acute Internal derangement of left knee acute Patellofemoral chondrosis of left knee acute Arthritis of left knee acute Degenerative tear of left medial meniscus acute Internal derangement of left knee acute Patellofemoral chondrosis of left knee acute [facility] Work Phone: Evaluation note* Diagnosis Primary osteoarthritis of left ankle- Primary Pain and swelling of left ankle Acquired talipes varus of left foot Difficulty walking Difficulty in walking documented [facility] - Reported* Type Description Date Medical History Hypertension Medical History Plaque psoriasis Surgical History left knee surgery Surgical History bialteral foot Surgery Surgical History toe surgery Surgical History left elbow surgery Surgical History prostate removal 08/2019 Hospitalization History see above Hospitalization History sob at [facility] Hospitalization History Fell [employer] 06/2020 [employer] Other History general Narrative - Reported* Type Description Date Medical History Hypertension Medical History Plaque psoriasis Surgical History left knee surgery Surgical History bialteral foot Surgery Surgical History toe surgery Surgical History left elbow surgery Surgical History prostate removal 08/2019 Surgical History right finger amp- surgery 2 Hospitalization History see above Hospitalization History sob at [facility] Hospitalization History Fell [place] 06/2020 [employer] Other Hospital Discharge instructions Additional Instructions DISCHARGE INSTRUCTIONS FOR KNEE ARTHROSCOPY The following instructions must be followed very closely: 1. If you need pain pills, start before pain becomes intense. Antibiotics and pain pills are frequently less upsetting to your stomach if you take them with food such as crackers or bread. 2. If you are having excessive or persistent pain in, swelling, bleeding, nausea, vomiting, or any other problems, you should first call your surgeon for advice. If you are unable to contact your surgeon, seek help from a hospital emergency room. If you are given drugs to make you drowsy and/or pain medication, follow these instructions: 1. You should spend the remainder of the day and evening resting. 2. You should not attempt to walk, including going to the bathroom, without assistance. You may be lightheaded from the medications you received. 3. Eat light today to avoid nausea. You should be able to return to normal diet 24-36 hours after surgery. 4. For the next 24 hours he should not consume alcohol, attempt to drive, use any power tools, site important documents or make important personal or business decisions. After that do so only if you feel perfectly normal and alert. 5. Follow carefully any verbal or written instructions your surgeon may have given you. Surgeon's written instructions: It's very important to take aspirin after surgery if your surgeon has directed you to do so. This helps prevent post-op blood clots. If you are unsure about an aspirin regimen, contact your surgeon as soon as possible. 1. Weightbearing as tolerated, use crutches as needed, begin bending your knee. 2. Take pain medications as directed. 3. Ice bag to knee for 24 hours. 4. Elevate leg above the level of the heart to reduce swelling and pain. 5. Remove the dressing in 24 hours. Apply Band-Aids, and then you may shower. If there are tape strips over the incision line, do not remove them. 6. Call the office to confirm your postoperative appointment to see the surgeon in 1 week. 7. If you are having excessive or persistent pain, swelling, fever, yellow-green foul smelling drainage or bleeding from the incision, excessive redness of incision, nausea, vomiting, or any other problems, you should first call your surgeon at [phone] for advice. If your are unable to contact your surgeon, seek help from a hospital emergency room.[facility] Work Phone: Summary Purpose Family History No Family History Records Found Relationship Condition Age at Onset Recorded Date/T laine father Heart disease Unknown Unknown Relationship Condition Age at Onset Recorded Date/T laine father Heart disease Unknown Unknown Myocardial infarction Unknown Advance Directives No Advanced Directives Records FoundDocuments on File Type Date Recorded Patient Hand Developer Expl anation Advance Directives and Living Will Power of Manager Communication Documents on File Type Date Recorded Patient Hand Developer Expl anation Advance Directives and Living Will Power of Manager Communication Latest Code Status on File Code Status Date Activated Date Inactivated Comments Full Code 08/28/2019 6:08 PM Advance Directive Response Recorded Date/ Time Advance Directives No December 24, 2 024 8:57am Chief Complaint and Reason for Visit Chief Complaint Amb Documentation annual Amb Documentation possible pinched nerve/left leg pain CONSULT JHONATAN NAVRATIL OP/SP LT KNEE PAIN M17.12 - Unilateral primary osteoarthritis, left k Reason for Visit Essential hypertensi on History of prostate cancer Nicotine dependence, chewing tobacco, with other nicotine-induced disorders Plaque psoriasis Screening for colon cancer Encounter for wellness examination Ankle pain Tricompartment degenerative joint disease of knee Acute sinus infection Arthritis of left knee Internal derangement of left knee Patellofemoral chondrosis of left knee Chief Complaint annual Amb Documentation possible pinched nerve/left leg pain CONSULT JHONATAN NAVRATIL OP/SP LT KNEE PAIN M17.12 - Unilateral primary osteoarthritis, left k Knee Pain Reason for Visit Essential hypertensi on History of prostate cancer Nicotine dependence, chewing tobacco, with other nicotine-induced disorders Plaque psoriasis Screening for colon cancer Encounter for wellness examination Ankle pain Tricompartment degenerative joint disease of knee Acute sinus infection Arthritis of left knee Internal derangement of left knee Patellofemoral chondrosis of left knee Arthritis of left knee Degenerative tear of left medial meniscus Internal derangement of left knee Patellofemoral chondrosis of left knee Chief Complaint Amb Documentation possible pinched nerve/left leg pain CONSULT JHONATAN HERNÁNDEZ OP/SP LT KNEE PAIN M17.12 - Unilateral primary osteoarthritis, left k Knee Pain Knee Pain Reason for Visit Tricompartment degen erative joint disease of knee Acute sinus infection Arthritis of left knee Internal derangement of left knee Patellofemoral chondrosis of left knee Arthritis of left knee Degenerative tear of left medial meniscus Internal derangement of left knee Patellofemoral chondrosis of left knee Additional Source Comments (unrecognized sect ion and content) No Status Records FoundNo Status Records FoundNo Status Records FoundNo Status Records Found INFORMATION SOURCE (unrecogn ized section and content) DATE CREATED AUTHOR 09/02/2019 [facility] DATE CREATED AUTHOR AUTHOR'S ORGANIZ ATION 03/11/2024 [facility] DATE CREATED AUTHOR AUTHOR'S ORGANIZ ATION 07/31/2024 [facility] EP[facility] DATE CREATED AUTHOR AUTHOR'S ORGANIZ ATION 08/26/2024 [facility] Reason for Visit (unrecogniz ed section and content) Status Reason Specialty Diagnoses / Procedures Referre d By Contact Referred To Contact Diagnoses Prostate CA (HCC) DX PROSTATE CA Procedures [place] LAP,PROSTATECTOMY,RADICA L,W/NERVE SPARE,INCL ROBOTIC RADICAL PROSTATECTOMY LAPAROSCOPIC ROBOTIC XI WITH POSSIBLE PELVIC LYMPH NODE DISSECTION Nathan Proctor MD [address] [place] [address] [facility] Reason Comments Foot Deformity 64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 Relates popping in left ankle, pain with ankle. No recent xrays. SS: 10.5 Care Teams (unrecognized sec tion and content) Team Status: Active Member Role Status Dates Andrew Shen DO Primary Care Provider Active Team Status: Active Member Role Status Dates Andrew Shen DO Primary Care Prov ider, Attending Provider Active Start: November 09, 2023 Team Status: Active Member Role Status Dates Andrew Shen DO Primary Care Provider Active Start: November 14, 2023 Alma Saul LPN Attending Provider Active Star t: November 14, 2023 Team Status: Inactive Member Role Status Dates Andrew Shen DO Primary Care Provider Active Start: December 25, 2023 End: December 25, 2023 Babs Hernández APRN Attending Provider Active Start: December 25, 2023 End: December 25, 2023 Team Status: Inactive Member Role Status Dates Andrew Shen DO Primary Care Provider Active Start: January 07, 2024 End: January 07, 2024 Kai Muse MD Attending Provider Active Star t: January 07, 2024 End: January 07, 2024 Team Status: Inactive Member Role Status Dates Kai Muse MD Attending Provider Active Star t: January 07, 2024 End: January 07, 2024 Andrew Shen DO Primary Care Provider Active Start: January 07, 2024 End: January 07, 2024 Team Status: Inactive Member Role Status Dates Andrew Shen DO Primary Care Provider Active Start: January 20, 2024 End: January 20, 2024 Kai Muse MD Attending Provider Active Star t: January 20, 2024 End: January 20, 2024 Team Status: Inactive Member Role Status Dates Andrew Shen DO Primary Care Provider Active Start: January 22, 2024 End: January 22, 2024 Kai Muse MD Attending Provider Active Star t: January 22, 2024 End: January 22, 2024 Team Status: Inactive Member Role Status Dates Andrew Shen DO Primary Care Provider Active Start: February 05, 2024 End: February 05, 2024 Kai Muse MD Attending Provider Active Star t: February 05, 2024 End: February 05, 2024 Team Status: Inactive Member Role Status Dates Andrew Shen DO Primary Care Prov ider, Attending Provider Active Start: October 30, 2023 End: October 30, 2023 Team Status: Active Member Role Status Dates Andrew Shen DO Primary Care Provider Active Start: October 23, 2023 Alma Saul LPN Attending Provider Active Star t: October 23, 2023 Property Consultant Relationship Specialty Start Date End Date Andrew Shen MD NPI: [id number] [place] [id number] PCP - General Family Medicine 07/29/24 Property Consultant Relationship Specialty Start Date End Date Andrew Shen MD NPI: [id number] [place] [phone] PCP - General Family Medicine 07/29/24 Goals (unrecognized section and content) Goals may be documented in a n alternate section FOR RECORDS PERTAINING TO PATIENTS WHO ARE OR HAVE BEEN ENROLLED IN A CHEMICAL DEPENDENCY/SUBSTANCEABUSE PROGRAM, SOME INFORMATION MAY BE OMITTED. This clinical summary was aggregated from multiple sources. Caution should be exercised in using it in the provision of clinical care. This summary normalizes information from multiple sources, and as a consequence, information in this document may materially change the coding, format and clinical context of patient data. In addition, data may be omitted in some cases. CLINICAL DECISIONS SHOULD BE BASED ON THE PRIMARY CLINICAL RECORDS. [facility] [employer] [facility]. provides no warranty or guarantee of the accuracy or completeness of information in this document.
[2024-08-31 06:16] LABS: Basophils Absolute Auto 0.1 10^3/uL (0.0-0.1); Basophils Percent Auto 0.6 % (0.2-2.0); Eosinophils Absolute Auto 0.3 10^3/uL (0.0-0.7); Eosinophils Percent Auto 2.9 % (0.9-7.0); Hematocrit 42.9 % (42.0-54.0); Hemoglobin 15.1 g/dL (14.0-18.0); Immature Granulocytes Abs Auto 0.08 10^3/uL (0.00-0.03); Immature Granulocytes Pct Auto 0.8 % (0.0-0.5); Lymphocytes Absolute Auto 2.4 10^3/uL (1.2-3.8); Lymphocytes Percent Auto 24.5 % (20.5-60.0); Mean Corpuscular HGB Conc 35.2 g/dL (29.9-35.2); Mean Corpuscular Hemoglobin 33.9 pg (25.9-34.0); Mean Corpuscular Volume 96.2 fL (80.0-94.0); Mean Platelet Volume 9.2 fL (9.5-13.5); Monocytes Absolute Auto 1.2 10^3/uL (0.3-0.8); Monocytes Percent Auto 11.9 % (1.7-12.0); Neutrophils Absolute Auto 5.7 10^3/uL (1.4-6.5); Neutrophils Percent Auto 59.3 % (43.0-75.0); Platelet Count 304 10^3/uL (150-450); Red Blood Count 4.46 10^6/uL (4.70-6.10); Red Cell Distribution Width 11.9 % (11.0-15.0); White Blood Count 9.6 10^3/uL (4.0-11.0)
[2024-08-31 06:27] LABS: Glucometer 106 mg/dL (74-106)
[2024-08-31] MEDS: LACTATED RINGER'S SOLUTION 1,000 ML 50 ML IV ×2 (07:00→09:23)
[2024-08-31] MEDS: CEFAZOLIN SODIUM 2 GM/50 ML D5W PREMIX IV (07:52)
--- NOTE | 2024-08-31 08:02 | PC.NURSE ---
0725 TIME OUT PERFORMED 1MG VERSED GIVEN 0732 1 MG VERSED GIVEN ( FOR A TOTAL OF 2 MG) LOOKING WITH ULTRASOUND IN FEMORAL AREA TO BEGIN BLOCK SITE LOCATED AREA CLEANED WITH CHLORHEXIDINE 0736 INJECTION BEGAN 0738 INJECTION COMPLETED 738 POPLITEAL AREA CLEANSED WITH CHLORHEXIDINE 0740 INJECTION BEGAN 90154 INJECTION COMPLETED POPLITEAL BLOCK ROPIVACAINE WAS MEDICATION USED
--- NOTE | 2024-08-31 08:26 | XR_ITS ---
The [address] [address] Patient Name: CONCHIS ANDREWS MRN: [id number] date: 1960 Sex: M Assigned Patient Location: [facility] Current Patient Location: [place] Accession/Order Number: [id number] Exam Date: 08/31/2024 12:00 Report Date: 09/01/2024 07:56 At the request of: AMARIS BURRELL Procedure: XR ankle LT min 3V PROCEDURE: XR ankle LT min 3V COMPARISON: None. HISTORY: deformity + DJD FINDINGS: BONES:Ankle fusion utilizing a retrograde intramedullary nail and proximally and distally. Resection of the distal fibula. Underlying degenerative changes with [id number] articulation of the tibiotalar joint SOFT TISSUES:Negative. No visible soft tissue swelling. EFFUSION:None visible. OTHER: Negative. XR/XR ankle LT min 3V IMPRESSION: Ankle fusion Electronically authenticated by: NATHAN VAUGHN Date: 09/01/2024 07:56
--- NOTE | 2024-08-31 08:29 | PM.ORONB ---
Brief Operative Note Date of procedure: 08/31/24 Pre-op diagnosis general: Left ankle/foot arthritis with varus deformity, acquired clubfoot deformity and equinus Post-op diagnosis: same as pre-op Procedure: Procedure performed: Left ankle and subtalar joint fusion, harvest of tibial bone graft, tendo Achilles lengthening, application of short leg splint Indications for procedure: Patient is a 64-year-old male who presented to me for second opinion regarding worsening pain, deformity and dysfunction associated with bilateral lower extremities with the left being more symptomatic than the right. He has daily pain despite NSAIDs such as diclofenac, prednisone taper, ankle bracing, shoe modification. Pain and dysfunction have limited activities of daily living, work and recreation. Patient related to difficulty with uneven surfaces. X-rays and CT scan show advanced arthrosis of the ankle and severe varus deformity of the ankle and hindfoot. I discussed the potential risks and benefits of continued nonsurgical treatment versus surgical reconstruction. In addition I discussed potential risks and benefits of fusion versus ankle replacement. Given patient's goals and degree of deformity it was my recommendation that he undergo fusion as opposed to replacement. Patient agreed and consent was obtained. Intraoperative findings: Contracture of the Achilles and posterior tibial tendons. Severe varus deformity of ankle and hindfoot. 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 Bone of the lateral most aspect of the tibiotalar joint was relatively soft compared to the central and medial portions. Subtalar joint with moderate to severe degenerative joint disease as well. Synovitis and inflammatory tissue noted in the periarticular tissues. Procedure in detail: Patient was identified in preop holding by myself which time correct side and site were marked and consent was obtained. Regional anesthesia was performed by the anesthesia team and patient brought back to the operating theater placed on table in supine position with a thigh tourniquet. General anesthesia was administered. Preoperative antibiotics were started and the left lower extremity was prepped and draped in usual sterile fashion. Formal timeout was performed. Standard triple hemisection tendo Achilles lengthening was performed through 3 percutaneous incisions placed over the noninsertional area of the Achilles tendon. The lateral half of the tendon was released in the proximal and distal most incisions while the medial half was released in the central. The operative extremity was exsanguinated and the tourniquet was inflated. Lateral extensile incision was placed along the distal fibula curving distally towards the sinus tarsi. Combination of sharp and blunt dissection with all bleeders being coagulated gained access to the distal fibula. The distal fibula was freed of all soft tissue attachments and an oblique osteotomy was placed lateral to medial of the distal fibula. The distal fibula was then excised and passed the back table. Access was then gained to the ankle and subtalar joint respectively. The joints were then prepped for fusion using standard technique with osteotomes, curettes, rongeur's then the subchondral bone was further drilled with a 2.0 mm drill bit. Surgical site was irrigated with copious saline. The nonreducible deformity could now be reduced which was done so on the table and under fluoroscopic guidance and under direct visualization on the table. The ankle joint was pinned in a neutral position. Then a linear incision was placed on the plantar aspect of the heel and blunt dissection was taken down to bone. A guidepin was then placed from the plantar heel across the subtalar joint and ankle joint into the distal tibia. Fluoroscopy confirmed proper positioning of this guidepin. 9.0 mm and 10.0 mm opening reamers were then used under fluoroscopic guidance and taken to the depth of the distal tibia metaphysis. The guidepin was removed and replaced with a ball-tipped guidewire which was inserted approximately within the canal of the tibia. Then flexible reamers starting with 10.5 mm were used to ream the calcaneus, talar body and tibial canal. Reamer size was increased by 0.5 mm until chatter was heard through the tibial isthmus. Reamings were collected using the [employer] bone press system. Largest reamer used within the tibial canal was 11.5 mm. And largest reamer used in the calcaneus and talus was 13.5 mm accordingly. On the back table solid bone graft was from liquid components with the bone press system then mixed with 5 cc of Sparc allograft. The surgical site was irrigated with copious saline and the ball tip guidewire and temporary fixation was removed. Bone graft was packed into the fusion sites. 10 x 300 mm DynaNail was then placed onto the jig accordingly and the nitinol component was stretched to 6 mm. The nail was then placed accordingly ensuring proper depth and rotation. The posterior to anterior calcaneal screw was placed accordingly under fluoroscopic guidance followed by a lateral to medial screw using the jig accordingly. Then the trocars and cannulas were placed into the jig corresponding to the dynamic hole in the nail. An incision was placed medially corresponding to the 2 trocars and cannulas medially and an additional 2 cm incision was placed laterally corresponding to the dynamic slot on the lateral skin. Blunt dissection allowed the the trocars and cannulas to be placed onto the cortices of the mid tibial shaft. A drill was placed medial to lateral through the dynamic slot passing into a lateral cannula. Manual compression was then initiated and 3 mm of compression was obtained. Then the static cross lock hole was then drilled accordingly medial to lateral and a 5.0 millimeter screw was placed under fluoroscopic guidance. Compression was released and then drill used as a compression justo was removed. An additional 5.0 mm cross lock screw was placed through the dynamic slot medial to lateral accordingly. Hardware and position were then checked on fluoroscopy and the jig was then removed. An end cap was placed under fluoroscopic guidance on the distal aspect of the nail. Using fluoroscopic guidance it was noted that the anterior aspect of the tibiotalar joint was gapped slightly and although this was filled with bone graft to ensure stability across the tibiotalar joint additional fixation was placed. A 2 cm incision was placed over the distal anterior?medial tibia and blunt dissection was taken down to bone. A guide wire was drilled from the anterior?medial distal tibia metaphysis and into the talar body spanning the ankle joint. A drill was used over this guidewire and a 6.5 mm Vilex beam was placed accordingly achieving a additional stability. All surgical sites were irrigated. The lateral extensile incision was then closed deeply with observable suture and the tourniquet was deflated noting a prompt hyperemic response. All incisions were then closed in layers. A dry sterile dressing followed by a multilayer modified Onofre posterior splint was placed with the foot and ankle in a neutral position. Patient tolerated the procedure and anesthesia well was transferred to the recovery room with vital signs stable and brisk capillary refill to left toes. Following a period of postop monitoring patient will be transferred to the medical surgical unit under the hospitalist for admission. Postoperative plan: Admit to the hospitalist to medical surgical unit Orders for multimodal pain management, DVT prophylaxis and perioperative antibiotics were placed. Strict nonweightbearing left lower extremity Physical therapy consulted for gait training Plan for patient to be discharged home once medically stable, cleared by physical therapy and pain controlled on oral pain medicine Implants: Medshape DynaNail [id number] mm Vilex 6.5 mm beam 5 cc Sparc allograft Anesthesia: regional and General-LMA Surgeon: Henri Gutierrez Estimated blood loss (mL): 25 Tourniquet time (min): 120 Pathology: none sent Condition: stable Disposition: PACU
[2024-08-31 12:19] LABS: Glucometer 139 mg/dL (74-106)
[2024-08-31] MEDS: CYCLOBENZAPRINE HCL 10 MG TABLET PO (12:35)
--- OUTSIDE RECORDS SUMMARY | 2024-08-31 12:48 | XMS_ITS | CCD ---
Author Organization [facility] Care Team Providers Care Rush Seater Name Role Phone NATHAN PROCTOR Referring Unavailable ANDREW SHEN Primary Care Unavailable NATHAN PROCTOR Admitting Unavailable NATHAN PROCTOR Attending Unavailable ANDREW SHEN Primary Care Unavailable Andrew Shen Primary Care Provider [phone] Andrew Shen DO Primary Care Provider Andrew Shen Unavailable Kai Muse Unavailable MD Kai Muse Attending Provider DO Andrew Shen Primary Care Provider Kai Muse Attending Unavailable Andrew Sehn Primary Care Unavailable Miley, Kai Admitting Unavailable [...] Unavailable Andrew Shen MD Primary Care Provider ANDREW SHEN Attending Unavailable ANDREW SHEN Admitting [...] Iodine; Translations: [iodine] Drug Allergy 9 [place], [place] (2 sources) Shellfish-Deriv ed Products Propensity to adverse reactions to drug 9 [place], [place] (20 sources) Shellfish; Translations: [shellfish] Propensity to adverse reactions Unknown [facility] Repository (4 sources) Shellfish; Translations: [shellfish derived] Allergy to substance 4 Unknown Reaction [facility] (1 source) Iodine Drug Allergy 4 [facility]ository Medications Current Medications Medication Drug [...] Coding Summaryon 08-24-2024 Coding Summary HTMLBase 64 PedrqyygWIi7xUj+PGhlYWQ +QK0ZQLLfQ94nuXCarZ7nC4 NMTElOSywgQVBQTElOSyIgb jSrRY0ocGPaALTs IC8+BY8fIYPoCazbzKGzh0S 6gMA1C59iou6mXYldbZK4UT NgNsWcwjrma6irsFh0RWgkL mluOyBt SIJnlV65KGV0kF11Ty00sYB mxJAmy3lilNv2KqOyGACaQN C8hQaqBRmaw0GlRZGeF41tr XRep4L3 IBTbdRchsIYhTaLyaGW2hA7 sOVrsklajt8wvowqtNbx3vm 77dNFhf5M0dZT7I5GrobX1D GJvbGQg IodkgQYGaD2fycthx4aebuk rAdMxTGUbZCn0KHq0ALMzgF wyQcQwSF05QLD3QVCjxfReA 2FsLWFs iSjrMuY4h8V2Mg9CY5KPDcd hL1YRUVXZAXjorKT+PC90cj 52S6FdRsecLbd7FKZyWEM6s BW2oZ4j XQXuMNdap1L0lKR6H1NyvnT pmg3ss1vdSQZgHEneO43ckM Isy6K2XBPqkTV8FYXfwQriZ iBzaG93 Oyc+DVNrqQncy8IiJptja6y hh1uikKf2BoosKGBjczQfzD lzRWE2n7ZoLu8sTAOsnTQ2j DW5wR5i PtFoYeJ3EPmdX080RkEilNG yQurmO05jV4WodLU+PHRyPj k6GTLkcMffTC3tU8SmJCJtu mctbGVm nDdzTM0aODMqcydaLDUhtF5 zHXUtA3c5SlYsJsG9QGpxR3 PfGJVwrlhsFx95mY8iHlEnY sT6KOjw A9HghyG4WWAofHKmZIifSDA 2A37uz1I9YRIcJPBeDYF4tY F5zQ7dxJkyvpjhvGLuqYfxo mVydGlj FDqrGHeaW519MGQgqYflDtS vZGluZyBEYXRlOiAgMTIvMD kvMjAyNDwvdGQ+AYBzVIH6o WxlPSAn uJPyGMksQa4gdEybtYiqTJ9 aYFMubeeeLJXvuQ3oKXIfaO XgoOgpYI9xESQiujbxv410E iAxMHB0 MNTzsNUfN2UssR6pWfVgTHT aLEWwA7QbxICqGYywR369WS tjEmK1CXFexsDfH0SaCMEdj WduOiB0 u0L8He5Jd6YbesgkY5FybHZ jDzOyYvmrRIm0D4EgZlufmJ I+FE63YFMxRN24OBr2PHH0r WxlPSdi NYJdZ3ZpzO3dXmJpOIBbEBB kOyc+PHRhYmxlIHdpZHRoPS jwXWKsTvRodDylLL5rGr5gS GVyLWNv hYcsfQUoHeZlu9rnWXSmVPo nXA6ltRbnQ2IxlPB2BGExl0 j9Dw83U22vE4LwwPL+PGNvb ML6jXD5 sQ9fJoTvMbY6BWqlV696JmV hhFBvFakmd6jmp1khvQd4Aq D3WJZwtcWllLyuDZE3h6SvZ t17R16i IHdpZHRoPSIxNSUiIHZhbGl dgw2rkZ5fTs5+HYZavEY3gU M0gJ1rLuFgVdT7CRpmD429T nRvcCIv Gohei6svk4hmhAx5AiVdDBH sjyNkeCkfBGU0m1SuGs71J6 DllKirg4UfIyw9ks08bUEaw 1K3zBQ4 D0AsUEYzhwlztMVqcPqsVW8 rCNQyasgtJLDizB4cRZUfU1 y9JvLtQaN7JLekQ9MkosJ3T GJvbGQg QLLjoPHVdZ7vugrut4qzswv dXqHnVRNeQEl8AQt0WDFatK aiBeHnZFG8IjR5MOV4rISvt R5riYup fvpqqX1sJmx+LPB7nLZpzBW KRM5lKdyxkKM+MWUtDME4rM pcEJziQHWxgG1kUYZuO0w0Q iAwLjA1 HOxpH7MvlcM5CIAinNDsOUS giVZXaS4aseozx5xxsnvgKd IsUYSwZUo0XEn6PHJvwLoiT iBsZWZ0 NgZ6JWE7gCInoA4qdYhjjco gbY5tNes+GrsikEbwDHG0RB j7D7BoWnb3MFGhySueVR1ox GFkZGlu Nb4roGovrJauHI4uFVVubqf ke352YbHqp2dbBEGeaQKsLE bsCES8B19bv4N5PDFlZAExT LA4yRT9 pT4etYfagwxeuRBlfGnfmgA mbNoxXGroMSgwO627EXDrlG stSmYnQXw3Z2XbYcp8ABVlo RvpIU9o vPQqYSveHe9icXvblJmnBN0 kCJOvuadrk196PqKco5glRT MtvQRgCNvfGCS3S72dm9I8I CMwMDAw DYG0yGV2fR4kkTfmqicygEP mdDsgdmVydGljYWwtYWxpZ2 67LUVoxMmhSyAcsZg2X1BmI nw4DMBu rJozDK2qlLBuQXwnSj1nhJo gxTgwCY7vBAPdtabld710Tq Gxw8onXFFarWPqKFqxYML3W 08bk3K1 RPVbAXFhKEQ2fUH8dB1pxCi nbjogbGVmdDsgdmVydGljYW goDVihW278LJOwhBedEpRvd GllbnQg SFyrIHa9C4MsVfpfbMT+PC9 7LIKmXK12fHKrfINup4ledS g7UhMyYMXeBQR0oAbxEZyrw 3JkZXIt B21sgUGlo3O7OROcfSdqwRW rIjLmlZV4hS6xSXyrylcbg3 afmvuhUoujp0koma12xZ44V 29sIHdp ZHRoPSIzMCUiIHZhbGlnbj0 lkJ1bPh2+IFZwzMW4jEP5bD 8dDKSpOpN8INxfM251AsZcx CIvPjxj k2joi2xcaTs2AkK1HVWluiZ wgJdeDKG0k9WlPq49Z78pLH dpZHRoPSIyMCUiIHZhbGlnb q2rzN6m Ii8+ULRfcPJ2bZQ3pW8qZiL lIuI9CAwxT082TlWriGSuUi shA66kM7MahJR+HXEjSoy3A CBzdHls BX0flUJdHSpbUn2xREA0OxW rXaSdVFgrN0DvMIZaqbqdgi ckySF7MTVdUFXenR73Ak8cd DogMTBw dPFRkK9qsbotc7duryitHhR aHFXbBOc8MXu3UKGezRsdOh CvKRH7KgB1TOX9lPUqhO6bi Glnbjog tI8jE3MuUOSfkpzdPn24cA8 gIhNvPpP5IZbaJrv+SEFWRU 6IDftmNrDEB4KNOAHJZY39O G57xGKy d9Z0pPK4V2PpSABkhfhpows brWV0PGJgIQLlmL92pWAwJM mmHp6rh8G4j372JRKnWWPjy O95Bf3y vZphYMUjcTKBkM6egaciy7f aftwfTtIuIODvZIx0FTq7TQ PotQbgYjRvYBV9IaG5UBC5c XQvwT7x sZvqozniqA6dKlk+MDUvMTM lVPu5YanqaKK+DDDtPQW3rY wnCXynXMYrjN3uTZSnZ4u6V iAwLjA1 ENzqQ2OnXOQwfoddIv99rS2 ySyKpEpN0GPubA1TvbgF4RQ GvrEMwRUdbNJQ5K74oz2R1H CMwMDAw NID2aMR7iT5aeSqomhntxJN mdDsgdmVydGljYWwtYWxpZ2 46IHRvcDsnPjYyIFllYXJzP G35QJ38 sGYon6C7qJB9T5WsKBPrqau wfbkbkOI3LICsFORmxI14qV PbCIzdMc6gb8A7e537PKXnM DUwaW47 Rf0pyHdlWACcnCGNuH8rfpc lj1ycfduqSeJdRHInYZn3DU e4PALuiSuiLqArBKE1KyN8W CQ8oNJr bY2fkEeurkalwZ6oNcr+TUF MRTwvdGQ+KDJuWMF8rDvzSQ hwCYEstE7zLGExY0q0PlLhU nS5ODvu O1OmJOUysrxcXw42sQ3vTlZ bVxP5EByqM6BfsuK2VFYcrI HgPNaqSPM0F09pr3K9RLLbK DAwMDA7 eZN8gQ1bvCfundfkaPGlrVz tgiYctLowLVmmYEruK370YT OulWmxNmFwG6StpzuxBsHUg XRwYXRp EN82VJ92DB74V0MmCnqmbTG ibGU+PHRhYmxlIHdpZHRoPS stIMItEdOoiVbpTE1zGr9xH GVyLWNv pGwdoXDpAzCfv2saWGCjYUa hGK0wdFxdV4LigPA2NGNdq7 r5Qk01F95hD6EwfML+PGNvb GN6yCD9 vP6cZsPuMkR2GXjfK346LfE thPKdAfhrv6rtu8qhfKv1Ng KtMGJtswQxxOhcHPO8v6MvY o85C12a IHdpZHRoPSIyMCUiIHZhbGl qwi4vxP4oUo7+SIOhoTA7rP F8jK0gZgCkAyP0JMdgE059V nRvcCIv CloxL83cL9FcmCZ+PHRyPjx 7KYDytPfvFR3kcVRiJLviKq 2wDJI4BtDlLzFoYHobH1KjZ GRpbmct vrojxXM2EFGqXSSbeZ87Mx2 leXfzTm5uDMFuPIH5MUPufG KcV8HmdV6kJxBrLOQsBCAjC 3RleHQt KXvgV288TWktYiT4VLLbstG sA9IsBEWroWfvGjI9z7O7Dx 7PmHgtbJNvRF3iMiGbDIw6I 7JyYwj3 ASOypOnoLU4nrWAiGFkxAv2 ocAwqnFjkLA9oAWFewskxd1 39IqBhj5jnRBHmvUFtVKdlC MC2P98g o9T2XBEoCYVuQVI7kIU7tY1 hbGlnbjogbGVmdDsgdmVydG dnSLvzGOopR032ITDesPhgY kZJTjo8 B6OpHiq4UEFiyGopII6gnBF jJFzhDd9fhXneaTikAS1zST Wewrwkx197SpTgg0cbWQJxm HQgVGlt MRK5V59oe8O1RJIlOHWcJJV 2jUZ1jV6yfFlcwmmhjHGhbQ qchdMauAfeCFlbRIklV394S HRvcDsn Ho5LYyb0D2UnUvf2LEGbqBi qNI6bkWLbYSadZi4lpNgmfK ulAU7nWGSgjgbqw204PuVoo 2xkIDEw sHHmTLpnTFS5Z68ii5I9RAK lXQRySVC6gQU4bE5gvWonpx ogbGVmdDsgdmVydGljYWwtY HllC537 IHRvcDsnPlBheWVyOjwvdGQ +TQ75oo44A9WiDbbeCbc3PW BcRJL3qET6eM9fPJZuKRxgy 4X7mTI5 J2J (more content not included)... [facility] Provider Orderson 08-11-2024 Provider Orders [id number]#[id number] TGTIFF [facility] No Panel Informationon 07-29 Radiology Study observation (narrative) [facility] XR Ankle - left 3 [facility] Result: 3 vi ews left ankle: Weight-bearing: AP, mortise, lateral: 07/29/2024: Severe asymmetric joint space narrowing of the ankle mortise with significant ankle varus deformity. Relative sparing of the subtalar and midtarsal joints. Unremarkable for fracture or stress fracture changes unremarkable for acute osseous or joint pathology otherwise. [facility] XR Foot - left 2 [facility] Result: 2 vi ews left foot: Weight-bearing: DP and calcaneal axial: 07/29/2024: Unremarkable for acute osseous or joint pathology. Changes about the 4th metatarsal diaphysis likely consistent with old healed fracture or stress fracture. Mild metatarsus adductus. Calcaneal varus deformity appreciated. Formerly [facility] Coding Queryon 04-15-2024 Coding Query [id number]#1.00OT [facility] Coding Summaryon 04-14-2024 [facility]oding Summary [facility] RaodkartHJa3wRy+PGhlYWQ +RV4EDNBsQ53haNHdmC3cT5 NMTElOSywgQVBQTElOSyIgb pYhAV3vjBDaMAVm IC8+XW1dZOZaZogvxBXym9U 9wVL4S63gio3yLRbbzAM6LD EuPwLiuapdi6ibxAu2HVwzR mluOyBt YMQajQ26MIB2kT36Jt35nFN pzSOzu8evfJs8DjCkUQSaSC G3dOfoBHuln6FkFVUwA13hb OTcd4R0 QTTtgZlqqBFtUtAsoXX4hK1 tZPybhrfgh2ulfvemItk0bf 76fMXxn7F4cCP4T6TwlhM7D GJvbGQg MtbddPEIqB4djanxw4osuxk tZaRxWCVnFOh6XGz3YLTxhS ndLaKzID54DCK6GPBywwTdA 2FsLWFs rQyeKhL7e5N9Kf3CJ1VYWkk lR2BYAZTQIMocwDH+PC90cj 80F5KaKaedDbi6IXQjFTK9t CF1mG6c EIDxIJbgz7K5vJR0U2EjvzD ofm0qv7hhIKJyFDhuC26soC Ucj3B1AVPvuJP9DIBxaNcqX iBzaG93 Oyc+KRWybPxat8KnLnxoi6l gl3banPx9IkfsKBAigcYitE zsLWR9p5FjYc0fSGTxwNP9n AN6uV8b NoQbYhC4DByfW031NoWcdYQ kGwyqY70gI2MefXG+PHRyPj t8YGBhpSfnIH8oD2UdJDLqv mctbGVm jHylWH8dCOTfovjjLQGsxF7 nNNWeC4v9OyRvKaU2MZodO5 EjYXTcbjdgYz54eH5tUwBmN uZ6IGvk C9LhmoM4HXLkoESyZUzvCDY 8T47mz1W2KNWkOVUbXXT6fS G9oT4mjJswtstazYWdoUdhk mVydGlj EXfuQRisE848PABdrDxcIvO vZGluZyBEYXRlOiAgMDcvMz AvMjAyNDwvdGQ+JPYqDPK2i WxlPSAn uKHyTNmvQo2eiYwraOflQE5 rORSfhowmCCJqfR2dIJUebE WdmSnbNF9iFEMlusbkh644M iAxMHB0 ZUIzzGRdZ8UfwL0sEwAsEJS zGPJqR3LloLJzYJknE597MY weHlF0FVGzogPkG3ZhYRUyq WduOiB0 t4M4By6Sb7GrbassW6FryMB yWgZpGbixFRg8P3VeScgzzR I+ND16SSLjOG60GAx0TSH1z WxlPSdi ESJiI3NovV5nPcTbHFZiINB kOyc+PHRhYmxlIHdpZHRoPS ieCEZhYqMjzSydEG5nUd2wK GVyLWNv dNqzdKGoQgVtz5mcKDKbEBz rAO1qvNeuE5OafQR1UCXzj5 o6Uy36L44jG8LnwYW+PGNvb MS1aRX8 mU4rDaKxMgD0VXucD114AsI joQZiZetgi8kga5lmvGk4Ck K0YJMgqbDqpEhvWXV8v3MrN d15L19b IHdpZHRoPSIxNSUiIHZhbGl jqn3osQ5pJs8+CKOluKT0nX R0rR6hSjCqOzI3ACoxL971Z nRvcCIv Cgeat0ywl1brnJw9MjPwATS iavHlaGsfDRZ6y3TmJw91Q6 IutMtcj5AmVvh5uz22nHLvj 5Q3zKD5 I2SuUAFsfgvlkFRvtFmtTR2 nTMLlqakwSQIifT8lGZXaV8 m5PxMrWsV8ACvdQ5YignT2S GJvbGQg VGIfnTSTqA6sxuhgh0asijl bVuKiUWGbXQp2WAi7ZNSagC gxJeViMKG6NpJ4DVE8bXMfb T3yzQrz bqbssW7pGoz+EYH9hWHywSY LEB8gLwszcNA+SCTqYMX1eW cpRDlwATXlpQ7dSRUcB2u3Z iAwLjA1 MQqzZ0ZozsH6MOClbAVlIWT cqJTToY4mowggf1xpndeeQt EuPEFpNOn6YAl3SUNbcKdiY iBsZWZ0 KfL3RIP4lRKklM1bhKwjexk jaG1nRgf+QxsnzVpzIHK8IC c1K2IkFmu7DABpkUctMZ5ib GFkZGlu Zr2xxPlmwUlwWY9xXMHzbdz px608HaTmf1knNHSlsZReGV ucPIU3E06pe5F1OIBbNNLiO RB7jLA2 bI1ztNgbupnllCJczKutmcP oaAebQRpqQXecR982BKDmrN enJgXnIAc9G4AqSfr9OBPbz GyqOU8y jJNiAAsgAi1exGyujEbdAO7 nRRSsveqtx818KwFle0dxBG FmyCFlGRbtVDM0X26an0Q1A CMwMDAw SZP8vIG5tX0aqIxnfofloVB mdDsgdmVydGljYWwtYWxpZ2 45RWIdwJsjIvZcmWe2G5CsA ke3WHYg zWuuYN7dsYSdRMicBm8zqYc jkYvhUU9hAEPwegtlf275Ji Eth7mhBLJygAHhBGgyNVS5F 15fq7G2 BMKaWADvPCJ1yJT5fA0fvDz nbjogbGVmdDsgdmVydGljYW wyAAiyU058ORMtsTfpSaLos GllbnQg DNspQGz6U8NiCqtynFD+PC9 1OKVnFK68yVRgwSOzh1owpK c5UlHxLDZmXJH9dHkcEMgpx 3JkZXIt U62anOUrt2J7BJEfnUlteHE iLaFnyVT8mD2rJKmujktie8 dttbphKynnz6arom26hW07U 29sIHdp ZHRoPSIzMCUiIHZhbGlnbj0 nqF1vBh9+CWHxuOL5kBJ7eA 1zPBNgOlP1EEuvF363WcNqx CIvPjxj i9ypm8spjDf0IvJ5WOIhupK leUojQOV4h1HfUp13O09jLP dpZHRoPSIyMCUiIHZhbGlnb r5moQ3i Ii8+VLGknNC9hGV1jJ1tNuO pBrT9OUdlZ922KbNmoTMlAb aoT95eQ9IonGD+MDRfBxr2W CBzdHls QR2vvNDkOYpvMh2kKBA6HzK bKoYxMTtsJ6KkHHKzeoirti gzkLS8RHUoAZJzdA62Cw6lo DogMTBw lXJZfW6ppxrxs9mvkfnqWhN rZARtWSi7DBv6WKLdrAhoHk QwXAT0XgC5BVO4sGQpmP9qe Glnbjog kM4vE2ElJFAimaqaPl91uO9 gRlOoWiH0EEowYoy+SEFWRU 2LCyswGjSGO0LGELFMBT00B J56pDHl b0F2tJZ1K3XtTGFnonpvnwh krKB3TSInKVBvlR99bLHhPX lsDu5wa4Y4g942QANiHUNnu W63Tp5a yKlyYRFicICFnO4lgkjpm0f ndhyhPxIkLXAdHDe7XSa1KP VuvVkiTcYmQNG8NbV2LOO6a TRkmJ6p pDrwnnksrC2aCid+MDUvMTM rJRv1VgfhsBQ+FGCbGMA2oY lmLPipIBXjfU9sOWTaG6e3Z iAwLjA1 CWegA0RaZJWwqktlLg08mT3 dDmWcPvH5VDhjI9QxjhT8PW EedKFlFEfqWUT4Z30ei7Z9G CMwMDAw UQU0nAG4qV5wzPcmgqyomOX mdDsgdmVydGljYWwtYWxpZ2 46IHRvcDsnPjYyIFllYXJzP H42MD85 cANok6W1cQO3O2YlIOApbaz yrufmgOV1IVBvWYBfuS30nN RrRCzxBe3wb3X9e369GOSpO DUwaW47 Yz5zpZgrHOQayFPAqU7wlrd bz2iecrvoZcYgWSLrBDx9UE t2VOZzpZdnKsJiLYR9LdT8D XU0qZXs hE0agWxguaypqO2qBja+TUF MRTwvdGQ+BXJeUGP2pCgnWS hoVEQbbG7gUJSsO0a7UqNeP tP7BJhe C9OaENKvvwzsLw52rZ1zGgD wBsZ8ICzwC9KdzdX6NBPapC WeZMuwEMB1E34ck7M7USIvK DAwMDA7 hDZ8vA5duIdwfeyifDBleTi ahtDciVfnYQveWTisV466ND DlaSicWzMgR8PhmqilYmVRo XRwYXRp HD06EN01QZ50C9XpGffivWT ibGU+PHRhYmxlIHdpZHRoPS poHVKpFrKymAfeFV9fSk1eH GVyLWNv vBdgzAVqJpAez1ztOWVeDNq tTC7eqTbgZ4ZisEF4ZGPut3 y3Df00R47pN5WpxMW+PGNvb YX4aGD0 gQ8nAtDfBxV7QJgzD129VlD kmYBoPpoyw7sii3vhjPy9Yq PsSAGnnjBnfZahSPP1e4BqH p14K43x IHdpZHRoPSIyMCUiIHZhbGl blf7raR1gDz8+MFEssWP4gK Z2uZ1hQrGfHfF5KOutK331K nRvcCIv ZihjC27sR9JxuOT+PHRyPjx 4GIGrcPrwUK0ooGWoXEshFa 7fAHB1VpJySjHxSIfnN1KpM GRpbmct wqhmiHW0UMEgPIWedD17Ud4 ojKvdQa4bVQXlKJC0YKPceE LrI6OijF4iQiXzILLbOWVbH 3RleHQt FEaqF343BQyaEzC0MZXzpkZ tD1GeNINplEueQjN8r4K1Fm 5RrFrqcMFyCS6pByXiYIg0F 7IdQrb9 YZOxkPkeLQ7qqJTjKIrvIo9 kpUcpoShrQL5mGSSbuxzmk8 19EjSjt9wjRRKlkDAxOZpkH VM5F14u c6K0MUNmHZWlZWB9wLD6iX1 hbGlnbjogbGVmdDsgdmVydG fsNWjvQIsvS313CZPlqBraY kZJTjo8 K2KpYvu3CMMzkUlyGL9ctAW qDTlgXi6grCsiqKpxJV4cWH Xmdwgcn629HrXmh8hpSRNns HQgVGlt LZX8I23fj7T8DWWeXDUhXQG 4rWV8rV2asVtutejdvDKmbR fzzmFsmPftFPnbCZefZ821Y HRvcDsn Pi2WFwm1B4LyHyu3IDSeoKz lOS0wbZCpGVfjQw4spIxolK woVT5cHIUmlqfrd465AwOww 2xkIDEw uUDiUMkdQJC1O33ui9W8KFE sHGTtCYO3yIP3oE5zxSagra ogbGVmdDsgdmVydGljYWwtY LiyA384 IHRvcDsnPlBheWVyOjwvdGQ +PA35sy69N5JjHzrnLfp0ZS XgERF2tDO4tM1uDNYoTTrws 4T9qEM5 J2J (more content not included)... [facility] Physical Therapy Noteon 03-16 Physical Therapy Note [id number]#1.00OT IFF [facility] Provider Orderson 02-28-2024 Provider Orders [id number]#1.00OT IFF [facility] Coding Summaryon 02-17-2024 Coding Summary [employer] 64 VskzvgygXOq8hZi+PGhlYWQ +RP9KHPUnM87vlMOfqQ2cG9 NMTElOSywgQVBQTElOSyIgb nLtIW0cxTPeRYGa IC8+WY7vHARzGvrkqREgl1P 6lNX1Y51uwa9pYAtqaNJ7IV UkQrUzwhqcr5wfiEs8KRvnW mluOyBt DYBfjG04WXD0aE24Oi54lJH zvQMir5cydIx9GsFkUTDoOD N4oGumODtzr7WtALEuA61nc DCrb3X2 XIIthRukiMZcVrDbfOC2pA5 kFRegemtlx8uunwwlXel7gw 26bZJra2Q3mPX5N7TtrgK8J GJvbGQg UgdvqKFToN0mkawub2xnpca vZyBzTYSaXQv3XIf2KLIiqK nqHqFwSP41ZPJ9JPSflyRbL 2FsLWFs cXkgXnF5e0O1Qq8JU6GHDdi hY6AAIOTOFRdqzZS+PC90cj 25F3GzYqevMxh5AIYyZMK7z LU0wK8o UMFkQZkjj5L0kTQ8O1XuqaD kpp2gm2crVYIgKIxiX19ccF Ole5D4HWOytRQ7NZLcvVykB iBzaG93 Oyc+XLYoaEnop6DmVkesw7q me2osrWy9LgjbPKZzuuHhpS kcGAS2o7XcIy4lDTYbaFI8b KA8sU5b VsXqEeK5VPtlH984UmNxvXA gSxnhE99eZ5FrxGK+PHRyPj h4CAUijZprHU2nP5ApXIQya mctbGVm pTfuIT0jEOPuvrhvASTsiL3 mMWAtN7f1NxGjAiT7BLfuH8 DrIOJevjrdZq42tY4lRtHbL hV4UWtw A9FileR1ZYQubEXuKKkxJJT 9R06ju8T8FXOaGZHsXVQ1hP O6mW0icKyscvowgPVisBnlt mVydGlj RFkxNYrqF291GBIasUumRdJ vZGluZyBEYXRlOiAgMDYvMD MvMjAyNDwvdGQ+HGNqBQB3e WxlPSAn eZXzBUpdTy4juTfdpCarPE9 jTTYpwfmaSVZawU6qDHJjrA HmjVouYA6bKBBxiarpz693X iAxMHB0 JJAtiQOgK3OvsZ6zXcKeDBD cESKaE0JfxRBjUPsnY067XV uiFwP7DIYmusJeO9AjABUgb WduOiB0 u4T7Yj9Tr5PycdkwO7ZidVX iTpPdBlzvGUb8B2HrVpwokC I+EZ04KVBeGU81ZIu2FDL1d WxlPSdi LMUtH6BfmC4aGqTaHGPjBBS kOyc+PHRhYmxlIHdpZHRoPS ulVNUqQlUnbUvqZS3dZd1hI GVyLWNv jPrxxBVpHuUay4stJXEeXSs mMP3iuOzmO7YoyHB4YIUza7 j4Jo00G03nP6WsfAH+PGNvb UH2wQW6 xE9pLzEtAuX1JIvqL236CcA odMTkYtqyq5wel1hpqKk3Fr T8AXRildFpuTqtHRT5a6IxG n01P21p IHdpZHRoPSIxNSUiIHZhbGl ymb0gvU9jDy1+SIApzYY1sI S1kD8wKkYxSrG6JEntA544L nRvcCIv Vvjua1vjz9itvTy1JlSmBQI bgsFepTemNAA0u5CaOb41V8 MxeCtvi5YsQqa8hj10dEMoy 6N6rWK2 D2GuFDWcjturiDQvkHeyIA8 mDHYgoihkWEGjdY9fWTWyN4 z9GsVlLcU4KOueJ5VlruF3W GJvbGQg DYIjcEXZaQ3njjsyh6jccxl wAdJsEQCwILg2KGb2GJRndM uaGtMaBZZ5KoG0TRM8yXWop H4njUlx eifqtR7vRvr+FLT5bTQcgNE YGZ9oAdldlAK+TWYrOVV0mD ypIPcpIFSavB6yDNXhE9m5J iAwLjA1 TLxuI7LgjkP9ABWkoYGgIBJ whVCYmP6brfafv3kvcovwHp VkFERtWGa7MHh3VFHgjKozR iBsZWZ0 ZeM3DTO2kFDjwH8tnPgqdmy suH9nXpb+WragpZrwVVI7AF l2L7VeMcg7NHBxyWypSO8sj GFkZGlu Mp3huFmmvTjaVH7fLDWzcyg lv920YpUbt4yzVBWwhEUoMJ vkTXE4L49sw1O0YZYtVXJsD LD6uZN5 kZ8wbIstjqsefRLozVawebC lzUluOLzzXCrrD208GMBltY kkBxSaIOa6J3GmIgi5MXGab WfaDZ9s rREgKXzhCz7bbAokmIlgPL8 gUMAxxccwz193SkBsl4koMC TfnIOxCTlaNTM1L13je6X6J CMwMDAw EKY2iNC9zX3ptAcrbzyykOD mdDsgdmVydGljYWwtYWxpZ2 87URIheJrmPyGncAe8E5EcV gb7EZVa mOrfYS4alUMmYTnwUh4ifOj rnKvpQG2aHNLtgqroe518Rq Swa9geLNRxzCRmGDliAWB0B 60hf0G4 SLWkLLDbOKT6mYD2mF6oaUh nbjogbGVmdDsgdmVydGljYW wqNPzhH869GWCuvGnsTmNjv GllbnQg QMfuASi7N3SvQxatsTJ+PC9 1VMRqYU52aAJvkFUkc2jodK o9XhLjTZYfVMD5pUksMAxmb 3JkZXIt F27nzDNse7Q5KAWrvOekpGJ gUuNiyVW4xB5hKNdqnabkq5 zzmiafEmwmq9aaxr12bG33J 29sIHdp ZHRoPSIzMCUiIHZhbGlnbj0 tcY5fIf7+CPYyhOY7lBE0uH 9tQXCsScR8GWzdW369CqQhc CIvPjxj w8tik6rthMy5ZmC6KKCfiaA bjWxbSGM4i1IxUk17X27xQB dpZHRoPSIyMCUiIHZhbGlnb u4ouP8u Ii8+ILLwjZN9xNW6aK6gOvO kJnS0RIuzW312PqFokUYvFm lfJ27nJ1VffIK+BEGxVxz3C CBzdHls GE4waITvTSldQe0pDGN3FsP qAyAxXUuuD1WsKGDgjrhjhi gukIQ8QAWlWZHolK93Fw3jt DogMTBw rRRTiF8twjwoh9zbnloxWlD nFPIsJFp0ATh7EUQobZsbMk DxNKD9VjO0LPE2dNCobA3oy Glnbjog eP7lE9YtRUFhubhzUc55bS9 pVsSvKqZ4LZhqJsj+SEFWRU 3YEhavZmOAA1DRLGOBVG08G O16gMLd v3X2oDL8D5QxIQIrxinrejc plSI2DDDfTNLphP08zAEgPF wyZt9oi3U6g069TKCgDDZek P53Zw4g yCpuSOViqMSBaS8mtlqsu7q yqnhjCtRlBPVyODo4LCu4DK PpwHcoGaFvJSM3NhY3OCE4r KBkvF5b rMwmhrnjhM2xBxm+MDUvMTM pNUe9UlhgrHQ+FKFtAKW1xD tkIIctMHBixS5vOWXkM1t2X iAwLjA1 DZlnP3RfOEKmkhyrFg86hF8 oIgLqHfZ9TNlfX8DircX1PK YvhWMlAHguJPU0K18fh5F0Q CMwMDAw GWO2zYL0pF4ocOobunrfdTZ mdDsgdmVydGljYWwtYWxpZ2 46IHRvcDsnPjYyIFllYXJzP W64MJ63 jYOcm6P7fET9S6QeDWSsiqj ffgifwUQ9CLXrMTMhsM33jX EnXAbpOg6mt6O6g786ZGJmP DUwaW47 Ly9fvWxiEUBcdGTZkA3yvjh ox2ulycnwDmLqNFIzTWh8RM u6YZWroNpmDsIhEIG7ElG6Y UN1cXYb zD1kqUcygfgosB7lQfr+TUF MRTwvdGQ+QDOsNRQ4fImyDS miXGBazR2pZMQiI9d4XfHgQ uL0WWhl W0ZhJYFfftjoBf52jH4kImA sNkV6XJprJ4CrerG4MHAuuY KwIStaSME6U97mp2M6SFQjD DAwMDA7 fGR7sZ2mnMspokefuJLniWa pooQynPosGRxyWPbuA197IF VdzKmbVvWxA4IezwupTaQEy XRwYXRp PZ92YN65JV21F2MxDhwonXE ibGU+PHRhYmxlIHdpZHRoPS pjLJXvHhZidVtyZW1xPr9qN GVyLWNv gOzcsVIeFdVsb9seRZXoCNg qIH6yeWoyR4EteLX0QPKna4 d7Vi92D52uJ9ZcoET+PGNvb WY3hXH8 fC8cJsQtCzX4DQxeB187XeC euXBpFajkc9xla2tjsLi9Bd FhREEphvPnzHeoXCR2v0EwB m58M55f IHdpZHRoPSIyMCUiIHZhbGl dyd3jmJ0bIt5+OTCgmVX6zJ Z5uW6uGtWdYgU2AHtwQ264Z nRvcCIv IcwqE14fX5RuySC+PHRyPjx 8WORbvJdvYX7svAJkDDktSm 0cGAV0QtWlZnBnNNyuY8LdG GRpbmct uudlkBI2LFOzXKTipM85Gp2 lmFtlHf8sCOEtYUY1UFCwnB BkX0TmxL6sDhJoNJDxROIdD 3RleHQt RHdoN032ZPkqTrM6OIHsxsQ iQ5EgSDFyyIepLiT7q8M2Xy 1SaWtriEQbCW2vIbNtDIu8O 7HlSmc5 HWVndPotET5wrHItJLuqQh0 tmAzubBncBO8oXFNubutqe1 79XlAhe2noYORauBZkRUplT FN0Y42k q5B5LXKmDZHpAHG7xWF6dM6 hbGlnbjogbGVmdDsgdmVydG wmKYcpZLprI188BUHwbOnbO kZJTjo8 I6UyZnn4TNAjtKfzGU6tlUY hQIioHj0ibXvnaZgeCJ9qMP Ampxxcg686ObTmi7duSCPos HQgVGlt CXV5K52ym1E6PSRqSHKnNXD 7kPX8rX0orZpnnmghsKOujZ myjzIqvMwrZZwgEIraR306N HRvcDsn Gn8SQhx6J4HtZce6DDJafRp mCE0vqNBkKUsjCx9lqEdxuU koNF0yTGTpzptup500JgXpg 2xkIDEw oBWmJHyzVCU6H87th8S1UOE mEQCcLCY5mWY2pA9oaYvojl ogbGVmdDsgdmVydGljYWwtY TtyL143 IHRvcDsnPlBheWVyOjwvdGQ +IG95uu65X9YjQdonWmj6GE SkFNE4bBS0jD2bAOMoQHqsz 8F5dNN5 J2J (more content not included)... [facility] Provider Orderson 02-06-2024 Provider Orders [id number] [facility] Alanine aminotransferase [En zymatic activity/volume] in Serum or PlasmaOrdered By: Kai Muse on 01-22-2024 ALT [Catalytic activity/Vol] 22 U/L Normal [facility] Comment on above: Performed By: #### C MP wRFX A1C, CBC, EBS A1C #### [address] Albumin [Mass/volume] in Ser um or Plasma by Bromocresol green (BCG) dye binding methoOrdered By: Kai Muse on 01-22-2024 Albumin BCG dye [Mass/Vol] 4.2 g/dL 3.5-5.7 [facility] Alkaline phosphatase [Enzyma tic activity/volume] in Serum or PlasmaOrdered By: Kai Muse on 01-22-2024 ALP [Catalytic activity/Vol] 81 U/L Normal 34-104 [facility] Comment on above: Result Comment: PERF ORMED BY: [place] [address] PATHOLOGIST [employer] OPERATOR MARQUISE FIGUEROA M.D. Performed By: #### C MP wRFX A1C, CBC, EBS A1C #### [facility] [address] Aspartate aminotransferase [ Enzymatic activity/volume] in Serum or PlasmaOrdered By: Kai Muse on 01-22-2024 AST [Catalytic activity/Vol] 18 U/L Normal 13-39 [facility] Comment on above: Performed By: #### C MP wRFX A1C, CBC, EBS A1C #### [facility] [address] [place] [address] Automated basophil %Ordered By: Kai Muse on 01-22-2024 Basophils/100 WBC (Bld) 1.0 % Normal . [facility] Comment on above: Performed By: #### C MP wRFX A1C, CBC, EBS A1C #### [address] Automated basophil countOrde red By: Kai Muse on 01-22-2024 Basophils (Bld) [#/Vol] 0.1 10*3/uL Normal 0.0-0.2 [facility] Comment on above: Result Comment: PERF ORMED BY: [place] [address] PATHOLOGIST [employer] MACH[employer] OPERATOR MARQUISE FIGUEROA M.D. Performed By: #### C MP wRFX A1C, CBC, EBS A1C #### [address] Automated blood monocyte cou ntOrdered By: Kai Muse on 01-22-2024 Monocytes (Bld) [#/Vol] 1.0 10*3/uL High 0.0-0.8 [facility] Comment on above: Performed By: #### C MP wRFX A1C, CBC, EBS A1C #### [address] Automated eosinophil %Ordere d By: Kai Muse on 01-22-2024 Eosinophils/100 WBC (Bld) 3.3 % Normal . [facility] Comment on above: Performed By: #### C MP wRFX A1C, CBC, EBS A1C #### [address] Automated eosinophil countOr dered By: Kai Muse on 01-22-2024 Eosinophils (Bld) [#/Vol] 0.3 10*3/uL Normal 0.0-0.45 [facility] Comment on above: Performed By: #### C MP wRFX A1C, CBC, EBS A1C #### [address] Automated monocyte %Ordered By: Kai Muse on 01-22-2024 Monocytes/100 WBC (Bld) 11.3 % Normal . [facility] Comment on above: Performed By: #### C MP wRFX A1C, CBC, EBS A1C #### [address] Automated neutrophil %Ordere d By: Kai Muse on 01-22-2024 Neutrophils/100 WBC (Bld) 59.7 % Normal . [facility] Comment on above: Performed By: #### C MP wRFX A1C, CBC, EBS A1C #### [address] Bilirubin.total [Mass/volume ] in Serum or PlasmaOrdered By: Kai Muse on 01-22-2024 Bilirubin [Mass/Vol] 0.5 mg/dL Normal 0.3-1.0 [facility] Comment on above: Performed By: #### C MP wRFX A1C, CBC, EBS A1C #### [address] CMP with reflex to A1Con Albumin [Mass/Vol] 4.2 g/dL Normal 3.5-5.7 [facility] Comment on above: Performed By: #### C MP wRFX A1C, CBC, EBS A1C #### [facility] [address] [place] [address] [place] GFR/1.73 sq M.predicted MDRD (S/P/Bld) [Vol rate/Area] mL/min/{1.73_m2} Normal [facility] Comment on above: Performed By: #### C MP wRFX A1C, CBC, EBS A1C #### [facility] [address] Calcium [Mass/volume] in Ser um or PlasmaOrdered By: Kai Muse on 01-22-2024 Calcium [Mass/Vol] 9.1 mg/dL Normal 8.6-10.3 [facility] Comment on above: Performed By: #### C MP wRFX A1C, CBC, EBS A1C #### [address] Carbon dioxide, total [Moles /volume] in Serum or PlasmaOrdered By: Kai Muse on 01-22-2024 CO2 [Moles/Vol] 26.4 mmol/L Normal 21.0-31.0 [facility] Comment on above: Performed By: #### C MP wRFX A1C, CBC, EBS A1C #### [place] [address] [place] Chloride [Moles/volume] in S antonia or PlasmaOrdered By: Kai Muse on 01-22-2024 Chloride [Moles/Vol] 104 mmol/L Normal 98-107 [facility] Comment on above: Performed By: #### C MP wRFX A1C, CBC, EBS A1C #### [address] Complete Blood Count Auto Di ffon 01-22-2024 Mean Corpuscular HGB Conc 34.6 g/dL Normal 32.5-35.6 [facility] Comment on above: Performed By: #### C MP wRFX A1C, CBC, EBS A1C #### [place] [address] [place] NRBC% 0.1 /100{WBC} Normal 0-0.5 [facility] Comment on above: Performed By: #### C MP wRFX A1C, CBC, EBS A1C #### [facility] [address] Creatinine [Mass/volume] in Serum or PlasmaOrdered By: Kai Muse on 01-22-2024 Creatinine [Mass/Vol] 1.21 mg/dL Normal 0.70-1.30 [facility] Comment on above: Performed By: #### C MP wRFX A1C, CBC, EBS A1C #### [facility] [address] EBS A1C with Estimated Ave G luon 01-22-2024 Glucose [Mass/Vol] 108 mg/dL Normal [facility] Comment on above: Result Comment: PERF ORMED BY: [place] [address] PATHOLOGIST [employer] M[employer] OPERATOR MARQUISE FIGUEROA M.D. Performed By: #### C MP wRFX A1C, CBC, EBS A1C #### [address] EBS A1C with [address]imated [address] G luOrdered By: Kai Muse on 01-22-2024 HbA1c (Bld) [Mass fraction] 5.4 % Normal 4.3-5.6 [facility] Comment on above: Increased risk for d iabetes: 5.7 - 6.4diabetes: >6.4glycemic control for adults with diabetes: <7.0 Result Comment: Incr eased risk for diabetes: 5.7 - 6.4 diabetes: >6.4 glycemic control for adults with diabetes: <7.0 Performed By: #### C MP wRFX A1C, CBC, EBS A1C #### [address] ECG 12 lead ECGon 01-22-2024 ECG 12 lead ECG [facility] [address] [place] [address] [place] [address] Electrocardiograph Report Signed Patient: Conchis Andrews MR#: [id number] : 1960 Acct:[id number] Age/Sex: 63 / M ADM Date: 01/22/24 Loc: PS Room: Type: [facility] Attending Dr: Kai Muse MD Ordering Provider: [...] Burton MD, FACC 01/22/24 1639 Normal [facility] Erythrocyte distribution wid th [Ratio] by Automated countOrdered By: Kai Muse on 01-22-2024 Erythrocyte distribution width (RBC) [Ratio] 13.7 % Normal 12.0-14.8 [facility] Comment on above: Performed By: #### C MP wRFX A1C, CBC, EBS A1C #### [facility] [address] [place] [address] [place] Erythrocytes [#/volume] in B lood by Automated countOrdered By: Kai Muse on 01-22-2024 RBC (Bld) [#/Vol] 3.96 10*6/uL Normal 3.90-5.60 [facility] Comment on above: Performed By: #### C MP wRFX A1C, CBC, EBS A1C #### [facility] [address] [place] [id number] [place] Glucose [Mass/volume] in Ser um or PlasmaOrdered By: Kai Muse on 01-22-2024 Glucose [Mass/Vol] 103 mg/dL High 70-100 [facility] Comment on above: ADA recommended refe rence range Result Comment: ADA recommended reference range Performed By: #### C MP wRFX A1C, CBC, EBS A1C #### [facility] [address] Glucose mean value [Mass/vol ume] in Blood Estimated from glycated hemoglobinOrdered By: Kai Muse on 01-22-2024 Average glucose Estimated from glycated hemoglobin (Bld) [Mass/Vol] 108 mg/dL [facility] Hematocrit [Volume Fraction] of Blood by Automated countOrdered By: Kai Muse on 01-22-2024 Hematocrit (Bld) [Volume fraction] 38.8 % Normal 38.8-50.0 [facility] Comment on above: Performed By: #### C MP wRFX A1C, CBC, EBS A1C #### [address] Hemoglobin [Mass/volume] in BloodOrdered By: Kai Muse on 01-22-2024 Hemoglobin (Bld) [Mass/Vol] 13.4 g/dL Normal 13.0-17.0 [facility] Comment on above: Performed By: #### C MP wRFX A1C, CBC, EBS A1C #### [address] Leukocytes [#/volume] correc laurie for nucleated erythrocytes in Blood by Automated counOrdered By: Kai Muse on 01-22-2024 WBC corrected for nucl RBC Auto (Bld) [#/Vol] 8.7 10*3/uL 4.1-10.5 [facility] Leukocytes [#/volume] in Blo od by Automated countOrdered By: Kai Muse on 01-22-2024 WBC (Bld) [#/Vol] 8.7 10*3/uL Normal 4.1-10.5 [facility] Comment on above: Performed By: #### C MP wRFX A1C, CBC, EBS A1C #### [facility] [address] [place] [address] [place] Lymphocytes [#/volume] in Bl ood by Automated countOrdered By: Kai Muse on 01-22-2024 Lymphocytes (Bld) [#/Vol] 2.1 10*3/uL Normal 1.00-4.8 [facility] Comment on above: Performed By: #### C MP wRFX A1C, CBC, EBS A1C #### [address] Lymphocytes/100 leukocytes i n Blood by Automated countOrdered By: Kai Muse on 01-22-2024 Lymphocytes/100 WBC (Bld) 24.7 % Normal . [facility] Comment on above: Performed By: #### C MP wRFX A1C, CBC, EBS A1C #### [address] MCH [Entitic mass] by Automa laurie countOrdered By: Kai Muse on 01-22-2024 MCH (RBC) [Entitic mass] 33.9 pg Normal 27.5-35.2 [facility] Comment on above: Performed By: #### C MP wRFX A1C, CBC, EBS A1C #### [address] MCHC Auto (RBC) [Mass/Vol]Or dered By: Kai Muse on 01-22-2024 MCHC (RBC) [Mass/Vol] 34.6 g/dL 32.5-35.6 [facility] MCV [Entitic volume] by Auto mated countOrdered By: Kai Muse on 01-22-2024 MCV (RBC) [Entitic vol] 98.0 fL Normal 83.5-101 [facility] Comment on above: Performed By: #### C MP wRFX A1C, CBC, EBS A1C #### [address] Neutrophils [#/volume] in Bl ood by Automated countOrdered By: Kai Muse on 01-22-2024 Neutrophils (Bld) [#/Vol] 5.2 10*3/uL Normal 1.8-7.7 [facility] Comment on above: Performed By: #### C MP wRFX A1C, CBC, EBS A1C #### [address] No Panel InformationOrdered By: Kai Muse on 01-22-2024 Estimated GFR (CKD-EPI) > 60.0 mL/Min [facility] Creatinine Clearance (Chem N/A [facility] Nucleated erythrocytes [Pres ence] in Blood by Automated countOrdered By: Kai Muse on 01-22-2024 Nucleated RBC Auto Ql (Bld) 0.1 /100{WBC} 0-0.5 [facility] Platelet mean volume [Entiti c volume] in Blood by Automated countOrdered By: Kai Muse on 01-22-2024 Platelet mean volume (Bld) [Entitic vol] 8.0 fL Normal 6.6-10.1 [facility] Comment on above: Performed By: #### C MP wRFX A1C, CBC, EBS A1C #### [facility] [address] [place] [address] [place] Platelets [#/volume] in Bloo d by Automated countOrdered By: Kai Muse on 01-22-2024 Platelets (Bld) [#/Vol] 293 10*3/uL Normal 150-450 [facility] Comment on above: Performed By: #### C MP wRFX A1C, CBC, EBS A1C #### [place] [address] [place] Potassium [Moles/volume] in Serum or PlasmaOrdered By: Kai Muse on 01-22-2024 Potassium [Moles/Vol] 4.1 mmol/L Normal 3.5-5.1 [facility] Comment on above: Performed By: #### C MP wRFX A1C, CBC, EBS A1C #### [facility] [address] [place] [address] [place] Protein [Mass/volume] in Ser um or PlasmaOrdered By: Kai Muse on 01-22-2024 Protein [Mass/Vol] 6.9 g/dL Normal 6.4-8.9 [facility] Comment on above: Performed By: #### C MP wRFX A1C, CBC, EBS A1C #### [place] [address] [place] Serum globulin measurement b y calculation (mass/volume)Ordered By: Kai Muse on 01-22-2024 Globulin (S) [Mass/Vol] 2.7 g/dL Normal [facility] Comment on above: Performed By: #### C MP wRFX A1C, CBC, EBS A1C #### [facility] [address] Serum or plasma albumin/glob ulin mass ratioOrdered By: Kai Muse on 01-22-2024 Albumin/Globulin [Mass ratio] 1.6 {ratio} Normal [facility] Comment on above: Performed By: #### C MP wRFX A1C, CBC, EBS A1C #### [facility] [address] Serum or plasma anion gap de terminationOrdered By: Kai Muse on 01-22-2024 Anion gap [Moles/Vol] 11.7 mmol/L Normal 6.0-15.0 [facility] Comment on above: Performed By: #### C MP wRFX A1C, CBC, EBS A1C #### [facility] [address] [place] [address] Sodium [Moles/volume] in Ser um or PlasmaOrdered By: Kai Muse on 01-22-2024 Sodium [Moles/Vol] 138 mmol/L Normal 136-145 [facility] Comment on above: Performed By: #### C MP wRFX A1C, CBC, EBS A1C #### [facility] [address] [place] [address] Urea nitrogen [Mass/volume] in Serum or PlasmaOrdered By: Kai Muse on 01-22-2024 Urea nitrogen [Mass/Vol] 22 mg/dL Normal 7-25 [facility] Comment on above: Performed By: #### C MP wRFX A1C, CBC, EBS A1C #### [facility] [address] Coding Summaryon 01-15-2024 Coding Summary HTMLBase 64 BbwkmnhyENj6xDs+PGhlYWQ +MW7YZRUwQ29alKXthE9cX9 NMTElOSywgQVBQTElOSyIgb kDvMR5czEFnJENw IC8+DB1cFBNnJedriHHze0W 6hRY6Y53nzi2nYGrquUU1RK SnGuHsrtxmg7ilbUc9CCasG mluOyBt ZSNibW26HOO9dZ05Je63gJM ocWCco3ddxKk1ZuDkKODdKO H1hXqvKLsgm6PeODMiX72iz KYim5L9 MUXyfHjpwFIqMeHxbMN5cK3 nBKtcaobov1qwyjkqDeu9iy 78uYOld9M1iDG4P2ReewA0A GJvbGQg NybkuLGXiJ9fblldt4gkwqf tXyTaCGGrLPc4LTg6GQDbfC xdUwHuFO08JJZ8LMFkywPuC 2FsLWFs uUyaGlP6t6Q1Qb5AA7MNWhw fP3EEHOMZUGlhuRS+PC90cj 39T8AyFlnyGuq5SIEwIED1e LR4xA8p TQHnQWbrj8J4tOA3Z1TgrhX dmd2ix8hcBXTmQWwzO82ylR Spc3U5ZEAzlBG5JTAxzQfoP iBzaG93 Oyc+HYHwkHmpc9BzXpcxv1x va3tdkLq7GqotGUTcbxJrcW hfERC1c9TzLu0dBABgwBP6h MC7uB5p VgSmWlR8TQdoX930WhYthTS vDuhcQ37aI8WijOC+PHRyPj b7SZHrvEstYK6eI8MlNZNjz mctbGVm wMzuDW3kPJDwzanbKITotM1 kOKFnQ4l0OxKkIqQ2CEwkL8 SmTAKfwqsrQm07jC6nUoMbO fW3QYig W7GucmP1FAZtxMYeFRyqCRL 2W51vj5J9OVUjECVpQOU0uR Q4gD5ghQlemwmqmVAphXckd mVydGlj ZSduRErvY023TDWzmMazIaN vZGluZyBEYXRlOiAgMDUvMD EvMjAyNDwvdGQ+LAGcUHY8v WxlPSAn kHXtLGtuBg5ziXaknZruES8 eMDGkayugHEErsQ0iIQGrkA ZbrSviIQ4mTTUabnqdo477Z iAxMHB0 XEKvsZLsC9ZatT0xMxMoXIX cTXSdH3AjxFMqIAplW944KJ pgNgH8ZUHiegPiE8UuFQGdq WduOiB0 u6R0It1Fr5VhgwnrL7JdlOA nAoOsDexaUFd3K0RaNkboyG I+QH80EZWaZM75QKi6IZI3i WxlPSdi TZCcB8SffL9oXhEnXWBgDNV kOyc+PHRhYmxlIHdpZHRoPS rsSOIlZtIqeKpxNI2xRh7eX GVyLWNv mWkpmHVqDrBmd5qiPBPcGDl mRX9ygCdaB4CqsZE8TZKpj1 s9Ut67U60bO5XekWJ+PGNvb JO8nXF4 fC9sZmGwJhQ0DUdaP938DpC esLReXhqax1jux4mkeYe3Ws A2GUGximNxtUlnGAS9u4QvT a68O91l IHdpZHRoPSIxNSUiIHZhbGl uqa2kaH3yWk0+JZJzhAT7nX M3lZ9rOlYuDwD1XLneI768J nRvcCIv Nhqwx4kbi8iefLu4MeGxOZP tbyDjiLqnFJR4b8AbDl40G2 FgmUyby9VeHsa7rz24oBMgf 4D7wFM1 I5DqFWDdchirkMBbiCtnBW0 rFSExzfwfYZNsiY6hUIXtS5 y3MmIjFrE7ZYurX3CuyfI1L GJvbGQg ZAPylNLFqM7bznesk7tjxdw zSdNxGXJyJGd8NOl0POFkyR oiBnNvKXV6XtN1JMU8eKOjm L7grOxx svsnfT9mGmu+NPE6cXGqpXQ FMO5rEqvmrTV+JRMeDVA5iJ puXGsxXJChoM8qRTFiJ2i2F iAwLjA1 WPqdN4EohfB3FQOrlGYcIKY jeQITyZ4btpzwn1dpkcnhWy BpQHFcWPa5NFi5UYSvtEacL iBsZWZ0 MpI6PYC0vLBepU1hpIayutq voC0cZpr+ObkmxPrfHBO8ZZ k6J5KjZhn0XEUxvJsxLP5mm GFkZGlu Rb9vuDumhGepBX1xHSPjakn uq366TtIsn9ogQUYtpOSfMD coUTZ5M63ir4H4NIKiCQNsV FV2dEE0 vT8deDcnxwlmuAVxzJgudrP lqAnrXIjzPQptS885RBGedX psEyTfNZj9X1YoNrx9DTPcw OjeJY2m uCWcALikWf0mbBxiiRygYI2 aJMWendwri545RkLzm0mcWJ QwnKYeWTrkWJU7W63nn5C7L CMwMDAw WID3dSO3vG5yvKfbvjjopNO mdDsgdmVydGljYWwtYWxpZ2 21YKSfcMkfMhTybUn1S4TmT rz0VWXw mWclBX4svPNrNHqoLt2jcHd vuEadTZ6wHUKiugsil291Tm Eow0hhHDWjaVLxUSpaVQJ1X 23jr6L2 PJSsAILcYFH4lWQ4tH9rmMu nbjogbGVmdDsgdmVydGljYW cwLDruV214SEKgeCrhXvGbf GllbnQg XYnkLAl4M2UhAltfsLA+PC9 6VRQlEW62vZTasBZxs0ofkC l2VmArVXZgEOT5vNmaFOkeu 3JkZXIt H24jfZXkk6L9CTMzhFiesQQ eVqXdsQZ0xB8lLVddgyddx4 wwtcxoCryiz2dhbl41wK96Y 29sIHdp ZHRoPSIzMCUiIHZhbGlnbj0 byZ0jXw1+IVKmjUO4rNF0hK 9bJTWdEpK8BZuwG966YuUpn CIvPjxj i2ums2turOo0XiH7DJUtxaH cxZbgSUJ9t8LzIg78W66gCV dpZHRoPSIyMCUiIHZhbGlnb m5rpA1w Ii8+AEBwiBP5kWC3pO6jLtV pIaX5ESowB880DsGgyDPdQb isF42xQ6KyaGA+JJUyHhz0N CBzdHls LQ0veCDmAJhvFa7aOID0OfL nFpUdYAbxN3CoGDQkgxfnom mpyJA5GAYqWUZvdL14Gp6ql DogMTBw gRZFkA6msahca8lzqbjvDhC qBUQcCNu1KWg4FBGykHztTj VrCMI0DpW0OHJ6yKVubU4yz Glnbjog dM0vU1GwNMNemriiHl44zO5 nWcRnJgF0OAieAgw+SEFWRU 6LAzooYvSZS2CQKWEHZG19F G79oYJx n1V1nYT2B6HhBABrscteixy zuUW8IEZjLLCxvM60qRBfNV xkWd4pd2D0e383UAWjTNUlr V12Ha2r iOklZBAphOWCpQ3iyajgz0y bduquZuAhRXLsPCw3JFz9ZI MlaKpkOdZbHTC4ZfH9FKR0z SBezU2d zCffovldcF2kFka+MDUvMTM tXDe4HlvsmBS+DCYgZFV0aX qsCFhhHTNnjZ2dPKXgD9u7X iAwLjA1 VDcvN9PfJRZezfnzYe96oX9 vLuVbEkU9OZqxK7PbzyH8NJ CcxNViUOnyULB6F93pj2G1L CMwMDAw DOF9tKE7qB5ogXnsnvqglMP mdDsgdmVydGljYWwtYWxpZ2 46IHRvcDsnPjYxIFllYXJzP X18VZ94 eGKot7Z0qWN5F0TpJAUvwuy mlepuiXE7LIOyROXlxZ90fJ BcQJowOg3pq7A1h613ZNXfG DUwaW47 Ay9liRknGZNkyLNQmG3fgld tj7gdwervSsFaGABrWEy7IJ l4XFOjfCzySkGyTTL7ExU0K TP9pYMw fE5bwBklalibyG1oNym+TUF MRTwvdGQ+ZEYkNWX7uBruDL slRFIwrT8aTBQiI7t9RyYnW mP6EOww R3WnQUYfkpxjIw63eV7mLgU mUnR1HShyA4OhdxE7WORbkR NwIFyqESP0G41wc9V0GTSeD DAwMDA7 uAG2dP5mbDksvynhdHJltTb iapXwmBojGVstCZqxU480UQ AesQomLq4YEW73YT67C8XqM jwvdGFi bGU+PHRhYmxlIHdpZHRoPSc hXNZpSlBtuUwmKB7nOw3uSH SkMFPhbYfotIFzVxSyl2nnD XBzZTsg IQ2xyNcpG6KrvXB7WGFan6e 1Rl80O84oW5CwwSS+PGNvbC G3cGL3iU3mQqTlNpQ8TEtaW 249InRv dJCqFihqn3pee7tegDm2CtQ aLYDxexAaxXjcUVL8i7EuGt 51G20fTHjoLIWaGLNoLXKsS HZhbGln wy6twB6eXi6+WYPmfKY2lDR 3iK6jJgAbNoR7LJmgM154Vr WjeWNpDdwpI46hM8EqdNZ+P HRyPjx0 NXKxiOsmXI5ifFLcLTcnBi0 xOZQ2SoNgEbLlNPmsR4ZuSB AkfmjytqspoUZ4IWUlBSOnz A58Tn3x hUlzDk7yXZWzBUG1VXSbmGH pU1JsfQ6cGiPuRGZaMQLuK4 BznXRjCCfpO455EUgjYaW0V HZlcnRp D1BmQAMwtDfyMlA6i8L2Fb7 LfGbozQTsPQ3kJbZtYWt9M2 QkEnj1BXLewQipWN3nhWQhA HnwMs8c aWfgsVwbOQ2gBFFmtsflx57 5KnWck9kuLHKhtKCjZKjoTH B9Z27hb0C0SDAcPZXyCIE6f BU8yU1j bGlnbjogbGVmdDsgdmVydGl oRQmkZEnmQ418COGwtUhyTx GKDsd7P1LzFua5SDLiuKqkC X9gdQFz RJkbTt0cnCcajUubYS9vYKT eeswgd637EwAjm3glSAFqwJ HbOVqpPJF4Y55at9T6NQLxJ DAwMDA7 yFR8eW1yfKlueygiuPPckMa mjoGjmHanIBlyQCijQ633OC XtqPfyAy5WMyu5K4GwRon6V CBzdHls GK9ndZNyKSewVb5acEpxjSf iHN4zXBRcoeoyi537UsNxu5 bsNPJuwBInEFhzFOP8W63ko 5X4LQMh ANLjEOG7tHZ4yI2dxEdbxlq gbGVmdDsgdmVydGljYWwtYW prE922GSLojTqbLnRtnFKxY jwvdGQ+ YM96gp03G5KbDomcAnm9RPG iOGF8eNS2xI8aPEJbXLvio9 O3iYQ8A8NahdSsyi7gw5paP XBzZTog Y29 (more content not included)... [facility] Rad - MRI Reporton Rad - MRI Report [id number] IFF Normal [facility] MRI LE Joint w/o Contrast Le fton [...] MD 01/10/24 1:46 pm Technologist: FILI Normal [facility] XR Skull < 4 Viewson 024 XR [...] Paniagua MD 01/10/24 8:20 am Technologist: FILI [facility] Provider Orderson 01-07-2024 Provider Orders [id number] OTGTIFF [facility] XR knee LT 2Von 01-07-2024 XR knee LT 2V [facility] [address] [place] [address] XRay Report Signed Patient: Conchis Andrews MR#: [id number] : 1960 Acct:[id number] Age/Sex: 63 / M ADM Date: 01/07/24 Loc: [place] Room: Type: [facility] Attending Dr: Kai Muse MD Copies to: [...] Chrissie Pfeiffer M.D.01/07/2024 12:12 PM Dictation Location: [place] [address] Transcribed By: PWS 01/07/24 1212 Dictated By: Chrissie Pfeiffer MD 01/07/24 1208 Signed By: 01/07/24 1212 Normal [facility] Coding Summaryon 11-13-2023 Coding Summary HTMLBase 64 CbywoyonQTg9zCo+PGhlYWQ +OQ0WRQSdC16zjUHloX5hU3 NMTElOSywgQVBQTElOSyIgb sIiQK7pxDWhFGMu IC8+JF9eDSFlUcnufEEom4M 5jRO6S79gca9cOItubSL5JR DtQpVbrkkvq7ltzLh2QGqaF mluOyBt TBFbyZ45GZM1qM27Je33oSQ pjZBdg5kdtHg7SwGhEQPxDA R2bTyuUHvqd6IaEOYnX90ub RKne9U4 GWFtlXmllFHzGoQxiUI2tM3 qLWuxcdkeg4aozfppFrm1dc 15eDXbe6Y5xMA8J8WrogY8D GJvbGQg LnlztHKFuO5yccqgo6crlok uBzOoYRHmAQo6HOc9IGIotM suNcHoQS28ART2XBMenzNlY 2FsLWFs qGlpJjC8e7F7Ic5ZY1HSWuf fJ2UDUUYGQJtaeEO+PC90cj 56S1BqSrofGhc7CQMuHAE6o PI8sU1w EFUrUHqza2Y2lYH5V7RsapU ecn8yg8qwKUSjKNlnC52epD Jzb1R8LQYkbXL1ETFjqKazC iBzaG93 Oyc+ZCPkbIpme1CtDzcyx1s kb9espTk2ZxedXDAisoOtaB rgLSL6m7DyAf7uADZbjVU6h MR4hF1z CzAqGlL6XZvvW703LhRikSX vXemrN33aR5LgcDH+PHRyPj y5XJObzWxfWV5sG4QmQFFfx mctbGVm xOyzLN2yLHIgntjhJAUrhG1 rNVLlO1n3RgSsPjH5HNwqS4 MzHXAbenzvGs50oW0kGhCkN yU1PIxy X3FljyN8BIPqrGCcSHzrUNW 1D49qm5A9AHSjFJUzYDY3eB D5uZ6gcEflqdtnkDEtxTyka mVydGlj MUdtZFeaD962MOGceCsjHeB vZGluZyBEYXRlOiAgMDIvMj gvMjAyNDwvdGQ+ILRzUZC4s WxlPSAn sJIdVIctMj2icYueeSopWU2 jRXVcwqhvIJVsfI7sEXEakJ RieRjfLI4rQCMpewpwf862L iAxMHB0 CDLhhNAyB3AuyW1oCgTaEZK gWEKdP8TkiBWmPQcgT666TY zxZoX2YHPaacUqT2MdDEFmw WduOiB0 e2C5Ve3Lu2NaiqgtF6RlwKA oIbEpBvhoDOo5Q7SmGcfiyS I+HC03WMJmYY43JTm5TXD9d WxlPSdi ECMmP7AlzS0sVlZbKOJzLYG kOyc+PHRhYmxlIHdpZHRoPS abIFYyWbCcnMlpLF9gJg7pQ GVyLWNv xYujwREfBsPvo4yoKYSfWRz iPQ1nbRoqI5FjmPE7GEJjy9 c0Gt22B88oH6RskBD+PGNvb ET6nIV2 yL5tJuHrZxC8SNsmU359TgP biWLjHtbsu7pqs2jfrTp3Pk A4LRVnwdOyoThhWMR8k6WhT o34Y61x IHdpZHRoPSIxNSUiIHZhbGl ddx5oeM8jFn5+FUTetZP9eV N0zD7fHmCgKzS1KQwmB184M nRvcCIv Dabge6vcy8auqWo9FpMqXDN wnyZqnOneLSQ3f6FpQo95Z1 ZgiQbkf0YoRuo6zo06aFCto 5T7cWG2 S9FnDCFajrkenKWkgGgiNX7 qTFXrhfepUJJxfR4nEXXnV1 y0YzHtLxD3JCqoU3VyrmU2Y GJvbGQg GDCpjRVGhZ7zsqdnc0lzesk mZzWcIFLdPFw1KSt4KBXyaJ kdJdCsJUE4QeT4RIQ5qXCxy T9cfKri zmygyV8vWwh+NLB5uMJxvTR NJV8wMuiftEO+MGQtHLL9oX ncHWtpXODrrM3nPOScH5i6J iAwLjA1 FQgkU3QlpgG0XSYgxRHfIPU pcWYSoK9ipqtwd6jfgjttPm AlVHLuWRp4MSa2VLBvePioM iBsZWZ0 VnC7AVD0jYXcyW1rtWqdqne srS8vRxe+AspsaZbeHGR8QQ k4I2OhCms9LDCinWjrTJ7fu GFkZGlu Xp2jeHuaeHzkVS3wLIHvuea bz555CbAnl4slCCDxlFBtOX kvPGO7H17cj8T3IXCpKBItV SI4wIQ7 mM0plIqnexeffJViyFxspeA lvVfnMRljOWixE942EWHtbJ utWwRmPNb9N4PsEdy3WABfq XzaKE5s oBRlLHrkBz1vbKfwoWvnZV0 wZFUjodpmu241VbBue8uoWG HxgDJvXFyfQHL9J84vj5M0D CMwMDAw FDL7iKX1oV4yfIivrznjfVA mdDsgdmVydGljYWwtYWxpZ2 54OZZvkVhhOqVaiGf4B4MxI hz5QHFk fFlbCH2cqHZtTMoqKz0caBa poGlyUB4xOQRiwkqon027Qt Rqs9ljLJNdzDMhIDeiAAS5V 23sd5V4 EOYzAHAnPKE4nSX2eD6bkKb nbjogbGVmdDsgdmVydGljYW bhEBmrQ442TNGnyJerIePqr GllbnQg TOnxFEl5V9ZpRwnelCB+PC9 9CPKeAL61gPRpnUElz3yguL u9GhPvNVZyPWU5bXvaCJgis 3JkZXIt G11plCKhw5X8CTZorNdaaLW yVkUwrQR2uJ8eUWdbatbjj2 ovagehZfidd9jnuj66dI97E 29sIHdp ZHRoPSIzMCUiIHZhbGlnbj0 rxT0qEs8+VPUzyPK2vLM1qU 4fJTIcPqJ1AQkqR790KpOwf CIvPjxj v6vxz2msjTl5BpN3KOTmlmM zpKteNBP6u7OhHs41E20zST dpZHRoPSIyMCUiIHZhbGlnb t2bsQ8x Ii8+KDMyqEK5sIC0jZ3uXrS iGsQ0RFbdL248BaWxjLPoYe fpM45fN8NlyBW+DOMyKkm7S CBzdHls YN5uvMShJWtcKl9hLXM9RjN uPyNtPYknS7NuATVegqnwjh mrpSA4GYTxIZDlyT72Ob0mb DogMTBw mMZBwV0otpjhc0jcgiuzCaA pGALnDNk7GYl1XZWixGjzIx WdAJB2ZkR1EOQ6oQCbyF8mr Glnbjog iV2fK0CmIEAueynyMf11gV4 wCyTkYjX7MEctKjt+SEFWRU 9VOopwFiWPD0NJNMCUFJ89Z H20cDBd c9X4zII8G7TeLPZsexgyrfo msJI0SSTtNXRgiD32wLVwUV feFa3gk9C2n785CYPpBZUxq E18Rn5w vHleYNCzkVDZvJ4ibswuf7u nrsxmTvKzKIIiVAr3PJc4XG AuhOhvUgYzCID0ByL1LTM2m ZPpxN8i bOqoxbnzoR0qOkn+MDUvMTM yAJy7UxfiaMS+HTPkLIB6wK sxDCugAREhmM7wJJJgI8k5O iAwLjA1 TOyuY4EfYCTlblouIa31sA7 fGqTuMzY9XRuyY1UepvV5RP DskNBpQNwfMQJ1J88ec2E9D CMwMDAw MTY0cOT7rH7ucHakpdwkfGW mdDsgdmVydGljYWwtYWxpZ2 46IHRvcDsnPjYxIFllYXJzP S85ED68 eOMie7S8oMW7F8JiFERkztj xmnocoRA4ZWNzHTMpkU76mD ShMEokYj4xw3X1w966WZNzU DUwaW47 Dh2jhGjrQQHbqNBMoL1asob ls7vfvhmyJwFrVCBoRPc4WO p3LBAauVgpSjAeDRP7OvS5I SW8gCVb tQ5joPrpbqassG5xIsz+TUF MRTwvdGQ+BOFgIAR6rXdfDX ufRMNyyD4vUYIhP4l8HcJgT sE4MPio J7TeAPFxrnzcUv65bC2sQiD dDxI6AWgyP9HzdnI0BHKbjB McYXykGVJ1U07iy9E4FMEgW DAwMDA7 oDS1cU5mfXjfnvotxTRxfBg rkcEvjBjuVZrdZZjmR144EG LdoIjpIi6YEU18ZK31N6DdQ jwvdGFi bGU+PHRhYmxlIHdpZHRoPSc iQSMmCbNofRioAE7vBp2pXK PtVQMelXoumYZjAkMip6xqL XBzZTsg SM5lfJbjQ3QcrHV9WOPng3x 9Ra95T62gH1ZbtCQ+PGNvbC I5yWV6vC7zRgVvKgJ4FJnuL 249InRv bTSnOvplh6bwg7oczEx3YxV dZLVzpiSsdTloZES0o9WpPa 38Z19hXRvnIYIaJLGgGRJyC HZhbGln sy5zoI5nVj7+CQYwbDS5hIW 5iU8aGbUvHnW5IDtoN001Qc OlyCUiPoklZ15xZ6SshWA+P HRyPjx0 ILKogDldGV5syFFpEKavHk9 lPVB6LeMlUcYqJDijT1ByTV MrpuifsecvlJL2SMZwBVEpm H93Rz6s eEdyZy1aZHWkART3YQKnuHJ gP4StsM5cJfIxYALoNTGlP2 ZqoQApRZsdW103KPizZjP5P HZlcnRp U8JjJDArrBtrUrS4x9Q0Rh7 HsZdfqYUyNJ2aUeDpRSe9R8 PlBmk4FOGjeCstCL6gvCGlZ DxvGb8f bJrxrSbwEZ2zUKXtrchkd44 4PjMhh5qfERNlbJTeHEhdPX K3W63ta0R3OZVnPOCkANM6s ZS1gX8q bGlnbjogbGVmdDsgdmVydGl iJFjhDUzkE045DQSgxSqvUy HNZjg2M5CgTwd8ONTtnKvtM F8nkKOy ZMffXe7jvRzvoDatIV6vRWZ dxjfzs966NxWbg1xlQXEgdD PhDNsrJCP5W69nj8E6PSKkX DAwMDA7 tPO6tA5zcNnvsfypdQTymOm ppwDkkDgbNEleXQijX510VL XdyVkqMx9QPgg8F7EzFpv6J CBzdHls EG1meQXzSIoiAv2usCciqWy vGM1wGRRizzdgb908UwDzr7 fuOGPldSSlPCcbDPN2G44xm 0Z8EVNu BNDmBEH5vFE3vS0beYycggm gbGVmdDsgdmVydGljYWwtYW nqX640XPQzxXnjMeCkxIJiS jwvdGQ+ AB71fb07V2LrNliqCzk4DVV vYJI1eDH5oU1uOSWnYPexx9 D6dDM0Q7TomdUauw2fx2coI XBzZTog Y29 (more content not included)... Normal [facility] PSA Total+% Free (Serial) LC on 11-12-2023 % Free PSA Analyte Not Required Invalid Interpretation Code [facility] Comment on above: Result Comment: Unab le [...] population of men. Performed By: #### 7 [id number], [id number], [id number], [id number], [id number], [id number] ####[facility] (DEFAULT)[address] [place] [address] Prostate Specific Ag, Serum LC <0.1 Invalid Interpretation Code 0.0-4.0 [facility] Comment on above: Result Comment: Isabell martinez ECLUSHA methodology. According to the [place] [employer], Serum PSA should decrease and [...] of malignant disease. Performed By: #### 7 [id number], [id number], [id number], [id number], [id number], [id number] ####[facility] (DEFAULT)[address] [place] [address] PSA, Free LC <0.02 Invalid Interpretation Code N/A [facility] Comment on above: Result Comment: Isabell AGOSTO methodology. Performed At: [facility] [address] [id number] Sanjay Dumas PhD Ph:[phone] Performed By: #### 7 [id number], [id number], [id number], [id number], [id number], [id number] ####[facility] (DEFAULT)[address] [place] [address] .Auto Diff 11-09-2023 Auto [place] % 10 % Normal -12 [facility] Comment on above: Performed By: #### 7 [id number], [id number], [id number], [id number], [id number], [id number] ####[facility] (DEFAULT)[address] [place] [address] Baso Abs# 0.0 x10 Normal 0.0-0.2 [facility] Comment on above: Performed By: #### 7 630587, [id number], [id number], [id number], [id number], [id number] ####[facility] (DEFAULT)[address] [place] [address] Basophils/100 WBC (Bld) 0.8 % Normal 0.2-2.0 [facility] Comment on above: Performed By: #### 7 [id number], [id number], [id number], [id number], [id number], [id number] ####[facility] (DEFAULT)[address] [place] [address] Eos Abs# 0.4 x10 Normal 0.0-0.4 [facility] Comment on above: Performed By: #### 7 302835, [id number], [id number], [id number], [id number], [id number] ####[facility] (DEFAULT)[address] [place] [address] Eosinophils/100 WBC (Bld) 7.1 % High 0.9-4.0 [facility] Comment on above: Performed By: #### 7 [id number], [id number], [id number], [id number], [id number], [id number] ####[facility] (DEFAULT)[address] [place] [address] Lymph Abs# 1.5 x10 Normal 1.3-2.9 [facility] Comment on above: Performed By: #### 7 728894, [id number], [id number], [id number], [id number], [id number] ####[facility] (DEFAULT)[address] [place] [address] Lymphocytes/100 WBC (Bld) 25 % Normal 14-48 [facility] Comment on above: Performed By: #### 7 097114, 75791598, [id number], 582194085, [id number], [id number] ####[facility] (DEFAULT)[address] [place] [address] [place] Abs# 0.7 x10 Normal 0.0-0.8 [facility] Comment on above: Performed By: #### 7 546269, 17146098, [id number], [id number], [id number], [id number] ####[facility] (DEFAULT)[address] [place] [address]41 Neut Abs# 3.6 x10 Normal 1.5-9.2 [facility] Comment on above: Performed By: #### 7 923727, 58077246, [id number], [id number], [id number], [id number] ####[facility] (DEFAULT)[address] [place] [address] Neutrophils/100 WBC (Bld) 57 % Normal 44-88 [facility] Comment on above: Performed By: #### 7 774362, 26386109, [id number], [id number], [id number], [id number] ####[facility] (DEFAULT)[address] [place] [address]146 Basophils Auto (Bld) [#/Vol] on 11-09-2023 Basophils (Bld) [#/Vol] 0.0 x10 0.0-0.2 [facility] Basophils/100 WBC Auto (Bld) on 11-09-2023 Basophils/100 WBC (Bld) 0.8 % 0.2-2.0 F [facility] CBC w/ Auto Diffon Erythrocyte distribution width (RBC) [Ratio] 12.7 % Normal 11.5-15.0 [facility] Comment on above: Performed By: #### 7 346362, 30264975, [id number], [id number], 9239051486, [id number] ####[facility] (DEFAULT)[address] [place] [address] 16994 Hematocrit (Bld) [Volume fraction] 44.1 % Normal 34.8-51.9 [facility] Comment on above: Performed By: #### 7 544043, 57407072, [id number], 938342531, [id number], [id number] ####[facility] (DEFAULT)[address] [place] [address]693 Hemoglobin (Bld) [Mass/Vol] 15.4 g/dL Normal 11.8-17.7 [facility] Comment on above: Performed By: #### 7 161210, 43421419, [id number], [id number], [id number], [id number] ####[facility] (DEFAULT)[address] [place] [address] Man Diff? Auto Invalid Interpretation Code [facility] Comment on above: Performed By: #### 7 000178, [id number], [id number], [id number], [id number], [id number] ####[facility] (DEFAULT)[address] [place] [address] 27898 MCH (RBC) [Entitic mass] 34 pg Normal 24-34 [facility] [facility] Comment on above: Performed By: #### 7 473451, [id number], [id number], [id number], [id number], [id number] ####[facility] (DEFAULT)[address] [place] [address] 89138 MCHC (RBC) [Mass/Vol] 35 g/dL Normal 26-37 [facility] Comment on above: Performed By: #### 7 182085, 19521492, [id number], 582320644, 7355537225, [id number] ####[facility] (DEFAULT)[address] [place] [address] MCV (RBC) [Entitic vol] 96 fL Normal 81-100 [facility] Comment on above: Performed By: #### 7 791076, 09735030, [id number], 016023973, [id number], 81029792 ####[facility] (DEFAULT)[address] [place] [address] 98280 Platelet 314 x10 Normal 138-427 [facility] Comment on above: Performed By: #### 7 597089, 44921331, [id number], 833101360, 6404705186, 07020308 ####[facility] (DEFAULT)[address] [place] [address] 80146 Platelet mean volume (Bld) [Entitic vol] 7.7 fL Normal 6.3-10.2 [facility] Comment on above: Performed By: #### 7 027069, 61751896, 0087143476, 989572983, 3177673820, 63302674 ####[facility] (DEFAULT)[address] [place] [address] 34046 RBC 4.58 x10 Normal 3.70-5.30 [facility] Comment on above: Performed By: #### 7 243311, 72603200, 9109777373, 811904905, 3624773825, 62539315 ####[facility] (DEFAULT)[address] [place] [address] 77697 WBC 6.2 x10 Normal 3.5-10.5 [facility] Comment on above: Performed By: #### 7 821619, 87629361, 2781068228, 597559133, 9247797293, 81125994 ####[facility] (DEFAULT)[address] [place] [address] CMP Standardon 11-09-2023 eGFR Non AA >60 Invalid Interpretation Code [facility] Comment on above: Performed By: #### 7 006616, 31042711, 6800544748, [id number], 9133077131, 08088517 ####[facility] (DEFAULT)[address] [place] [address] eGFR AA >60 Invalid Interpretation Code [facility] Comment on above: Performed By: #### 7 786583, 74397619, 7411649907, 696622284, 5340441869, 60955865 ####[facility] (DEFAULT)[address] [place] [address] Albumin [Mass/Vol] 3.9 g/dL Normal 3.5-5.0 [facility] Comment on above: Performed By: #### 7 631101, 12087335, 0964232677, 711078059, 2630628811, 17445578 ####[facility] (DEFAULT)[address] [place] [address] Albumin/Globulin [Mass ratio] 1.0 {ratio} Low 1.4-2.6 [facility] Comment on above: Performed By: #### 7 815288, 04275255, 3492291431, 169039227, 6340507535, 10647021 ####[facility] (DEFAULT)[address] [place] [address] 89530 Alk Phos 67 IU/L Normal 32-91 [facility] Comment on above: Performed By: #### 7 384873, 19505819, 2756067538, 381754575, 4034145628, 79341822 ####[facility] (DEFAULT)[address] [place] [address] ALT [Catalytic activity/Vol] 23.0 U/L Normal 17.0-63.0 [facility] Comment on above: Performed By: #### 7 881755, 59514792, 4626808477, 160076654, 2461691260, 72605636 ####[facility] (DEFAULT)[address] [place] [address] 04721 Anion gap [Moles/Vol] 12.9 mmol/L Normal 5.0-19.0 [facility] Comment on above: Performed By: #### 7 943718, 24205636, 4112140358, 986130409, 7074461016, 07318848 ####[facility] (DEFAULT)[address] [place] [address] 03806 AST [Catalytic activity/Vol] 25 U/L Normal 15-41 [facility] Comment on above: Performed By: #### 7 694110, 06826030, 3793069019, 023251409, 4710806540, 95143011 ####[facility] (DEFAULT)[address] [place] [address] 82820 Bili Total 0.8 mg/dL Normal 0.3-1.2 [facility] Comment on above: Performed By: #### 7 515155, 91026815, 7376915526, 487285052, 9298231694, 75596026 ####[facility] (DEFAULT)[address] [place] [address] 42216 Calcium [Mass/Vol] 9.0 mg/dL Normal 8.9-10.3 [facility] Comment on above: Performed By: #### 7 431979, 76927270, 2716632246, 502439251, 4498944238, 26342333 ####[facility] (DEFAULT)[address] [place] [address] 95809 Chloride [Moles/Vol] 102 mmol/L Normal 101-111 [place] Comment on above: Performed By: #### 7 878827, 97121430, 3546810152, 302123140, 4807061717, 01702795 ####[facility] (DEFAULT)[address] [place] [address] 77860 CO2 [Moles/Vol] 24 mmol/L Normal 21-32 [facility] Comment on above: Performed By: #### 7 965013, 71964377, 5207652589, 925282719, 7337438274, 82183574 ####[facility] (DEFAULT)[address] [place] [address] 43608 Creatinine [Mass/Vol] 0.95 mg/dL Normal 0.90-1.30 [facility] Comment on above: Performed By: #### 7 782797, 94492984, 9884679265, 244254190, 5234661375, 65538597 ####[facility] (DEFAULT)[address] [place] [address] 24510 Globulin (S) [Mass/Vol] 3.8 g/dL Normal 1.5-4.3 [facility] Comment on above: Performed By: #### 7 432791, 38349817, 0417615408, 222164992, 9274932645, 67887914 ####[facility] (DEFAULT)[address] [place] [address] 02158 Glucose [Mass/Vol] 105.0 mg/dL Normal 74.0-118.0 [facility] Comment on above: Performed By: #### 7 480789, 81245638, 6577772989, 275020682, 8245356884, 69609632 ####[facility] (DEFAULT)[address] [place] [address] 57050 Osmolality 270 mOsm/L Invalid Interpretation Code [facility] Comment on above: Performed By: #### 7 593355, 73046153, 9906393922, 493708352, 1687095601, 74254034 ####[facility] (DEFAULT)[address] [place] [address] 57906 Potassium [Moles/Vol] 3.9 mmol/L Normal 3.6-5.1 [facility] Comment on above: Performed By: #### 7 470616, 29420696, 7995820983, 324897662, 3644036329, 66392338 ####[facility] (DEFAULT)[address] [place] [address] 92140 Protein [Mass/Vol] 7.7 g/dL Normal 6.5-8.1 [facility] Comment on above: Performed By: #### 7 412028, 54017843, 5000356119, 879500889, 7377440855, 97648030 ####[facility] (DEFAULT)[address] [place] [address] 44189 Sodium [Moles/Vol] 135.0 mmol/L Low 136.0-144.0 [facility] Comment on above: Performed By: #### 7 065908, 82280334, 1227952004, 759960832, 4575700789, 75047366 ####[facility] (DEFAULT)[address] [place] [address] 01144 Urea nitrogen [Mass/Vol] 13 mg/dL Normal 8-26 [facility] Comment on above: Performed By: #### 7 305609, 88549215, 6652876276, 611185704, 7274168347, 20259379 ####[facility] (DEFAULT)[address] [place] [address] 70174 Urea nitrogen/Creatinine [Mass ratio] 13.6 mg/mg Normal 4.6-16.2 [facility] Comment on above: Performed By: #### 7 665455, 39240109, 3235842280, 303151213, 2631724843, 12835010 ####[facility] (DEFAULT)[address] [place] [address] 18711 Cholesterol in LDL Calc [Mas s/Vol]on 11-09-2023 Cholesterol in LDL [Mass/Vol] 66 mg/dL 1-100 [facility] Cholesterol in VLDL Calc [Ma ss/Vol]on 11-09-2023 Cholesterol in VLDL [Mass/Vol] 48 mg/dL 5-40 [facility] Eosinophils/100 WBC Auto (Bl d)on 11-09-2023 Eosinophils/100 WBC (Bld) 7.1 % 0.9-4.0 [facility] Erythrocyte distribution wid th Auto (RBC) [Ratio]on 11-09-2023 Erythrocyte distribution width (RBC) [Ratio] 12.7 % 11.5-15.0 [facility] Estimated glomerular filtrat ion rate (GFR) non- Americanon 11-09-2023 GFR/1.73 sq M.predicted among non-blacks MDRD (S/P/Bld) [Vol rate/Area] mL/min/{1.73_m2} [facility] Globulin Calc (S) [Mass/Vol] on 11-09-2023 Globulin (S) [Mass/Vol] 3.8 g/dL 1.5-4.3 [facility] Hematocrit Auto (Bld) [Volum e fraction]on 11-09-2023 Hematocrit (Bld) [Volume fraction] 44.1 % 34.8-51.9 [facility] Hemoglobin [Mass/volume] in Bloodon 11-09-2023 Hemoglobin (Bld) [Mass/Vol] 15.4 g/dL 11.8-17.7 [facility] Laboratory - Chemistry and C hemistry - challengeon 11-09-2023 Albumin [Mass/Vol] 3.9 g/dL 3.5-5.0 [facility] ALP [Catalytic activity/Vol] 67 U/L 32-91 [facility] ALT [Catalytic activity/Vol] 23.0 U/L 17.0-63.0 [facility] AST [Catalytic activity/Vol] 25 U/L 15-41 [facility] Bilirubin [Mass/Vol] 0.8 mg/dL 0.3-1.2 [facility] Calcium [Mass/Vol] 9.0 mg/dL 8.9-10.3 [facility] Chloride [Moles/Vol] 102 mmol/L 101-111 [facility] Cholesterol [Mass/Vol] 166.0 mg/dL 66.0-200.0 [facility] Cholesterol in HDL [Mass/Vol] 52 mg/dL 40-71 [facility] CO2 [Moles/Vol] 24 mmol/L 21-32 [facility] Creatinine [Mass/Vol] 0.95 mg/dL 0.90-1.30 [facility] GFR/1.73 sq M.predicted MDRD (S/P/Bld) [Vol rate/Area] mL/min/{1.73_m2} [facility] Glucose [Mass/Vol] 105.0 mg/dL 74.0-118.0 [facility] Potassium [Moles/Vol] 3.9 mmol/L 3.6-5.1 [facility] Protein [Mass/Vol] 7.7 g/dL 6.5-8.1 [facility] Sodium [Moles/Vol] 135.0 mmol/L 136.0-144.0 [facility] Triglyceride [Mass/Vol] 240.0 mg/dL 0.0-150.0 [facility] TSH Qn 3.23 m[IU]/L 0.45-5.33 [facility] Comment on above: General Population ( males and non- females, aged 21-88) 0.45 - 5.33 Females, 1st Trimester 0.05 - 3.70 Females, 2nd Trimester 0.31 - 4.35 Females, 3rd Trimester 0.41 - 5.18 Urea nitrogen [Mass/Vol] 13 mg/dL 8-26 [facility] Urea nitrogen/Creatinine [Mass ratio] 13.6 mg/mg 4.6-16.2 [facility] Leukocytes [#/volume] correc laurie for nucleated erythrocytes in Blood by Automated counon 11-09-2023 WBC corrected for nucl RBC Auto (Bld) [#/Vol] 6.2 x10 3.5-10.5 [facility] Lipid Panel Standardon 11-09 Cholesterol [Mass/Vol] 166.0 mg/dL Normal 66.0-200.0 [facility] Comment on above: Performed By: #### 7 195386, 56175491, [id number], 643779442, 7137579394, 13828918 ####[facility] (DEFAULT)[address] [place] [address] 30411 Cholesterol in HDL [Mass/Vol] 52 mg/dL Normal 40-71 [facility] Comment on above: Performed By: #### 7 297955, 87593088, 4752445278, 154239087, 4939366897, 99027149 ####[facility] (DEFAULT)[address] [place] [address] 15268 Cholesterol in LDL [Mass/Vol] 66 mg/dL Normal 1-100 [facility] Comment on above: Performed By: #### 7 418762, 69304624, 2030688844, 962708826, 8385389665, 77579122 ####[facility] (DEFAULT)[address] [place] [address] Cholesterol.total/Thania sterol in HDL [Mass ratio] 3.1 {ratio} Normal 0.0-4.5 [facility] Comment on above: Performed By: #### 7 913181, 56930328, 3568136220, 752430400, 2479690391, 81813175 ####[facility] (DEFAULT)[address] [place] [address] Triglyceride [Mass/Vol] 240.0 mg/dL High 0.0-150.0 [facility] Comment on above: Performed By: #### 7 803607, 23009623, 3074760621, 796227596, 9897817796, 44328217 ####[facility] (DEFAULT)[address] [place] [address] VLDL. 48 mg/dL High 5-40 [facility] Comment on above: Performed By: #### 7 148732, 64008741, 2612459396, 323489477, 1608168053, 27384851 ####[facility] (DEFAULT)[address] [place] [address] Lymphocytes Auto (Bld) [#/Vo l]on 11-09-2023 Lymphocytes (Bld) [#/Vol] 1.5 x10 1.3-2.9 [facility] Lymphocytes/100 WBC Auto (Bl d)on 11-09-2023 Lymphocytes/100 WBC (Bld) 25 % 14-48 [facility] MCH Auto (RBC) [Entitic mass ]on 11-09-2023 MCH (RBC) [Entitic mass] 34 pg 24-34 [facility] MCHC Auto (RBC) [Mass/Vol]on 11-09-2023 MCHC (RBC) [Mass/Vol] 35 g/dL 26-37 [facility] MCV Auto (RBC) [Entitic vol] on 11-09-2023 MCV (RBC) [Entitic vol] 96 fL 81-100 [facility] Microalb/Creat Ratioon 11-09 U Creatinine 95.71 mg/dL Invalid Interpretation Code [facility] Comment on above: Performed By: #### 2 [id number] ####[facility] (DEFAULT)[address] [place] [address] 40883 U Micro Albumin 5.7 mcg/mL Normal 0.0-18.9 [facility] Comment on above: Performed By: #### 2 [id number] ####[facility] (DEFAULT)[address] [place] [address] 16231 U Micro/Creat 6 mcg/mg Normal 0-30 [facility] Comment on above: Performed By: #### 2 [id number] ####[facility] (DEFAULT)[address] [place] [address] 39789 Monocytes Auto (Bld) [#/Vol] on 11-09-2023 Monocytes (Bld) [#/Vol] 0.7 x10 0.0-0.8 [facility] Monocytes/100 WBC Auto (Bld) on 11-09-2023 Monocytes/100 WBC (Bld) 10 % 1-12 [facility] Neutrophils Auto (Bld) [#/Vo l]on 11-09-2023 Neutrophils (Bld) [#/Vol] 3.6 x10 1.5-9.2 [facility] Neutrophils/100 WBC Auto (Bl d)on 11-09-2023 Neutrophils/100 WBC (Bld) 57 % 44-88 [facility] No Panel Informationon 11-09 Urine Microalbumin mg/dl 5.7 mcg/mL 0.0-18.9 [facility] Urine Random Creatinine 95.71 mg/dL [facility] Add Manual Differential Auto Auto [facility] Eosinophils # (Auto) 0.4 x10 0.0-0.4 [facility] Free Prostate Specific Antigen <0.02 ng/mL N/A [facility] Comment on above: Farhat ECLIA methodol ogy.Performed At: Lab[address] [id number] Vincent PhD Ph:[phone] Osmolality 270 mOsm/L [facility] Prostate Specific Antigen Total <0.1 ng/mL 0.0-4.0 [facility] Comment on above: Farhat ECLIA methodol ogy.According to the [place] [employer], Serum PSAshould decrease and remain [...] volume (Bld) [Entitic vol] 7.7 fL 6.3-10.2 [facility] Platelets Auto (Bld) [#/Vol] on 11-09-2023 Platelets (Bld) [#/Vol] 314 x10 138-427 [facility] Provider Orderson 11-09-2023 Provider Orders [id number] [facility] RBC Auto (Bld) [#/Vol]on RBC (Bld) [#/Vol] 4.58 x10 3.70-5.30 [facility] Serum or plasma albumin/glob ulin mass ratioon 11-09-2023 Albumin/Globulin [Mass ratio] 1.0 {ratio} 1.4-2.6 [facility] Serum or plasma anion gap de terminationon 11-09-2023 Anion gap [Moles/Vol] 12.9 mmol/L 5.0-19.0 [facility] Serum or plasma free prostat e specific antigen (PSA)/total PSA ratioon 11-09-2023 Free PSA/Total PSA [Mass fraction] Analyte Not Required % [facility] Comment on above: Unable to calculate [...] in HDL [Mass ratio] 3.1 {ratio} 0.0-4.5 [facility] TSH w/ Reflex to FT4on 11-09 TSH Qn 3.23 m[IU]/L Normal 0.45-5.33 [facility] Comment on above: Result Comment: Gene ral Population (males and non- females, aged 21-88) 0.45 - 5.33 Females, 1st Trimester 0.05 - 3.70 Females, 2nd Trimester 0.31 - 4.35 Females, 3rd Trimester 0.41 - 5.18 Performed By: #### 7 568819, 65183374, 1860362990, 787286785, 8161717646, [id number] ####[facility] (DEFAULT)[address] [place] [address] Urine microalbumin/creatinin e mass ratioon 11-09-2023 Albumin/Creatinine DL <= 20 mg/L (U) [Mass ratio] 6 mcg/mg 0-30 [facility] XR shoulder RT min 2V*on XR shoulder RT min 2V* [place] [address] XRay Report Signed Patient: Conchis Andrews MR#: [id number] : 1960 Acct:[id number] Age/Sex: 63 / M ADM Date: 04/30/23 Loc: [facility] Room: Type: [facility] CLI Attending Dr: Andrew Shen DO Copies [...] Chrissie Pfeiffer M.D.04/30/2023 2:29 PM Dictation Location: [place] [address] Transcribed By: [facility] 04/30/23 1429 Dictated By: Chrissie Pfeiffer MD 04/30/23 1427 Signed By: 04/30/23 1429 Normal [facility] Basic Metabolic PanelOrdered By: Nathan Proctor on 08-29-2019 Anion gap [Moles/Vol] 10 mmol/L 9 - 17 mmol/L [employer] Phone: Bun/Cre Ratio 13 [employer] Work Phone: Calcium [Mass/Vol] 8.6 mg/dL 8.6 - 10. 4 mg/dL [employer] Phone: Chloride [Moles/Vol] 102 mmol/L 98 - 10 7 mmol/L [employer] Phone: CO2 [Moles/Vol] 26 mmol/L 20 - 31 mmol/L [employer] Phone: Creatinine [Mass/Vol] 1.05 mg/dL 0.7 - 1.2 mg/dL [employer] Phone: GFR >60 >60 mL/min [employer] Phone: GFR Comment [employer] Phone: Comment on above: Average GFR for 50-5 9 years old: 93 mL/min/1.73sq m Chronic Kidney Disease: <60 mL/min/1.73sq m Kidney failure: <15 mL/min/1.73sq m eGFR calculated using average adult body mass. Additional eGFR calculator available at: http://www.ScanNano/Ecoviate_crcl_2011.htm GFR Non- >60 >60 mL/min [employer] Phone: GFR Staging NOT REPORTED [employer] Work Phone: Glucose [Mass/Vol] 132 mg/dL High 70 - 99 mg/dL [employer] Phone: Interpretation and review of laboratory results Abnormal [employer] Phone: Potassium [Moles/Vol] 4.2 mmol/L 3.7 - 5.3 mmol/L [employer] Phone: Sodium [Moles/Vol] 138 mmol/L 135 - 144 mmol/L [employer] Phone: Urea nitrogen [Mass/Vol] 14 mg/dL 6 - 20 mg/dL [employer] Phone: Basic Metabolic Profon 08-29 (cont.) Normal [facility] Comment on above: Result Comment: Aver age GFR for 50-59 years old: 93 mL/min/1.73sq m Chronic Kidney Disease: <60 mL/min/1.73sq m Kidney failure: <15 mL/min/1.73sq m eGFR calculated using average adult body mass. Additional eGFR calculator available at: http://www.ScanNano/Ecoviate_crcl_2011.htm Performed By: #### C BC, BMP #### [facility] [address] [place] [address] Soap Drier Operator: Zhou Blackburn MD Anion gap [Moles/Vol] 10 mmol/L Normal 9-17 [facility] Comment on above: Performed By: #### C MATEUS, BMP #### [facility] [address] [place] [address] Soap Drier Operator: Zhou Blackburn MD BUN/CRE Ratio 13 Normal 9-20 [facility] Comment on above: Performed By: #### C MATEUS, BMP #### [facility] [address] [place] [address] Soap Drier Operator: Zhou Blackburn MD Calcium [Mass/Vol] 8.6 mg/dL Normal 8.6-10.4 [facility] Comment on above: Performed By: #### C MATEUS, BMP #### [facility] [address] [place] [address] Soap Drier Operator: Zhou Blackburn MD Chloride [Moles/Vol] 102 mmol/L Normal 98-107 [facility] Comment on above: Performed By: #### C MATEUS, BMP #### [facility] [address] [place] [address] Soap Drier Operator: Zhou Blackburn MD CO2 [Moles/Vol] 26 mmol/L Normal 20-31 [facility] Comment on above: Performed By: #### C MATEUS, BMP #### [facility] [address] [place] [address] Soap Drier Operator: Zhou Blackburn MD Creatinine [Mass/Vol] 1.05 mg/dL Normal 0.70-1.20 [facility] Comment on above: Performed By: #### C BC, BMP #### [facility] [address] [place] [address] Soap Drier Operator: Zhou Blackburn MD GFR, Amer >60 Normal >60 [facility] Comment on above: Performed By: #### C BC, BMP #### [facility] [address] [facility] [place] [address] Soap Drier Operator: Zhou Blackburn MD GFR,non Amer >60 Normal >60 [facility] Comment on above: Performed By: #### C BC, BMP #### [facility] [place] [address] Soap Drier Operator: Zhou Blackburn MD Glucose [Mass/Vol] 132 mg/dL High 70-99 [facility] Comment on above: Performed By: #### C BC, BMP #### [facility] [place] [address] Soap Drier Operator: Zhou Blackburn MD Potassium [Moles/Vol] 4.2 mmol/L Normal 3.7-5.3 [facility] Comment on above: Performed By: #### C BC, BMP #### [facility] [place] [address] Soap Drier Operator: Zhou Blackburn MD Sodium [Moles/Vol] 138 mmol/L Normal 135-144 [facility] Comment on above: Performed By: #### C BC, BMP #### [facility] [place] [address] Soap Drier Operator: Zhou Blackburn MD Urea nitrogen [Mass/Vol] 14 mg/dL Normal 6-20 [facility] Comment on above: Performed By: #### C BC, BMP #### [facility] [place] [address] Soap Drier Operator: Zhou Blackburn MD Staging: NOT REPORTED Normal [facility] Comment on above: Performed By: #### C BC, BMP #### [facility] [address] [facility] [place] [address] Soap Drier Operator: Zhou Blackburn MD CBCon 08-29-2019 Erythrocyte distribution width (RBC) [Ratio] 11.9 % Normal 11.8-14.4 [facility] Comment on above: Performed By: #### Krys IGNACIO, BMP #### [facility] [place] [address] Soap Drier Operator: Zhou Blackburn MD Hematocrit (Bld) [Volume fraction] 41.2 % Normal 40.7-50.3 [facility] Comment on above: Performed By: #### C MATEUS, BMP #### [facility] [place] [address] Soap Drier Operator: Zhou Blackburn MD Hemoglobin (Bld) [Mass/Vol] 13.6 g/dL Normal 13.0-17.0 [facility] Comment on above: Performed By: #### Krys IGNACIO, BMP #### [facility] [address] [place] [address]. [place] [address] Soap Drier Operator: Zhou Blackburn MD MCH (RBC) [Entitic mass] 32.9 pg Normal 25.2-33.5 [facility] Comment on above: Performed By: #### C MATEUS, BMP #### [facility] [address] [place] [address]. [place] [address] Soap Drier Operator: Zhou Blackburn MD MCHC (RBC) [Mass/Vol] 33.0 g/dL Normal 28.4-34.8 [facility] Comment on above: Performed By: #### C MATEUS, BMP #### [facility] [place] [address] Soap Drier Operator: Zhou Blackburn MD MCV (RBC) [Entitic vol] 99.8 fL Normal 82.6-102.9 [facility] Comment on above: Performed By: #### C MATEUS, BMP #### [facility] [address] [place] [address] Soap Drier Operator: Zhou Blackburn MD NRBC Automated 0.0 per 100 WBC Normal 0.0 [facility] Comment on above: Performed By: #### C MATEUS, BMP #### [facility] [place] [address] Soap Drier Operator: Zhou Blackburn MD Platelet mean volume (Bld) [Entitic vol] 10.1 fL Normal 8.1-13.5 [facility] Comment on above: Performed By: #### C MATEUS, BMP #### [facility] [address] [place], [place] [address] [place] [address] Soap Drier Operator: Zhou Blackburn MD Platelets (Bld) [#/Vol] 245 10*3/uL Normal 138-453 [facility] Comment on above: Performed By: #### C MATEUS, BMP #### [facility] [place] [address] Soap Drier Operator: Zhou Blackburn MD RBC (Bld) [#/Vol] 4.13 10*6/uL Low 4.21-5.77 [facility] Comment on above: Performed By: #### C MATEUS, BMP #### [facility] [facility] [place] [address] Soap Drier Operator: Zhou Blackburn MD WBC (Bld) [#/Vol] 19.3 10*3/uL High 3.5-11.3 [facility] Comment on above: Performed By: #### C MATEUS, BMP #### [facility] [place] [address] Soap Drier Operator: Zhou Blackburn MD CBCOrdered By: Nathan Proctor on 08-29-2019 Erythrocyte distribution width (RBC) [Ratio] 11.9 % 11.8 - 14.4 % [employer] Phone: Hematocrit (Bld) [Volume fraction] 41.2 % 40.7 - 50.3 % [employer] Phone: Hemoglobin (Bld) [Mass/Vol] 13.6 g/dL 13 - 17 g/dL [employer] Phone: Interpretation and review of laboratory results Abnormal [employer] Phone: MCH (RBC) [Entitic mass] 32.9 pg 25.2 - 33.5 pg [employer] Phone: MCHC (RBC) [Mass/Vol] 33.0 g/dL 28.4 - 34.8 g/dL [employer] Phone: MCV (RBC) [Entitic vol] 99.8 fL 82.6 - 102.9 fL [employer] Phone: NRBC Automated 0.0 0.0 per 100 WBC [employer] Phone: Platelet mean volume (Bld) [Entitic vol] 10.1 fL 8.1 - 13.5 fL [employer] Phone: Platelets (Bld) [#/Vol] 245 10*3/uL [employer] Phone: RBC (Bld) [#/Vol] 4.13 10*6/uL Low 4.21 - 5.7 7 m/uL [employer] Phone: WBC (Bld) [#/Vol] 19.3 10*3/uL High [employer] Phone: Basic Metabolic PanelOrdered By: Nathan Proctor on 08-28-2019 Anion gap [Moles/Vol] 15 mmol/L 9 - 17 mmol/L [employer] Phone: Bun/Cre Ratio 15 [employer] Phone: Calcium [Mass/Vol] 8.9 mg/dL 8.6 - 10. 4 mg/dL [employer] Phone: Chloride [Moles/Vol] 99 mmol/L 98 - 10 7 mmol/L [employer] Phone: CO2 [Moles/Vol] 22 mmol/L 20 - 31 mmol/L [employer] Phone: Creatinine [Mass/Vol] 1.06 mg/dL 0.7 - 1.2 mg/dL [employer] Phone: GFR >60 >60 mL/min [employer] Phone: GFR Comment [employer] Phone: Comment on above: Average GFR for 50-5 9 years old: 93 mL/min/1.73sq m Chronic Kidney Disease: <60 mL/min/1.73sq m Kidney failure: <15 mL/min/1.73sq m eGFR calculated using average adult body mass. Additional eGFR calculator available at: http://www.ScanNano/multiple_crcl_2012.htm GFR Non- >60 >60 mL/min [employer] Phone: GFR Staging NOT REPORTED [employer] Phone: Glucose [Mass/Vol] 154 mg/dL High 70 - 99 mg/dL [employer] Phone: Interpretation and review of laboratory results Abnormal [employer] Phone: Potassium [Moles/Vol] 4.3 mmol/L 3.7 - 5.3 mmol/L [employer] Phone: Sodium [Moles/Vol] 136 mmol/L 135 - 144 mmol/L [employer] Phone: Urea nitrogen [Mass/Vol] 16 mg/dL 6 - 20 mg/dL [employer] Phone: Basic Metabolic Profon 08-28 (cont.) Normal [facility] Comment on above: Result Comment: Aver age GFR for 50-59 years old: 93 mL/min/1.73sq m Chronic Kidney Disease: <60 mL/min/1.73sq m Kidney failure: <15 mL/min/1.73sq m eGFR calculated using average adult body mass. Additional eGFR calculator available at: http://www.ScanNano/multiple_crcl_2012.htm Performed By: #### C MATEUS, BMP #### [facility] [address] [place] [address] Soap Drier Operator: Zhou Blackburn MD Anion gap [Moles/Vol] 15 mmol/L Normal 9-17 [facility] Comment on above: Performed By: #### C MATEUS, BMP #### [facility] [address] [place] [address] Soap Drier Operator: Zhou Blackburn MD BUN/CRE Ratio 15 Normal 9-20 [facility] Comment on above: Performed By: #### C MATEUS, BMP #### [facility] [address] [place] [address] Soap Drier Operator: Zhou Blackburn MD Calcium [Mass/Vol] 8.9 mg/dL Normal 8.6-10.4 [facility] Comment on above: Performed By: #### C MATEUS, BMP #### [facility] [address] [place] [address] Soap Drier Operator: Zhou Blackburn MD Chloride [Moles/Vol] 99 mmol/L Normal 98-107 [facility] Comment on above: Performed By: #### C MATEUS, BMP #### [facility] [address] [place] [address] Soap Drier Operator: Zhou Blackburn MD CO2 [Moles/Vol] 22 mmol/L Normal 20-31 [facility] Comment on above: Performed By: #### C BC, BMP #### [facility] [address] [place] [address] Soap Drier Operator: Zhou Blackburn MD Creatinine [Mass/Vol] 1.06 mg/dL Normal 0.70-1.20 [facility] Comment on above: Performed By: #### C BC, BMP #### [facility] [address] [place] [address] Soap Drier Operator: Zhou Blackburn MD GFR, Amer >60 Normal >60 [facility] Comment on above: Performed By: #### C MATEUS, BMP #### [facility] [address] [place] [address] Soap Drier Operator: Zhou Blackburn MD GFR,non Amer >60 Normal >60 [facility] Comment on above: Performed By: #### C BC, BMP #### [facility] [address] [facility] [place] [address] Soap Drier Operator: Zhou Blackburn MD Glucose [Mass/Vol] 154 mg/dL High 70-99 [facility] Comment on above: Performed By: #### C MATEUS, BMP #### [facility] [address] [facility] [place] [address] Soap Drier Operator: Zhou Blackburn MD Potassium [Moles/Vol] 4.3 mmol/L Normal 3.7-5.3 [facility] Comment on above: Performed By: #### C BC, BMP #### [facility] [address] [place] [address] Soap Drier Operator: Zhou Blakcburn MD Sodium [Moles/Vol] 136 mmol/L Normal 135-144 [facility] Comment on above: Performed By: #### C MATEUS, BMP #### [facility] [address] [facility] [place] [address] Soap Drier Operator: Zhou Blackburn MD Urea nitrogen [Mass/Vol] 16 mg/dL Normal 6-20 [facility] Comment on above: Performed By: #### C MATEUS, BMP #### [facility] [address] [place] [address] Soap Drier Operator: Zhou Blackburn MD Staging: NOT REPORTED Normal [facility] Comment on above: Performed By: #### C MATEUS, BMP #### [facility] [address] [place] [address] Soap Drier Operator: Zhou Blackburn MD CBCon 08-28-2019 Erythrocyte distribution width (RBC) [Ratio] 12.0 % Normal 11.8-14.4 [facility] Comment on above: Performed By: #### C MATEUS, BMP #### [facility] [address] [place] [address] Soap Drier Operator: Zhou Blackburn MD Hematocrit (Bld) [Volume fraction] 44.7 % Normal 40.7-50.3 [facility] Comment on above: Performed By: #### C MATEUS, BMP #### [facility] [address] [place] [address] Soap Drier Operator: Zhou Blackburn MD Hemoglobin (Bld) [Mass/Vol] 15.1 g/dL Normal 13.0-17.0 [facility] Comment on above: Performed By: #### C MATEUS, BMP #### [facility] [address] [place] [address] Soap Drier Operator: Zhou Blackburn MD MCH (RBC) [Entitic mass] 33.2 pg Normal 25.2-33.5 [facility] Comment on above: Performed By: #### C MATEUS, BMP #### [facility] [address] [place] [address] Soap Drier Operator: Zhou Blackburn MD MCHC (RBC) [Mass/Vol] 33.8 g/dL Normal 28.4-34.8 [facility] Comment on above: Performed By: #### C MATEUS, BMP #### [facility] [place] [address] Soap Drier Operator: Zhou Blackburn MD MCV (RBC) [Entitic vol] 98.2 fL Normal 82.6-102.9 [facility] Comment on above: Performed By: #### C MATEUS, BMP #### [facility] [address] [place] [address]. [place] [address] Soap Drier Operator: Zhou Blackburn MD NRBC Automated 0.0 per 100 WBC Normal 0.0 [facility] Comment on above: Performed By: #### C MATEUS, BMP #### [facility] [address] [place] [address]. [place] [address] Soap Drier Operator: Zhou Blackburn MD Platelet mean volume (Bld) [Entitic vol] 9.9 fL Normal 8.1-13.5 [facility] Comment on above: Performed By: #### C MATEUS, BMP #### [facility] [place] [address] Soap Drier Operator: Zhou Blackburn MD Platelets (Bld) [#/Vol] 264 10*3/uL Normal 138-453 [facility] Comment on above: Performed By: #### C MATEUS, BMP #### [facility] [address] [place], [place] [address] [place] [address] Soap Drier Operator: Zhou Blackburn MD RBC (Bld) [#/Vol] 4.55 10*6/uL Normal 4.21-5.77 [facility] Comment on above: Performed By: #### C MATEUS, BMP #### [facility] [address] [place], [place] [id number] Soap Drier Operator: Zhou Blackburn MD WBC (Bld) [#/Vol] 11.9 10*3/uL High 3.5-11.3 [facility] Comment on above: Performed By: #### C MATEUS, BMP #### [facility] [address] [facility] [place], [place] [id number] Soap Drier Operator: Zhou Blackburn MD CBCOrdered By: Nathan Proctor on 08-28-2019 Erythrocyte distribution width (RBC) [Ratio] 12.0 % 11.8 - 14.4 % [employer] Phone: Hematocrit (Bld) [Volume fraction] 44.7 % 40.7 - 50.3 % [employer] Phone: Hemoglobin (Bld) [Mass/Vol] 15.1 g/dL 13 - 17 g/dL [employer] Phone: Interpretation and review of laboratory results Abnormal [employer] Phone: MCH (RBC) [Entitic mass] 33.2 pg 25.2 - 33.5 pg [employer] Phone: MCHC (RBC) [Mass/Vol] 33.8 g/dL 28.4 - 34.8 g/dL [employer] Phone: MCV (RBC) [Entitic vol] 98.2 fL 82.6 - 102.9 fL [employer] Phone: NRBC Automated 0.0 0.0 per 100 WBC [employer] Phone: Platelet mean volume (Bld) [Entitic vol] 9.9 fL 8.1 - 13.5 fL [employer] Phone: Platelets (Bld) [#/Vol] 264 10*3/uL [employer] Phone: RBC (Bld) [#/Vol] 4.55 10*6/uL 4.21 - 5.7 7 m/uL [employer] Phone: WBC (Bld) [#/Vol] 11.9 10*3/uL High [employer] Phone: Surgical Pathologyon 019 Surgical Pathology (NOTE) [id number] CONSULTING PATHOLOGISTS [facility] ANATOMIC PATHOLOGY [address] [place] [id number] SURGICAL PATHOLOGY CONSULTATION Patient Name: CONCHIS ANDREWS [facility] Rec: [id number] Path Number: [id number] Collected: 08/28/2019 Received: 08/31/2019 Reported: 09/01/2019 16:41 [...] DETECTED. Gelacio Hein M.D. Electronically Signed Out [facility]/09/01/2019 Clinical Information Pre-op Diagnosis: PROSTATE CANCER Operative [...] WALL) (pT3b): Negative MARGINS (LOCATION IF POSITIVE): Remlap, bladder neck, surface margins negative for carcinoma TREATMENT EFFECT ON CARCINOMA: N/A REGIONAL LYMPH NODES -NUMBER OF LYMPH NODES EXAMINED: 4 -NUMBER WITH METASTASIS: 0 DISTANT METASTASIS (pM only if confirmed in this case):N/A PATHOLOGIC STAGE CLASSIFICATION: pT2 pN0 (add TNM descriptors if applicable) Digital Marketing Project Manager slides are reviewed by a second Pathologist who concurs with the diagnosis (OMID). CAP Prostate 4041 in conjunction with AJCC 8 ed. Normal [facility] Comment on above: Performed By: #### P PPVS #### [employer] [facility] [place] [address] Soap Drier Operator: Portillo Hein MD Cult,Urine,CCon 08-08-2019 Cult,Urine,CC Specimen Description .CLEAN CATCH URINE Special Requests NOT REPORTED Culture NO GROWTH Report Status FINAL 08/08/2019 Normal [facility] Comment on above: Performed By: #### C TYSON #### [facility] [address] [place], [place] [phone] Soap Drier Operator: Zhou Blackburn MD [address] [place], [place] [id number] Soap Drier Operator: Portillo Hein MD Culture NO GROWTH [place], [place] Special Requests NOT REPORTED [place] Specimen Description .CLEAN CATCH URINE [place] Basic Metabolic Profon 08-07 (cont.) Normal [facility] Comment on above: Result Comment: Aver age GFR for 50-59 years old: 93 mL/min/1.73sq m Chronic Kidney Disease: <60 mL/min/1.73sq m Kidney failure: <15 mL/min/1.73sq m eGFR calculated using average adult body mass. Additional eGFR calculator available at: http://www.ScanNano/multiple_crcl_2012.htm Performed By: #### C BC, BMP #### [facility] [address], [place] [phone] Soap Drier Operator: Zhou Blackburn MD Anion gap [Moles/Vol] 11 mmol/L Normal 9-17 [facility] Comment on above: Performed By: #### C BC, BMP #### [facility] [address] [place], [place] [phone] Soap Drier Operator: Zhou Blackburn MD BUN/CRE Ratio 15 Normal 9-20 [facility] Comment on above: Performed By: #### C BC, BMP #### [facility] [address] [place], [place] [phone] Soap Drier Operator: Zhou Blackburn MD Calcium [Mass/Vol] 9.3 mg/dL Normal 8.6-10.4 [facility] Comment on above: Performed By: #### C BC, BMP #### [facility] [address] [place] [address] Soap Drier Operator: Zhou Blackburn MD Chloride [Moles/Vol] 102 mmol/L Normal 98-107 [facility] Comment on above: Performed By: #### C BC, BMP #### [facility] [address] [place] [address] Soap Drier Operator: Zhou Blackburn MD CO2 [Moles/Vol] 26 mmol/L Normal 20-31 [facility] Comment on above: Performed By: #### C BC, BMP #### [facility] [address] [place] [address] Soap Drier Operator: Zhou Blackburn MD Creatinine [Mass/Vol] 0.89 mg/dL Normal 0.70-1.20 [facility] Comment on above: Performed By: #### C BC, BMP #### [facility] [address] [place] [address] Soap Drier Operator: Zhou Blackburn MD GFR, Amer >60 Normal >60 [facility] Comment on above: Performed By: #### C BC, BMP #### [facility] [place] [address] Soap Drier Operator: Zhou Blackburn MD GFR,non Amer >60 Normal >60 [facility] Comment on above: Performed By: #### C BC, BMP #### [facility] [address] [place] [address] Soap Drier Operator: Zhou Blackburn MD Glucose [Mass/Vol] 89 mg/dL Normal 70-99 [facility] Comment on above: Performed By: #### C BC, BMP #### [facility] [place] [address] Soap Drier Operator: Zhou Blackburn MD Potassium [Moles/Vol] 3.8 mmol/L Normal 3.7-5.3 [facility] Comment on above: Performed By: #### C MATEUS, BMP #### [facility] [address] [place] [address] Soap Drier Operator: Zhou Blackburn MD Sodium [Moles/Vol] 139 mmol/L Normal 135-144 [facility] Comment on above: Performed By: #### C MATEUS, BMP #### [facility] [address] [place] [address] Soap Drier Operator: Zhou Blackburn MD Urea nitrogen [Mass/Vol] 13 mg/dL Normal 6-20 [facility] Comment on above: Performed By: #### C MATEUS, BMP #### [facility] [address] [facility] [place] [address] Soap Drier Operator: Zhou Blackburn MD Staging: NOT REPORTED Normal [facility] Comment on above: Performed By: #### C MATEUS, BMP #### [facility] [address] [place] [address] Soap Drier Operator: Zhou Blackburn MD Anion gap [Moles/Vol] 11 mmol/L 9 - 17 mmol/L [place] Bun/Cre Ratio 15 [place] Calcium [Mass/Vol] 9.3 mg/dL 8.6 - 10. 4 mg/dL [place] Chloride [Moles/Vol] 102 mmol/L 98 - 10 7 mmol/L [place] CO2 [Moles/Vol] 26 mmol/L 20 - 31 mmol/L [place] Creatinine [Mass/Vol] 0.89 mg/dL 0.7 - 1.2 mg/dL [place] GFR >60 >60 mL/min [place] GFR Non- >60 >60 mL/min [place] GFR/1.73 sq M predicted among non-blacks MDRD (S/P/Bld) [Vol rate/Area] NOT REPORTED [place] GFR/1.73 sq M predicted among non-blacks MDRD (S/P/Bld) [Vol rate/Area] [place] Comment on above: Average GFR for 50-5 9 years old: 93 mL/min/1.73sq m Chronic Kidney Disease: <60 mL/min/1.73sq m Kidney failure: <15 mL/min/1.73sq m eGFR calculated using average adult body mass. Additional eGFR calculator available at: http://www.ScanNano/Ecoviate_crcl_2011.htm Glucose [Mass/Vol] 89 mg/dL 70 - 99 mg/dL [place] Potassium [Moles/Vol] 3.8 mmol/L 3.7 - 5.3 mmol/L [place] Sodium [Moles/Vol] 139 mmol/L 135 - 144 mmol/L [place] Urea nitrogen [Mass/Vol] 13 mg/dL 6 - 20 mg/dL [place] CBCon 08-07-2019 Erythrocyte distribution width (RBC) [Ratio] 12.4 % Normal 11.8-14.4 [facility] Comment on above: Performed By: #### C MATEUS, BMP #### [facility] [address] [place], [place] [phone] Soap Drier Operator: Zhou Blackburn MD Hematocrit (Bld) [Volume fraction] 43.7 % Normal 40.7-50.3 [facility] Comment on above: Performed By: #### C BC, BMP #### [facility] [address] [place] [address] Soap Drier Operator: Zhou Blackburn MD Hemoglobin (Bld) [Mass/Vol] 14.9 g/dL Normal 13.0-17.0 [facility] Comment on above: Performed By: #### C MATEUS, BMP #### [facility] [address] [facility] [place] [address] Soap Drier Operator: Zhou Blackburn MD MCH (RBC) [Entitic mass] 33.3 pg Normal 25.2-33.5 [facility] Comment on above: Performed By: #### C MATEUS, BMP #### [facility] [place] [address] Soap Drier Operator: Zhou Blackburn MD MCHC (RBC) [Mass/Vol] 34.1 g/dL Normal 28.4-34.8 [facility] Comment on above: Performed By: #### C MATEUS, BMP #### [facility] [address] [place] [address]. [place] [address] Soap Drier Operator: Zhou Blackburn MD MCV (RBC) [Entitic vol] 97.8 fL Normal 82.6-102.9 [facility] Comment on above: Performed By: #### C MATEUS, BMP #### [facility] [address] [place] [address]. [place] [address] Soap Drier Operator: Zhou Blackburn MD NRBC Automated 0.0 per 100 WBC Normal 0.0 [facility] Comment on above: Performed By: #### C MATEUS, BMP #### [facility] [address] [place] [address]. [place] [address] Soap Drier Operator: Zhou Blackburn MD Platelet mean volume (Bld) [Entitic vol] 9.9 fL Normal 8.1-13.5 [facility] Comment on above: Performed By: #### C MATEUS, BMP #### [facility] [address] [place] [address]. [place] [address] Soap Drier Operator: Zhou Blackburn MD Platelets (Bld) [#/Vol] 273 10*3/uL Normal 138-453 [facility] Comment on above: Performed By: #### C MATEUS, BMP #### [facility] [address] [facility] [place] [address] Soap Drier Operator: Zhou Blackburn MD RBC (Bld) [#/Vol] 4.47 10*6/uL Normal 4.21-5.77 [facility] Comment on above: Performed By: #### C MATEUS, BMP #### [facility] [address] [facility] [place] [address] Soap Drier Operator: Zhou Blackburn MD WBC (Bld) [#/Vol] 7.6 10*3/uL Normal 3.5-11.3 [facility] Comment on above: Performed By: #### C MATEUS, BMP #### [facility] [address] [place] [address]. [place] [address] Soap Drier Operator: Zhou Blackburn MD Erythrocyte distribution width (RBC) [Ratio] 12.4 % 11.8 - 14.4 % [place] Hematocrit (Bld) [Volume fraction] 43.7 % 40.7 - 50.3 % [place] Hemoglobin (Bld) [Mass/Vol] 14.9 g/dL 13 - 17 g/dL [place] MCH (RBC) [Entitic mass] 33.3 pg 25.2 - 33.5 pg [place] MCHC (RBC) [Mass/Vol] 34.1 g/dL 28.4 - 34.8 g/dL [place] MCV (RBC) [Entitic vol] 97.8 fL 82.6 - 102.9 fL [place] Platelet mean volume (Bld) [Entitic vol] 9.9 fL 8.1 - 13.5 fL [place] Platelets (Bld) [#/Vol] 273 10*3/uL [place] RBC (Bld) [#/Vol] 4.47 10*6/uL 4.21 - 5.7 7 m/uL [place] WBC (Bld) [#/Vol] 7.6 10*3/uL [place] WBC (Bld) [#/Vol] 0.0 10*3/uL 0.0 per 10 0 WBC [place] TYPE AND SCREENon 08-07-2019 ABO/Rh Positive [place], [place] Arm Band Number BE [id number] [place] Expiration Date 08/31/2019,2359 [place], [place] Type + Screenon 08-07-2019 Type + Screen Sample Expiration 08/31/2019,2359 Arm Band Number BE [id number] ABO/Rh(D) O POSITIVE Antibody Screen NEGATIVE Normal [facility] Comment on above: Performed By: #### T YS #### [facility] [address] [place], [place] [id number] Soap Drier Operator: Zhou Blackburn MD Urinalysis, Routineon 2018 Acetoacetic Acid,Ur Negative Normal NEG [facility] Comment on above: Performed By: #### U A #### [facility] [address] [place] [address] Soap Drier Operator: Zhou Blackburn MD Bilirubin, SemiQt,Ur Negative Normal NEG [facility] Comment on above: Performed By: #### U A #### [facility] [address] [place] [address] Soap Drier Operator: Zhou Blackburn MD Color (U) YELLOW Normal YEL [facility] Comment on above: Performed By: #### U A #### [facility] [address] [place] [address] Soap Drier Operator: Zhou Blackburn MD Comment Microscopic exam not performed based on chemical results unless requested in Normal [facility] Comment on above: Result Comment: orig inal order. Performed By: #### U A #### [facility] [address] [place] [address] Soap Drier Operator: Zhou Blackburn MD Glucose Ql (U) Negative Normal NEG [facility] Comment on above: Performed By: #### U A #### [facility] [address] [place] [address] Soap Drier Operator: Zhou Blackburn MD Hemoglobin, Ur Negative Normal NEG [facility] Comment on above: Performed By: #### U A #### [facility] [address] [facility] [place] [address] Soap Drier Operator: Zhou Blackburn MD Leukocyte esterase Test strip Ql (U) Negative Normal NEG [facility] Comment on above: Performed By: #### U A #### [facility] [address] [facility] [place] [address] Soap Drier Operator: Zhou Blackburn MD Nitrite,Ur Negative Normal NEG [facility] Comment on above: Performed By: #### U A #### [facility] [address] [facility] [place] [address] Soap Drier Operator: Zhou Blackburn MD pH (U) 6.0 [pH] Normal 5.0-8.0 [facility] Comment on above: Performed By: #### U A #### [facility] [address] [facility] [place] [address] Soap Drier Operator: Zhou Blackburn MD Protein Ql (U) Negative Normal NEG [facility] Comment on above: Performed By: #### U A #### [facility] [address] [facility] [place] [address] Soap Drier Operator: Zhou Blackburn MD Specific gravity (U) [Rel density] 1.020 Normal 1.005-1.030 [facility] Comment on above: Performed By: #### U A #### [facility] [address] [facility] [place], [place] [phone] Soap Drier Operator: Zhou Blackburn MD Turbidity CLEAR Normal CLEAR [facility] Comment on above: Performed By: #### U A #### [facility] [address] [facility] [place], [place] [phone] Soap Drier Operator: Zhou Blackburn MD Urobilinogen,Ur Normal Normal NORM [facility] Comment on above: Performed By: #### U A #### [facility] [address] [facility] [place], [place] [phone] Soap Drier Operator: Zhou Blackburn MD Bilirubin Urine Negative NEGATIVE [facility] [employer] [place], [place] Color, UA YELLOW YELLOW [facility] [employer] [place] Glucose, Ur Negative NEGATIVE [facility] [employer] [place] Ketones Ql (U) Negative NEGATIVE [facility] [place] Leukocyte esterase Test strip Ql (U) Negative NEGATIVE [facility] [employer] [place] Nitrite, Urine Negative NEGATIVE [facility] [employer] [place] pH, UA 6.0 [facility] [employer] [place] Protein (U) [Mass/Vol] Negative NEGATIVE Me [facility] [employer], [place] Specific [place], [place] 1.020 [facility] [employer] Turbidity UA CLEAR CLEAR [facility]- [place], [place] Urinalysis Comments Microscopic exam not performed based on chemical results unless requested in original order. [facility] [employer] [place], [place] Urine Hgb Negative NEGATIVE [facility] [employer] Urobilinogen, Urine Normal Normal [facility]- [place], [place] Vital Signs Date Time Vital Sign Value Performing Clinician Facility 07-29-2024 10:59-0500 Body height 180.3 cm Ольга Paige DPM Work Phone: [facility] 07-29-2024 10:59-0500 Body mass index (BMI) [Ratio] 26.22 kg/m2 Ольга Paige DPM Work Phone: [facility] 07-29-2024 10:59-0500 Body weight 85.28 kg Ольга Paige DPM Work Phone: [facility] 02-05-2024 13:30-0400 Diastolic blood pressure 63 mm[Hg] DO Andrew Shen Work Phone: [facility] 02-05-2024 13:30-0400 Heart rate 60 /min DO Andrew Shen Work Phone: [facility] 02-05-2024 13:30-0400 Respiratory rate 16 /min DO Andrew Shen Work Phone: [facility] 02-05-2024 13:30-0400 SaO2% (BldA) [Mass fraction] 96 % DO Andrew Shen Work Phone: [facility] 02-05-2024 13:30-0400 Systolic blood pressure 120 mm[Hg] DO Andrew Shen Work Phone: [facility] 02-05-2024 12:22-0400 Body temperature 97.2 [degF] DO Andrew Shen Work Phone: [facility] 02-05-2024 12:22-0400 Inhaled oxygen flow rate 6 L/min DO Andrew Shen Work Phone: [facility] 02-05-2024 10:36-0400 Body height 180.34 cm DO Andrew Shen Work Phone: [facility] 02-05-2024 10:36-0400 Body mass index (BMI) [Ratio] 25.4 kg/m2 DO Andrew Shen Work Phone: [facility] 02-05-2024 10:36-0400 Body weight 82.6 kg DO Andrew Salazari Work Phone: [facility] 01-20-2024 08:56-0400 Body height 180.34 cm DO Andrew Shen Work Phone: [facility] 01-20-2024 08:56-0400 Body mass index (BMI) [Ratio] 24.7 kg/m2 DO Andrew Salazari Work Phone: [facility] 01-20-2024 08:56-0400 Body weight 80.28 kg DO Andrew Salazari Work Phone: [facility] 12-25-2023 10:19-0400 Body height 180.34 cm DO Andrew Salazari Work Phone: [facility] 12-25-2023 10:19-0400 Body mass index (BMI) [Ratio] 24.7 kg/m2 DO Andrew Salazari Work Phone: [facility] 12-25-2023 10:19-0400 Body weight 80.28 kg DO Andrew Salazari Work Phone: [facility] 12-25-2023 10:19-0400 Diastolic blood pressure 66 mm[Hg] DO Andrew Shen Work Phone: [facility] 12-25-2023 10:19-0400 Heart rate 87 /min DO Andrew Shen Work Phone: [facility] 12-25-2023 10:19-0400 SaO2% (BldA) [Mass fraction] 96 % DO Andrew Salazari Work Phone: [facility] 12-25-2023 10:19-0400 Systolic blood pressure 103 mm[Hg] DO Andrew Salazari Work Phone: [facility] 10-30-2023 15:26-0500 Body height 180.34 cm DO Andrew Salazari Work Phone: [facility] 10-30-2023 15:26-0500 Body mass index (BMI) [Ratio] 26.4 kg/m2 DO Andrew Moorecki Work Phone: [facility] 10-30-2023 15:26-0500 Body weight 86.18 kg DO Andrew Shen Work Phone: [facility] 10-30-2023 15:26-0500 Diastolic blood pressure 86 mm[Hg] DO Andrew Shen Work Phone: [facility] 10-30-2023 15:26-0500 Respiratory rate 18 /min DO Andrew Shen Work Phone: [facility] 10-30-2023 15:26-0500 SaO2% (BldA) [Mass fraction] 97 % DO Andrew Shen Work Phone: [facility] 10-30-2023 15:26-0500 Systolic blood pressure 137 mm[Hg] DO Andrew Shen Work Phone: [facility] 04-30-2023 08:45-0400 Body height 180.34 cm Andrew Shen Other [facility] Other 04-30-2023 08:45-0400 Body mass index (BMI) [Ratio] 26.22 kg/m2 Andrew Shen Other [facility] Other 04-30-2023 08:45-0400 Body weight 85.28 kg Andrew Shen Other [facility] Other 04-30-2023 08:45-0400 Diastolic blood pressure 84 mm[Hg] Andrew Shen Other [facility] Other 04-30-2023 08:45-0400 Respiratory rate 18 /min Andrew Shen Other [facility] Other 04-30-2023 08:45-0400 SaO2% (BldA) [Mass fraction] 100 % Andrew Shen Other [facility] Other 04-30-2023 08:45-0400 Systolic blood pressure 130 mm[Hg] Andrew Shen Other [facility] Other 10-29-2022 16:00-0500 Body height 180.34 cm Andrew Shen Other [facility] Other 10-29-2022 16:00-0500 Body mass index (BMI) [Ratio] 26.64 kg/m2 Andrew Shen Other [facility] Other 10-29-2022 16:00-0500 Body weight 86.64 kg Andrew Shen Other [facility] Other 10-29-2022 16:00-0500 Diastolic blood pressure 86 mm[Hg] Andrew Shen Other [facility] Other 10-29-2022 16:00-0500 Respiratory rate 16 /min Andrew Shen Other [facility] Other 10-29-2022 16:00-0500 SaO2% (BldA) [Mass fraction] 99 % Andrew Shen Other [facility] Other 10-29-2022 16:00-0500 Systolic blood pressure 138 mm[Hg] Andrew Shen Other [facility] Other 10-01-2022 15:30-0500 Body height 180.34 cm Kai Muse Other [facility] Other 10-01-2022 15:30-0500 Body mass index (BMI) [Ratio] 26.22 kg/m2 Kai Chowdhuryxa Other [facility] Other 10-01-2022 15:30-0500 Body weight 85.28 kg Kai Chowdhuryxa Other [facility] Other 05-02-2022 16:00-0400 Body height 180.34 cm Andrew Shruti Other [facility] Other 02-28-2022 16:00-0400 Body height 180.34 cm Andrew Shruti Other [facility] Other 02-28-2022 16:00-0400 Body mass index (BMI) [Ratio] 26.22 kg/m2 Andrewwil Shen Other [facility] Other 02-28-2022 16:00-0400 Body weight 85.28 kg Andrew Shruti Other [facility] Other 02-28-2022 16:00-0400 Diastolic blood pressure 82 mm[Hg] Andrewwil Shen Other [facility] Other 02-28-2022 16:00-0400 Respiratory rate 18 /min Andrew Shruti Other [facility] Other 02-28-2022 16:00-0400 SaO2% (BldA) [Mass fraction] 98 % Andrewwil Shen Other [facility] Other 02-28-2022 16:00-0400 Systolic blood pressure 130 mm[Hg] Andrew Shen Other [facility] Other 01-30-2022 16:30-0400 Body height 180.34 cm Andrew Shen Other [facility] Other 01-30-2022 16:30-0400 Body mass index (BMI) [Ratio] 26.36 kg/m2 Andrew Shen Other [facility] Other 01-30-2022 16:30-0400 Body temperature 98.5 [degF] Andrew Shen Other [facility] Other 01-30-2022 16:30-0400 Body weight 85.73 kg Andrew Shen Other [facility] Other 01-30-2022 16:30-0400 Diastolic blood pressure 94 mm[Hg] Andrew Shen Other [facility] Other 01-30-2022 16:30-0400 Respiratory rate 18 /min Andrew Shen Other [facility] Other 01-30-2022 16:30-0400 SaO2% (BldA) [Mass fraction] 97 % Andrew Shen Other [facility] Other 01-30-2022 16:30-0400 Systolic blood pressure 155 mm[Hg] Andrew Shen Other [facility] Other 08-14-2021 11:30-0500 Body height 180.34 cm Andrew Shen Other [facility] Other 08-14-2021 11:30-0500 Body mass index (BMI) [Ratio] 26.64 kg/m2 Andrew Shen Other [facility] Other 08-14-2021 11:30-0500 Body weight 86.64 kg Andrew Shen Other [facility] Other 08-14-2021 11:30-0500 Diastolic blood pressure 86 mm[Hg] Andrew Shen Other [facility] Other 08-14-2021 11:30-0500 Respiratory rate 20 /min Andrew Shen Other [facility] Other 08-14-2021 11:30-0500 SaO2% (BldA) [Mass fraction] 99 % Andrew Shen Other [facility] Other 08-14-2021 11:30-0500 Systolic blood pressure 120 mm[Hg] Andrew Shen Other [facility] Other 08-29-2019 07:24-0500 Body temperature 97.9 [degF] Nathan Proctor MD Work Phone: [facility] Work Phone: 08-29-2019 07:24-0500 Diastolic blood pressure 68 mm[Hg] Nathan Proctor MD Work Phone: [facility] Work Phone: 08-29-2019 07:24-0500 Heart rate 57 /min Nathan Proctor MD Work Phone: [facility] Work Phone: 08-29-2019 07:24-0500 Respiratory rate 16 /min Nathan Proctor MD Work Phone: [facility] Work Phone: 08-29-2019 07:24-0500 SaO2% (BldA) [Mass fraction] 98 % Nathan Proctor MD Work Phone: [facility] Work Phone: 08-29-2019 07:24-0500 Systolic blood pressure 128 mm[Hg] Nathan Proctor MD Work Phone: [facility] Work Phone: 08-28-2019 18:16-0500 Body height 180.3 cm Nathan Proctor MD Work Phone: [facility] Work Phone: 08-28-2019 18:16-0500 Body mass index (BMI) [Ratio] 26.62 kg/m2 Nathan Proctor MD Work Phone: [facility] Work Phone: 08-28-2019 18:16-0500 Body weight 86.58 kg Nathan Proctor MD Work Phone: [facility] Work Phone: 08-07-2019 10:30-0500 BMI (Body Mass Index) 26.63 kg/m2 [address] [place] 08-07-2019 10:30-0500 Body weight 86.[address] [place] 08-07-2019 10:30-0500 BP Diastolic 78 mm[Hg] [address] 08-07-2019 10:30-0500 BP Systolic 140 mm[Hg] [address] 08-07-2019 10:30-0500 Height 180.[address] 08-07-2019 10:30-0500 Pulse (Heart Rate) 58 /min [address] [place] 08-07-2019 10:30-0500 Pulse Oximetry 100 % [address] 08-07-2019 10:30-0500 Respiratory Rate 16 /min [address] [place], [place] Encounters Encounter Date Encounter Type Care Provider Facility Start: 08-20-2024 End: 08-20-2024 ambulatory Henri Headleyjosé Facility:[facility] Start: 07-29-2024 End: 07-29-2024 Bamboo flowsheet Ольга Paige DPM Work Phone: [facility] Start: 07-29-2024 End: 07-29-2024 Bamboo flowsheet Ольга Paige DPM Work Phone: [facility] Start: 07-29-2024 End: 07-29-2024 ambulatory ОЛЬГА PAIGE Not Available Start: 07-29-2024 End: 07-29-2024 ambulatory ОЛЬГА PAIGE Not Available Start: 07-29-2024 End: 07-29-2024 Office outpatient new 45 minutes Ольга Paige DPM Work Phone: [facility] Comment on above: 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 [place] Start: 02-05-2024 End: 02-05-2024 ambulatory DO Andrew Shen Work Phone: [facility] Work Phone: Start: 01-22-2024 End: 01-22-2024 Patient encounter procedure DO Andrew Shen Work Phone: [facility]Pre[facility] Work Phone: Start: 01-22-2024 End: 01-22-2024 ambulatory DO Andrew Shen Work Phone: [facility] Work Phone: Start: 01-22-2024 Encounter for preprocedural laboratory examination Kai Muse [facility] Physician [facility] Start: 01-20-2024 End: 01-20-2024 Patient encounter procedure DO Andrew Mooretamelatwin Work Phone: [facility] Physician [facility] Work Phone: Start: 01-10-2024 End: 01-10-2024 ambulatory MD Kai Muse Facility:[facility] Start: 01-07-2024 End: 01-07-2024 ambulatory DO Andrew Mooretamelai Work Phone: [facility] Work Phone: Start: 01-07-2024 End: 01-07-2024 Patient encounter procedure DO Andrew Mooretamelai Work Phone: [facility] Work Phone: Start: 12-25-2023 End: 12-25-2023 Patient encounter procedure DO Andrew Mooretamelatwin Work Phone: [facility] Work Phone: Start: 11-14-2023 Non-patient / Non-visit DO Mat maureenpeter Moorecki Work Phone: [facility] Work Phone: Start: 11-09-2023 Non-patient / Non-visit DO Mat aaron Teresacki Work Phone: [facility] Work Phone: Start: 11-09-2023 End: 11-09-2023 ambulatory ANDREW SHEN Facility:[facility] Start: 10-30-2023 End: 10-30-2023 Encounter for general adult medical examination without abnormal findings DO Andrew Samaniegomynortamelai Work Phone: [facility] Start: 10-30-2023 End: 10-30-2023 Patient encounter procedure DO Andrew Salazari Work Phone: [facility] Work Phone: Start: 10-23-2023 Non-patient / Non-visit DO Jerald Shen Work Phone: [facility] Work Phone: Start: 04-30-2023 Office outpatient vi sit 25 minutes Andrew Mooreyue [facility] Start: 04-30-2023 End: 04-30-2023 ambulatory Andrew Samaniegogladystwin [facility] Other Start: 10-29-2022 End: 10-29-2022 ambulatory Andrew Mooretamelatwin Other [facility] Other Start: 10-29-2022 Encounter for genera l adult medical examination without abnormal findings Andrew Shruti [facility] Start: 10-29-2022 Periodic preventive med est patient 40-64yrs Andrew Shruti [facility] Start: 10-29-2022 Telephone encounter Andrew Salazar i [facility] Start: 10-16-2022 End: 10-16-2022 ambulatory Andrew Shen Other [facility] Other Start: 10-16-2022 Telephone encounter Andrew Salazar i [facility] Start: 10-01-2022 End: 10-01-2022 ambulatory Kai Olexa Other [facility] Other Start: 10-01-2022 Office outpatient vi sit 15 minutes Kai Trentonxa [facility] Start: 09-18-2022 End: 09-18-2022 ambulatory Andrew Mooreyue Other [facility] Other Start: 09-18-2022 Telephone encounter Andrew Mooretamela twin [facility] Start: 09-04-2022 End: 09-04-2022 ambulatory Kai Olexa Other [facility] Other Start: 09-04-2022 Telephone encounter Kai Muse [facility] Start: 08-17-2022 End: 08-17-2022 ambulatory Andrew Shen Other [facility] Other Start: 08-17-2022 Telephone encounter Andrew Salazar i [facility] Start: 05-02-2022 End: 05-02-2022 ambulatory Andrew Shen Other [facility] Other Start: 05-02-2022 Nursing evaluation o f patient and report Andrew Shen [facility] Start: 04-20-2022 End: 04-20-2022 ambulatory Andrew Shen Other [facility] Other Start: 04-20-2022 Telephone encounter Andrew Salazar i [facility] Start: 03-22-2022 End: 03-22-2022 ambulatory Andrew Shen Other [facility] Other Start: 03-22-2022 Telephone encounter Andrew Salazar i [facility] Start: 03-20-2022 End: 03-20-2022 ambulatory Andrew Shen Other [facility] Other Start: 03-20-2022 Telephone encounter Andrew Salazar i [facility] Start: 03-15-2022 End: 03-15-2022 ambulatory Andrew Shen Other [facility] Other Start: 03-15-2022 Telephone encounter Andrew Salazar i [facility] Start: 03-14-2022 End: 03-14-2022 ambulatory Andrew Shen Other [facility] Other Start: 03-14-2022 Telephone encounter Andrew Salazar i [facility] Start: 02-28-2022 End: 02-28-2022 ambulatory Andrew Shen Other [facility] Other Start: 02-28-2022 Office outpatient vi sit 15 minutes Andrew Shen [facility] Start: 02-19-2022 End: 02-19-2022 ambulatory Andrew Shen Other [facility] Other Start: 02-19-2022 Telephone encounter Andrew Salazar i [facility] Start: 01-30-2022 End: 01-30-2022 ambulatory Andrew Shen Other [facility] Other Start: 01-30-2022 Office outpatient vi sit 25 minutes Andrew Shen [facility] Start: 01-08-2022 End: 01-08-2022 ambulatory Andrew Shen Other [facility] Other Start: 01-08-2022 Telephone encounter Andrew Salazar i [facility] Start: 08-31-2021 End: 08-31-2021 ambulatory Andrew Shen Other [facility] Other Start: 08-31-2021 Telephone encounter Andrew Salazar i [employer] Start: 08-14-2021 End: 08-14-2021 ambulatory Andrew Shen Other [facility] Other Start: 08-14-2021 Encounter for genera l adult medical examination without abnormal findings Andrew Shen [facility] Start: 08-14-2021 Periodic preventive med est patient 40-64yrs Andrew Samaniegogladystwin [facility] Start: 08-28-2019 End: 08-29-2019 Patient encounter procedure NATHAN PROCTOR [facility] Start: 08-28-2019 End: 08-29-2019 Subsequent hospital visit by physician Nathan Proctor MD Work Phone: [facility] Comment on above: Prostate cancer (HCC ) (Primary Dx) Start: 08-07-2019 End: 08-12-2019 Patient encounter procedure NATHAN PROCTOR [facility] Start: 08-07-2019 End: 08-11-2019 Subsequent hospital visit by physician Diana Lara Rm 1 [facility] PRE-ADMIT TESTING Procedures Date Procedure Procedure Detail Performing Clinician Start: 07-29-2024 Radex ankle complete minimum 3 views Ольга CRAIGM Work Phone: Start: 02-05-2024 Arthroscopy of knee DO Andrew Shruti Work Phone: Start: 01-07-2024 X-ray of left knee DO Shawn hermosillo Shruti Work Phone: Start: 08-29-2019 DISCHARGE PATIENT LORI [...] PROPHYLAXIS NATHAN DUSTIN Start: 08-28-2019 VITAL SIGNS NTAHAN MILLARD CK Start: 08-28-2019 PATIENT STATUS (FROM [...] Date Care Activity Detail Author Start: 02-05-2024 [facility] Start: 02-05-2024 [facility] Start: 12-25-2023 Patient referral [facility] Work Phone: Start: 08-28-2020 Creatinine monitoring Creatinine mon [facility] Work Phone: Start: 08-28-2020 Potassium monitoring Potassium monit [facility] Work Phone: Start: 08-07-2020 Creatinine monitoring Creatinine mon [place], [place] Start: 08-07-2020 Potassium monitoring Potassium monit [place]ing [place] Start: 08-28-2019 End: 08-28-2019 Hospital Encounter [facility] OR Comment on above: RADICAL PROSTATECTOM Y LAPAROSCOPIC ROBOTIC XI WITH POSSIBLE PELVIC LYMPH NODE DISSECTION Start: 05-17-2019 Influenza vaccination Flu vaccine (# 1) [place], [place] Start: 01-27-2012 Colon cancer screen colonoscopy Colon cancer screen colonoscopy [place], [place] Start: 01-27-2012 Shingles Vaccine (1 of 2) Shingles Vaccine (1 of 2) [place], [place] Start: 2002 Diabetes screen Diabetes screen [facility] Phone: Start: 2002 Lipid screen Lipid screen [place], [place] Start: 1977 HIV screen HIV screen [place], [place] Start: 1973 DTaP/Tdap/Td vaccine (1 - Tdap) DTaP/Tdap/Td vaccine (1 - Tdap) [place], [place] Start: 1962 Hepatitis C screen Hepatitis C scree n [place], [place] End: 08-29-2019 Blood glucose - POCT Blood glucose - POCT Point of Care Testing Routine One Time for 1 Occurrences starting 08/29/2019 until 08/29/2019 [facility] Phone: Comment on above: One Time for 1 Occur rences starting 08/29/2019 until 08/29/2019 Initiate Oxygen Ther apy Protocol Initiate Oxygen Therapy Protocol Respiratory Care Routine Daily until discontinued starting 08/28/2019 [facility] Phone: Comment on above: Daily until disconti nued starting 08/28/2019 MR Knee - left WO contrast [facility] Patient Education Know your Meds [facility] Work Phone: Patient referral [facility] Work Phone: Surgical Pathology Surgical Path ology Lab Routine ONE TIME for 1 Occurrences starting 08/28/2019 [facility] Phone: Comment on above: ONE TIME for 1 Occur rences starting 08/28/2019 [facility] Immunizations Immunization Date Immunization Notes Care Provider Flori basiarose marie 05-02-2022 zoster vaccine recombinant Andrew Branmynorcki Other [facility] 03-21-2022 tetanus toxoid, reduced diphtheria toxoid, and acellular pertussis vaccine, adsorbed Ольга Rusher DPM Work Phone: [facility] 01-30-2022 zoster vaccine recombinant Andrew Branmynorcki Other [facility] 07-18-2020 influenza, injectable, quadrivalent, preservative free DO Andrew Moorecki Work Phone: [facility] 07-18-2020 influenza, injectable, quadrivalent, contains preservative Andrew Braniecki Other [facility] Other 07-09-2019 influenza, injectable, quadrivalent, preservative free DO Andrew Braniecki Work Phone: [facility] 07-09-2019 influenza, injectable, quadrivalent, contains preservative Andrew Braniecki Other [facility] Other 07-09-2017 influenza, injectable, quadrivalent, preservative free Ольга Rusher DPM Work Phone: [facility] 05-03-2017 influenza, injectable, quadrivalent, preservative free Ольга Rusher DPM Work Phone: [facility] 06-27-2016 influenza, injectable, quadrivalent, preservative free Ольга Rusher DPM Work Phone: [facility] NEGATED: Highlighted row has not occurred!08-14-2021 influenza, seasonal, injectable Patient Objection Andrew Teresacki Other [facility] Other NEGATED: Highlighted row has not occurred!12-25-2018 influenza, seasonal, injectable Patient Objection Andrew Shen Other [facility] Other Payers Date Payer Category Payer Self-pay [id number] 2018 [facility] [employer] [id number] 2018 Unknown BCBS BCBS OUT OF STATE xxxxxxxxxxxx 2018-Present [address] [place] [address] xxxxxxxxxxxx [id number] 2018 Unknown [id number] 1960 Unknown [id number] .177 1962 Unknown [id number] [id number] .177 1962 Unknown [id number] [id number] .1259 1962 Unknown [id number] [id number] .1259 1962 Unknown [id number] 2.16.840.1.400556.3.579.2 .1259 1962 Unknown [id number] 2.16.840.1.045797.3.579.2 .718 1962 Unknown [id number] [id number] .718 1962 Unknown [id number] [id number] .718 1962 Unknown [id number] [id number] .718 Unknown [id number] [id number] .531 Unknown [id number] [id number] .531 Unknown [id number] [id number] .531 Unknown [id number] [id number] .531 Worker'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 Care Works [facility] [id number] Social History Date Type Detail Facility Start: 08-07-2019 End: 07-29-2024 Tobacco smoking status OKIS Never smoker [facility] Start: 08-07-2019 End: 07-29-2024 Alcohol intake Current drinker of alcohol (finding) [place], [place] Start: 1960 Sex Assigned At Not on file [place] Start: 07-29-2024 Sex Assigned At N [facility] [employer] Other Start: 10-22-2018 Tobacco smoking status OKIS Ex-smoker (finding) [facility] Start: 1960 Sex Assigned At Male F [facility] Start: 02-05-2024 Tobacco smoking status OKIS Smoker (finding) [facility] Start: 07-29-2024 Tobacco use and exposure Smokeless tobacco non-user [facility] Start: 07-29-2024 History of Social function [facility] Start: 07-29-2024 Alcohol Comment socially [facility] Medical Equipment Procedure Code Equipment Code Equipment Origin al Text Equipment Identifier Dates Pasha-Matrix Kathia x 1k Regenerative 6x3cm - [id number] Start: 08-28-2019 Clip Lg Polymerization Helper Hem-O-Breanne Polymer Endo Ster Pk/6 [id number] Start: 08-28-2019 Clip Lg Polymerization Helper Hem-[employer]-Bre[employer] Polymer Endo Ster Pk/6 [id number] Start: 08-28-2019 Goals Date Patient Goal Desired Activity /State Clinical Notes 08-28-2019 to 08-21-2024 Ольга Paige DPM - 07/29/2024 10:45 AM ESTPatient Instructions Note Date & Type Note Facility 08-21-2024 Note [id number] 07-29-2024 History of Presen t illness Narrative Images from the original note were not included. Subjective Patient ID: Lisandro Andrews is a 64 y.o. 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 [place] agreement for prednisone taper dose as a [...] Ольга Paige DPM documented in this encounter [facility] 07-29-2024 Instructions Ольга Paige DPM - 07/29/2024 10:45 AM EST Appropriate referral as noted documented in this encounter [facility] 02-07-2024 Note [id number] 04-30-2023 Evaluation note Encounter Date Diagnosis Assessment Notes Apr, Acute pain of right shoulder (ICD-10 - M25.511) Will start with x-rays. Suspect he has some degree of rotator cuff tendonitis, possible impingement syndrome. I will have him hold on the naproxen while taking a 6 day steroid taper. Ice the area. further recommendations pending x-rays and his progress. [facility] Other 02-13-2023 Evaluation note* Encounter Date Diagnosis Assessment Notes Treatment Notes Treatment Clinical Notes Oct, Cough (ICD-10 - R05.9) [place] [employer] Other 02-13-2023 Evaluation note* Encounter Date Diagnosis [...] any time if he changes his mind. [facility] Other 01-31-2023 Evaluation note* Encounter Date Diagnosis Assessment Notes Treatment Notes Treatment Clinical Notes Sep, Essential hypertension (ICD-10 - I10) [facility] Other 01-16-2023 Evaluation note* Encounter Date Diagnosis Assessment Notes Treatment Notes Treatment Clinical Notes Sep, Patellar tendinitis, left knee (ICD-10 - M76.52) Sep, Arthritis of left knee (ICD-10 - M17.12) Patient instructed on light controlled non impact exercises like biking and swimming. 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) [facility] Other 01-03-2023 Evaluation note* Encounter Date Diagnosis Assessment Notes Treatment Notes Treatment Clinical Notes Sep, Cough (ICD-10 - R05.9) [facility] Other 08-17-2022 Evaluation note* Encounter Date Diagnosis Assessment Notes Treatment Notes Treatment Clinical Notes Apr, Encounter for vaccination (ICD-10 - Z23) [facility] Other 06-30-2022 Evaluation note* Encounter Date Diagnosis Assessment Notes Treatment Notes Treatment Clinical Notes Feb, Screening for other eye conditions (ICD-10 - Z13.5) [facility] Other 06-15-2022 Evaluation note* Encounter Date Diagnosis [...] to evaluate the meniscus. Further recommendations pending. [facility] Other 05-17-2022 Evaluation note* Encounter Date Diagnosis [...] January, Encounter for vaccination (ICD-10 - Z23) [facility] Other 11-29-2021 Evaluation note* Encounter Date Diagnosis [...] will call if he changes his mind. [facility] Other 12-14-2019 Hospital Discharge instructions* Discharge Instr [...] at most local grocery stores, pharmacies, and [employer]. ? If you have any questions about your diet or nutrition, call the hospital and ask for the dietitian. General Diet * Additional Instructions* Ira Jung RN - 08/29/2019 -Regular Diet. -Resume all home medications. -Do not operative heavy machinery if you are taking Percocet (oxycodone), [place]/Vicodin (hydrocodone), Tylenol #3 (codeine), or Ultram (tramadol). [...] Care Everywhere. * Radical Prostatectomy: Laparoscopic: Post-op (Greenlandic) * Prostate Cancer (Greenlandic) documented in this [employer] Work Phone: [phone]) 276-717412-13-2019 History of Present illness Narrative* Elodia Patino RN - 08/28/2019 6:25 PM EST Pt admitted to room 2002 from PACU Oriented to room and call light/tv controls. Bed in lowest position, wheels locked, 2/4 side rails up Call light in reach, room free of clutter, adequate lighting provided. [facility] Phone: evaluation note* Diagnosis Prostate cancer (HCC)- Primary Malignant neoplasm of prostate documented in this encounter [facility] [employer] Work Phone: [email or web address] noteNo [place] [employer] Other Evaluation note* Diagnosis Onset Date Resolution [...] acute Patellofemoral chondrosis of left knee acute [facility] Work Phone: Evaluation note* Diagnosis Onset Date [...] acute Patellofemoral chondrosis of left knee acute [facility] Work Phone: Evaluation note* Diagnosis Onset Date Resolution Status Tricompartment degenerative joint disease of knee acute Acute sinus infection noneac tive Arthritis of left knee acute Internal derangement of left knee acute Patellofemoral chondrosis of left knee acute Arthritis of left knee acute Degenerative tear of left medial meniscus acute Internal derangement of left knee acute Patellofemoral chondrosis of left knee acute [facility] Work Phone: Evaluation note* Diagnosis Primary osteoarthritis [...] History see above Hospitalization History sob at [facility] Hospitalization History Fell flaveit 06/2020 [facility] Other History general Narrative - Reported* Type Description Date Medical History Hypertension Medical History Plaque psoriasis Surgical History left knee surgery Surgical History bialteral foot Surgery Surgical History toe surgery Surgical History left elbow surgery Surgical History prostate removal 08/2019 Surgical History right finger amp- surgery 2 Hospitalization History see above Hospitalization History sob at [facility] Hospitalization History Fell Leeanna 06/2020 [facility] Other Hospital Discharge instructions Additional Instructions DISCHARGE [...] you should first call your surgeon at [phone] for advice. 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 Advance Directives and Living Will Power of [place] Documents on File Type Date Recorded 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 Advance Directives and Living Will Power of [place] Latest Code Status on File Code Status [...] section and content) DATE CREATED AUTHOR 09/02/2019 [facility] DATE CREATED AUTHOR AUTHOR'S ORGANIZ ATION 03/11/2024 [facility] DATE CREATED AUTHOR AUTHOR'S ORGANIZ ATION 07/31/2024 [facility] EPIC DATE CREATED AUTHOR AUTHOR'S ORGANIZ ATION 08/26/2024 [facility] Reason for Visit (unrecogniz ed section and content) Status Reason Specialty Diagnoses / Procedures Referre d By Contact Referred To Contact Diagnoses Prostate CA (HCC) DX PROSTATE CA Procedures RI LAP,PROSTATECTOMY,RADICA L,W/NERVE SPARE,INCL ROBOTIC RADICAL PROSTATECTOMY LAPAROSCOPIC ROBOTIC XI WITH POSSIBLE PELVIC LYMPH NODE DISSECTION Nathan Proctor MD [address] [place] [address] [facility] Reason Comments 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 [facility] [employer] [facility]. provides no warranty or guarantee of the accuracy or completeness of information in this document.
--- NOTE | 2024-08-31 12:57 | P.PN_ITS ---
Progress Note: Subjective Subjective Interval history: Patient is a 64 y.o White male with past medical history of Hypertension left ankle DJD whom i have been asked to see in the post operative setting. He had a left ankle STJ fusion. Patient had pain block for pain control. Currently is only having pain/spasm in the left hip from positioning but otherwise is pain free. Patient was given dose of Flexeril in the PACU. He denies any other PMH or medication allergies. No other issues or complaints. Exam Narrative Exam Narrative: General: Patient is alert, and oriented to person, place and time with normal a ffect, proper hygiene Skin: no visible rashes, or ulcers Head: atraumatic, acephalic Eyes: PERRLA, no nystagmus present, conjunctiva clear, no scleral icterus Ears: normal gross auditory acuity Heart: Normal rate and rhythm, no murmurs/rubs/gallops Lungs: no audible wheezes, crackles and normal breath sounds all lung clay[place] Abdomen: Normal audible bowel sounds, no distension, No palpable masses, no organomegaly, no rebound/guarding/ or rigidity Musculoskeletal: left foot is elevated with surgical dressing intact. Neuro: CN II-X grossly intact Constitutional Vital Signs, click to edit/add: Last Vital Signs Temp 98.2 F 08/31/24 11:55 Pulse 88 08/31/24 12:49 Resp 18 08/31/24 12:49 BP 108/67 08/31/24 12:49 Pulse Ox 94 L 08/31/24 12:49 O2 Del Method Room Air 08/31/24 12:49 Progress Note: Objective Labs Labs: Short CBC 08/31/24 Range/Units 06:13 WBC 9.6 (4.0-11.0) 10^3/uL Hgb 15.1 (14.0-18.0) g/dL Hct 42.9 (42.0-54.0) % Plt Count 304 (150-450) 10^3/uL Progress Note: A&P Assessment and Plan (1) Primary osteoarthritis, left ankle and foot: (2) Varus deformity, not elsewhere classified, left ankle: (3) Primary hypertension: (4) Postoperative pain: Plan continue home med of lisinopril/hctz, monitor vitals, advance diet, pain control per primary team. PT evaluation. I added some PRN constipation medications given narcotics and flexeril as needed for some left hip pain. Patient is a full code Lovenox for DVT prophylaxis Surgical observation Urinary Catheter Management Urinary Catheter Management Urethral: Cath placed during this visit: no
--- NOTE | 2024-08-31 12:57 | PC.NURSE ---
Medicated with Flexeril as ordered for left hip discomfort
[2024-08-31] MEDS: ACETAMINOPHEN 500 MG TABLET 1000 MG PO ×2 (13:43→20:03)
--- NOTE | 2024-08-31 13:57 | SWNOTE1 ---
SW met with pt to discuss dc needs. Pt lives at home with spouse. Pt alrekar has knee scooter, crutches, and rollator at home. Pt will be staying on main floor. Pt voiced he likes the rollator to use at home. He likes knee scooter as well, but had knee surgery not long ago and sometimes it irritates his knee. Pt has no pain now. Pt voiced he is not one to sit around. At this time pt has no anticipated discharge needs and wants to discharge home with family. SW to review therapy notes.
--- NOTE | 2024-08-31 15:21 | SWNOTE1 ---
SW checked physical therapy note and pt needing walker and toilet seat raise with arms. SW spoke to pt and in room. Pt's has been to [facility] to get other items. Pt's did have a script for 4 pronged walker, she had taken it to [facility], but they were unsure if walker or cane needed. At this point walker recommended. SW explained that SW can check with hospitalist to see if she will write script and document need for walker. Pt and in agreement. DAPHNIE explained that [facility] may not be in network with pt's insurance. SW to check. SW called [facility], they are not in network with [place]. SW went back and spoke with pt and and they are alright with SW using [facility] out of [place]. SW to send referral. SW sent script, PT note, and H&P to [facility].
[2024-08-31] MEDS: OXYCODONE HCL 5 MG TABLET PO ×2 (15:38→20:02)
--- NOTE | 2024-08-31 15:40 | SWNOTE1 ---
SW sent prescritpion, PT note, demographic sheet, and H&P and operative note to [facility].
[2024-08-31] MEDS: CEFAZOLIN SODIUM/DEXTROSE,ISO 1 GM/50 ML PREMIX IV ×2 (16:19→23:24)
[2024-08-31] MEDS: ENOXAPARIN SODIUM 40 MG/0.4 ML SYRINGE SUBQ (16:19)
[2024-08-31] MEDS: 0.9 % SODIUM CHLORIDE 250 ML 10 ML IV (16:19)
[2024-09-01] MEDS: ACETAMINOPHEN 500 MG TABLET 1000 MG PO ×4 (03:16→20:38)
[2024-09-01] MEDS: OXYCODONE HCL 5 MG TABLET PO ×2 (03:16→10:30)
--- NOTE | 2024-09-01 03:20 | PC.NURSE ---
can move digits to left foot a little bit. Visible digits are pink, warm, and dry. Brisk cap refill observed. Denies any numbness or tingling at this time.
[2024-09-01 03:21] VITALS: BP 101/61; PULSE 63; TEMP 36.7; O2SAT 93
[2024-09-01] MEDS: CEFAZOLIN SODIUM/DEXTROSE,ISO 1 GM/50 ML PREMIX IV ×3 (07:18→23:27)
[2024-09-01 07:24] VITALS: BP 100/65; PULSE 72; TEMP 37.2; O2SAT 96
[2024-09-01] MEDS: CHOLECALCIFEROL (VITAMIN D3) 125 MCG/5,000 UNIT TABLET PO (08:31)
--- NOTE | 2024-09-01 09:17 | SWNOTE1 ---
SW had a message from [facility] [employer] [facility] [employer] and they could not very pt's insurance and also needed to know where pt would be picking up walker as they do not deliver. SW called [employer] [facility] and reviewed pt's insurance with them, they had entered pt's insurance wrong and were missing a number. They corrected it and verified pt's insurance. 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
--- NOTE | 2024-09-01 09:25 | PM.PN ---
Progress Note: Subjective Subjective Interval history: Patient is a 64 y.o White male with past medical history of Hypertension, POD #1 from left ankle fusion Patient had pain block for pain control and is still working. No other issues or complaints. Exam Narrative Exam Narrative: General: Patient is alert, and oriented to person, place and time with normal affect, proper hygiene Skin: no visible rashes, or ulcers Head: atraumatic, acephalic Eyes: PERRLA, no nystagmus present, conjunctiva clear, no scleral icterus Ears: normal gross auditory acuity Heart: Normal rate and rhythm, no murmurs/rubs/gallops Lungs: no audible wheezes, crackles and normal breath sounds all lung clayton Abdomen: Normal audible bowel sounds, no distension, No palpable masses, no organomegaly, no rebound/guarding/ or rigidity Musculoskeletal: left foot with surgical dressing intact. Neuro: CN II-X grossly intact Constitutional Vital Signs, click to edit/add: Last Vital Signs Temp 99 F 09/01/24 07:24 Pulse 72 09/01/24 07:24 Resp 20 09/01/24 07:24 BP 100/65 09/01/24 07:24 Pulse Ox 96 09/01/24 07:24 O2 Del Method Room Air 09/01/24 07:24 Progress Note: A&P Assessment and Plan (1) Primary osteoarthritis, left ankle and foot: (2) Varus deformity, not elsewhere classified, left ankle: (3) Primary hypertension: (4) Postoperative pain: Plan continue home med of lisinopril/hctz, monitor vitals, advance diet, pain control per primary team. PT evaluation and has scooter. I added some PRN constipation medications. plan to discharge home once pain block has worn off and pain is controlled on oral medications. Patient is a full code Lovenox for DVT prophylaxis Surgical observation Urinary Catheter Management Urinary Catheter Management Urethral: Cath placed during this visit: no
--- NOTE | 2024-09-01 09:33 | PM.PN ---
Progress Note: Subjective Subjective Interval history: Patient is POD 1 Following ankle and subtalar joint fusion. His pain has been controlled and nerve block seems to be working still. Appetite is good. Denies systemic signs of infection, shortness of breath and chest pain. Exam Narrative Exam Narrative: Splint is clean dry and intact. Patient is able to wiggle his toes on the left a little. Light touch sensation to his left toes is altered and diminished whereas on the right is within normal limits. Constitutional Vital Signs, click to edit/add: Last Vital Signs Temp 99 F 09/01/24 07:24 Pulse 72 09/01/24 07:24 Resp 20 09/01/24 07:24 BP 100/65 09/01/24 07:24 Pulse Ox 96 09/01/24 07:24 O2 Del Method Room Air 09/01/24 07:24 Progress Note: A&P Assessment and Plan (1) Primary osteoarthritis, left ankle and foot: (2) Varus deformity, not elsewhere classified, left ankle: (3) Primary hypertension: (4) Postoperative pain: Plan Patient is doing well and has worked with physical therapy. I did provide a prescription for a 4 pronged walker and he does have a knee scooter. I Notified Dr. Price with the plan that I would like the nerve block to be worn off prior to discharge therefore the earliest he would be able to Would be after lunchtime. Otherwise patient may be discharged tomorrow. Remain nonweightbearing. Follow-up in 1 to 2 weeks from discharge. Prescriptions were sent to his pharmacy using my office EMR Which included Percocet and Xarelto Urinary Catheter Management Urinary Catheter Management Urethral: Cath placed during this visit: no
--- NOTE | 2024-09-01 09:42 | SWNOTE1 ---
SW let pt know that walker is ready in [place] and they close at 5:00.
--- NOTE | 2024-09-01 09:51 | REH.PTDLY ---
Physical Therapy Daily Note PT Daily Note/Assess Start: 09/01/24 09:41 Freq: Status: Active Protocol: Document 09/01/24 09:41 KATHARINE (Rec: 09/01/24 09:51 [id number][facility] Physical Therapy Daily Note/Assessment Time In 09:22 Time Out 09:40 Subjective Pt in bed upon arrival. States he's feeling fine, still feel like the nerve block has not fully worn off. Can move his toes and can tell when someone is touching them, but foot still feels like it is asleep. Denies any pain currently. Therapeutic Activity 6 Minutes (minutes) Therapeutic Activity 0 Units Therapeutic Activity Pt ind with supine to sit transfers. Sit to stand Comments transfers with bed elevated CGA with verbal reminders prior to standing to maintain NWB on L LE. Pt able to transfer without putting weight thru leg while maintaining good balance with RW. Cues when sitting in chair to kick L LE out in front while reaching back for chair. Cues when standing up from chair to push off from arm rest rather than grabbing for RW. CGA with transfers on and off scooter. Gait Training/Stairs 11 Minutes (minutes) Gait Training/Stairs 1 Units Gait Comments Gait training with SW and NWB on L LE 15 feet around bed to chair with cues when turning for safety. Educated pt on importance of taking his time and to not morales as this can increase fall risk. After short seated rest break, demo'd and instructed pt in transfers/gait on and off scooter. Pt ambulated on scooter 30 feet CGA, pt reports leg is still more numb than he thought after he was on scooter. Educated pt that SW is better way to ambulate at this time if L LE is still having significant numbness. Total Therapy 17 Minutes Total Physical 1 Therapy Units Daily Note Summary Pt does well with NWB on L LE with SW, no LOB noted. Educated and instructed pt on safe transfers and gait for improved mobility once DC to home. At this time recommend SW use only, until nerve block has fully wore off and pt can feel his L LE better prior to further use of scooter for safety.
[2024-09-01] MEDS: LISINOPRIL/HYDROCHLOROTHIAZIDE 20-12.5 MG TABLET 1 TAB PO (10:33)
--- NOTE | 2024-09-01 10:34 | PC.NURSE ---
went in to see pt on rounds and pt states, heyI took my own blood pressure pill because i felt like I was getting a headache Recheck BP 97/60. Pt enc to NOT take home meds while in hospital. States he will give pill black when she comes back to hospital.
[2024-09-01 10:39] VITALS: BP 97/60; PULSE 76; TEMP 37.3; O2SAT 95
--- NOTE | 2024-09-01 11:40 | CM.NOTE ---
Rounds made with Dr. Price. Mr. Raya unable to feel his left leg at this time. Dr. Price to re-evaluate through the day to determine continued plan of care.
[2024-09-01] MEDS: 0.9 % SODIUM CHLORIDE 250 ML 10 ML IV (15:28)
[2024-09-01] MEDS: OXYCODONE HCL 5 MG TABLET 10 MG PO ×3 (15:31→23:41)
[2024-09-01] MEDS: ENOXAPARIN SODIUM 40 MG/0.4 ML SYRINGE SUBQ (15:38)
[2024-09-01 15:47] VITALS: BP 109/64; PULSE 73; TEMP 36.7; O2SAT 95
[2024-09-01 19:47] VITALS: BP 98/57; PULSE 67; TEMP 36.6; O2SAT 92
[2024-09-01] MEDS: DOCUSATE SODIUM 100 MG CAPSULE 200 MG PO (20:38)
[2024-09-01] MEDS: PREGABALIN 75 MG CAPSULE PO (20:39)
[2024-09-01 23:47] VITALS: BP 111/67; PULSE 64; TEMP 36.6; O2SAT 95
[2024-09-02] MEDS: ACETAMINOPHEN 500 MG TABLET 1000 MG PO ×2 (04:02→08:33)
[2024-09-02] MEDS: CYCLOBENZAPRINE HCL 10 MG TABLET PO ×2 (04:06→10:50)
[2024-09-02] MEDS: OXYCODONE HCL 15 MG TABLET PO (04:06)
[2024-09-02 04:25] VITALS: BP 127/65; PULSE 68; TEMP 36.6; O2SAT 96
[2024-09-02 07:49] VITALS: BP 112/70; PULSE 79; TEMP 36.9; O2SAT 95
--- NOTE | 2024-09-02 08:16 | PM.DS1 ---
DS: Providers Provider Date of admission: 08/31/24 12:37 Primary care physician: Non-Staff Physician, Admitting clinician: Renetta Price Consults: 08/31/24 08:25 Physical Therapy Eval and Treat Routine Reason for consultation: gait training Discharging clinician: Renetta Price DS: Diagnosis Discharge Diagnosis (1) Primary osteoarthritis, left ankle and foot: (2) Varus deformity, not elsewhere classified, left ankle: (3) Primary hypertension: (4) Postoperative pain: DS: Summary Hospital Course Hospital Course: POD #2, pain block has wore off, patient is taking oxycodone for pain, he has his scooter at home. He is NWB on the left leg. Close follow up has been made. I encouraged him to take Miralax and Colace while taking pain medications. He was discharged on Oxycodone, Ceflex, and Xarelto. This was all sent from podiatry clinic and dose not show up on Hospital MAR. Vitals stable. Patient discharged today. Status at Discharge Overall status at discharge: patient is progressing back to baseline Time Spent with Patient Time attestation: Total time spent providing and/or coordinating discharge services: Time spent: greater than 30 minutes Exam Narrative Exam Narrative: General: Patient is alert, and oriented to person, place and time with normal affect, proper hygiene Skin: no visible rashes, or ulcers Head: atraumatic, acephalic Eyes: PERRLA, no nystagmus present, conjunctiva clear, no scleral icterus Ears: normal gross auditory acuity Heart: Normal rate and rhythm, no murmurs/rubs/gallops Lungs: no audible wheezes, crackles and normal breath sounds all lung clayton Musculoskeletal: left foot with surgical dressing/splint intact. Neuro: CN II-X grossly intact Constitutional Vital Signs, click to edit/add: Last Vital Signs Temp 98.4 F 09/02/24 07:49 Pulse 79 09/02/24 07:49 Resp 18 09/02/24 07:49 BP 112/70 09/02/24 07:49 Pulse Ox 95 09/02/24 07:49 O2 Del Method Room Air 09/02/24 07:49 Discharge Plan Discharge Disposition: Home, Self-Care Discharge Medications: Continued lisinopril-hydrochlorothiazide 20-12.5 mg tablet 1 tab PO QDAY Activity: ambulate only with your walker and other Activity Detail: Strict nonweightbearing left lower extremity Diet: advance to your usual diet Print Language: Macedonian Patient Instructions: Non Weight Bearing Activity (DC), Pain Management After Surgery (DC) Activity Restrictions/Additional Instructions: Pre printed Dr Gutierrez Non Weight bearing instructions given to pt Forms: Portal Instructions Follow Up Appointments: @ 9am with Dr. Gutierrez [phone]
[2024-09-02] MEDS: CEFAZOLIN SODIUM/DEXTROSE,ISO 1 GM/50 ML PREMIX IV (08:33)
[2024-09-02] MEDS: PREGABALIN 75 MG CAPSULE PO (08:34)
[2024-09-02] MEDS: OXYCODONE HCL 5 MG TABLET 10 MG PO (08:34)
[2024-09-02] MEDS: CHOLECALCIFEROL (VITAMIN D3) 125 MCG/5,000 UNIT TABLET PO (08:34)
--- NOTE | 2024-09-02 10:14 | REH.PTDLY ---
Physical Therapy Daily Note PT Daily Note/Assess Start: 09/01/24 09:41 Freq: Status: Active Protocol: Document 09/02/24 10:08 KATHARINE (Rec: 09/02/24 10:14 KATHARINE [id number]) Physical Therapy Daily Note/Assessment Time In 09:41 Time Out 09:56 Subjective Pt states nerve block started to wear off around 11:30 last night and then the pain got really bad around 2 am . Pain currently is about a 2/10 lying supine, just had pain meds a little bit ago. Plan is to go home today. Therapeutic Exercise 2 Minutes (minutes) Therapeutic Exercise 0 Units Therapeutic Exercise Seated LAQ and marching exs 10x ea side at slower pace Treatment for improved strength to ease transfers and gait. Therapeutic Activity 8 Minutes (minutes) Therapeutic Activity 1 Units Therapeutic Activity Ind with supine to sit transfers with pt being able to Comments lift his L leg off his bed without the help of his R leg today. Sit to stand transfers CGA with cues for pt to push off from bed and not use RW to pull himself up. Pt ambulates 3 feet to chair with SW and NWB on L LE, CGA/SBA. Sit to stand from chair 2x. Pt stood statically 2 mins with assist to don shorts, able to don shirt Ind. Pt declines using scooter at this time due to pain in L foot and knee. Total Therapy 10 Minutes Total Physical 1 Therapy Units Daily Note Summary Pt continues to do well with transfers and gait with SW , no LOB noted. Pt plans to use SW at home and scooter as pain improves. Pain post rx is 4/10. Probable DC to home today per Dr. Price.
--- NOTE | 2024-09-02 10:18 | PM.PN ---
Progress Note: Subjective Subjective Interval history: POD 2 s/p ankle/STJ fusion. Feeling well.Ready to go home. Exam Narrative Exam Narrative: Splint is clean dry and intact. He is able to wiggle his toes. Light touch sensation to his toes is intact. Brisk capillary refill. No calf pain on squeeze Constitutional Vital Signs, click to edit/add: Last Vital Signs Temp 98.4 F 09/02/24 07:49 Pulse 79 09/02/24 07:49 Resp 18 09/02/24 07:49 BP 112/70 09/02/24 07:49 Pulse Ox 95 09/02/24 07:49 O2 Del Method Room Air 09/02/24 07:49 Progress Note: A&P Assessment and Plan (1) Primary osteoarthritis, left ankle and foot: (2) Varus deformity, not elsewhere classified, left ankle: (3) Primary hypertension: (4) Postoperative pain: Plan Patient seen at bedside and ready for discharge home. Prescriptions sent to his pharmacy using my office EMR. Strict nonweightbearing. Will follow-up next week for dressing change and we will call with any issues in the meantime. Urinary Catheter Management Urinary Catheter Management Urethral: Cath placed during this visit: no
--- NOTE | 2024-09-02 10:35 | CM.NOTE ---
Rounds made with Dr. Price. Plan for discharge today. Scripts given by Dr. Gutierrez. Follow up with Podiatry.
[2024-09-02] MEDS: POLYETHYLENE GLYCOL 3350 17 GM POWDER PACKET PO (10:50)
--- NOTE | 2024-09-03 12:52 | CM.DCFOLLOWU ---
Person spoke with:patient How are you feeling?well How is your pain?none Did you understand your discharge instructions? yes Do you have any questions about your discharge instructions?no Were you given any prescriptions at discharge? no Were you able to get your prescriptions filled?N/A Do you understand how to take your medications as ordered?yes Do you have any questions about your follow up appointment and do you plan to keep your follow up appointment? no questions, reviewed follow up Is there anything else that you would like to discuss? no Questions/Comments/Concerns/Other: none
== END 2024-09-02 10:55 | disposition home or self-care (01) ==
PROVIDERS: Anesthesiology; Admitting Provider Podiatrist Foot & Ankle Surgery; Visit Provider Podiatrist Foot & Ankle Surgery
PROC: (CPT 1470; principal; 2024-08-31 07:30)
DX: M19.072 Primary osteoarthritis, left ankle and foot (principal); M24.572 Contracture, left ankle; I10 Essential (primary) hypertension; M21.172 Varus deformity, not elsewhere classified, left ankle; G89.18 Other acute postprocedural pain; M25.552 Pain in left hip; Z90.79 Acquired absence of other genital organ(s); Z85.46 Personal history of malignant neoplasm of prostate
CPT/HCPCS: 20902; 27606; 27870; 28725; 36415; 64445; 64447; 73610; 76000; 82948; 85025; 96365; 96366; 96372; 97116; 97161; 97530; C1713; C1776; G0378; J0690; J1100; J1171; J1650; J1885; J2250; J2405; J2704; J2795; J3010

== ENCOUNTER 2024-09-29 10:22 | Outpatient (OUT) | payer BC, SELFPAY ==
--- NOTE | 2024-09-29 | XR_ITS ---
[address] [address] Patient Name: CONCHIS ANDREWS MRN: [id number] date: 1960 Sex: M Assigned Patient Location: RAD Current Patient Location: [facility] Accession/Order Number: [id number] Exam Date: 09/29/2024 10:23 Report Date: 09/29/2024 22:52 At the request of: AMARIS BURRELL Procedure: XR ankle LT min 3V EXAM: XR ankle LT min 3V HISTORY: LEFT ANKLE PAIN COMPARISON: None. FINDINGS/IMPRESSION: 1. No acute fracture or dislocation. 2. Intramedullary justo of the distal tibia extending to the calcaneus. There are surgical screws of the hindfoot as well. 3. Mild to moderate degeneration of the mid foot. 4. Surgical resection of the distal fibula. 5. Subcutaneous soft tissue edema about the ankle. Electronically authenticated by: LISHA WOODS Date: 09/29/2024 22:52
--- OUTSIDE RECORDS SUMMARY | 2024-09-29 10:34 | XMS_ITS | CCD ---
Author Organization [facility] Care Team Providers Care Dietitian Research Name Role Phone NATHAN PROCTOR Referring Unavailable ANDREW SHEN Primary Care Unavailable NATHAN PROCTOR Admitting Unavailable NATHAN PROCTOR Attending Unavailable ANDREW SHEN Primary Care Unavailable Andrew Shen Primary Care Provider Andrew Shen DO Primary Care Provider Andrew Shen Unavailable Kai Muse Unavailable MD Kai Muse Attending Provider DO Andrew Shen Primary Care Provider [phone] Kai Muse Attending Unavailable Andrew Shen Primary Care Unavailable Oletana, Kai Admitting Unavailable Andrew Shen Admitting Unavailable Shruti, Andrew Primary Care Unavailable Andrew Shen Attending Unavailable Kai Muse Attending Unavailable Andrew Shen Primary Care Unavailable Olexa, Kai Admitting Unavailable Teresacktwin, Andrew Primary Care Unavailable Olexa, Kai Admitting Unavailable Oletana, Kai Attending Unavailable ОЛЬГА PAIGE Attending Unavailable ОЛЬГА PAIGE Referring Unavailable ОЛЬГА PAIGE Referring Unavailable Andrew Shen MD Primary Care Provider ANDREW SHEN Attending Unavailable ANDREW SHEN Admitting Unavailable ANDREW SHEN A Primary Care Unavailable MD Kai Muse Attending Unavailable MD Kai Muse Admitting Unavailable ANDREW SHEN Primary Care Unavailable Henri Gutierrez Attending Unavailable Henri Gutierrez Admitting Unavailable ANDREW SHEN Primary Care Unavailable MD Kai Muse Admitting Unavailable ANDREW SHEN Primary Care Unavailable MD Kai Muse Attending Unavailable Allergies Allergy Classification Reported Allergen(s) Allergy Type Date of Onset Reaction(s) Facility (20 sources) Iodine; Translations: [iodine] Drug Allergy 9 [place], [place] (2 sources) Shellfish-Deriv ed Products Propensity to adverse reactions to drug 9 [place], [place] (20 sources) Shellfish; Translations: [shellfish] Propensity to adverse reactions Unknown [facility] Repository (4 sources) Shellfish; Translations: [shellfish derived] Allergy to substance 4 Unknown Reaction [facility] (1 source) Iodine Drug Allergy 4 [facility] Repository Medications Current Medications Medication Drug Class(es) [...] Test Name Value Interpretation Reference Range Facility Release of Informationon Release of Information [id number] [facility] Coding Summaryon 08-24-2024 Coding Summary HTMLBase 64 EwtvqzrkXXm7zCi+PGhlYWQ +EM7QPTOnO89dfMPvqZ1lF6 NMTElOSywgQVBQTElOSyIgb mRjKS3qeTJwUHHu IC8+MF7cYXBhJrqqxXCtx4S 0hMK8G33rom9cSNgmxTC4CB YvCvKngfilc4hahUu4PEaiN mluOyBt NTQmjW76DTM5eH66Ef71nMI uePLgg4zvrSc9ZhRcCPFeWO V8sNweBQvxo7DiZUYvT58go EEjl4C4 WZEfvFezqFGyScXjvVA0wD8 wJObclvlda2kuorxxNvc9lc 34gOHlw1C0mYT3A3YeaoV4M GJvbGQg HangcVFMpE6ygitpo7ouqqu rCnGuZDKgUDe6XTx4VTUauU leCbSgIX69YZJ1IMVutyLcR 2FsLWFs cOchZfG0y6X4Zd0HM6YMVtm tG9ISKWWSVVftlAO+PC90cj 69B2OgQbeoEcu9WKZuXJC5j SJ3hV2h TZOmAFime4V0aBL9J6IglpA rtx0gj8unZEObVZrcH22fiX Vjb9Z3JTFptDN8EQWggYaqG iBzaG93 Oyc+XUHlnEfrr8CkFkvqj7n fl3qzxMg9AjbwNTYvedVjqY haUBR9b4MdGc9pEDCgxWC8c DY5sB0l BvUoHqF7CNgyD933DiVmkWJ jPbitM85aZ7PnbEG+PHRyPj z5DWXhqFhqGH2vM3TkXAHsx mctbGVm rJpoVG4kOMZncyxyVIIovU3 tWIVoX6d6LpNgBwT0NOthP1 WpKVRfcmepQn83hE6yKrAoQ pK5BUry O3CqexO9MYSygXWzARagIMD 7Y59qj0I8XBZoDVTvNTR6uZ I1eW2lsRzmsoxamQZdvSrvw mVydGlj DOwnXSjuN370QQRxgNriKjX vZGluZyBEYXRlOiAgMTIvMD kvMjAyNDwvdGQ+QPMqCQN5a WxlPSAn yMYtTAhvNj3mnCheeZfgOR0 cOXEqeunyOXVnwL6hYIAipU QicRpbXP4hNAGrmgrzj082F iAxMHB0 VJBjgRUoN7JsuU6eBhDmLPA pPEUvL1WdnEHjHAsdM328PS efLiN4RUXkycImA2SxVDFks WduOiB0 v8S1Qq3Kd0QkfzamA6NqiAR iLqXtXjpzIZd3K9BgHazsrA I+BD46OFMcQU72XNp1YWX1o WxlPSdi RARcH8HjtZ6eNeIeSJLqFYP kOyc+PHRhYmxlIHdpZHRoPS arRREpAyGkoSirMP8wXc9tD GVyLWNv kHnyjRFdUsPlf1rrKUYeDRn uVE1hcHzpP4JllBQ6SHLwo2 s1Ak15X66jR4OhdLX+PGNvb QF1uDB4 nW9kUpOhKdN9IXxnG591PaI xrKUyHfebg3qkk0xgbYq6Mi P3LERuuoMycZycKWO4d7RbI y72E34w IHdpZHRoPSIxNSUiIHZhbGl hcs3zkJ9cJc2+LPKieKJ3qJ L1vP4vPvFkMqN8RAuuR019G nRvcCIv Umnqk4vrk3mjeLf6DhNzYJP tdkMyvIqmXHN0g5WjHx89E8 YhpHqty0EvGtz8gj17iVEzu 4C6xGL7 V2NpPUYdsssvoJIbeItyDH0 lYZNsoxdjMTJmvE4tTQVbL9 u3HiQoOuU4KGwkE2TmnsR3O GJvbGQg FXVawLILiD5edepip9lblyp rLiFeSWIoIMu8UJo1TOXnwV msJfQhSUG3EvK0VRH4tWEiq X6npZoe ylmacT6tRpg+ZJK2oOZriFQ FMV5aXpktnGX+CYXfQMT1yG vuLEfrPCOliE7dHMRbK4i3P iAwLjA1 WHuzB9NhmzH0LPMpxJZmOGX ngHWDhY5raxdcn1ovapktMb ZaJTRfTVy5DWs3KSQsxNkuX iBsZWZ0 PiN8BPW5iKQbrA9vlBdaqsb jmN1nLfd+PonobVzkKWI8MH k8N8FcRxl4EWMdcJvmIU5vg GFkZGlu Gx1acTcxkQpzRY5vOMGgqxj fx743KhHjv2vjILMoiEZfRH vzYSK1Z18ul6C9JIDgGHTmM JY4sSM2 kN0uvLpauzfuuKRmaWcjmpG fnEofZIhjZXvkY108SODgoG ktQkYmUWr6N2GiKxu3IBCng YtkKR6l tCKwTSkuLx4hgGfddPqvFB8 fCCBizdzil816MyWdq8exDT HxaEYfMCwfUXK1S74ic2U8A CMwMDAw FPD5wDM0qT3ccJqzhymkgPP mdDsgdmVydGljYWwtYWxpZ2 96VALalOwlOpVobYx1U8WzY kk5CHAx hZzyHA2gtJEbVNbsZk6svUn lmUmeAY4eUJIhegicn999An Olw6zxCYLccWSoCZkyBTE1R 69fv4G0 FQXfWTDoDNQ8uUG4iK7kcOb nbjogbGVmdDsgdmVydGljYW miICdxD477UMUhcWvqOuPso GllbnQg ARnySEh7F7WfRdvqtYU+PC9 1LFKwGX78yKRoeBIyq9kgkQ a4BoOpPXVuWNU4nHmhXBeji 3JkZXIt V51edVDfn3W8XSKyqMgjzGY qHfRgaDR5kI8zOBxahaaxc9 szkupqAsylh1qmnf28cG44T 29sIHdp ZHRoPSIzMCUiIHZhbGlnbj0 ueG2oOe8+QACokNR9eFW8gB 5pNDAcRdK0OZqoW581UwGra CIvPjxj c6hpo9lunWe1RsA0NUNxsjG miFirRGR6u4WyOm68B24tWZ dpZHRoPSIyMCUiIHZhbGlnb i2mwN5l Ii8+EKGacZR6aHE5lT0hNaF nPkZ7EKlyU808OnZukZMeTp psG99pG1VulDX+RLDbXjh5I CBzdHls HS4ymMYzIXklMa4fVOZ4QjG uXxFjITxeN6RhVGNkmbpcew bzoJF8MVGyFBTthJ95Ct8fc DogMTBw jPXLlU9xaefkv4ifejgmJeL lBMHtETz4RQd7JIAxeZkpSx BtXBZ4JdY9KPL1yHWiqX9rp Glnbjog uV7fL7NgJZQohkbhWs98lE2 jTfWzGkX0LZxsIci+SEFWRU 2BXjdpWpIDE9PILIQIFH68M B82dFPe n2R1aCF7W6XcDKKomzkrwbd anNF9AHYiBLVqjS05rVYhPM paZu3hh8B6s245NSUiRZYcx Y04Km0a yRijWTSshYEFzD7nmwmmn4g ozpznYsJlIMAaBFj4ITj2GM JqaWqjZoSfSNT6EgB4XWE8p KSvnD5f hVthsjtwrW1fSqf+MDUvMTM uACp9EdbqfGD+UNSgKZO0jW giRUqkRYQruF6aBKIgI9c7O iAwLjA1 VFwlT6PpHWEpezyqTi43mM3 bSvSnZzU8GCguK3EfecC7PO OdyPScYUafXTT4B50rk2C5P CMwMDAw WWV6jJT7tU3skAkwcizovQA mdDsgdmVydGljYWwtYWxpZ2 46IHRvcDsnPjYyIFllYXJzP C03CM94 hOAxq2P5oQO0Q5SgQHGrnfy iaoycxMS7XRAbIACwbY03aV XzLHonHd2kq8H7e423RNUvD DUwaW47 Nd0ncWruQHOpzJQMrF5udti ui1ysbsqoNqEfEUQeOVc3HY z1EDFohCogHqJxNPL1VmJ1W BZ0mIPm sX9scFvqkdwlaK2kXcr+TUF MRTwvdGQ+YZYmRFI5nMfuZQ jpCSNetW2iAOKsZ6r0FbZmU wM4IJyt S7XyPMWvlakxKv87uU1bIqR aImQ6TMsrL5TtbxO1FCNfxJ IfPBajCHC3P86gp8P3DQTsD DAwMDA7 iZL3rR3axGtoxgbmwTOonWs khaEtsUpxIBqwEFmyS008QX DsfXllQoLiU5VyutufSuIZx XRwYXRp DX62XT53QD17C8IrQpylpJA ibGU+PHRhYmxlIHdpZHRoPS phVAEjCbNuuFvoVB2zHp0wN GVyLWNv gNpueZIpSwFfb3myNMLvVWf uIC3fvLszW2IhmLZ4LKYiz9 i5Wh99P63oN7FkwVT+PGNvb NJ1eRX4 bE4mEkHeBgM7XFzbH547DuO rkOHwRmudj3sld5frpAr5Jc DvGIHldlMwtHglIKQ5t9OsW c33D96v IHdpZHRoPSIyMCUiIHZhbGl ddu6lpI6nQd4+JLFwdDS8zF P2bB4bVtVsToZ0NAwbP656R nRvcCIv CybnU22rX8GzuYV+PHRyPjx 8QTIirLzlCA1jgWHtQYcwQo 3bAAY9BzVgKnGuFQzaF3PiW GRpbmct ewkflKA8PKTwARWufX22Eh9 hjEymWv1jRQGrMWT5OFRsnS TcR4TnnK3nVqRdYJAjDPLpU 3RleHQt OHldZ662NBkqIeC1NGLdkfY yN0VnFFCkgLmdSyB4q0S3Tb 4GwSpxqQFtVT5mEpSjNWz8X 4PtIls5 FCAwcGppHI8qdMJkVFxwRi9 thTbgiIkuOE4vEBVqvoumn3 52ZxSqz7wwYXOufBEaQIywD FK1N60p k3O0UERfOGDmPKS9wZR1zN4 hbGlnbjogbGVmdDsgdmVydG lfRYgwTDcgH456VHDgbYoeW kZJTjo8 R3AhYva4KLMdxMxiAQ2mpKT dIEpwQx1keKfilNkmJA9mNR Srgdxks999FdHmv0utMINom HQgVGlt ZNB2B45mz3M4CTMvCBCrHKW 0dRL9bW4apQvmxfcfvQWgiY njazEfuWzrFNkzYQgjF367F HRvcDsn Wn0JCpr1Y4PiFeo9KSFodVc tUH6kxGGyWUweJd4lbNdmdA lkZH5lAPLykgkbu750LyQzf 2xkIDEw eOTkLWixQBR0T72xc6F7FPK gULFgPWQ0lIV9aC0riUpcdn ogbGVmdDsgdmVydGljYWwtY BpfX673 IHRvcDsnPlBheWVyOjwvdGQ +CF97mn41Y7DpTiriFsi1JW VeBHP9aQT8gD7jOZWbLZbvs 6B6eQK5 J2J (more content not included)... [facility] Provider Orderson 08-11-2024 Provider Orders [id number] [facility] No Panel Informationon 07-29 Radiology Study observation (narrative) [facility] XR Ankle - left 3 [facility] Result: 3 vi ews left ankle: Weight-bearing: AP, mortise, lateral: 07/29/2024: Severe asymmetric joint space narrowing of the ankle mortise with significant ankle varus deformity. Relative sparing of the subtalar and midtarsal joints. Unremarkable for fracture or stress fracture changes unremarkable for acute osseous or joint pathology otherwise. [facility] Foot - left 2 [facility] Result: 2 vi ews left foot: Weight-bearing: DP and calcaneal axial: 07/29/2024: Unremarkable for acute osseous or joint pathology. Changes about the 4th metatarsal diaphysis likely consistent with old healed fracture or stress fracture. Mild metatarsus adductus. Calcaneal varus deformity appreciated. [facility] Coding Queryon 04-15-2024 Coding Query [id number]#[id number] [facility] Coding Summaryon 04-14-2024 Coding Summary HTMLBase 64 AhqmairoGPw6bNi+PGhlYWQ +PG6DFWMrC64rzEItjS4eI6 NMTElOSywgQVBQTElOSyIgb aYcVR6hpFGjBOEe IC8+AG1sTQIbEqstjDMji2X 5kZP6Z23fan7iJHtrfOT7OY ZiYhNfnbqks6kbaZw8PQaiU mluOyBt CBJzlO33ZMW6xQ85Of41mYW wjEIja1hraRy5NuNmVCEiMV L2fJwqJVggm8FsBTRxB01az URjw3L9 ZKIsdPjfvQBfGiGgeXW0gZ6 vSHaqxpysr7vpbdsnPou5th 76dIRsz3C5xIO6K1SnadA4P GJvbGQg AuwwxQQFeE2omhyqx7ajkcb uNzZuGWEiFBo3LQz7MIPnhO ryRtKbOD87DLC5SFDigrLbT 2FsLWFs mSirEvM0a9F5Cf9VF2FZIpj iC0GOICAITBdykCP+PC90cj 98K4HdNdnpLvz2LLCoEZT7b JJ2rI2d RONdYVqvk0K3zAN1N9HdlvL dnb8ej5dcZSBgGXbxV57vnB Mgv5Z4GITqzDL0AXGtwBtkC iBzaG93 Oyc+GJBpaKwok5GsLwqix9i bw4uzaYs3HmepVDXhohShdV qxBAO2h6TrRq3rZTKqkJB5z HR3lW6v MrXpPsP2YPszB873CbGoaZQ hYkepC62kE3WssEU+PHRyPj y0XHHzpCzcRP6rK1UdRKYwr mctbGVm lXvoQB7aAHQpuajdBTJcwA4 kXXTlV1t1JjQcTgX1RAarG4 IkECQwgklkDg84yJ6nSdEgK qP6HWyl P8XiasE2YPRvlINuGNewYJS 7H78py5X5CLVeJZEpUQA2rI G0yF7vdYcwjrootRLxrAibp mVydGlj SYptTHfhV447FQMhsBsySyJ vZGluZyBEYXRlOiAgMDcvMz AvMjAyNDwvdGQ+BXOjFCV6j WxlPSAn fMFjKQsjLj3trTlzuNbxCM9 xEZXjimsdDGZsyS3oHDHgkP SduVblRR2qSNTxybnhv848S iAxMHB0 NQBlmIXlK5FdlL9eCjKcNXK pEWDeO6LwmNKzKRxtH884YT ypJtL2DCYapeDzP5MuZXDsf WduOiB0 j0H4Ub1Pz9HbdpqqU6EypLU aDuXoXgqeGSt3N3RkTxjwtJ I+BR54YMNcSJ35IUf2NTI3a WxlPSdi ZIExY2FsjE4bSaDxTKYzBFG kOyc+PHRhYmxlIHdpZHRoPS svZXGcPeMwbPmhDS0sPi3eM GVyLWNv yHchtSWzFzGoc8vsOYVeJRj xEG1omSqmY2LfhUP5HLMen4 d5Tl97Q46vP5JszVZ+PGNvb ML5fLN6 gK6eQzDoAoD5JOpdB441NyE uoHGsYqimk7fnh3kzwRo4Nm K3TGVcraPyeMllUSJ9s0LqR i51H55p IHdpZHRoPSIxNSUiIHZhbGl oan0llO7rLz8+WSSyjKT6dF K1wW1pKjHaZjM9UQegJ093H nRvcCIv Ndpny2zle8shdQf9GmEgAXM hkgSikCbyLBL4m7SgDg65U3 VzcPmxk1IbZnt2ts73yGIcw 2P6nAJ5 M3JcZYGhrorwpGUxmNchUM8 oRUJpqmyaVHYeqY8eMJHiQ7 v7HnHiKwS5ODgjZ4RvyxB3O GJvbGQg STUrjCLBjE8oajxeb8qludi bDmSbHTHjVGo0INu0VKNzaS qiIqPgERI3DlF2YWW4zCGff A1azHdg nktyyD5sGuz+CKH4mDXrqGH BZQ1yWbshkCS+FWQxDYH3oW cuQMvuEOIymO1cJAWaY0n8H iAwLjA1 XNtiK7YnosW7PKNcgRItBVB ztNYYoV9rkzqag5axhhtwDw GxOICtIDn8KMy3YHZseEfpN iBsZWZ0 RqX4VHT6sZUspR2hoKawarx uvZ9jAiy+SnuduNzqRIO5UG h1L3JhEwn8EWCxvTdhPT7zu GFkZGlu Aw7eqFmwrZkbLG0gFAPvcde fk427WcSwb2dvQRRhrOYmZQ anECV7C50cr2I0GVJeZKVrF MA4qUW2 yH8emRmhczrdgGCmtNsvqwZ cqNdjYFsmLYhdW807YIQspP yvDfIdSEc8Y3BaRme3TFXxx HsqSA2i sZUuHOadHn3ouIbugNgrBX9 bKROwtugkx595IbMgp1ekDF UnpKNyENhwKVL1E47of8K8Q CMwMDAw CUJ2oZV7nX0fjAmcodfquFH mdDsgdmVydGljYWwtYWxpZ2 27UAGarIfdZkBwwQi9R4WsF ao4IAOc hVocSE8gyNUaJNieYs5tkPf ezJirHT8kTWUjxmbzs567Ke Tcz6vlXJXppZDcSDpkOVF9H 52sa2P9 FQCdSGPlDDS5bHB7yO7rdSm nbjogbGVmdDsgdmVydGljYW ojWQyyX458OAImzCugCfBcp GllbnQg PBqhZXs0Y8DuXzkjsBY+PC9 6GOAwPM62dXUgfGYja9pykD q5IzFdFNGlWJR1jLxqJFsdp 3JkZXIt P45lgTBbg5N4QBDzeAsdgTP jXqSltHP8bU2uPPdjfotxt9 ufolcwKfatg4tvus35jT40E 29sIHdp ZHRoPSIzMCUiIHZhbGlnbj0 yjJ3wKz3+EUZwbIG0mHZ4xQ 1zKUTtHkN7ISprF149JwXir CIvPjxj n3rqt5ellXq4HzP1XDSmuuT kaLmcARF5m8TlXa21D99aBJ dpZHRoPSIyMCUiIHZhbGlnb l0jsQ6a Ii8+CCSayFT3fXP2sH6jCvO aVrD2TClwU338HvLteJZkRy pqB96xA7TefZP+HJFmGnj9N CBzdHls OH5oqKBwGXrrMg4uTUC2ViT wZyVlPHeoQ2RgMOUdvshbfg rqsEK8JFMeCIGctM73Ko5ph DogMTBw tUWLiO1initfy0nkubzgEcK cGNIfIAn9NWb0QKJihXxtHh XwYKI8GvL1RBE8vVRrbJ8cd Glnbjog bH9wJ2ZqELUvwwynBs72uF5 nMiKiBiW7ERuhGmw+SEFWRU 7DGubqQiUPG8CRNQIOGU15M L58bEYj e7E4hAT5J3MaYYEubkljnfy gmGK1OCSiCKRqaT16pRZcVU tdKr4fx8Z5h059BVMxKBGgf P92Zg7o dUdkPSRkqFQRpB3zgwxbh9a lmkjdFpMlJCXvSDm0ISl5GU EbjQqhAgKyEDF8YbW1HEP3v GVpbA9v iCjsbsdrsO9vCym+MDUvMTM iBPk1VlhmyZF+VGNeCKN4wL wtCLsdKVFeyK1kPWQwA6k1R iAwLjA1 DUveD0UoALEbgmbcVx75kC5 wJmZxRuU4HXezP9DfppN7IS KzuLAlPYnbFSE3G14fk3B0A CMwMDAw MAI4sRL5wH2zcVmlocvxxUY mdDsgdmVydGljYWwtYWxpZ2 46IHRvcDsnPjYyIFllYXJzP Y00UC46 tTIak3Z3fED0I5BhYWIvawa duefbxZB4CZBeAXLrtA13gC BpRAytHq7yg3U4q195GXBeL DUwaW47 Ci0vxQpeJIUjiKJWnV1nqcb eg3esyxxkXuUsOXIfNAr6TI c9KDOfvUxkDfHuVEG4NbU2M VK9nVHk lF4ypRzzkybqcG7cNsl+TUF MRTwvdGQ+STZqWXC5pVitMN ncIVLfmQ7rZHKmO8u0SqOtG oG1WOme E8YdDGJkqkzoZb99tJ8lAbZ pTuD2JRgqB2KqzfF4EUQuiG PuCFafDNG9M19pu8N4TYKrD DAwMDA7 qND2kH3qoMjkpfvakNZatKy tgdTjfRvoBNtbOZuuE296OJ DtkOzsUzNbQ1HsdewsLhXKc XRwYXRp II78BW11UH52F5JdHwcjiBW ibGU+PHRhYmxlIHdpZHRoPS naFECsLjIdeZwpCZ0rEm1lV GVyLWNv pKnasLYaEqKpk8bhEIGaNEc wSW3huZvdU4KkjXW4PGGml7 t3Lr91X66fE8ItxLW+PGNvb ZH7zFD1 bV8zRwXwYpD0CEhfW358NbH rgFObRklxp9mqu2blxRr3Vz FqQZJdvaWufZzxHYD0k4QcH m63W42s IHdpZHRoPSIyMCUiIHZhbGl mnm3keI1mJy6+YBJdwWD2sR E1wB8hHfLpZxV3FIemP333G nRvcCIv PcgiW56rD9FhxSF+PHRyPjx 8MHEmiOmsRI9zqSJyKZvkCr 9mGSW5HpQqWfXpIAdtZ4CnP GRpbmct dftokJY9QZUsZCPvgO75Hx0 xeQavJg9oFDVeQCO5EWGdhI PiN1ZrpN1nZoTvVJXyJSDeO 3RleHQt VXrhC044NQhlCmA7MBXrxiD sQ4NfEBUdlZqpCxY3y2F6Yp 3PxSyeaHViRB6mNpWlDHg4D 7WeZte4 UFBpeStcKH4elRHsHUxrMk7 muBornVjzTO8tDBLvsgpfu1 23CnAtx2alEWPlzMPxCQziR DF7Z75x l5X8UNNnIRQoZYQ9bBE7bP6 hbGlnbjogbGVmdDsgdmVydG ffQQorAPhcV059SGNrvYyxF kZJTjo8 G5OhYiu6JRBehGhcIL8iwWJ nPGghLp9zvDxauZnfDO3lGL Xdjtwil847UkUrx6wqOEKnn HQgVGlt VQC1P02rj7X3ARZcAECwHVH 0gSK3nY7tdSzlmdawgGOgrJ rkxuQnnTviTBtbIApaU439H HRvcDsn Aq5AAfm3U0EyZai4WNWedHt qYE8rlXFqPMajKc6gjLmkuN clEB8wALGztedfo344HoSko 2xkIDEw oMNlOQqnROU6C20xu5W0CUD kRMIvOTK1rHF3cP7zqFoaei ogbGVmdDsgdmVydGljYWwtY VadA515 IHRvcDsnPlBheWVyOjwvdGQ +KH35ye03T9AzTclwFbe3UV QaVKG7xCE0qX3oJKObXNisf 3R7nHL4 J2J (more content not included)... [facility] Physical Therapy Noteon 03-16 Physical Therapy Note [id number]#1.00OT [facility] Provider Orderson 02-28-2024 Provider Orders [id number]#[email or web address] [facility] Coding Summaryon 02-17-2024 Coding Summary HTMLBase 64 WerjstwjUSr8eCu+PGhlYWQ +UT2VSLQdS55lpBPwfN6vX4 NMTElOSywgQVBQTElOSyIgb hKvQZ9buUFcQPAb IC8+AN1dNDWjHfsnjFKhr2N 4yUC5F76cab8uGCdhiWW4MK GcLbKytfoji8swmIl5JAotX mluOyBt GCWgvO34VPV3eH55Fj68bDE ddGDym9fghNg2CmFjUMBoUS C0lWbhXTrkj1DwCMTtP24we FXda2R4 JQSyxQermJPuPdGopLT4yN5 qDEgxmaknb9prxlnbLwk6eg 20uJIjq1L4aZI2R6DvvoS2W GJvbGQg NjftqUGPjT2nzotaz2uybdj bKyIwTKSiWEo8GHx7PXWjxR wpPtJaYP74JQZ7EMOylrMzM 2FsLWFs mNyoQgO1h5D7Kw1OB1TQQek mL1ORFGVARXweoWN+PC90cj 15I8YpZpgoMjz2XCHfOAR6g WS2fJ0v SRMsVUfer1M4fUP0O1QezcZ xhc2xr3wxNOBxMIkxQ77aeX Zyf5W8RZPttHH6PBLwrVjwO iBzaG93 Oyc+CJCwdGexl8FvLjqom1e dm8qmrIv4KzljYQDireYpiF duPPT8w2WqVo4oHSIinJL2g WB6tA9i OyBiAeO6UAllQ383XbRgnBZ uHwhtQ60nR5RcfJK+PHRyPj l2GYTyiGcgMH9fQ3OvYZAyy mctbGVm uYdrKT3wICBdiyreCWXxhU7 oKCXeZ5s5UtLrMnW0VXdyA9 HiOHTkztcyHw51mX7yZqScP rD5XKzu Z7ImptL0PLNhfNDyOWdiYZN 2N59qa0U1EZMlIIWoOGZ4cN M4uD4xfKjlzfqqfLWmuXzki mVydGlj WDkaQPfrN156NNKfbDouMpS vZGluZyBEYXRlOiAgMDYvMD MvMjAyNDwvdGQ+LYMyXKC8f WxlPSAn yAGuMDgnRh8xhOpbkVplRH8 pVXLwmszrWEJhtF1lSQEoaA McsCpdNF7lDZPfciscu649Q iAxMHB0 GMTkkJPhH3QdvG0rLjDmUXD zAVWoW9MobJTbGOneC900VB piSnZ3KJIcvfBwO6LaUCHnk WduOiB0 p3M6Mf2Im2FkwybiB4PptIO rIkRhTntqPTt1O0LjOtvyoC I+JI77YYSrQP57RRw3LPS0c WxlPSdi UCSkG9TceN1sOaVoHAGkLES kOyc+PHRhYmxlIHdpZHRoPS lfVRJdHbJhtNedDB4sTv1iE GVyLWNv nTqpbWSaZwDmk8gwKFWbUVr bNT3zsQbrW5XaiJP0YSIrw4 l9Ne60T47oA1HgzYP+PGNvb OW0aKH3 xU6hExLqNbG3COacV198VfD kpKYnKzpvk7yxk4rvjJd2Sb T9EROxeyGojMgxYNT7y2ZcF r82Y67f IHdpZHRoPSIxNSUiIHZhbGl zue9ulT4vLw2+JNFvoII5iR K2dZ4aCzMpXpK1PWifC242U nRvcCIv Uxofv6sxl9xlbKx5IlPiCBP nsoDowXdzZQI7h3UrLd15W9 DktNoly6XvNox0mt98kUJsu 0D6lUY0 W6WhEMItzstnjZXktLakSW9 sXRUrdamyCQZwwS4kQJHaN1 v1SePkQrT2FLryN0EfezS5I GJvbGQg QLFmoAXMbB1ogwogl3dpkcn cInYtRGWdHRb4HZg8CIRvrK knHcMfSGO5DbW8OWX0gDBre X9yeUau xzcttL3cYms+EXH7hNWvdDO ADD0bYcdieGW+NKIfKIU6xP vqXCndVGOnyU5aTCMxL5s2D iAwLjA1 UUrjJ6CjoxM1ANCnfUSkWUL czJIXmA4jpqhqk3wjwrsbCv FlVFFwQXn0UAk2VXYxcQhyO iBsZWZ0 VbI4JBX7bDSxqP7wkVykjpm jfH3qKjx+BmvbwZdzQJH9IT y2G6PjOny0HOSqyJdmQB7jv GFkZGlu By0siGzsiJahUN7oGBBbwek aq764DiWxj5mmPNIedWXnIJ vlLHU8W40sy5U7ZSDfVEJdL BE2dMG2 aH8xgPbztnxgqWVmrBoukpT aiKyaSUdxFBdmX487VNMvzN nnGqXhHAz8J5ClFhm5HTVwc SzeQR4q sTIwCVsdDl1erFijqHocMS6 fIZLudfeml729VeJfy5buLW BqzNUuAJyfTNK7C09lf6J5A CMwMDAw DZZ9iAI1sI7ofRuzjrklyMW mdDsgdmVydGljYWwtYWxpZ2 33ETHmfFwgKbXbsDq2K7UdS bf3MMIo qJlpFT9wjXOtWUlvQc1yuOm rcWheJO2uHJQopnlfd624Gv Vhd3yyYWGypTOmKKgcAXN9F 57ed3T9 AZZsNQAuEDE6eSF9dI2wmAp nbjogbGVmdDsgdmVydGljYW glBZygQ335LXGauZfmYdQxb GllbnQg FHvuDOk5D9MsBffhgRT+PC9 7ZQPqTK59iRBbbQClk3armF u3OoFlHTCsVNH8xStvPQwvc 3JkZXIt L00uxOMot6S7IYUduPlfhMY sNqFilYT1qN0fWIejwyxnc8 rnvqgyMmywn6qmjf97bJ62J 29sIHdp ZHRoPSIzMCUiIHZhbGlnbj0 fdI8mEa4+QCKizGQ9oOT0oP 9xDLHsUxC9NTmwX967BdTlj CIvPjxj l3dkg9iinXe8LdU5JOZnvqV ueOofKWP7t1OfGl77C56gKX dpZHRoPSIyMCUiIHZhbGlnb v8ttK1k Ii8+QBXwyNT8tLV1jG3uUbG oBmL3SDpiZ772ZvHzeLEfZu uhB79vY7HaxDY+OWSiFke7A CBzdHls AB3ycHEkGHnyVv8uFPV2TxP yVqHcEMdiB3IgANVswxewzl xnhAA2JDTfDHJtaR61Nk9qe DogMTBw cYUScL2bsezdv9byoqowUwY kQLQzBNh1ETi1JUAltXnaDe MvDEF1QdW5BSF6oSMrcP3vd Glnbjog xB1rO8EwUYWtumpeJl38cX2 mOkPgDrU2DWpfUmv+SEFWRU 4RToecVtGQH5YPBXYXXX37D M23mUNh a2W0vLY3Z0KbBGKgotmywuf vdJX8ZKLzBIWgtF84dNWeWQ bsGf3mj6U0o505TQKcMDPob Y53Ko4f sPibKLMqiAERkU1mtgygu8t disgjFzHwDXCfBDs1DCa0NQ RgjHuaOvLkLUT5TwK8UGH1i THjrQ7p uRtzgoxqbH2eHel+MDUvMTM zWDq7RjetyAZ+XCUiCBG7tY fqCVefMVNbvC8hECSjJ6t7C iAwLjA1 EGujJ7AaXOBhvahbMm24bU2 hFpCsHzP5TKrpW2BrjnN9VZ BtlIImLPowQSF0I36ac0E1U CMwMDAw ZAC1zYX3kG8ooZvgyxzzlNT mdDsgdmVydGljYWwtYWxpZ2 46IHRvcDsnPjYyIFllYXJzP B12YD06 vHDpf6Z7jVB9K0GgHFAckwh iatygjWH6VJLpPMZufK49yF KqZRwyUu2bk7T9w172MXNjS DUwaW47 Nu4xtYjcDRDroWBHoV0avhc tj7wsqnucWpNuQCOgGMg6FD g5UHUjyUzyUhYuIRL1NyP5N IS1qWIo yC4axTetknaocU5fKuc+TUF MRTwvdGQ+GHXgUCZ8kEvlWP ioWKUbtO9aQDRpE2e1AtJgA eV2SMkd D2JvTPMdduqiUm86mO1yRwN rSwY3JGouS9DhirA3REPuyK CaGAltMHN4N77dz3O3ZAOfH DAwMDA7 tLI7xV1hkGuvbaqoaCCjjEk zraLuvLflFIxzMQuoD733DG NgqVtaIxEbQ6YskqowYjKYr XRwYXRp OV53LC07FC18Q7WpMtdvpTH ibGU+PHRhYmxlIHdpZHRoPS jvJJAqHlIteQtmMY5sGl3jW GVyLWNv hItjqOOxItRfl3khXOJeHHy sRR3niZbvZ7HltKO4EMApf4 y9Za89Q84kK6BxlFE+PGNvb MY1mTB9 dM4fYaZyUtB5JMsiF022IzA qzQTfCzuye5klx8neqTp8Yu JbYHOiwdLitZcbSFP0k3FiN f24F26r IHdpZHRoPSIyMCUiIHZhbGl mls7ysJ7xWt7+IYXpgDF2jB E4xS9rRdOmBaE9RSddC672R nRvcCIv WaxqJ83dW2DfwMF+PHRyPjx 3DQReqOvjDG8etRPaDHwjJk 9cCTY4PcUeUkKaSKkuY3VpO GRpbmct khaceML2SUAyJOBgxA10Dc1 kyHwaLq8fOFBgHRV6OULouK ZfP0ZgmK9cKnSpFJVyVBGkY 3RleHQt ABvsP525MZzqYmE6CVBtvmJ rA1XeBBMbyEkeBcQ8x4M7Ec 5TwThloTLoGJ4rSbKzGBv3L 7PqUez1 YGFrtCsdWZ5wuCFsYHanGw9 fcHensTakNS6pIPEmoderj1 04YzHgg3qmWMDkbXFyLSbmC LV6Z39i v5A3VKKuVLIaLLM6pUR3jN6 hbGlnbjogbGVmdDsgdmVydG bgBXkpQNqlT608WCNbaGnqK kZJTjo8 A8ToBzt8XGAenXxvNE8peUW iMSdlGv3eyIivyEhdTW7yHP Eoypjrh462QdQlg2hzIRZio HQgVGlt NOL9Q25pv6Q2DRSvSYOaCBD 8oFI4cD2tcQvbsgftuLPmtT fvspOrzGneDDlbIRvmU120L HRvcDsn Im6FWqn4H5OaSrs0YVNhdLt gPG2yvXUpXTusNf8flCxaoJ ioHR8dKCOhhyknp990SsOik 2xkIDEw cSBrDKoiWTO9V89us8O4JTB dSLQmJGF5tKS3bO5mbReqfm ogbGVmdDsgdmVydGljYWwtY SpaY156 IHRvcDsnPlBheWVyOjwvdGQ +DW35ai49S5CiEovbFem4MI ZkRAX7hEW6vB3tVPCfAZhyk 9N5tFQ5 J2J (more content not included)... [facility] Provider Orderson 02-06-2024 Provider Orders [id number]#1.0 [id number] [facility] Alanine aminotransferase [En zymatic activity/volume] in Serum or PlasmaOrdered By: Kai Muse on 01-22-2024 ALT [Catalytic activity/Vol] 22 U/L Normal [facility] Comment on above: Performed By: #### C MP wRFX A1C, CBC, EBS A1C #### [facility] [address] [place] [address] [place] Albumin [Mass/volume] in Ser um or Plasma by Bromocresol green (BCG) dye binding methoOrdered By: Kai Muse on 01-22-2024 Albumin BCG dye [Mass/Vol] 4.2 g/dL 3.5-5.7 [facility] Alkaline phosphatase [Enzyma tic activity/volume] in Serum or PlasmaOrdered By: Kai Muse on 01-22-2024 ALP [Catalytic activity/Vol] 81 U/L Normal 34-104 [facility] Comment on above: Result Comment: PERF ORMED BY: [place] [id number] PATHOLOGIST [employer]UDENT [employer]GER MARQUISE FIGUEROA M.D. Performed By: #### C MP wRFX A1C, CBC, EBS A1C #### [address] Aspartate aminotransferase [ Enzymatic activity/volume] in Serum or PlasmaOrdered By: Kai Muse on 01-22-2024 AST [Catalytic activity/Vol] 18 U/L Normal 13-39 [facility] Comment on above: Performed By: #### C MP wRFX A1C, CBC, EBS A1C #### [facility] [address] [place] [address] Automated basophil %Ordered By: Kai Muse on 01-22-2024 Basophils/100 WBC (Bld) 1.0 % Normal . [facility] Comment on above: Performed By: #### C MP wRFX A1C, CBC, EBS A1C #### [address] Automated basophil countOrde red By: Kai Muse on 01-22-2024 Basophils (Bld) [#/Vol] 0.1 10*3/uL Normal 0.0-0.2 [facility] Comment on above: Result Comment: PERF ORMED BY: [place] [address] PATHOLOGIST STUDENT [employer] MANAGER MARQUISE FIGUEROA M.D. Performed By: #### C MP wRFX A1C, CBC, EBS A1C #### [address] Automated blood monocyte cou ntOrdered By: Kai Muse on 01-22-2024 Monocytes (Bld) [#/Vol] 1.0 10*3/uL High 0.0-0.8 [facility] Comment on above: Performed By: #### C MP wRFX A1C, CBC, EBS A1C #### [facility] [address] Automated eosinophil %Ordere d By: Kai Muse on 01-22-2024 Eosinophils/100 WBC (Bld) 3.3 % Normal . [facility] Comment on above: Performed By: #### C MP wRFX A1C, CBC, EBS A1C #### [address] Automated eosinophil countOr dered By: Kai Muse on 01-22-2024 Eosinophils (Bld) [#/Vol] 0.3 10*3/uL Normal 0.0-0.45 [facility] Comment on above: Performed By: #### C MP wRFX A1C, CBC, EBS A1C #### [address] Automated monocyte %Ordered By: Kai Muse on 01-22-2024 Monocytes/100 WBC (Bld) 11.3 % Normal . [facility] Comment on above: Performed By: #### C MP wRFX A1C, CBC, EBS A1C #### [address] Automated neutrophil %Ordere d By: Kai Muse on 01-22-2024 Neutrophils/100 WBC (Bld) 59.7 % Normal . [facility] Comment on above: Performed By: #### C MP wRFX A1C, CBC, EBS A1C #### [facility] [address] [place] [address] Bilirubin.total [Mass/volume ] in Serum or PlasmaOrdered By: Kai Muse on 01-22-2024 Bilirubin [Mass/Vol] 0.5 mg/dL Normal 0.3-1.0 [facility] Comment on above: Performed By: #### C MP wRFX A1C, CBC, EBS A1C #### [facility] [address] [place] [address] [place] CMP with reflex to A1Con Albumin [Mass/Vol] 4.2 g/dL Normal 3.5-5.7 [facility] Comment on above: Performed By: #### C MP wRFX A1C, CBC, EBS A1C #### [facility] [address] [place] [address] [place] GFR/1.73 sq M.predicted MDRD (S/P/Bld) [Vol rate/Area] mL/min/{1.73_m2} Normal [facility] Comment on above: Performed By: #### C MP wRFX A1C, CBC, EBS A1C #### [facility] [address] Calcium [Mass/volume] in Ser um or PlasmaOrdered By: Kai Muse on 01-22-2024 Calcium [Mass/Vol] 9.1 mg/dL Normal 8.6-10.3 [facility] Comment on above: Performed By: #### C MP wRFX A1C, CBC, EBS A1C #### [facility] [address] [place] [address] Carbon dioxide, total [Moles /volume] in Serum or PlasmaOrdered By: Kai Muse on 01-22-2024 CO2 [Moles/Vol] 26.4 mmol/L Normal 21.0-31.0 [facility] Comment on above: Performed By: #### C MP wRFX A1C, CBC, EBS A1C #### [facility] [address] [place] [address] [place] Chloride [Moles/volume] in S antonia or PlasmaOrdered By: Kai Muse on 01-22-2024 Chloride [Moles/Vol] 104 mmol/L Normal 98-107 [facility] Comment on above: Performed By: #### C MP wRFX A1C, CBC, EBS A1C #### [facility] [address] [place] [address] Complete Blood Count Auto Di ffon 01-22-2024 Mean Corpuscular HGB Conc 34.6 g/dL Normal 32.5-35.6 [facility] Comment on above: Performed By: #### C MP wRFX A1C, CBC, EBS A1C #### [facility] [address] NRBC% 0.1 /100{WBC} Normal 0-0.5 [facility] Comment on above: Performed By: #### C MP wRFX A1C, CBC, EBS A1C #### [facility] [address] Creatinine [Mass/volume] in Serum or PlasmaOrdered By: Kai Muse on 01-22-2024 Creatinine [Mass/Vol] 1.21 mg/dL Normal 0.70-1.30 [facility] Comment on above: Performed By: #### C MP wRFX A1C, CBC, EBS A1C #### [address] EBS A1C with Estimated Ave G luon 01-22-2024 Glucose [Mass/Vol] 108 mg/dL Normal [facility] Comment on above: Result Comment: PERF ORMED BY: [place] [id number] PATHOLOGIST STUDENT FINANCIAL AID MANAGER MARQUISE FIGUEROA M.D. Performed By: #### C MP wRFX A1C, CBC, EBS A1C #### [facility] [address] EBS A1C with Estimated Ave G luOrdered By: Kai Muse on 01-22-2024 HbA1c (Bld) [Mass fraction] 5.4 % Normal 4.3-5.6 [facility] Comment on above: Increased risk for d iabetes: 5.7 - 6.4diabetes: >6.4glycemic control for adults with diabetes: <7.0 Result Comment: Incr eased risk for diabetes: 5.7 - 6.4 diabetes: >6.4 glycemic control for adults with diabetes: <7.0 Performed By: #### C MP wRFX A1C, CBC, EBS A1C #### [facility] [address] ECG 12 lead ECGon 01-22-2024 ECG 12 lead ECG [facility] [place] [address] [place] [address] Electrocardiograph Report Signed Patient: Conchis Andrews MR#: [id number] : 1960 Acct:[id number] Age/Sex: 63 / M ADM Date: 01/22/24 Loc: [place] Room: Type: [facility] Attending Dr: Kai Muse MD Ordering Provider: [...] previous ECGs available Confirmed by KADEN HOANG [facility] ([id number]) on 01/22/2024 4:39:03 PM Referred By: MILEY Electronically Signed By:NORMA BURTON MD [facility] Transcribed By: ENRIQUE Signed By Norma Burton MD, FAC 01/22/24 1639 Normal [facility] Erythrocyte distribution wid th [Ratio] by Automated countOrdered By: Kai Muse on 01-22-2024 Erythrocyte distribution width (RBC) [Ratio] 13.7 % Normal 12.0-14.8 [facility] Comment on above: Performed By: #### C MP wRFX A1C, CBC, EBS A1C #### [facility] [address] [place], [place] [id number] [place] Erythrocytes [#/volume] in B lood by Automated countOrdered By: Kai Muse on 01-22-2024 RBC (Bld) [#/Vol] 3.96 10*6/uL Normal 3.90-5.[address] [facility] Comment on above: Performed By: #### C MP wRFX A1C, CBC, EBS A1C #### [facility] [address] [place], [place] [id number] [place] Glucose [Mass/volume] in Ser um or PlasmaOrdered By: Kai Muse on 01-22-2024 Glucose [Mass/Vol] 103 mg/dL High 70-100 [facility] Comment on above: ADA recommended refe rence range Result Comment: ADA recommended reference range Performed By: #### C MP wRFX A1C, CBC, EBS A1C #### [facility] [address] Glucose mean value [Mass/vol ume] in Blood Estimated from glycated hemoglobinOrdered By: Kai Muse on 01-22-2024 Average glucose Estimated from glycated hemoglobin (Bld) [Mass/Vol] 108 mg/dL [facility] Hematocrit [Volume Fraction] of Blood by Automated countOrdered By: Kai Muse on 01-22-2024 Hematocrit (Bld) [Volume fraction] 38.8 % Normal 38.8-50.0 [facility] Comment on above: Performed By: #### C MP wRFX A1C, CBC, EBS A1C #### [address] Hemoglobin [Mass/volume] in BloodOrdered By: Kai Muse on 01-22-2024 Hemoglobin (Bld) [Mass/Vol] 13.4 g/dL Normal 13.0-17.0 [facility] Comment on above: Performed By: #### C MP wRFX A1C, CBC, EBS A1C #### [facility] [address] [place] [address] Leukocytes [#/volume] correc laurie for nucleated erythrocytes in Blood by Automated counOrdered By: Kai Muse on 01-22-2024 WBC corrected for nucl RBC Auto (Bld) [#/Vol] 8.7 10*3/uL 4.1-10.5 [facility] Leukocytes [#/volume] in Blo od by Automated countOrdered By: Kai Muse on 01-22-2024 WBC (Bld) [#/Vol] 8.7 10*3/uL Normal 4.1-10.5 [facility] Comment on above: Performed By: #### C MP wRFX A1C, CBC, EBS A1C #### [facility] [address] [place] [address] [place] Lymphocytes [#/volume] in Bl ood by Automated countOrdered By: Kai Muse on 01-22-2024 Lymphocytes (Bld) [#/Vol] 2.1 10*3/uL Normal 1.00-4.8 [facility] Comment on above: Performed By: #### C MP wRFX A1C, CBC, EBS A1C #### [facility] [address] Lymphocytes/100 leukocytes i n Blood by Automated countOrdered By: Kai Muse on 01-22-2024 Lymphocytes/100 WBC (Bld) 24.7 % Normal . [facility] Comment on above: Performed By: #### C MP wRFX A1C, CBC, EBS A1C #### [facility] [address] MCH [Entitic mass] by Automa laurie countOrdered By: aKi Muse on 01-22-2024 MCH (RBC) [Entitic mass] 33.9 pg Normal 27.5-35.2 [facility] Comment on above: Performed By: #### C MP wRFX A1C, CBC, EBS A1C #### [address] MCHC Auto (RBC) [Mass/Vol]Or dered By: Kai Muse on 01-22-2024 MCHC (RBC) [Mass/Vol] 34.6 g/dL 32.5-35.6 [facility] MCV [Entitic volume] by Auto mated countOrdered By: Kai Muse on 01-22-2024 MCV (RBC) [Entitic vol] 98.0 fL Normal 83.5-101 F [facility] Comment on above: Performed By: #### C MP wRFX A1C, CBC, EBS A1C #### [facility] [address] [place] [address] [place] Neutrophils [#/volume] in Bl ood by Automated countOrdered By: Kai Muse on 01-22-2024 Neutrophils (Bld) [#/Vol] 5.2 10*3/uL Normal 1.8-7.7 [facility] Comment on above: Performed By: #### C MP wRFX A1C, CBC, EBS A1C #### [address] No Panel InformationOrdered By: Kai Muse on 01-22-2024 Estimated GFR (CKD-EPI) > 60.0 mL/Min [facility] Creatinine Clearance (Chem N/A [facility] Nucleated erythrocytes [Pres ence] in Blood by Automated countOrdered By: Kai Muse on 01-22-2024 Nucleated RBC Auto Ql (Bld) 0.1 /100{WBC} 0-0.5 [facility] Platelet mean volume [Entiti c volume] in Blood by Automated countOrdered By: Kai Muse on 01-22-2024 Platelet mean volume (Bld) [Entitic vol] 8.0 fL Normal 6.6-10.1 [facility] Comment on above: Performed By: #### C MP wRFX A1C, CBC, EBS A1C #### [address] Platelets [#/volume] in Bloo d by Automated countOrdered By: Kai Muse on 01-22-2024 Platelets (Bld) [#/Vol] 293 10*3/uL Normal 150-450 [facility] Comment on above: Performed By: #### C MP wRFX A1C, CBC, EBS A1C #### [address] Potassium [Moles/volume] in Serum or PlasmaOrdered By: Kai Muse on 01-22-2024 Potassium [Moles/Vol] 4.1 mmol/L Normal 3.5-5.1 [facility] Comment on above: Performed By: #### C MP wRFX A1C, CBC, EBS A1C #### [place] [address] [place] Protein [Mass/volume] in Ser um or PlasmaOrdered By: Kai Muse on 01-22-2024 Protein [Mass/Vol] 6.9 g/dL Normal 6.4-8.9 [facility] Comment on above: Performed By: #### C MP wRFX A1C, CBC, EBS A1C #### [address] Serum globulin measurement b y calculation (mass/volume)Ordered By: Kai Muse on 01-22-2024 Globulin (S) [Mass/Vol] 2.7 g/dL Normal [facility] Comment on above: Performed By: #### C MP wRFX A1C, CBC, EBS A1C #### [facility] [address] Serum or plasma albumin/glob ulin mass ratioOrdered By: Kai Muse on 01-22-2024 Albumin/Globulin [Mass ratio] 1.6 {ratio} Normal [facility] Comment on above: Performed By: #### C MP wRFX A1C, CBC, EBS A1C #### [address] Serum or plasma anion gap de terminationOrdered By: Kai Muse on 01-22-2024 Anion gap [Moles/Vol] 11.7 mmol/L Normal 6.0-15.0 [facility] Comment on above: Performed By: #### C MP wRFX A1C, CBC, EBS A1C #### [address] Sodium [Moles/volume] in Ser um or PlasmaOrdered By: Kai Muse on 01-22-2024 Sodium [Moles/Vol] 138 mmol/L Normal 136-145 [facility] Comment on above: Performed By: #### C MP wRFX A1C, CBC, EBS A1C #### [facility] [address] [place] [address] Urea nitrogen [Mass/volume] in Serum or PlasmaOrdered By: Kai Muse on 01-22-2024 Urea nitrogen [Mass/Vol] 22 mg/dL Normal 7-25 [facility] Comment on above: Performed By: #### C MP wRFX A1C, CBC, EBS A1C #### [address] Coding Summaryon 01-15-2024 Coding Summary HTMLBase 64 FyiifazqEOt2wVl+PGhlYWQ +BO5QFTZqS48evMWaaH2cI8 NMTElOSywgQVBQTElOSyIgb wLcWI4tsBMvEDDm IC8+IU9cGICcAgfrrNFmu1H 2eNH6Z68ivd9cHCjmkGT0IZ WdZkJuqqmzs9uqxLx6KUpqX mluOyBt FGMbmT33KPY0jA96Bi00qSK cnIAfr3dfySf4RfPnNWPqUD T3xZfcGCyrk9RrGXKrM14ba HPxx2V0 WEXheXopuLQgMcXuiQY4tW2 wRFplujdvx8sppspxCeg0jl 61iZYtn0Z6lDT5Z7KewtC3T GJvbGQg IozvhUEIuO6wcoksn2tlaix jKpWtLJSjXQg2UWy0KNCjoH siLnKlXT30SAF1BPSpcvUxM 2FsLWFs pQxwAxG7t5O1Mh9RV6XXBeg fB4XQURVEYHriuOG+PC90cj 99D3PmYyuiVxz0XWZfVWH4x QI2hU9y ZUApQBhtf7B4hYE4K0DritR xbr3sy8pdSFKiJZynQ03fbL Mwv2O8VTShyEM4IEFljTguG iBzaG93 Oyc+LYFzgZbtx2RuGshkg7r nx4dfbOo8UoyePSGkqwYvnR hcALI7c7MaQa6vIAFmmXB5f YL9iG7v TaYtLqS7ZWvqY827BwNpgMA aDyncR66nY9XhkBK+PHRyPj b2RRWpmHboZJ8vW7OvWBHkz mctbGVm uTwmUO0bJJPekgiiJWZjvF0 iFXLaR5n0StYrPwK7CPtrN4 HiTWObciutYh78sW0yUqRhJ iR2TJpa X4TsgpL1HEQltPCtKSsmZCL 4F01vq1D3RODuKKFbURH5eZ T1kE8hnPfoivkhpZNolKwfs mVydGlj ZFlwREobB851CLXizMmbEzB vZGluZyBEYXRlOiAgMDUvMD EvMjAyNDwvdGQ+ZVRxJNV6h WxlPSAn gIHhCHlzWv9jbGdjrYbvZV8 kYFSfqdqoHGRjxN0nWUAqhN UhxKayEU7iKZUvbemur426V iAxMHB0 ZAHrfUIhB1SorR6tPpHjRSX eBLXvY0QczUEaKTvkK985DC mfWlZ6HXAaydFwS5AqTHAsg WduOiB0 u5W4Og6Ox3RdmvpuW7AsjAR bTlTyVwseFZq1W9XmKjfuaP I+CA25OXJcVB51FYg9YRF1b WxlPSdi SQQqS0MnfF6cRxVwOZTcIWN kOyc+PHRhYmxlIHdpZHRoPS tmDEZkCpKhqOgcNU1wNu2eN GVyLWNv sEwjzTMoJdSaz3jyMFTuXXp oJU4egXzjH2TeuPG9ESJyw9 z6Na06V86sX3OhoTV+PGNvb LM0bTU5 wS8aYkMnEtZ5FKwoY667HoQ btKSeJjxcs5ltu2jssUn4Mc N5GMTgwaVrdPxiYEK1o7DlZ v05N36y IHdpZHRoPSIxNSUiIHZhbGl pmv6zwX9zEs9+VHQisKH2kA Z6sO3vArWdLzR9JMtdL390I nRvcCIv Zwqcg8tmw5azrHe0UiQrFRJ iooTcbLujNMR5x8DeRp85V7 ErnPwpu6McPon7pj40zAQzi 7E9qBN6 V4CoLJFjkgeajXUhmDxeCR2 gLQIrmlzeYYFlsD0tFVFjG8 z3KgGhEsS7WQkcQ1FlzcH7V GJvbGQg DBDtxQDYjK7zxvnph9mwwkr fGwZsFHBkJLl5YNt5DVQabB szBrGbBIX4IkR8SVS3bYAda W3tzPdy awxsnI8lWvz+FGT9eMGhiIP PCL0yDtpygML+INStJKT0yV kyUDebGTQizD0gZUDxO2a9D iAwLjA1 MFcpK9PyruZ1HXZfeDXhUWO ufHYXjP3czdfdv2kwsuvzMc GbIYOmKUh2VBa4OYAguMgaX iBsZWZ0 XpF3XCI5qQGacE0cjWpopfp ctG8uDjt+GazfxGofUAO0PV m7V8KvVza2QHXpkPawXV5gb GFkZGlu Cw4yqWycmJpmDN0gTYHxkfn ku470ZfStx5mlXWBgdHNuWO paJPF8C32jr3D4VMFcURCsL ZW0dGW3 qR8sxHfqgmliwYKiwIfspnB teKvwJGeoKDkdB079HCRpoD xlMiJwIIo7O9FrMqu0YCTuh JqhYZ5g oLNsJXhsOs5evJmgsZznYZ7 gRLMefkfxt988JkArv1kkNO XigIDaXNobWLK2B92ws4T2U CMwMDAw HIC5lIB4nN2rbJretcgtdDY mdDsgdmVydGljYWwtYWxpZ2 53IESbdOlpOlSzxXz8A5RlK ho7YRLo vYxcOE5hmQLvFNcsLk1hpVq uyPxhRM3xBCNdshzni377Ag Qbw6yyVTRpkVYqQTtrTBV3J 61ot7E8 KRMyVXQgJEI0oUY6qP8edXr nbjogbGVmdDsgdmVydGljYW pnKYcjQ438WCMilElzJxMso GllbnQg GSooBCh2Y6WjAyzxtGL+PC9 8IDKgBU24vHBktNQye3ugxX g3OhAhXRXhQVZ5wVfwHWomk 3JkZXIt E12joIJzs6S2ZTRsmXijnHW gWbGnxRU6xS2fGTbpctmng9 rrnocfNjnhp8yhsm85nK54E 29sIHdp ZHRoPSIzMCUiIHZhbGlnbj0 aqG3iKx8+SDAjaTV7yRU4yP 2nOKKbDoD5OQssB004YgLrg CIvPjxj z6yrp5luqIf9SgO6NZBedbI vcMwiGDW2h1ZxOx03L76tWR dpZHRoPSIyMCUiIHZhbGlnb z6jfB7v Ii8+SMZlgCH4qGG5iQ1zZpH sSiF1FGmaJ909ZiLmwBZjAy tgN87vS9KomUO+SLFoYxg2V CBzdHls EI5xzECkVYtwUf5bDGT5KuS wBhXzEPizB0LpJAGynevxuo nltBY4WBYvSQBgqU64Cq7hm DogMTBw fIPPiG4uoanfw4axccibYeX xQPGfRDq7XIg0HOJhmIdfOo UuDYA7VxE6KGZ2hSXnsJ0sv Glnbjog mW3yB1IoJNUikwrfKc24zY6 tZtPgWiZ3XRxmRqm+SEFWRU 2JPrjhIvQSK4FLQWMJOS09F K53rMAh h3Q3tQS3Y3HuLWCamzfgreh inTR5WDQjRIPngI47nIAaPP omUk3zv1V7e398GXZySYHlg O28Vs2w bSaaZKDbhCHCiD9hcnpbp9q oxkzgRaEaSXDeJTg6HBu6XQ ObtMgoNbNfJUJ8HpJ7SYU5t UQiiI8o dTcaltdpcS7fJad+MDUvMTM eMCu9HkhgeHX+YPTkELP8mG znWUlsRPGicI6zTCFjV9c0A iAwLjA1 DPbjE4ThOWLmqqybBc58yP1 hPsNlFdG9RRvkT7LkrtE2VP WnkFDzLIorFUO0H14ln8T7J CMwMDAw PNS4lYA8lL2syCudoabbcYT mdDsgdmVydGljYWwtYWxpZ2 46IHRvcDsnPjYxIFllYXJzP D26CR20 mZXga5C2oXS3Z5AtHQTdczh oigibkMP8AVHySLNhjW02pH QyAGlyVx7hd1N4p295IIOkU DUwaW47 Oz3ncNjsPYYlbZYPaH9pkek vi1gjqzczPfBpBSNbIDg2RF g4KTUyjXxnWcDrJSQ1WbJ3F LP8pOMd kK7qtSvichefoC0cPse+TUF MRTwvdGQ+SKHlCSI7wZngKF orYRAbuB0nTRSnI4j0HzAiN gC4LKhe S8QrEVMxxoqkDc85zP1qXdZ yVhY9KJpmL3BwesV4YPNnmR CdCUrpDIT8D12sy4I4DUMuY DAwMDA7 cYA4hN9rmXgwzwinoWLwiAa qrqYdnTuuGGuiKFinG119XU MtyEsmJv4FFC73SC25H3FeD jwvdGFi bGU+PHRhYmxlIHdpZHRoPSc oMHIpDlTboQfqZF8lQa3fSA QtSESxcBgjdBVnIsExh1yoX XBzZTsg FU6giAxjC0CzcGG7KMMor2p 5Oq82G16kC1IgzQC+PGNvbC D6pDN2iZ9aQpAfAnC5CGojO 249InRv jCDfWxuep8aio9hrtZq7XhV rIEIvkdFjjEnfUEK3o0RxNs 82S22fECrbAAIkWVTiGITyN HZhbGln gq7psD0zWb0+SQUqkJB7dVB 0oL1gKhIxLrP1NDldY995Hp PipJMxAtpsB17dL1WqaKS+P HRyPjx0 CSWolWcuPM9mtWMcPLlyJu3 xQYT0NnKeHdPiGJerP7DrXU ZdtsujhpsthIH9UZYzPSGcd Z35Of4z vEgqBz1xTLFcXAE7KMFluZE mH6HziO1eWxKgOZDfFABdP3 EjrRZzXKveL727DTlaSwT4H HZlcnRp P0ApMQBflLdkLcG6t7S5Xa4 OsVfeoBKqVQ2fQaSfMMi8L3 IpVnw0ROUqeZooOA9iuZAmA OphJj9s rOjqfXfpLG8wTBGlbegmg72 5JfBkg9nkYFFxePDyDUdsME D0V30ln0R1ZANxFSBtITD7v JX1pP1n bGlnbjogbGVmdDsgdmVydGl fRGuyUPvfV159MXUclKkkZg KWKua4M0RhAxb5SUCiaCkvJ V7xiXYf DNddQz4uuUuhrVbyDE1eRCI jsxjnn059DzZcc4fuVGZrfB HhLAkdDVO9H54jm7P8NIKrX DAwMDA7 oQF5pL3lxJlokincdHPbcXv atpDkqPegGBzwEXviN776KC ErjCxwJj1EOdb5V9JoFeq6W CBzdHls KG1bzXBaDNzuXi5yoCflcIn lBK7qITXoyxhdj881ArTdj6 xbEOBuoJQrLKpuGCA3D01kt 6S4IANf VZObKNG1uAF0iX5tzAyqomz gbGVmdDsgdmVydGljYWwtYW zyN201SXRpmRekJlNkzLTlW jwvdGQ+ RP24oh95V7BeDvueJwf1FKI hMHN9tBL1sT1sWSMmYLbxd3 D1yFD4K4VidlJued9vb2mtN XBzZTog Y29 (more content not included)... Normal [facility] Rad - MRI Reporton Rad - MRI Report [id number] IFF Normal [facility] MRI LE Joint w/o Contrast Le fton [...] Almonte MD 01/10/24 1:46 pm Technologist: FILI [facility] XR Skull < 4 Viewson 024 XR [...] Paniagua MD 01/10/24 8:20 am Technologist: FILI [facility] Provider Orderson 01-07-2024 Provider Orders [id number] OTGTIFF [facility] XR knee LT 2Von 01-07-2024 XR knee LT 2V [facility] [address] [place] [address] XRay Report Signed Patient: Conchis Andrews MR#: [id number] : 1960 Acct:[id number] Age/Sex: 63 / M ADM Date: 01/07/24 Loc: [facility] Room: Type: [facility] Attending Dr: Kai Muse MD Copies to: [...] Chrissie Pfeiffer M.D.01/07/2024 12:12 PM Dictation Location: [place] [address] Transcribed By: [facility] 01/07/24 1212 Dictated By: Chrissie Pfeiffer MD 01/07/24 1208 Signed By: 01/07/24 1212 [facility] Physician [facility] Coding Summaryon 11-13-2023 Coding Summary HTMLBase 64 QacuizloRPn0gYj+PGhlYWQ +AU0SANXpK37wmSEfnW5hN7 NMTElOSywgQVBQTElOSyIgb tHfYB9adFWgOYEy IC8+OS9cXRPeAxttxEGry6F 5dYJ6K21iey4tTKktnZX7FK SpEjCkkcezc4cnjEw7BWxyO mluOyBt YQZubS47UET1rP44Ab41fZT bcXKrq6fyoIq7HkVvHUSoYT Z2dFihROhdp2SxFQLhK23jt XPtu4G8 TGGnbMbvbHDmZvFylHO3fM7 jGYtaohedq3fxkcpsQgh2am 62xCSxl7C5mIJ6P3SyoyD3O GJvbGQg ImtdhSCWyO5xxkwew3xsoxd mLgKbCRKsGLt4OZw3KJSfbE ibJwLzQD87TOF0KVTxtwVlU 2FsLWFs vGdeTsN6b7M7Ay4XS6MDCrd bP3UEJEVRFDuaeHD+PC90cj 20E2BfIwxhNbs4SBGfNRM7p WU4qX8v JAGnUQyyy5L2tTP9N1WmjuO pph2ir5frIRUmPCzuN86tdK Tfj7E9TJLngTZ0LWXjlRmhS iBzaG93 Oyc+XCHfcXvsl2KjCqyqh6p wz9aiaWo1HnqmWKWpabWopU ahXZA5m8ToGb8aVIFzsDC4u FY0kZ1j XkJmZhH0WWlhE387PdNoqQU wOyeuC98xL8HhdIX+PHRyPj v4ZWUbyCcxDN0dL7DfPBKau mctbGVm oJzpKE5pPHDnaloxQUPfkT9 lGNNkG2k8JbXeWwN3ECfcB8 GpXFWsouwvIx23dE0yBzTaI nA3VMkh U6AnqcF0MKBhvRWkQXwuJQE 3P74nw8V4IQQcCOKeTKX9mO V0fT7npNtsbsmsyQDdtIjhc mVydGlj QFwyCXusB852RKZpwOewWkW vZGluZyBEYXRlOiAgMDIvMj gvMjAyNDwvdGQ+UAVvDGZ8u WxlPSAn jHJmGUceXf4ghSmaqKozFC1 yWKWqxmmaCCPjlS9sCMDkgD HjdQxhFV4tKDCajdtah288B iAxMHB0 UCBqwZHzZ8WhuV6lOxSjZCG rNCTrM7CifVMkIZnxQ548II saGxW5JNShylDhF5JdUEDaa WduOiB0 w0V2Un6Qd8XrftbbZ4PqwIS jFgMyIxwnFNd8W0NqBclomZ I+UP04PPPlTZ91BJr6ALB8q WxlPSdi NELyC3WyyY5aVtMjIJKwULQ kOyc+PHRhYmxlIHdpZHRoPS zqBIPhRoGjmCtcZW8uTs3uQ GVyLWNv mLnnbMUwShVka5zsCZZjPEv fPX0kzVaoR9KkpLY5RUEbt0 o1Wv63L58nW3WybUK+PGNvb SI3sBY9 wZ3rZhTqSmI8PBbfT070SdO mmWFoFdnoi4hph9tngQq4Se H5QUYqkvTtmRvbPXE2z2QxP z54G91u IHdpZHRoPSIxNSUiIHZhbGl qel8yxN3zAs9+NGFugLP3nP R2pG0rMtUoInU2OYqkT531P nRvcCIv Uebop4blj8rffGv2HgTsKGZ gtxCdkDshVXX4j0CtNg40W4 GjoZnkj8TfEtv3ey49jYDge 6H2lKW8 T3EiOTRhexswaRRigXrzCU4 pUMHzjyyjVCHazX7tKMQiE0 c3KgRyLuW8JUjoL6UnbkG4F GJvbGQg FXXftBRGmE8kbvaor1gfqsy bToOzJQAwMFh9MYs9UDSdcF drIqKyHWJ5QtV1EDN2rBEzo H7dgJst bmirgX7vVmz+QGT8xALekWF JLN8pXyjevCS+IVNwDIE9rI ieTOdcNHOseR5lTYUeP9n8P iAwLjA1 YKjyY9CmvpY8HNKznRDlXOS rtFLBxN0jgzkwp5cwlxiaEa HyBIRlEYv3XNg7IAUhyQetS iBsZWZ0 TeL2SKN6fHPxlB2fpIxvpmf hdA9oSze+VyhneYjrTVL8QH o9L4SqBol5WCZbrRoeYZ5ot GFkZGlu Wo7igHyeyJryWY9lVWRhyzp sa873CiBxu4mfHAJzwFGqMB srXSV4M24vl4V5XJTvTPFbU LI2jRZ1 uD9cyHcrjdgkcENsrEroxrM ixLvcOHozMDgwT659PSFoyX nzGgVbMEb5N2FeWmy6AXZnk LgkYM8v cIYjHDxoOm8qpEtujGdcVE8 oMNMpzyhga092CqXoy3ycCQ SlcHBoLFcbQHZ9G57ry5H1B CMwMDAw WOS2dHT8jA5xmDvcmocnjVK mdDsgdmVydGljYWwtYWxpZ2 84AFRtzHzpUmHdvPs2H9BoS om1YGZu qHllZD2woTVbXUmgBq2awOm yiCagBI8qDIBtrshmr569Ea Ddi3pqQCTzeFMtNVtfDWB4T 31zc8S7 WZGcVPVsOSX4lME5gS0bmJa nbjogbGVmdDsgdmVydGljYW ykJOrfM074NLDmtVpgXqYsm GllbnQg TTioIWg9J5PwYhwwcIP+PC9 5CMLpJE69iAVktHOxk0noiU g8CpFzMKTeJUU4mAjvLXbsn 3JkZXIt R86hkQPkh7A3QRQnxCgzrRQ mBeUceSS1iD1vNHlsybcrn3 hrmyycXwhli2hebc18vH64D 29sIHdp ZHRoPSIzMCUiIHZhbGlnbj0 icB0ySg1+RYXnpZT2rVG0pR 0jJHThLyD7BUzyF195ZgWqi CIvPjxj z1woh6hxzBg2IbU6QXXhnpV buGndQJM5l4WsQl17T93aRV dpZHRoPSIyMCUiIHZhbGlnb p7asO1r Ii8+LTVhvKC0aXO3yJ7qMjM vVqW0AJwhN163RdTwuUCfFa saO49kD2JweHA+SBUhCum8W CBzdHls AM7qtKXdTBewCl9gTOT3MnC fZmStIYzxU8ZtNNRbzqjjgd djyFS5ZCMjKDFsyT08Cc5us DogMTBw wMHKsJ8qrwubn4npifvwVuF kAXUlNNf4JXj6UHCuvYssUg JqBTK4AdZ9IVI1dMCcqH3jo Glnbjog kU0tF6JzVBDqtdoiAl93hK1 uKeMuUiB6YIfcFhs+SEFWRU 7WQuijBdLBR9XVHVUYMB19G E17fZOs g7B7bIZ8I2YhTYLcrmmacku vqOG6NVZnOSDxsF80lGPmZJ rdZj4lo4K4v248RXKtBMPgy A13Av6i xPqhHBUbhKXCwA1zqkjdj0u meunhJbUeZOViEBe0CYv1KQ KfiLetSbKaAFE3QdL7PUS1i JGnkE6v iEffhfezoV4uXwz+MDUvMTM kIQt0RcznySH+KYRaXKK7uE ayQBuaDXGzuY0oGIRwP3n4J iAwLjA1 POxxC6WqHRZifmntOw57nX6 vOhHqScS1OZlkD1UjoqG8DT JkbPHyYYyiWOR6U27oh1D8B CMwMDAw HTZ0zUQ8zO4pyDqryvvitZE mdDsgdmVydGljYWwtYWxpZ2 46IHRvcDsnPjYxIFllYXJzP V05HE85 cLWxe2B5rNN1A9LiEMLxymv jqiqsrOK1FURiCFHgvY93nE AyGNuvHx1yn2Z9r970SRIdL DUwaW47 Og4knHceYLLooNHUkP3jqwb vz9dgeqsyGiErWBKxNCb0OC x9MQHvqJltKgMzKBP0SsQ9M EA3iQLp vC9jvIxqetypcL1uYso+TUF MRTwvdGQ+KRAeJGB4dAauLS rsLMPtkL6vVIBgL3x4EcVkR qG1WWyz V4VsFXMrbjpqMc63lQ4bBqY jMuU7XHsaV3FqyhM1BAXrxR WeHWrhRIZ2G69ax2X7KYSxT DAwMDA7 pEJ1oM6dqCtqgblbaJTajHc wgmEtwGcvSKjzBHixE162HS ZulLboAu6LNM46XA51Y6OqM jwvdGFi bGU+PHRhYmxlIHdpZHRoPSc cZRFiWnFpxWwjPB2qAz0zKZ HoJFHyaBuffKZzMhKrn5aoY XBzZTsg SK2fjOhmZ1XyuFX3UACcu6r 9Uf21H64iW0PvcJX+PGNvbC K9dLL1eA1lHqWyUlW3ILkoN 249InRv jJVjDjsdo7ort0xfmUl1EgI gIPSlcxWuxRiiEYX1c8JlDz 19C41nHHotGTQvAMZqZRTpM HZhbGln eo3yrX0tDl8+LWPdrRO1cIM 7sQ1pFtJaRjN1VPgpS595Vo FljAPvJkfgN95wI4VqzTY+P HRyPjx0 GGSbeXriOC2lwGXvDOylNs6 tJQF3GdRrBlFhBRgcP2ZjNE UukewxmzjnjTB9RIVmYTLyz U64Rv9h qJynHv2cFJKbSVB8HZUkjGW tB9UaoY1tMtVpUIDdMIInH7 PauELeRQfiV695SSjeBcU3F HZlcnRp N4NzHCQegJlsMmK4k8D4Vw6 XeQcgcDZrGF8ySuYeVDe0J2 OpHni8REXzqYpyMW4gpFGjC DxkMs7t fUwjgCadEF9jATBqkpsnp21 2SmKkf3njNHRtuIIiZDhpAY Q6J70hy2S8JPCgSXKbURF0o IK8jB1n bGlnbjogbGVmdDsgdmVydGl tKIxmMDffJ178IJAhpWevJn HHYqs6L9BqYmo8TYOebEfcW D5gpTWg DEezYk0hlQsajLflQS2oHXF fjldzt914ScQxm1xtZYTcbL DmZPfcJPK5Z55jj1U6XPRjB DAwMDA7 qMI0bN7ugTkrvsfweOBldGr jneGwuVynRCfcVBfcR627GD DudQtfMo1EXic0X9GkFtq4U CBzdHls IL7tsUTgYFezIw9gkZmpxVh dRW5mVXTgokfvb918BmLsq5 wvJIHcvJQyOHtyUGL7U42sk 5H2KYMq OFVlXMP8jYK7bB4zjKngmfa gbGVmdDsgdmVydGljYWwtYW ujX777XXJszMhwRrMatKCrF jwvdGQ+ WR89qm59D1KlYanuPhq7ZAT eYWB4aMS6eA2jEXJnOTzpi4 N3uPH8T9OdvqLdgr4cs5pqQ XBzZTog Y29 (more content not included)... Normal [facility] PSA Total+% Free (Serial) LC on 11-12-2023 % Free PSA Analyte Not Required Invalid Interpretation Code [facility] Comment on above: Result Comment: Unab le [...] other population of men. Performed By: #### 1 [id number], [id number], [id number], [id number], [id number] ####[facility] (DEFAULT)[address] [place] [address] Prostate Specific Ag, Serum LC <0.1 Invalid Interpretation Code 0.0-4.0 [facility] Comment on above: Result Comment: Isabell AGOSTO methodology. According to the [employer], Serum PSA should decrease and [...] absence of malignant disease. Performed By: #### 1 [id number], [id number], [id number], [id number], [id number] ####[facility] (DEFAULT)[address] [place] [address] PSA, Free LC <0.02 Invalid Interpretation Code N/A [facility] Comment on above: Result Comment: Isabell martinez ECLIA methodology. Performed At: [facility] [id number] Sanjay Dumas PhD Ph:[phone] Performed By: #### 1 [id number], [id number], [id number], [id number], [id number] ####[facility] (DEFAULT)[address] [place] [address] .Auto Diff 11-09-2023 Auto Manati % 10 % Normal -12 [facility] Comment on above: Performed By: #### 1 [id number], [id number], [id number], [id number], [id number] ####[facility] (DEFAULT)[address] [place] [address] Baso Abs# 0.0 x10 Normal 0.0-0.2 [facility] Comment on above: Performed By: #### 1 [id number], [id number], [id number], 5162903, [id number], [id number] ####[facility] (DEFAULT)[address] [place] [address] Basophils/100 WBC (Bld) 0.8 % Normal 0.2-2.0 [facility] Comment on above: Performed By: #### 1 [id number], [id number], [id number], 7689449, [id number], [id number] ####[facility] (DEFAULT)[address] [place] [address] Eos Abs# 0.4 x10 Normal 0.0-0.4 [facility] Comment on above: Performed By: #### 1 [id number], [id number], [id number], 6998049, 110762672, [id number] ####[facility] (DEFAULT)[address] [place] [address] Eosinophils/100 WBC (Bld) 7.1 % High 0.9-4.0 [facility] Comment on above: Performed By: #### 1 [id number], [id number], [id number], 1953852, [id number], [id number] ####[facility] (DEFAULT)[address] [place] [address] Lymph Abs# 1.5 x10 Normal 1.3-2.9 [facility] Comment on above: Performed By: #### 1 [id number], [id number], [id number], 4470821, [id number], [id number] ####[facility] (DEFAULT)[address] [place] [address] Lymphocytes/100 WBC (Bld) 25 % Normal 14-48 [facility] Comment on above: Performed By: #### 1 [id number], [id number], [id number], 1377497, 286084550, [id number] ####[facility] (DEFAULT)[address] [place] [address] Manati Abs# 0.7 x10 Normal 0.0-0.8 [facility] Comment on above: Performed By: #### 1 [id number], [id number], [id number], 8485144, 478453715, [id number] ####[facility] (DEFAULT)[address] [place] [address] Neut Abs# 3.6 x10 Normal 1.5-9.2 [facility] Comment on above: Performed By: #### 1 [id number], [id number], [id number], 2693325, [id number], [id number] ####[facility] (DEFAULT)[address] [place] [address] 96155 Neutrophils/100 WBC (Bld) 57 % Normal 44-88 [facility] Comment on above: Performed By: #### 1 [id number], [id number], [id number], 1877651, [id number], [id number] ####[facility] (DEFAULT)[address] [place] [address] Basophils Auto (Bld) [#/Vol] on 11-09-2023 Basophils (Bld) [#/Vol] 0.0 x10 0.0-0.2 [facility] Basophils/100 WBC Auto (Bld) on 11-09-2023 Basophils/100 WBC (Bld) 0.8 % 0.2-2.0 [facility] CBC w/ Auto Diffon Erythrocyte distribution width (RBC) [Ratio] 12.7 % Normal 11.5-15.0 [facility] Comment on above: Performed By: #### 1 [id number], 67464853, [id number], 8481728, 872610087, 63763653 ####[facility] (DEFAULT)[address] [place] [address] Hematocrit (Bld) [Volume fraction] 44.1 % Normal 34.8-51.9 [facility] Comment on above: Performed By: #### 1 [id number], 67295005, 7674600306, 9048285, 683670375, 48489203 ####[facility] (DEFAULT)[address] [place] [address] Hemoglobin (Bld) [Mass/Vol] 15.4 g/dL Normal 11.8-17.7 [facility] Comment on above: Performed By: #### 1 [id number], 32822722, 4070439497, 7327658, 169674794, 69538107 ####[facility] (DEFAULT)[address] [place] [address] Man Diff? Auto Invalid Interpretation Code [facility] Comment on above: Performed By: #### 1 [id number], 37792808, 4840996050, 8747900, 503384751, 28568675 ####[facility] (DEFAULT)[address] [place] [address] 22841 MCH (RBC) [Entitic mass] 34 pg Normal 24-34 [facility] Comment on above: Performed By: #### 1 [id number], 25115694, 1524121084, 2241268, 718435080, 76597031 ####[facility] (DEFAULT)[address] [place] [address] 48686 MCHC (RBC) [Mass/Vol] 35 g/dL Normal 26-37 [facility] Comment on above: Performed By: #### 1 [id number], 21371375, 7435931401, 2379803, 740784485, 79314347 ####[facility] (DEFAULT)[address] [place] [address] MCV (RBC) [Entitic vol] 96 fL Normal 81-100 [facility] Comment on above: Performed By: #### 1 [id number], 60648992, 2279999728, 6962706, 071116285, 32224534 ####[facility] (DEFAULT)[address] [place] [address] 79976 Platelet 314 x10 Normal 138-427 [facility] Comment on above: Performed By: #### 1 [id number], 06405882, 1621174088, 6649908, 280229442, 71391814 ####[facility] (DEFAULT)[address] [place] [address] 04082 Platelet mean volume (Bld) [Entitic vol] 7.7 fL Normal 6.3-10.2 [facility] Comment on above: Performed By: #### 1 [id number], 41512111, 1290961107, 3918152, 332313292, 47418994 ####[facility] (DEFAULT)[address] [place] [address] RBC 4.58 x10 Normal 3.70-5.30 [facility] Comment on above: Performed By: #### 1 853862974, 54589347, 1775396466, 7303395, 279675023, 70644420 ####[facility] (DEFAULT)[address] [place] [address] WBC 6.2 x10 Normal 3.5-10.5 [facility] Comment on above: Performed By: #### 1 [id number], 95627617, 2156426491, 9577644, 189041534, 78977331 ####[facility] (DEFAULT)[address] [place] [address] CMP Standardon 11-09-2023 eGFR Non AA >60 Invalid Interpretation Code [facility] Comment on above: Performed By: #### 1 [id number], 77883606, 5765334836, 2259147, 975805777, 85926755 ####[facility] (DEFAULT)[address] [place] [address] eGFR AA >60 Invalid Interpretation Code [facility] Comment on above: Performed By: #### 1 [id number], 51240149, 3297183075, 4829122, 904004345, 76190319 ####[facility] (DEFAULT)[address] [place] [address] Albumin [Mass/Vol] 3.9 g/dL Normal 3.5-5.0 [facility] Comment on above: Performed By: #### 1 [id number], 45310273, 3471596939, 9305175, 842717549, 88704732 ####[facility] (DEFAULT)[address] [place] [address] Albumin/Globulin [Mass ratio] 1.0 {ratio} Low 1.4-2.6 [facility] Comment on above: Performed By: #### 1 [id number], 72321695, 2413690769, 0388729, 008233217, 77180900 ####[facility] (DEFAULT)[address] [place] [address] Alk Phos 67 IU/L Normal 32-91 [facility] Comment on above: Performed By: #### 1 [id number], 29182310, 1134410591, 9099513, 759245550, 67788866 ####[facility] (DEFAULT)[address] [place] [address] ALT [Catalytic activity/Vol] 23.0 U/L Normal 17.0-63.0 [facility] Comment on above: Performed By: #### 1 [id number], 80022910, 1536909660, 9610729, 323038961, 16280772 ####[facility] (DEFAULT)[address] [place] [address] 15342 Anion gap [Moles/Vol] 12.9 mmol/L Normal 5.0-19.0 [facility] Comment on above: Performed By: #### 1 [id number], 66066969, 7281168121, 7382679, 388747426, 02984252 ####[facility] (DEFAULT)[address] [place] [address] AST [Catalytic activity/Vol] 25 U/L Normal 15-41 [facility] Comment on above: Performed By: #### 1 [id number], 28009795, 9916203441, 6165592, 540081717, 08431977 ####[facility] (DEFAULT)[address] [place] [address] Bili Total 0.8 mg/dL Normal 0.3-1.2 [facility] Comment on above: Performed By: #### 1 321538559, 42171025, 1867540652, 5810591, 317693456, 88841745 ####[facility] (DEFAULT)[address] [place] [address] 14494 Calcium [Mass/Vol] 9.0 mg/dL Normal 8.9-10.3 [facility] Comment on above: Performed By: #### 1 [id number], 82993922, 3643465323, 0069514, 089564490, 75085116 ####[facility] (DEFAULT)[address] [place] [address] 59526 Chloride [Moles/Vol] 102 mmol/L Normal 101-[address] [facility] Comment on above: Performed By: #### 1 503408495, 63885760, 5678368087, 3933921, 053665582, 32848559 ####[facility] (DEFAULT)[address] [place] [address] 12328 CO2 [Moles/Vol] 24 mmol/L Normal 21-32 [facility] Comment on above: Performed By: #### 1 005426074, 28281990, 9355378906, 5179326, 715010583, 06073751 ####[facility] (DEFAULT)[address] [place] [address] 14309 Creatinine [Mass/Vol] 0.95 mg/dL Normal 0.90-1.30 [facility] Comment on above: Performed By: #### 1 [id number], 87873024, 5248531175, 8425254, 841541107, 64157576 ####[facility] (DEFAULT)[address] [place] [address] 44721 Globulin (S) [Mass/Vol] 3.8 g/dL Normal 1.5-4.3 [facility] Comment on above: Performed By: #### 1 [id number], 00286672, 4585874529, 0469632, 232071956, 68658668 ####[facility] (DEFAULT)[address] [place] [address] 33248 Glucose [Mass/Vol] 105.0 mg/dL Normal 74.0-118.0 [facility] Comment on above: Performed By: #### 1 825332118, 59043013, 1476699980, 1758742, 531327879, 61104131 ####[facility] (DEFAULT)[address] [place] [address] 22861 Osmolality 270 mOsm/L Invalid Interpretation Code [facility] Comment on above: Performed By: #### 1 [id number], 86027520, 5065455812, 4257573, 406402572, 44681050 ####[facility] (DEFAULT)[address] [place] [address] 76026 Potassium [Moles/Vol] 3.9 mmol/L Normal 3.6-5.1 [facility] Comment on above: Performed By: #### 1 314659914, 86603933, 4407560383, 0362841, 987184769, 67057001 ####[facility] (DEFAULT)[address] [place] [address] 85732 Protein [Mass/Vol] 7.7 g/dL Normal 6.5-8.1 [facility] Comment on above: Performed By: #### 1 115329190, 80850708, 2456150392, 2950982, 040124549, 22569732 ####[facility] (DEFAULT)[address] [place] [address] 79599 Sodium [Moles/Vol] 135.0 mmol/L Low 136.0-144.0 [facility] Comment on above: Performed By: #### 1 [id number], 68756767, 8065870730, 7113023, 713854355, 92497062 ####[facility] (DEFAULT)[address] [place] [address] 10923 Urea nitrogen [Mass/Vol] 13 mg/dL Normal 8-26 [facility] Comment on above: Performed By: #### 1 [id number], 39594771, 2892193697, 9072486, 250643841, 99288189 ####[facility] (DEFAULT)[address] [place] [address] 68909 Urea nitrogen/Creatinine [Mass ratio] 13.6 mg/mg Normal 4.6-16.2 [facility] Comment on above: Performed By: #### 1 440907284, 05316949, 7111597026, 5697541, 183165159, 41352120 ####[facility] (DEFAULT)[address] [place] [address] 30335 Cholesterol in LDL Calc [Mas s/Vol]on 11-09-2023 Cholesterol in LDL [Mass/Vol] 66 mg/dL 1-100 [facility] Cholesterol in VLDL Calc [Ma ss/Vol]on 11-09-2023 Cholesterol in VLDL [Mass/Vol] 48 mg/dL 5-40 [facility] Eosinophils/100 WBC Auto (Bl d)on 11-09-2023 Eosinophils/100 WBC (Bld) 7.1 % 0.9-4.0 [facility] Erythrocyte distribution wid th Auto (RBC) [Ratio]on 11-09-2023 Erythrocyte distribution width (RBC) [Ratio] 12.7 % 11.5-15.0 [facility] Estimated glomerular filtrat ion rate (GFR) non- Americanon 11-09-2023 GFR/1.73 sq M.predicted among non-blacks MDRD (S/P/Bld) [Vol rate/Area] mL/min/{1.73_m2} [facility] Globulin Calc (S) [Mass/Vol] on 11-09-2023 Globulin (S) [Mass/Vol] 3.8 g/dL 1.5-4.3 [facility] Hematocrit Auto (Bld) [Volum e fraction]on 11-09-2023 Hematocrit (Bld) [Volume fraction] 44.1 % 34.8-51.9 [facility] Hemoglobin [Mass/volume] in Bloodon 11-09-2023 Hemoglobin (Bld) [Mass/Vol] 15.4 g/dL 11.8-17.7 [facility] Laboratory - Chemistry and C hemistry - challengeon 11-09-2023 Albumin [Mass/Vol] 3.9 g/dL 3.5-5.0 [facility] ALP [Catalytic activity/Vol] 67 U/L 32-91 [facility] ALT [Catalytic activity/Vol] 23.0 U/L 17.0-63.0 [facility] AST [Catalytic activity/Vol] 25 U/L 15-41 [facility] Bilirubin [Mass/Vol] 0.8 mg/dL 0.3-1.2 [facility] Calcium [Mass/Vol] 9.0 mg/dL 8.9-10.3 [facility] Chloride [Moles/Vol] 102 mmol/L 101-111 [facility] Cholesterol [Mass/Vol] 166.0 mg/dL 66.0-200.0 [facility] Cholesterol in HDL [Mass/Vol] 52 mg/dL 40-71 [facility] CO2 [Moles/Vol] 24 mmol/L 21-32 [facility] Creatinine [Mass/Vol] 0.95 mg/dL 0.90-1.30 [facility] GFR/1.73 sq M.predicted MDRD (S/P/Bld) [Vol rate/Area] mL/min/{1.73_m2} [facility] Glucose [Mass/Vol] 105.0 mg/dL 74.0-118.[address] [facility] Potassium [Moles/Vol] 3.9 mmol/L 3.6-5.1 [facility] Protein [Mass/Vol] 7.7 g/dL 6.5-8.1 [facility] Sodium [Moles/Vol] 135.0 mmol/L 136.0-144.0 [facility] Triglyceride [Mass/Vol] 240.0 mg/dL 0.0-150.0 [facility] TSH Qn 3.23 m[IU]/L 0.45-5.33 [facility] Comment on above: General Population ( males and non- females, aged 21-88) 0.45 - 5.33 Females, 1st Trimester 0.05 - 3.70 Females, 2nd Trimester 0.31 - 4.35 Females, 3rd Trimester 0.41 - 5.18 Urea nitrogen [Mass/Vol] 13 mg/dL 8-26 [facility] Urea nitrogen/Creatinine [Mass ratio] 13.6 mg/mg 4.6-16.2 [facility] Leukocytes [#/volume] correc laurie for nucleated erythrocytes in Blood by Automated counon 11-09-2023 WBC corrected for nucl RBC Auto (Bld) [#/Vol] 6.2 x10 3.5-10.5 [facility] Lipid Panel Standardon 11-09 Cholesterol [Mass/Vol] 166.0 mg/dL Normal 66.0-200.0 [facility] Comment on above: Performed By: #### 1 [id number], 39876562, 0531893767, 8052271, 966671602, 88103675 ####[facility] (DEFAULT)[address] [place] [address] Cholesterol in HDL [Mass/Vol] 52 mg/dL Normal 40-71 [facility] Comment on above: Performed By: #### 1 [id number], 15072427, 8005128457, 0242710, 642083092, 63795241 ####[facility] (DEFAULT)[address] [place] [address] 69579 Cholesterol in LDL [Mass/Vol] 66 mg/dL Normal 1-100 [facility] Comment on above: Performed By: #### 1 [id number], 24271368, 9156927356, 0598316, 221797590, 78717531 ####[facility] (DEFAULT)[address] [place] [address] 71869 Cholesterol.total/Thania sterol in HDL [Mass ratio] 3.1 {ratio} Normal 0.0-4.5 [facility] Comment on above: Performed By: #### 1 [id number], 79458697, 1813273819, 5209260, 841036445, 80700645 ####[facility] (DEFAULT)[address] [place] [address] 54672 Triglyceride [Mass/Vol] 240.0 mg/dL High 0.0-150.0 [facility] Comment on above: Performed By: #### 1 [id number], 45395535, 7378003050, 7051148, 636365997, 17089122 ####[facility] (DEFAULT)[address] [place] [address] VLDL. 48 mg/dL High 5-40 [facility] Comment on above: Performed By: #### 1 097887287, 73724977, 3379882120, 2792262, 987788510, 23423355 ####[facility] (DEFAULT)[address] [place] [address] 07016 Lymphocytes Auto (Bld) [#/Vo l]on 11-09-2023 Lymphocytes (Bld) [#/Vol] 1.5 x10 1.3-2.9 [facility] Lymphocytes/100 WBC Auto (Bl d)on 11-09-2023 Lymphocytes/100 WBC (Bld) 25 % 1448 [facility] MCH Auto (RBC) [Entitic mass ]on 11-09-2023 MCH (RBC) [Entitic mass] 34 pg 2434 [facility] MCHC Auto (RBC) [Mass/Vol]on 11-09-2023 MCHC (RBC) [Mass/Vol] 35 g/dL 26-37 [facility] MCV Auto (RBC) [Entitic vol] on 11-09-2023 MCV (RBC) [Entitic vol] 96 fL 81-100 [facility] Microalb/Creat Ratioon 11-09 U Creatinine 95.71 mg/dL Invalid Interpretation Code [facility] Comment on above: Performed By: #### 2 [id number] ####[facility] (DEFAULT)[address] [place] [address] 53486 U Micro Albumin 5.7 mcg/mL Normal 0.0-18.9 [facility] Comment on above: Performed By: #### 2 [id number] ####[facility] (DEFAULT)[address] [place] [address] 96716 U Micro/Creat 6 mcg/mg Normal 0-30 [facility] Comment on above: Performed By: #### 2 [id number] ####[facility] (DEFAULT)[address] [place] [address] 42657 Monocytes Auto (Bld) [#/Vol] on 11-09-2023 Monocytes (Bld) [#/Vol] 0.7 x10 0.0-0.8 [facility] Monocytes/100 WBC Auto (Bld) on 11-09-2023 Monocytes/100 WBC (Bld) 10 % 1-12 [facility] Neutrophils Auto (Bld) [#/Vo l]on 11-09-2023 Neutrophils (Bld) [#/Vol] 3.6 x10 1.5-9.2 [facility] Neutrophils/100 WBC Auto (Bl d)on 11-09-2023 Neutrophils/100 WBC (Bld) 57 % 44-88 [facility] No Panel Informationon 11-09 Urine Microalbumin mg/dl 5.7 mcg/mL 0.0-18.9 [facility] Urine Random Creatinine 95.71 mg/dL [facility] Add Manual Differential Auto Auto [facility] Eosinophils # (Auto) 0.4 x10 0.0-0.4 [facility] Free Prostate Specific Antigen <0.02 ng/mL N/A [facility] Comment on above: Farhat ECLIA methodol ogy.Performed At: [facility], [place] [place], [place] [id number] Vincent PhD Ph:[phone] Osmolality 270 mOsm/L [facility] Prostate Specific Antigen Total <0.1 ng/mL 0.0-4.0 [facility] Comment on above: Farhat ECLIA methodol ogy.According to the [employer], Serum PSAshould decrease and remain [...] volume (Bld) [Entitic vol] 7.7 fL 6.3-10.2 [facility] Platelets Auto (Bld) [#/Vol] on 11-09-2023 Platelets (Bld) [#/Vol] 314 x10 138-427 [facility] Provider Orderson 11-09-2023 Provider Orders [id number] [facility] RBC Auto (Bld) [#/Vol]on RBC (Bld) [#/Vol] 4.58 x10 3.70-5.30 [facility] Serum or plasma albumin/glob ulin mass ratioon 11-09-2023 Albumin/Globulin [Mass ratio] 1.0 {ratio} 1.4-2.6 [facility] Serum or plasma anion gap de terminationon 11-09-2023 Anion gap [Moles/Vol] 12.9 mmol/L 5.0-19.0 [facility] Serum or plasma free prostat e specific antigen (PSA)/total PSA ratioon 11-09-2023 Free PSA/Total PSA [Mass fraction] Analyte Not Required % [facility] Comment on above: Unable to calculate result [...] in HDL [Mass ratio] 3.1 {ratio} 0.0-4.5 [facility] TSH w/ Reflex to FT4on 11-09 TSH Qn 3.23 m[IU]/L Normal 0.45-5.33 [facility] Comment on above: Result Comment: Gene ral Population (males and non- females, aged 21-88) 0.45 - 5.33 Females, 1st Trimester 0.05 - 3.70 Females, 2nd Trimester 0.31 - 4.35 Females, 3rd Trimester 0.41 - 5.18 Performed By: #### 1 [id number], 01279585, 4097136414, 2583263, 075302613, 23542366 ####[facility] (DEFAULT)[address] [place] [address] Urine microalbumin/creatinin e mass ratioon 11-09-2023 Albumin/Creatinine DL <= 20 mg/L (U) [Mass ratio] 6 mcg/mg 0-30 [facility] XR shoulder RT min 2V*on XR shoulder RT min 2V* [facility] Main [address] [address] XRay Report Signed Patient: Conchis Andrews MR#: [id number] : 1960 Acct:[id number] Age/Sex: 63 / M ADM Date: 04/30/23 [facility] Attending Dr: Andrew Shen DO Copies to: [...] Chrissie Pfeiffer M.D.04/30/2023 2:29 PM Dictation Location: [facility]--10 Transcribed By: [facility] 04/30/23 142 Dictated By: Chrissie Pfeiffer MD 04/30/231426 Signed By: 04/30/23 142 Normal [facility] Basic Metabolic PanelOrdered By: Nathan Proctor on 08-29-2019 Anion gap [Moles/Vol] 10 mmol/L 9 - 17 mmol/L [employer] Work Phone: Bun/Cre Ratio 13 [employer] Work Phone: Calcium [Mass/Vol] 8.6 mg/dL 8.6 - 10. 4 mg/dL [employer] Phone: Chloride [Moles/Vol] 102 mmol/L 98 - 10 7 mmol/L [employer] Phone: CO2 [Moles/Vol] 26 mmol/L 20 - 31 mmol/L [employer] Work Phone: Creatinine [Mass/Vol] 1.05 mg/dL 0.7 - 1.2 mg/dL [employer] Phone: GFR >60 >60 mL/min [employer] Phone: GFR Comment [employer] Phone: Comment on above: Average GFR for 50-5 9 years old: 93 mL/min/1.73sq m Chronic Kidney Disease: <60 mL/min/1.73sq m Kidney failure: <15 mL/min/1.73sq m eGFR calculated using average adult body mass. Additional eGFR calculator available at: http://www.[employer]/27 bards_crcl_2011.htm GFR Non- >60 >60 mL/min [employer] Phone: GFR Staging NOT REPORTED [employer] Work Phone: Glucose [Mass/Vol] 132 mg/dL High 70 - 99 mg/dL [employer] Phone: Interpretation and review of laboratory results Abnormal [employer] Phone: Potassium [Moles/Vol] 4.2 mmol/L 3.7 - 5.3 mmol/L [employer] Phone: Sodium [Moles/Vol] 138 mmol/L 135 - 144 mmol/L [employer] Phone: Urea nitrogen [Mass/Vol] 14 mg/dL 6 - 20 mg/dL [employer] Phone: Basic Metabolic Profon 08-29 (cont.) Normal [facility] Comment on above: Result Comment: Aver age GFR for 50-59 years old: 93 mL/min/1.73sq m Chronic Kidney Disease: <60 mL/min/1.73sq m Kidney failure: <15 mL/min/1.73sq m eGFR calculated using average adult body mass. Additional eGFR calculator available at: http://www.[employer]/27 bards_crcl_2011.htm Performed By: #### C BC, BMP #### [facility] [address] [place] [address] Highway Truck Driver: Zhou Blackburn MD Anion gap [Moles/Vol] 10 mmol/L Normal 9-17 [facility] Comment on above: Performed By: #### C BC, BMP #### [facility] [address] [place] [address] Highway Truck Driver: Zhou Blackburn MD BUN/CRE Ratio 13 Normal 9-20 [facility] Comment on above: Performed By: #### C BC, BMP #### [facility] [address] [facility] [place] [address] Highway Truck Driver: Zhou Blackburn MD Calcium [Mass/Vol] 8.6 mg/dL Normal 8.6-10.4 [facility] Comment on above: Performed By: #### C BC, BMP #### [facility] [address] [facility] [place] [address] Highway Truck Driver: Zhou Blackburn MD Chloride [Moles/Vol] 102 mmol/L Normal 98-107 [facility] Comment on above: Performed By: #### C BC, BMP #### [facility] [address] [facility] [place] [address] Highway Truck Driver: Zhou Blackburn MD CO2 [Moles/Vol] 26 mmol/L Normal 20-31 [facility] Comment on above: Performed By: #### C BC, BMP #### [facility] [address] [facility] [address] Highway Truck Driver: Zhou Blackburn MD Creatinine [Mass/Vol] 1.05 mg/dL Normal 0.70-1.20 [facility] Comment on above: Performed By: #### C BC, BMP #### [facility] [address] [place] [address] Highway Truck Driver: Zhou Blackburn MD GFR, Amer >60 Normal >60 [facility] Comment on above: Performed By: #### C BC, BMP #### [facility] [address] [place] [address] Highway Truck Driver: Zhou Blackburn MD GFR,non Amer >60 Normal >60 [facility] Comment on above: Performed By: #### C BC, BMP #### [facility] [address] [place] [address] Highway Truck Driver: Zhou Blackburn MD Glucose [Mass/Vol] 132 mg/dL High 70-99 [facility] Comment on above: Performed By: #### C BC, BMP #### [facility] [address] [place] [address] Highway Truck Driver: Zhou Blackburn MD Potassium [Moles/Vol] 4.2 mmol/L Normal 3.7-5.3 [facility] Comment on above: Performed By: #### C BC, BMP #### [facility] [address] [place] [address] Highway Truck Driver: Zhou Blackburn MD Sodium [Moles/Vol] 138 mmol/L Normal 135-144 [facility] Comment on above: Performed By: #### C BC, BMP #### [facility] [address] [place] [address] Highway Truck Driver: Zhou Blackburn MD Urea nitrogen [Mass/Vol] 14 mg/dL Normal 6-20 [facility] Comment on above: Performed By: #### C BC, BMP #### [facility] [address] [place] [address] Highway Truck Driver: Zhou Blackburn MD Staging: NOT REPORTED Normal [facility] Comment on above: Performed By: #### C BC, BMP #### [facility] [place] [address] Highway Truck Driver: Zhou Blackburn MD CBCon 08-29-2019 Erythrocyte distribution width (RBC) [Ratio] 11.9 % Normal 11.8-14.4 [facility] Comment on above: Performed By: #### C BC, BMP #### [facility] [address] [place] [address]. [place] [address] Highway Truck Driver: Zhou Blackburn MD Hematocrit (Bld) [Volume fraction] 41.2 % Normal 40.7-50.3 [facility] Comment on above: Performed By: #### C BC, BMP #### [facility] [address] [place] [address]. [place] [address] Highway Truck Driver: Zhou Blackburn MD Hemoglobin (Bld) [Mass/Vol] 13.6 g/dL Normal 13.0-17.0 [facility] Comment on above: Performed By: #### C BC, BMP #### [facility] [address] [place] [address]. [place] [address] Highway Truck Driver: Zhou Blackburn MD MCH (RBC) [Entitic mass] 32.9 pg Normal 25.2-33.5 [facility] Comment on above: Performed By: #### C BC, BMP #### [facility] [address] [place] [address]. [place] [address] Highway Truck Driver: Zhou Blackburn MD MCHC (RBC) [Mass/Vol] 33.0 g/dL Normal 28.4-34.8 [facility] Comment on above: Performed By: #### C BC, BMP #### [facility] [address] [place], [place] [address], [place] [address] Highway Truck Driver: Zhou Blackburn MD MCV (RBC) [Entitic vol] 99.8 fL Normal 82.6-102.9 [facility] [facility] Comment on above: Performed By: #### C MATEUS, BMP #### [facility] [address] [place], [place] [address] [address] Highway Truck Driver: Zhou Blackburn MD NRBC Automated 0.0 per 100 WBC Normal 0.0 [facility] Comment on above: Performed By: #### C MATEUS, BMP #### [facility] [address] [place], [place] [address]ia [facility] [address] Highway Truck Driver: Zhou Blackburn MD Platelet mean volume (Bld) [Entitic vol] 10.1 fL Normal 8.1-13.5 [facility] Comment on above: Performed By: #### C MATEUS, BMP #### [facility] [address] [place], [place] [address]ia [facility] [address] Highway Truck Driver: Zhou Blackburn MD Platelets (Bld) [#/Vol] 245 10*3/uL Normal 138-453 [facility] Comment on above: Performed By: #### Krys IGNACIO, BMP #### [facility] [address] [place] [address]. [place] [address] Highway Truck Driver: Zhou Blackburn MD RBC (Bld) [#/Vol] 4.13 10*6/uL Low 4.21-5.77 [facility] Comment on above: Performed By: #### C MATEUS, BMP #### [facility] [address] [place], [place] [address]ia [facility] [address] Highway Truck Driver: Zhou Blackburn MD WBC (Bld) [#/Vol] 19.3 10*3/uL High 3.5-11.3 [facility] Comment on above: Performed By: #### C MATEUS, BMP #### [employer] [facility] [address] [place] [address] Highway Truck Driver: Zhou Blackburn MD CBCOrdered By: Nathan Proctor on 08-29-2019 Erythrocyte distribution width (RBC) [Ratio] 11.9 % 11.8 - 14.4 % [employer] Phone: Hematocrit (Bld) [Volume fraction] 41.2 % 40.7 - 50.3 % [employer] Phone: Hemoglobin (Bld) [Mass/Vol] 13.6 g/dL 13 - 17 g/dL [employer] Phone: Interpretation and review of laboratory results Abnormal [employer] Phone: MCH (RBC) [Entitic mass] 32.9 pg 25.2 - 33.5 pg [employer] Phone: MCHC (RBC) [Mass/Vol] 33.0 g/dL 28.4 - 34.8 g/dL [employer] Phone: MCV (RBC) [Entitic vol] 99.8 fL 82.6 - 102.9 fL [employer] Phone: NRBC Automated 0.0 0.0 per 100 WBC [employer] Phone: Platelet mean volume (Bld) [Entitic vol] 10.1 fL 8.1 - 13.5 fL [employer] Phone: Platelets (Bld) [#/Vol] 245 10*3/uL [employer] Phone: RBC (Bld) [#/Vol] 4.13 10*6/uL Low 4.21 - 5.7 7 m/uL [employer] Phone: WBC (Bld) [#/Vol] 19.3 10*3/uL High [employer] Phone: Basic Metabolic PanelOrdered By: Nathan Proctor on 08-28-2019 Anion gap [Moles/Vol] 15 mmol/L 9 - 17 mmol/L [employer] Phone: Bun/Cre Ratio 15 [employer] Phone: Calcium [Mass/Vol] 8.9 mg/dL 8.6 - 10. 4 mg/dL [employer] Phone: Chloride [Moles/Vol] 99 mmol/L 98 - 10 7 mmol/L [employer] Phone: CO2 [Moles/Vol] 22 mmol/L 20 - 31 mmol/L [employer] Phone: Creatinine [Mass/Vol] 1.06 mg/dL 0.7 - 1.2 mg/dL [employer] Phone: GFR >60 >60 mL/min [employer] Phone: GFR Comment [employer] Phone: Comment on above: Average GFR for 50-5 9 years old: 93 mL/min/1.73sq m Chronic Kidney Disease: <60 mL/min/1.73sq m Kidney failure: <15 mL/min/1.73sq m eGFR calculated using average adult body mass. Additional eGFR calculator available at: http://www.duuin.Fresvii/multiple_crcl_2012.htm GFR Non- >60 >60 mL/min [employer] Phone: GFR Staging NOT REPORTED [employer] Phone: Glucose [Mass/Vol] 154 mg/dL High 70 - 99 mg/dL [employer] Phone: Interpretation and review of laboratory results Abnormal [employer] Phone: Potassium [Moles/Vol] 4.3 mmol/L 3.7 - 5.3 mmol/L [employer] Phone: Sodium [Moles/Vol] 136 mmol/L 135 - 144 mmol/L [facility] Work Phone: Urea nitrogen [Mass/Vol] 16 mg/dL 6 - 20 mg/dL [facility] Work Phone: Basic Metabolic Profon 08-28 (cont.) Normal [facility] Comment on above: Result Comment: Aver age GFR for 50-59 years old: 93 mL/min/1.73sq m Chronic Kidney Disease: <60 mL/min/1.73sq m Kidney failure: <15 mL/min/1.73sq m eGFR calculated using average adult body mass. Additional eGFR calculator available at: http://www.Vivastream/multiple_crcl_2011.htm Performed By: #### C MATEUS, BMP #### [facility] [address] [facility] [place] [address] Highway Truck Driver: Zhou Blackburn MD Anion gap [Moles/Vol] 15 mmol/L Normal 9-17 [facility] Comment on above: Performed By: #### C MATEUS, BMP #### [facility] [address] [facility] [place] [address] Highway Truck Driver: Zhou Blackburn MD BUN/CRE Ratio 15 Normal 9-20 [facility] Comment on above: Performed By: #### C MATEUS, BMP #### [facility] [address] [facility] [place] [address] Highway Truck Driver: Zhou Blackburn MD Calcium [Mass/Vol] 8.9 mg/dL Normal 8.6-10.4 [facility] Comment on above: Performed By: #### C MATEUS, BMP #### [facility] [address] [facility] [place] [address] Highway Truck Driver: Zhou Blackburn MD Chloride [Moles/Vol] 99 mmol/L Normal 98-107 [facility] Comment on above: Performed By: #### C MATEUS, BMP #### [facility] [address] [place] [address] Highway Truck Driver: Zhou Blackburn MD CO2 [Moles/Vol] 22 mmol/L Normal 20-31 [facility] Comment on above: Performed By: #### C BC, BMP #### [facility] [address] [place] [address] Highway Truck Driver: Zhou Blackburn MD Creatinine [Mass/Vol] 1.06 mg/dL Normal 0.70-1.20 [facility] Comment on above: Performed By: #### C BC, BMP #### [facility] [address] [place] [address] Highway Truck Driver: hZou Blackburn MD GFR, Amer >60 Normal >60 [facility] Comment on above: Performed By: #### C BC, BMP #### [facility] [address] [place] [address] Highway Truck Driver: Zhou Blackburn MD GFR,non Amer >60 Normal >60 [facility] Comment on above: Performed By: #### C BC, BMP #### [facility] [address] [place] [address] Highway Truck Driver: Zhou Blackburn MD Glucose [Mass/Vol] 154 mg/dL High 70-99 [facility] Comment on above: Performed By: #### C BC, BMP #### [facility] [address] [place] [address] Highway Truck Driver: Zhou Blackburn MD Potassium [Moles/Vol] 4.3 mmol/L Normal 3.7-5.3 [facility] Comment on above: Performed By: #### C BC, BMP #### [facility] [address] [place] [address] Highway Truck Driver: Zhou Blackburn MD Sodium [Moles/Vol] 136 mmol/L Normal 135-144 [facility] Comment on above: Performed By: #### C BC, BMP #### [facility] [address] [place] [address] Highway Truck Driver: Zhou Blackburn MD Urea nitrogen [Mass/Vol] 16 mg/dL Normal 6-20 [facility] Comment on above: Performed By: #### C BC, BMP #### [facility] [address] [place] [address] Highway Truck Driver: Zhou Blackburn MD Staging: NOT REPORTED Normal [facility] Comment on above: Performed By: #### C BC, BMP #### [facility] [place] [address] Highway Truck Driver: Zhou Blackburn MD CBCon 08-28-2019 Erythrocyte distribution width (RBC) [Ratio] 12.0 % Normal 11.8-14.4 [facility] Comment on above: Performed By: #### C BC, BMP #### [facility] [place] [address] Highway Truck Driver: Zhou Blackburn MD Hematocrit (Bld) [Volume fraction] 44.7 % Normal 40.7-50.3 [facility] Comment on above: Performed By: #### C BC, BMP #### [facility] [place] [address] Highway Truck Driver: Zhou Blackburn MD Hemoglobin (Bld) [Mass/Vol] 15.1 g/dL Normal 13.0-17.0 [facility] Comment on above: Performed By: #### C BC, BMP #### [facility] [place] [address] Highway Truck Driver: Zhou Blackburn MD MCH (RBC) [Entitic mass] 33.2 pg Normal 25.2-33.5 [facility] Comment on above: Performed By: #### C MATEUS, BMP #### [facility] [address] [facility] [place] [address] Highway Truck Driver: Zhou Blackburn MD MCHC (RBC) [Mass/Vol] 33.8 g/dL Normal 28.4-34.8 [facility] Comment on above: Performed By: #### C MATEUS, BMP #### [facility] [address] [place] [address]. [place] [address] Highway Truck Driver: Zhou Blackburn MD MCV (RBC) [Entitic vol] 98.2 fL Normal 82.6-102.9 M [facility] Comment on above: Performed By: #### C MATEUS, BMP #### [facility] [place] [address] Highway Truck Driver: Zhou Blackburn MD NRBC Automated 0.0 per 100 WBC Normal 0.0 [facility] Comment on above: Performed By: #### Krys IGNACIO, BMP #### [facility] [address] [place] [address] [address] Truck Driver: Zhou Blackburn MD Platelet mean volume (Bld) [Entitic vol] 9.9 fL Normal 8.1-13.5 [facility] Comment on above: Performed By: #### C MATEUS, BMP #### [facility] [place] [address] Highway Truck Driver: Zhou Blackburn MD Platelets (Bld) [#/Vol] 264 10*3/uL Normal 138-453 [facility] Comment on above: Performed By: #### Krys IGNACIO, BMP #### [facility] [address] [place], [place] [address] Highway Truck Driver: Zhou Blackburn MD RBC (Bld) [#/Vol] 4.55 10*6/uL Normal 4.21-5.77 [facility] Comment on above: Performed By: #### C BC, BMP #### [facility] [address] [facility] [place], [place] [id number] Highway Truck Driver: Zhou Blackburn MD WBC (Bld) [#/Vol] 11.9 10*3/uL High 3.5-11.3 [facility] Comment on above: Performed By: #### C MATEUS, BMP #### [facility] [address] [facility] [place], [place] [id number] Highway Truck Driver: Zhou Blackburn MD CBCOrdered By: Nathan Proctor on 08-28-2019 Erythrocyte distribution width (RBC) [Ratio] 12.0 % 11.8 - 14.4 % [employer] Phone: Hematocrit (Bld) [Volume fraction] 44.7 % 40.7 - 50.3 % [employer] Phone: Hemoglobin (Bld) [Mass/Vol] 15.1 g/dL 13 - 17 g/dL [employer] Phone: Interpretation and review of laboratory results Abnormal [employer] Phone: MCH (RBC) [Entitic mass] 33.2 pg 25.2 - 33.5 pg [employer] Phone: MCHC (RBC) [Mass/Vol] 33.8 g/dL 28.4 - 34.8 g/dL [employer] Phone: MCV (RBC) [Entitic vol] 98.2 fL 82.6 - 102.9 fL [employer] Phone: NRBC Automated 0.0 0.0 per 100 WBC [employer] Phone: Platelet mean volume (Bld) [Entitic vol] 9.9 fL 8.1 - 13.5 fL [employer] Phone: Platelets (Bld) [#/Vol] 264 10*3/uL [employer] Phone: RBC (Bld) [#/Vol] 4.55 10*6/uL 4.21 - 5.7 7 m/uL [employer] Phone: WBC (Bld) [#/Vol] 11.9 10*3/uL High [employer] Phone: Surgical Pathologyon 019 Surgical Pathology (NOTE) [id number] [employer] [facility] ANATOM[facility] PATHOLOGY [address] [place] [address]. [place], [place] [address] SURGICAL PATHOLOGY CONSULTATION Patient Name: DARRYLCONCHIS [facility] Rec: [id number] Path Number: [id number] Collected: 08/28/2019 Received: 08/31/2019 Reported: 09/01/2019 16:41 [...] DETECTED. Gelacio Hein M.D. Electronically Signed Out [facility]/09/01/2019 Clinical Information Pre-op Diagnosis: PROSTATE CANCER Operative Findings: PROSTATE AND SEMINAL VESICLES; BILATERAL PELVIC LYMPH NODES; NEW RIGHT URETHRAL MARGIN Operation Performed: PROSTATECTOMY LAPAROSCOPIC XI ROBOTIC WITH BILATERAL PELVIC LYMPH NODE DISSECTION Source of Specimen 1: PROSTATE AND SEMINAL VESSICLES 2: BILATERAL PELVIC LYMPH NODES 3: NEW RIGHT URETHRAL MARGIN Gross Description 1. CONCHIS ANDREWS PROSTATE AND SEMINAL VESICLES 32 gram, 4.0 [...] vas deferens and separate fat. 2. CONCHIS ANDREWS, BILATERAL PELVIC LYMPH NODES Fragments of fat, [...] WALL) (pT3b): Negative MARGINS (LOCATION IF POSITIVE): [place], bladder neck, surface margins negative for carcinoma TREATMENT EFFECT ON CARCINOMA: N/A REGIONAL LYMPH NODES -NUMBER OF LYMPH NODES EXAMINED: 4 -NUMBER WITH METASTASIS: 0 DISTANT METASTASIS (pM only if confirmed in this case):N/A PATHOLOGIC STAGE CLASSIFICATION: pT2 pN0 (add TNM descriptors if applicable) Science Manager slides are reviewed by a second Pathologist who concurs with the diagnosis (OMID). CAP Prostate 4041 in conjunction with AJCC 8 ed. Normal [facility] Comment on above: Performed By: #### P PPVS #### [employer] [address] [place] [address] [id number] Truck Driver: Portillo Hein MD Cult,Urine,CCon 08-08-2019 Cult,Urine,CC Specimen Description .CLEAN CATCH URINE Special Requests NOT REPORTED Culture NO GROWTH Report Status FINAL 08/08/2019 Normal [facility] Comment on above: Performed By: #### C TYSON #### [facility] [address] [facility] [place] [address] Highway Truck Driver: Zhou Blackburn MD [id number] Highway Truck Driver: Portillo Hein MD Culture NO GROWTH [place] Special Requests NOT REPORTED [place] Specimen Description .CLEAN CATCH URINE [place], [place] Basic Metabolic Profon 08-07 (cont.) Normal [facility] Comment on above: Result Comment: Aver age GFR for 50-59 years old: 93 mL/min/1.73sq m Chronic Kidney Disease: <60 mL/min/1.73sq m Kidney failure: <15 mL/min/1.73sq m eGFR calculated using average adult body mass. Additional eGFR calculator available at: http://www.Vivastream/multiple_crcl_2012.htm Performed By: #### C BC, BMP #### [facility] [address] [facility] [place] [address] Highway Truck Driver: Zhou Blackburn MD Anion gap [Moles/Vol] 11 mmol/L Normal 9-17 [facility] Comment on above: Performed By: #### C BC, BMP #### [facility] [address] [facility] [address] Highway Truck Driver: Zhou Blackburn MD BUN/CRE Ratio 15 Normal -20 [facility] Comment on above: Performed By: #### C BC, BMP #### [facility] [address] [place] [address] Highway Truck Driver: Zhou Blackburn MD Calcium [Mass/Vol] 9.3 mg/dL Normal 8.6-10.4 [facility] Comment on above: Performed By: #### C BC, BMP #### [facility] [address] [place] [address] Highway Truck Driver: Zhou Blackburn MD Chloride [Moles/Vol] 102 mmol/L Normal 98-107 [facility] Comment on above: Performed By: #### C BC, BMP #### [facility] [address] [place] [address] Highway Truck Driver: Zhou Blackburn MD CO2 [Moles/Vol] 26 mmol/L Normal 20-31 [facility] Comment on above: Performed By: #### C MATEUS, BMP #### [facility] [address] [place] [address] Highway Truck Driver: Zhou Blackburn MD Creatinine [Mass/Vol] 0.89 mg/dL Normal 0.70-1.20 [facility] Comment on above: Performed By: #### C BC, BMP #### [facility] [address] [place] [address] Highway Truck Driver: Zhou Blackburn MD GFR, Amer >60 Normal >60 [facility] Comment on above: Performed By: #### C BC, BMP #### [facility] [address] [place] [address] Highway Truck Driver: Zhou Blackburn MD GFR,non Amer >60 Normal >60 [facility] Comment on above: Performed By: #### C BC, BMP #### [facility] [address] [place] [address] Highway Truck Driver: Zhou Blackburn MD Glucose [Mass/Vol] 89 mg/dL Normal 70-99 [facility] Comment on above: Performed By: #### C BC, BMP #### [facility] [address] [place] [address] Highway Truck Driver: Zhou Blackburn MD Potassium [Moles/Vol] 3.8 mmol/L Normal 3.7-5.3 [facility] Comment on above: Performed By: #### C MATEUS, BMP #### [facility] [address] [place] [address] Highway Truck Driver: Zhou Blackburn MD Sodium [Moles/Vol] 139 mmol/L Normal 135-144 [facility] Comment on above: Performed By: #### C MATEUS, BMP #### [facility] [address] [facility] [place] [address] Highway Truck Driver: Zhou Blackburn MD Urea nitrogen [Mass/Vol] 13 mg/dL Normal 6-20 [facility] Comment on above: Performed By: #### C MATEUS, BMP #### [facility] [address] [facility] [address] Highway Truck Driver: Zhou Blackburn MD Staging: NOT REPORTED Normal [facility] Comment on above: Performed By: #### C MATEUS, BMP #### [facility] [address] [facility] [address] Highway Truck Driver: Zhou Blackburn MD Anion gap [Moles/Vol] 11 mmol/L 9 - 17 mmol/L [place] Bun/Cre Ratio 15 [place] Calcium [Mass/Vol] 9.3 mg/dL 8.6 - 10. 4 mg/dL [place] Chloride [Moles/Vol] 102 mmol/L 98 - 10 7 mmol/L [place] CO2 [Moles/Vol] 26 mmol/L 20 - 31 mmol/L [place] Creatinine [Mass/Vol] 0.89 mg/dL 0.7 - 1.2 mg/dL [place] GFR >60 >60 mL/min [place], [place] GFR Non- >60 >60 mL/min [place] GFR/1.73 sq M predicted among non-blacks MDRD (S/P/Bld) [Vol rate/Area] NOT REPORTED [place] GFR/1.73 sq M predicted among non-blacks MDRD (S/P/Bld) [Vol rate/Area] [place] Comment on above: Average GFR for 50-5 9 years old: 93 mL/min/1.73sq m Chronic Kidney Disease: <60 mL/min/1.73sq m Kidney failure: <15 mL/min/1.73sq m eGFR calculated using average adult body mass. Additional eGFR calculator available at: http://www.Vivastream/multiple_crcl_2011.htm Glucose [Mass/Vol] 89 mg/dL 70 - 99 mg/dL [place] Potassium [Moles/Vol] 3.8 mmol/L 3.7 - 5.3 mmol/L [place] Sodium [Moles/Vol] 139 mmol/L 135 - 144 mmol/L [place] Urea nitrogen [Mass/Vol] 13 mg/dL 6 - 20 mg/dL [place] CBCon 08-07-2019 Erythrocyte distribution width (RBC) [Ratio] 12.4 % Normal 11.8-14.4 [facility] Comment on above: Performed By: #### C BC, BMP #### [facility] [address] [facility] [place], [place] [id number] Highway Truck Driver: Zhou Blackburn MD Hematocrit (Bld) [Volume fraction] 43.7 % Normal 40.7-50.3 [facility] Comment on above: Performed By: #### C BC, BMP #### [facility] [address] [facility] [place], [place] [id number] Highway Truck Driver: Zhou Blackburn MD Hemoglobin (Bld) [Mass/Vol] 14.9 g/dL Normal 13.0-17.0 [facility] Comment on above: Performed By: #### C MATEUS, BMP #### [facility] [address] [facility] [place] [address] Highway Truck Driver: Zhou Blackburn MD MCH (RBC) [Entitic mass] 33.3 pg Normal 25.2-33.5 [facility] Comment on above: Performed By: #### C MATEUS, BMP #### [facility] [place] [address] Highway Truck Driver: Zhou Blackburn MD MCHC (RBC) [Mass/Vol] 34.1 g/dL Normal 28.4-34.8 [facility] Comment on above: Performed By: #### C MATEUS, BMP #### [facility] [address] [place] [address]. [place] [address] Highway Truck Driver: Zhou Blackburn MD MCV (RBC) [Entitic vol] 97.8 fL Normal 82.6-102.9 [facility] Comment on above: Performed By: #### C MATEUS, BMP #### [facility] [address] [place] [address]. [place] [address] Highway Truck Driver: Zhou Blacbkurn MD NRBC Automated 0.0 per 100 WBC Normal 0.0 [facility] Comment on above: Performed By: #### C MATEUS, BMP #### [facility] [address] [place] [address]. [place] [address] Highway Truck Driver: Zhou Blackburn MD Platelet mean volume (Bld) [Entitic vol] 9.9 fL Normal 8.1-13.5 [facility] Comment on above: Performed By: #### C MATEUS, BMP #### [facility] [address] [place], [place] [address], [place] [address] Highway Truck Driver: Zhou Blackburn MD Platelets (Bld) [#/Vol] 273 10*3/uL Normal 138-453 [facility] Comment on above: Performed By: #### Krys IGNACIO, BMP #### [facility] [address] [place] [address] Highway Truck Driver: Zhou Blackburn MD RBC (Bld) [#/Vol] 4.47 10*6/uL Normal 4.21-5.77 [facility] Comment on above: Performed By: #### Krys IGNACIO, BMP #### [facility] [address] [place] [address] Highway Truck Driver: Zhou Blackburn MD WBC (Bld) [#/Vol] 7.6 10*3/uL Normal 3.5-11.3 [facility] Comment on above: Performed By: #### Krys IGNACIO, BMP #### [facility] [address] [place] [address] Highway Truck Driver: Zhou Blackburn MD Erythrocyte distribution width (RBC) [Ratio] 12.4 % 11.8 - 14.4 % [place] Hematocrit (Bld) [Volume fraction] 43.7 % 40.7 - 50.3 % [place] Hemoglobin (Bld) [Mass/Vol] 14.9 g/dL 13 - 17 g/dL [place] MCH (RBC) [Entitic mass] 33.3 pg 25.2 - 33.5 pg [place] MCHC (RBC) [Mass/Vol] 34.1 g/dL 28.4 - 34.8 g/dL [place] MCV (RBC) [Entitic vol] 97.8 fL 82.6 - 102.9 fL [place] Platelet mean volume (Bld) [Entitic vol] 9.9 fL 8.1 - 13.5 fL [place] Platelets (Bld) [#/Vol] 273 10*3/uL [place] RBC (Bld) [#/Vol] 4.47 10*6/uL 4.21 - 5.7 7 m/uL [place] WBC (Bld) [#/Vol] 7.6 10*3/uL [place] WBC (Bld) [#/Vol] 0.0 10*3/uL 0.0 per 10 0 WBC [place] TYPE AND SCREENon 08-07-2019 ABO/Rh Positive [place], [place] Arm Band Number BE [id number] [place] Expiration Date 08/31/2019,235 [place], [place] Type + Screenon 08-07-2019 Type + Screen Sample Expiration 08/31/2019,235 Arm Band Number BE [id number] ABO/Rh(D) O POSITIVE Antibody Screen NEGATIVE Normal [facility] Comment on above: Performed By: #### T YS #### [facility] [address] [facility] [place] [address] Highway Truck Driver: Zhou Blackburn MD Urinalysis, Routineon 2018 Acetoacetic Acid,Ur Negative Normal NEG [facility] Comment on above: Performed By: #### U A #### [facility] [address] [facility] [place] [address] Highway Truck Driver: Zhou Blackburn MD Bilirubin, SemiQt,Ur Negative Normal NEG [facility] Comment on above: Performed By: #### U A #### [facility] [address] [facility] [place] [address] Highway Truck Driver: Zhou Blackburn MD Color (U) YELLOW Normal YEL [facility] Comment on above: Performed By: #### U A #### [facility] [address] [facility] [place], [place] [id number] Highway Truck Driver: Zhou Blackburn MD Comment Microscopic exam not performed based on chemical results unless requested in Normal [facility] Comment on above: Result Comment: orig inal order. Performed By: #### U A #### [facility] [address] [place] [address] Highway Truck Driver: Zhou Blackburn MD Glucose Ql (U) Negative Normal NEG [facility] Comment on above: Performed By: #### U A #### [facility] [address] [place] [address] Highway Truck Driver: Zhou Blackburn MD Hemoglobin, Ur Negative Normal NEG [facility] Comment on above: Performed By: #### U A #### [facility] [address] [place] [address] Highway Truck Driver: Zhuo Blackburn MD Leukocyte esterase Test strip Ql (U) Negative Normal NEG [facility] Comment on above: Performed By: #### U A #### [facility] [address] [place] [address] Highway Truck Driver: Zhou Blackburn MD Nitrite,Ur Negative Normal NEG [facility] Comment on above: Performed By: #### U A #### [facility] [address] [place] [address] Highway Truck Driver: Zhou Blackburn MD pH (U) 6.0 [pH] Normal 5.0-8.0 [facility] Comment on above: Performed By: #### U A #### [facility] [address] [place] [address] Highway Truck Driver: Zhou Blackburn MD Protein Ql (U) Negative Normal NEG [facility] Comment on above: Performed By: #### U A #### [facility] [address] [place], [place] [id number] Highway Truck Driver: Zhou Blackburn MD Specific gravity (U) [Rel density] 1.020 Normal 1.005-1.030 [facility] Comment on above: Performed By: #### U A #### [facility] [address] [facility] [place] [address] Highway Truck Driver: Zhou Blackburn MD Turbidity CLEAR Normal CLEAR [facility] Comment on above: Performed By: #### U A #### [facility] [address] [facility] [place] [address] Highway Truck Driver: Zhou Blackburn MD Urobilinogen,Ur Normal Normal NORM [facility] Comment on above: Performed By: #### U A #### [facility] [address] [facility] [place] [address] Highway Truck Driver: Zhou Blackburn MD Bilirubin Urine Negative NEGATIVE [facility] [place] Color, UA YELLOW YELLOW [facility] Glucose, Ur Negative NEGATIVE [facility] Ketones Ql (U) Negative NEGATIVE [facility] Leukocyte esterase Test strip Ql (U) Negative NEGATIVE [facility] Nitrite, Urine Negative NEGATIVE [facility] pH, UA 6.0 [facility] [place] Protein (U) [Mass/Vol] Negative NEGATIVE [facility] [place] Specific [place], UA 1.020 [facility] Turbidity UA CLEAR CLEAR [facility] [place] Urinalysis Comments Microscopic exam not performed based on chemical results unless requested in original order. [facility] [place] Urine Hgb Negative NEGATIVE [facility] Urobilinogen, Urine Normal Normal [facility] Vital Signs Date Time Vital Sign Value Performing Clinician Facility 07-29-2024 10:59-0500 Body height 180.3 cm Ольга Paige DPM Work Phone: [facility] 07-29-2024 10:59-0500 Body mass index (BMI) [Ratio] 26.22 kg/m2 Ольга Paige DPM Work Phone: [facility] 07-29-2024 10:59-0500 Body weight 85.28 kg Ольга Paige DPM Work Phone: [facility] 02-05-2024 13:30-0400 Diastolic blood pressure 63 mm[Hg] DO Andrew Moorecki Work Phone: [facility] 02-05-2024 13:30-0400 Heart rate 60 /min DO Andrew Moorecki Work Phone: [facility] 02-05-2024 13:30-0400 Respiratory rate 16 /min DO Andrew Moorecki Work Phone: [facility] 02-05-2024 13:30-0400 SaO2% (BldA) [Mass fraction] 96 % DO Andrew Moorecki Work Phone: [facility] 02-05-2024 13:30-0400 Systolic blood pressure 120 mm[Hg] DO Andrew Moorecki Work Phone: [facility] 02-05-2024 12:22-0400 Body temperature 97.2 [degF] DO Andrew Moorecki Work Phone: [facility] 02-05-2024 12:22-0400 Inhaled oxygen flow rate 6 L/min DO Andrew Moorecki Work Phone: [facility] 02-05-2024 10:36-0400 Body height 180.34 cm DO Andrew Teresacki Work Phone: [facility] 02-05-2024 10:36-0400 Body mass index (BMI) [Ratio] 25.4 kg/m2 DO Andrew Branmynorcki Work Phone: [facility] 02-05-2024 10:36-0400 Body weight 82.6 kg DO Andrew Teresacki Work Phone: [facility] 01-20-2024 08:56-0400 Body height 180.34 cm DO Andrew Moorecki Work Phone: [facility] 01-20-2024 08:56-0400 Body mass index (BMI) [Ratio] 24.7 kg/m2 DO Andrew Branmynorcki Work Phone: [facility] 01-20-2024 08:56-0400 Body weight 80.28 kg DO Andrew Branmynorcki Work Phone: [facility] 12-25-2023 10:19-0400 Body height 180.34 cm DO Andrew Branmynorcki Work Phone: [facility] 12-25-2023 10:19-0400 Body mass index (BMI) [Ratio] 24.7 kg/m2 DO Andrew Moorecki Work Phone: [facility] 12-25-2023 10:19-0400 Body weight 80.28 kg DO Andrew Moorecki Work Phone: [facility] 12-25-2023 10:19-0400 Diastolic blood pressure 66 mm[Hg] DO Andrewwil Moorecki Work Phone: [facility] 12-25-2023 10:19-0400 Heart rate 87 /min DO Andrew Moorecki Work Phone: [facility] 12-25-2023 10:19-0400 SaO2% (BldA) [Mass fraction] 96 % DO Andrewwil Moroecki Work Phone: [facility] 12-25-2023 10:19-0400 Systolic blood pressure 103 mm[Hg] DO Andrew Braniecki Work Phone: [facility] 10-30-2023 15:26-0500 Body height 180.34 cm DO Andrew Branmynorcki Work Phone: [facility] 10-30-2023 15:26-0500 Body mass index (BMI) [Ratio] 26.4 kg/m2 DO Andrew Shen Work Phone: [facility] 10-30-2023 15:26-0500 Body weight 86.18 kg DO Andrew Shen Work Phone: [facility] 10-30-2023 15:26-0500 Diastolic blood pressure 86 mm[Hg] DO Andrew Shen Work Phone: [facility] 10-30-2023 15:26-0500 Respiratory rate 18 /min DO Andrew Shen Work Phone: [facility] 10-30-2023 15:26-0500 SaO2% (BldA) [Mass fraction] 97 % DO Andrew Shen Work Phone: [facility] 10-30-2023 15:26-0500 Systolic blood pressure 137 mm[Hg] DO Andrew Shen Work Phone: [facility] 04-30-2023 08:45-0400 Body height 180.34 cm Andrew Shen Other [facility] Other 04-30-2023 08:45-0400 Body mass index (BMI) [Ratio] 26.22 kg/m2 Andrew Shen Other [employer] Other 04-30-2023 08:45-0400 Body weight 85.28 kg Andrew Shen Other [employer] Other 04-30-2023 08:45-0400 Diastolic blood pressure 84 mm[Hg] Andrew Shen Other [employer] Other 04-30-2023 08:45-0400 Respiratory rate 18 /min Andrew Shen Other [employer] Other 04-30-2023 08:45-0400 SaO2% (BldA) [Mass fraction] 100 % Andrew Shen Other [employer] Other 04-30-2023 08:45-0400 Systolic blood pressure 130 mm[Hg] Andrew Shen Other [employer] Other 10-29-2022 16:00-0500 Body height 180.34 cm Andrew Shen Other [employer] Other 10-29-2022 16:00-0500 Body mass index (BMI) [Ratio] 26.64 kg/m2 Andrew Shen Other [employer] Other 10-29-2022 16:00-0500 Body weight 86.64 kg Andrew Shen Other [employer] Other 10-29-2022 16:00-0500 Diastolic blood pressure 86 mm[Hg] Andrew Shen Other [employer] Other 10-29-2022 16:00-0500 Respiratory rate 16 /min Andrew Shen Other [employer] Other 10-29-2022 16:00-0500 SaO2% (BldA) [Mass fraction] 99 % Andrew Shen Other [employer] Other 10-29-2022 16:00-0500 Systolic blood pressure 138 mm[Hg] Andrew Mooretamelatwni Other [employer] Other 10-01-2022 15:30-0500 Body height 180.34 cm Kai Olexa Other [employer] Other 10-01-2022 15:30-0500 Body mass index (BMI) [Ratio] 26.22 kg/m2 Kai Olexa Other [employer] Other 10-01-2022 15:30-0500 Body weight 85.28 kg Kai Olexa Other [employer] Other 05-02-2022 16:00-0400 Body height 180.34 cm Andrew Shruti Other [employer] Other 02-28-2022 16:00-0400 Body height 180.34 cm Andrew Shruti Other [employer] Other 02-28-2022 16:00-0400 Body mass index (BMI) [Ratio] 26.22 kg/m2 Andrew Shruti Other [employer] Other 02-28-2022 16:00-0400 Body weight 85.28 kg Andrew Samaniegohossein Other [employer] Other 02-28-2022 16:00-0400 Diastolic blood pressure 82 mm[Hg] Andrew Shruti Other [employer] Other 02-28-2022 16:00-0400 Respiratory rate 18 /min Andrew Samaniegohossein Other [employer] Other 02-28-2022 16:00-0400 SaO2% (BldA) [Mass fraction] 98 % Andrew Shruti Other [employer] Other 02-28-2022 16:00-0400 Systolic blood pressure 130 mm[Hg] Andrew Shen Other [employer] Other 01-30-2022 16:30-0400 Body height 180.34 cm Andrew Shen Other [employer] Other 01-30-2022 16:30-0400 Body mass index (BMI) [Ratio] 26.36 kg/m2 Andrew Shen Other [employer] Other 01-30-2022 16:30-0400 Body temperature 98.5 [degF] Andrew Shen Other [employer] Other 01-30-2022 16:30-0400 Body weight 85.73 kg Andrew Shen Other [employer] Other 01-30-2022 16:30-0400 Diastolic blood pressure 94 mm[Hg] Andrew Shen Other [employer] Other 01-30-2022 16:30-0400 Respiratory rate 18 /min Andrew Shen Other [employer] Other 01-30-2022 16:30-0400 SaO2% (BldA) [Mass fraction] 97 % Andrew Shen Other [employer] Other 01-30-2022 16:30-0400 Systolic blood pressure 155 mm[Hg] Andrew Shen Other [employer] Other 08-14-2021 11:30-0500 Body height 180.34 cm Andrew Shen Other [employer] Other 08-14-2021 11:30-0500 Body mass index (BMI) [Ratio] 26.64 kg/m2 Andrew Shen Other [employer] Other 08-14-2021 11:30-0500 Body weight 86.64 kg Andrew Shen Other [employer] Other 08-14-2021 11:30-0500 Diastolic blood pressure 86 mm[Hg] Andrew Shen Other [employer] Other 08-14-2021 11:30-0500 Respiratory rate 20 /min Andrew Shen Other [employer] Other 08-14-2021 11:30-0500 SaO2% (BldA) [Mass fraction] 99 % Andrew Shen Other [employer] Other 08-14-2021 11:30-0500 Systolic blood pressure 120 mm[Hg] Andrew Shen Other [employer] Other 08-29-2019 07:24-0500 Body temperature 97.9 [degF] Nathan Proctor MD Work Phone: [employer] Phone: 08-29-2019 07:24-0500 Diastolic blood pressure 68 mm[Hg] Nathan Proctor MD Work Phone: [employer] Phone: 08-29-2019 07:24-0500 Heart rate 57 /min Nathan Proctor MD Work Phone: [employer] Phone: 08-29-2019 07:24-0500 Respiratory rate 16 /min Nathan Proctor MD Work Phone: [employer] Work Phone: 08-29-2019 07:24-0500 SaO2% (BldA) [Mass fraction] 98 % Nathan Proctor MD Work Phone: [employer] Work Phone: 08-29-2019 07:24-0500 Systolic blood pressure 128 mm[Hg] Nathan Proctor MD Work Phone: [employer] Work Phone: 08-28-2019 18:16-0500 Body height 180.3 cm Nathan Proctor MD Work Phone: [employer] Work Phone: 08-28-2019 18:16-0500 Body mass index (BMI) [Ratio] 26.62 kg/m2 Nathan Proctor MD Work Phone: [employer] Work Phone: 08-28-2019 18:16-0500 Body weight 86.58 kg Nathan Proctor MD Work Phone: [employer] Work Phone: 08-07-2019 10:30-0500 BMI (Body Mass Index) 26.63 kg/m2 [address] [place] 08-07-2019 10:30-0500 Body weight 86.[address] [place] 08-07-2019 10:30-0500 BP Diastolic 78 mm[Hg] [address] [place] 08-07-2019 10:30-0500 BP Systolic 140 mm[Hg] [address] 08-07-2019 10:30-0500 Height 180.[address] 08-07-2019 10:30-0500 Pulse (Heart Rate) 58 /min [address] 08-07-2019 10:30-0500 Pulse Oximetry 100 % [address] 08-07-2019 10:30-0500 Respiratory Rate 16 /min Sta 1 [facility] [place] Encounters Encounter Date Encounter Type Care Provider Facility Start: 08-20-2024 End: 08-20-2024 ambulatory Henri Gutierrez Facility:[facility] Start: 07-29-2024 End: 07-29-2024 Bamboo flowsheet Ольга Paige DPM Work Phone: [facility] Start: 07-29-2024 End: 07-29-2024 Bamboo flowsheet Ольга Paige DPM Work Phone: [facility] Start: 07-29-2024 End: 07-29-2024 ambulatory ОЛЬГА PAIGE Not Available Start: 07-29-2024 End: 07-29-2024 ambulatory ОЛЬГА PAIGE Not Available Start: 07-29-2024 End: 07-29-2024 Office outpatient new 45 minutes Ольга Paige DPM Work Phone: [facility] Comment on above: Primary osteoarthrit is of left ankle (Primary Dx); Pain and swelling of left ankle; Acquired talipes varus of left foot; Difficulty walking Start: 02-06-2024 End: 03-25-2024 ambulatory MD Kai Muse Facility:[facility] Start: 02-05-2024 End: 02-05-2024 Admission to same day surgery center DO Andrew Shen Work Phone: [facility] [place] Start: 02-05-2024 End: 02-05-2024 ambulatory DO Andrew Shen Work Phone: [facility] Work Phone: Start: 01-22-2024 End: 01-22-2024 Patient encounter procedure DO Andrew Shen Work Phone: [facility]Pre[facility] Work Phone: Start: 01-22-2024 End: 01-22-2024 ambulatory DO Andrew Shen Work Phone: [facility] Work Phone: Start: 01-22-2024 Encounter for preprocedural laboratory examination Kai Muse [facility] Start: 01-20-2024 End: 01-20-2024 Patient encounter procedure DO Andrew Mooretamelatwin Work Phone: [facility] Work Phone: Start: 01-10-2024 End: 01-10-2024 ambulatory MD Kai Muse Facility:[facility] Start: 01-07-2024 End: 01-07-2024 ambulatory DO Andrew Mooretamelatwin Work Phone: [facility] Work Phone: Start: 01-07-2024 End: 01-07-2024 Patient encounter procedure DO Andrew Mooretamelatwin Work Phone: [facility] Work Phone: Start: 12-25-2023 End: 12-25-2023 Patient encounter procedure DO Andrew Mooretamelatwin Work Phone: [facility] Work Phone: Start: 11-14-2023 Non-patient / Non-visit DO Mat thew Braniecki Work Phone: [facility] Work Phone: Start: 11-09-2023 Non-patient / Non-visit DO Mat thew Braniecki Work Phone: [facility] Work Phone: Start: 11-09-2023 End: 11-09-2023 ambulatory ANDREW SHEN Facility:[facility] Start: 10-30-2023 End: 10-30-2023 Encounter for general adult medical examination without abnormal findings DO Andrew Shen Work Phone: [facility] Start: 10-30-2023 End: 10-30-2023 Patient encounter procedure DO Andrew Shen Work Phone: [facility] Work Phone: Start: 10-23-2023 Non-patient / Non-visit DO Jerald Shen Work Phone: [facility] Work Phone: Start: 04-30-2023 Office outpatient vi sit 25 minutes Andrew Mooreyue [facility] Start: 04-30-2023 End: 04-30-2023 ambulatory Andrew Samaniegogladystwin [place] [email or web address] Other Start: 10-29-2022 End: 10-29-2022 ambulatory Andrew Mooretamelatwin Other [employer] Other Start: 10-29-2022 Encounter for genera l adult medical examination without abnormal findings Andrew Samaniegohossein [facility] Start: 10-29-2022 Periodic preventive med est patient 40-64yrs Andrew Samaniegogladystwin [facility] Start: 10-29-2022 Telephone encounter Andrew Salazar i [facility] Start: 10-16-2022 End: 10-16-2022 ambulatory Andrew Mooretamelatwin Other [employer] Other Start: 10-16-2022 Telephone encounter Andrew Salazar i [facility] Start: 10-01-2022 End: 10-01-2022 ambulatory Kai Muse Other [employer] Other Start: 10-01-2022 Office outpatient vi sit [address] [facility] Start: 09-18-2022 End: 09-18-2022 ambulatory Andrew Samaniegohossein Other [employer] Other Start: 09-18-2022 Telephone encounter Andrew Salazar i [facility] Start: 09-04-2022 End: 09-04-2022 ambulatory Kai Chowdhurytana Other [employer] Other Start: 09-04-2022 Telephone encounter Kai Chowdhurytana [facility] Start: 08-17-2022 End: 08-17-2022 ambulatory Andrew Shen Other [employer] Other Start: 08-17-2022 Telephone encounter Andrew Salazar i [facility] Start: 05-02-2022 End: 05-02-2022 ambulatory Andrew Shen Other [employer] Other Start: 05-02-2022 Nursing evaluation o f patient and report Andrew Shen [facility] Start: 04-20-2022 End: 04-20-2022 ambulatory Andrew Shen Other [employer] Other Start: 04-20-2022 Telephone encounter Andrew Salazar i [facility] Start: 03-22-2022 End: 03-22-2022 ambulatory Andrew Shen Other [employer] Other Start: 03-22-2022 Telephone encounter Andrew Salazar i [facility] Start: 03-20-2022 End: 03-20-2022 ambulatory Andrew Shen Other [employer] Other Start: 03-20-2022 Telephone encounter Andrew Salazar i [facility] Start: 03-15-2022 End: 03-15-2022 ambulatory Andrew Shen Other [employer] Other Start: 03-15-2022 Telephone encounter Andrew Salazar i [facility] Start: 03-14-2022 End: 03-14-2022 ambulatory Andrew Shen Other [employer] Other Start: 03-14-2022 Telephone encounter Andrew Salazar i [facility] Start: 02-28-2022 End: 02-28-2022 ambulatory Andrew Shen Other [employer] Other Start: 02-28-2022 Office outpatient vi sit 15 minutes Andrew Shen [facility] Start: 02-19-2022 End: 02-19-2022 ambulatory Andrew Shen Other [employer] Other Start: 02-19-2022 Telephone encounter Anderw Salazar i [facility] Start: 01-30-2022 End: 01-30-2022 ambulatory Andrew Shen Other [employer] Other Start: 01-30-2022 Office outpatient vi sit 25 minutes Andrew Shen [facility] Start: 01-08-2022 End: 01-08-2022 ambulatory Andrew Shen Other [employer] Other Start: 01-08-2022 Telephone encounter Andrew Salazar i [facility] Start: 08-31-2021 End: 08-31-2021 ambulatory Andrew Shen Other [employer] Other Start: 08-31-2021 Telephone encounter Andrew Salazar i [email or web address] Start: 08-14-2021 End: 08-14-2021 ambulatory Andrew Shen Other [employer] Other Start: 08-14-2021 Encounter for genera l adult medical examination without abnormal findings Andrew Shen [facility] Start: 08-14-2021 Periodic preventive med est patient 40-64yrs Andrew Shen [facility] Start: 08-28-2019 End: 08-29-2019 Patient encounter procedure NATHAN PROCTOR [facility] Start: 08-28-2019 End: 08-29-2019 Subsequent hospital visit by physician Nathan Proctor MD Work Phone: [facility] Comment on above: Prostate cancer (HCC ) (Primary Dx) Start: 08-07-2019 End: 08-12-2019 Patient encounter procedure NATHAN PROCTOR [facility] Start: 08-07-2019 End: 08-11-2019 Subsequent hospital visit by physician Diana Martinez [facility] TEST[facility] Procedures Date Procedure Procedure Detail Performing Clinician Start: 07-29-2024 Radex ankle complete minimum 3 views Ольга Paige DPM Work Phone: Start: 02-05-2024 Arthroscopy of knee DO Andrew Shen Work Phone: Start: 01-07-2024 X-ray of left knee DO Shawn Shen Work Phone: Start: 08-29-2019 DISCHARGE PATIENT LORI IBARRA PROCTOR Start: 08-29-2019 INITIATE OXYGEN THER APY PROTOCOL NATHAN PROCTOR Start: 08-29-2019 Basic metabolic pane l calcium total NATHAN PROCTOR Start: 08-29-2019 Blood count complete automated NATHAN PROCTOR Start: 08-29-2019 Basic metabolic pane l calcium total Nathan Proctor MD Work Phone: Start: 08-29-2019 INTAKE AND OUTPUT LORI IBARRA DUSTIN Start: 08-28-2019 Basic metabolic pane l calcium total NATHAN PROCTOR Start: 08-28-2019 Blood count complete automated NATHAN PROCTOR Start: 08-28-2019 AMBULATE PATIENT SHERRILL PROCTOR Start: 08-28-2019 DIET GENERAL NATHAN MILLARD CK Start: 08-28-2019 ARMAS/UROLOGY CARE ZOHAIB ANDREWS DUSTIN Start: 08-28-2019 FULL CODE NATHAN MILLARD CK Start: 08-28-2019 Gluc bld gluc mntr d ev cleared fda spec home use NATHAN DUSTIN Start: 08-28-2019 INITIATE OXYGEN THER APY PROTOCOL NATHAN DUSTIN Start: 08-28-2019 INTAKE AND OUTPUT LORI PROCTOR Start: 08-28-2019 PLACE INTERMITTENT PNEUMATIC COMPRESSION DEVICE NATHAN DUSTIN Start: 08-28-2019 REASON FOR NO CHEMIC AL VTE PROPHYLAXIS NATHAN DUSTIN Start: 08-28-2019 VITAL SIGNS NATHAN MILLARD CK Start: 08-28-2019 PATIENT STATUS (FROM ED OR OR/PROCEDURAL) NATHAN DUSTIN Start: 08-28-2019 TRANSFER PATIENT SHERRILL Newell DUSTIN Start: 08-28-2019 Basic metabolic pane l calcium total Nathan Proctor MD Work Phone: Start: 08-28-2019 Level iv surg pathol ogy gross&microscopic exam NATHAN DUSTIN Start: 08-07-2019 Culture bacterial quanttative colony count urine NATHAN DUSTIN Start: 08-07-2019 Urnls dip stick/tabl et rgnt auto w/o microscopy NATHAN DUSTIN Start: 08-07-2019 Basic metabolic pane l calcium total NATHAN DUSTIN Start: 08-07-2019 Blood count complete automated NATHAN DUSTIN Start: 08-07-2019 TYPE AND SCREEN NATHAN DUSTIN Start: 08-07-2019 Antibody screen Sta 1 Start: 08-07-2019 Culture bacterial quanttative colony count urine Nathan Dustin Work Phone: Start: 08-07-2019 Urnls dip stick/tabl et rgnt auto w/o microscopy Nathan Dustin Work Phone: Start: 08-07-2019 Basic metabolic pane l calcium total Hermela Tezera Work Phone: Start: 08-07-2019 Blood count complete automated Hermela Tezera Work Phone: Start: 08-07-2019 Blood typing serologic abo Nathan Dustin Work Phone: Plan of Treatment Date Care Activity Detail Author Start: 02-05-2024 [facility] Start: 02-05-2024 [facility] Start: 12-25-2023 Patient referral [facility] Work Phone: Start: 08-28-2020 Creatinine monitoring Creatinine [facility] Work Phone: Start: 08-28-2020 Potassium monitoring Potassium monit [facility] Phone: Start: 08-07-2020 Creatinine monitoring Creatinine mon [place], [place] Start: 08-07-2020 Potassium monitoring Potassium monit [place], [place] Start: 08-28-2019 End: 08-28-2019 Hospital Encounter [facility] Comment on above: RADICAL PROSTATECTOM Y LAPAROSCOPIC ROBOTIC XI WITH POSSIBLE PELVIC LYMPH NODE DISSECTION Start: 05-17-2019 Influenza vaccination Flu vaccine (# 1) [place], [place] Start: 01-27-2012 Colon cancer screen colonoscopy Colon cancer screen colonoscopy [place], [place] Start: 01-27-2012 Shingles Vaccine (1 of 2) Shingles Vaccine (1 of 2) [place] Start: 2002 Diabetes screen Diabetes screen [facility] [employer] Phone: Start: 2002 Lipid screen Lipid screen [place], [place] Start: 1977 HIV screen HIV screen [place], [place] Start: 1973 DTaP/Tdap/Td vaccine (1 - Tdap) DTaP/Tdap/Td vaccine (1 - Tdap) [place], [place] Start: 1962 Hepatitis C screen Hepatitis C scree n [place], [place] End: 08-29-2019 Blood glucose - POCT Blood glucose - POCT Point of Care Testing Routine One Time for 1 Occurrences starting 08/29/2019 until 08/29/2019 [facility] [employer] Phone: Comment on above: One Time for 1 Occur rences starting 08/29/2019 until 08/29/2019 Initiate Oxygen Ther apy Protocol Initiate Oxygen Therapy Protocol Respiratory Care Routine Daily until discontinued starting 08/28/2019 [facility] [employer] Phone: Comment on above: Daily until disconti nued starting 08/28/2019 MR Knee - left WO contrast [facility] Patient Education Know your Meds [facility] Work Phone: [facility] Work Phone: Surgical Pathology Surgical Path ology Lab Routine ONE TIME for 1 Occurrences starting 08/28/2019 [facility] Work Phone: Comment on above: ONE TIME for 1 Occur rences starting 08/28/2019 [facility] Immunizations Immunization Date Immunization Notes Care Provider Fa lucrecia 05-02-2022 zoster vaccine recombinant Andrew Branmynorcki Other [facility] 03-21-2022 tetanus toxoid, reduced diphtheria toxoid, and acellular pertussis vaccine, adsorbed Ольга Rusher DPM Work Phone: [facility] 01-30-2022 zoster vaccine recombinant Andrew Branmynorcki Other [facility] 07-18-2020 influenza, injectable, quadrivalent, preservative free DO Andrew Moorecki Work Phone: [facility] 07-18-2020 influenza, injectable, quadrivalent, contains preservative Andrew Braniecki Other [facility] Other 07-09-2019 influenza, injectable, quadrivalent, preservative free DO Andrew Braniecki Work Phone: [facility] 07-09-2019 influenza, injectable, quadrivalent, contains preservative Andrew Braniecki Other [facility] Other 07-09-2017 influenza, injectable, quadrivalent, preservative free Ольга Rusher DPM Work Phone: [facility] 05-03-2017 influenza, injectable, quadrivalent, preservative free Ольга Rusher DPM Work Phone: [facility] 06-27-2016 influenza, injectable, quadrivalent, preservative free Ольга Rusher DPM Work Phone: [facility] NEGATED: Highlighted row has not occurred!08-14-2021 influenza, seasonal, injectable Patient Objection Andrew Shen Other [facility] Other NEGATED: Highlighted row has not occurred!12-25-2018 influenza, seasonal, injectable Patient Objection Andrew Shen Other [employer] Other Payers Date Payer Category Payer Self-pay [id number] 2018 [facility] Blue Shield BCBS [id number] 2018 Unknown BCBS BCBS OUT OF STATE xxxxxxxxxxxx 2018-Present [id number] [place] [id number] xxxxxxxxxxxx [id number] 2018 Unknown [id number] 1960 Unknown [id number] 2.16.840.1.335715.3.579.2 .177 1960 Unknown [id number] 2.16.840.1.941535.3.579.2 .177 1960 Unknown [id number] 2.16.840.1.852339.3.579.2 .9 1960 Unknown [id number] 2.16.840.1.363980.3.579.2 .9 1960 Unknown [id number] 2.16.840.1.443633.3.579.2 .1259 1960 Unknown [id number] 2.16.840.1.584656.3.579.2 .718 1960 Unknown [id number] 2.16.840.1.323565.3.579.2 .718 1960 Unknown [id number] 2.16.840.1.426966.3.579.2 .718 1960 Unknown [id number] 2.16.840.1.800925.3.579.2 .718 Unknown [id number] 2.16.840.1.004921.3.579.2 .531 Unknown [id number] 2.16.840.1.714869.3.579.2 .531 Unknown [id number] 2.16.840.1.164551.3.579.2 .531 Unknown [id number] 2.16.840.1.436478.3.579.2 .531 Worker'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 [employer] [facility] [id number] Social History Date Type Detail Facility Start: 08-07-2019 End: 07-29-2024 Tobacco smoking status AZIS Never smoker [facility] Start: 08-07-2019 End: 07-29-2024 Alcohol intake Current drinker of alcohol (finding) [place], [place] Start: 1960 Sex Assigned At Not on file M [place], [place] Start: 07-29-2024 Sex Assigned At N [facility] [email or web address] Other Start: 10-22-2018 Tobacco smoking status AZIS Ex-smoker (finding) [facility] Start: 1960 Sex Assigned At Male F [facility] Start: 02-05-2024 Tobacco smoking status AZIS Smoker (finding) [facility] Start: 07-29-2024 Tobacco use and exposure Smokeless tobacco non-user [facility] Start: 07-29-2024 History of Social function [facility] Start: 07-29-2024 Alcohol Comment socially [facility] Medical Equipment Procedure Code Equipment Code Equipment Origin al Text Equipment Identifier Dates Pasha-Raudel Bae x 1k Regenerative 6x3cm - [id number] Start: 08-28-2019 Clip Lg Spinning Machine Tender Hem-[employer]-Breanne Polymer Endo Ster Pk/6 [id number] Start: 08-28-2019 Clip Lg Spinning Machine Tender Hem-[employer] Endo Ster Pk/6 [id number] Start: 08-28-2019 Goals Date Patient Goal Desired Activity /State Clinical Notes 08-28-2019 to 08-21-2024 Ольга Paige, DPM - 07/29/2024 10:45 AM ESTPatient Instructions Note Date & Type Note Facility 08-21-2024 Note [id number]#1.00[facility] 07-29-2024 History of Presen t illness Narrative Images from the original note were not included. Subjective Patient ID: Lisandro Andrews is a 64 y.o. 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 [place] agreement for prednisone taper dose as a [...] Ольга Paige DPM documented in this encounter [facility] 07-29-2024 Instructions Ольга Paige DPM - 07/29/2024 10:45 AM EST Appropriate referral as noted documented in this encounter [facility] 02-07-2024 Note [id number]#1.00[facility] 04-30-2023 Evaluation note Encounter Date Diagnosis Assessment Notes Apr, Acute pain of right shoulder (ICD-10 - M25.511) Will start with x-rays. Suspect he has some degree of rotator cuff tendonitis, possible impingement syndrome. I will have him hold on the naproxen while taking a 6 day steroid taper. Ice the area. further recommendations pending x-rays and his progress. [facility] Other 02-13-2023 Evaluation note* Encounter Date Diagnosis Assessment Notes Treatment Notes Treatment Clinical Notes Oct, Cough (ICD-10 - R05.9) [place] [email or web address] Other 02-13-2023 Evaluation note* Encounter Date Diagnosis [...] any time if he changes his mind. [facility] Other 01-31-2023 Evaluation note* Encounter Date Diagnosis Assessment Notes Treatment Notes Treatment Clinical Notes Sep, Essential hypertension (ICD-10 - I10) [facility] Other 01-16-2023 Evaluation note* Encounter Date Diagnosis Assessment Notes Treatment Notes Treatment Clinical Notes Sep, Patellar tendinitis, left knee (ICD-10 - M76.52) Sep, Arthritis of left knee (ICD-10 - M17.12) Patient instructed on light controlled non impact exercises like biking and swimming. 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) [facility] Other 01-03-2023 Evaluation note* Encounter Date Diagnosis Assessment Notes Treatment Notes Treatment Clinical Notes Sep, Cough (ICD-10 - R05.9) [facility] Other 08-17-2022 Evaluation note* Encounter Date Diagnosis Assessment Notes Treatment Notes Treatment Clinical Notes Apr, Encounter for vaccination (ICD-10 - Z23) [facility] Other 06-30-2022 Evaluation note* Encounter Date Diagnosis Assessment Notes Treatment Notes Treatment Clinical Notes Feb, Screening for other eye conditions (ICD-10 - Z13.5) [facility] Other 06-15-2022 Evaluation note* Encounter Date Diagnosis [...] to evaluate the meniscus. Further recommendations pending. [facility] Other 05-17-2022 Evaluation note* Encounter Date Diagnosis [...] January, Encounter for vaccination (ICD-10 - Z23) [facility] Other 11-29-2021 Evaluation note* Encounter Date Diagnosis [...] will call if he changes his mind. [facility] Other 12-14-2019 Hospital Discharge instructions* Discharge Instr - Activity* Dagmar Cardoos RN - 08/29/2019 1:16 PM EST Light [...] at most local grocery stores, pharmacies, and [employer]. ? If you have any questions about your diet or nutrition, call the hospital and ask for the dietitian. General Diet * Additional Instructions* Ira Jung RN - 08/29/2019 -Regular Diet. -Resume all home medications. 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 [...] Care Everywhere. * Radical Prostatectomy: Laparoscopic: Post-op (Martiniquais) * Prostate Cancer (Martiniquais) [facility] Work Phone: [phone] 423-557512-13-2019 History of Present illness Narrative* Elodia Patino, CODEY - 08/28/2019 6:25 PM EST Pt admitted to room 2002 from PACU Oriented to room and call light/tv controls. Bed in lowest position, wheels locked, 2/4 side rails up Call light in reach, room free of clutter, adequate lighting provided. [facility] evaluation note* Diagnosis Prostate cancer (HCC)- Primary Malignant neoplasm of prostate documented in this encounter [facility] [employer] Phone: evaluation noteNo [email or web address] Other Evaluation note* Diagnosis Onset Date Resolution [...] acute Patellofemoral chondrosis of left knee acute [facility] Work Phone: Evaluation note* Diagnosis [...] acute Patellofemoral chondrosis of left knee acute [facility] Work Phone: Evaluation note* Diagnosis [...] acute Patellofemoral chondrosis of left knee acute [facility] Work Phone: Evaluation note* Diagnosis Primary osteoarthritis [...] History see above Hospitalization History sob at [facility] Hospitalization History [facility]ell [employer] 06/2020 [facility] Other History general Narrative - Reported* Type Description Date Medical History Hypertension Medical History Plaque psoriasis Surgical History left knee surgery Surgical History bialteral foot Surgery Surgical History toe surgery Surgical History left elbow surgery Surgical History prostate removal 08/2019 Surgical History right finger amp- surgery 2 Hospitalization History see above Hospitalization History sob at [facility] Hospitalization History [facility] [employer] 06/2020 [facility] Other Hospital Discharge instructions Additional Instructions DISCHARGE [...] you should first call your surgeon at [phone] for advice. 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 Documents on File Type Date Recorded 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 Advance Directives and Living Will 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 Latest Code Status on File Code Status [...] section and content) DATE CREATED AUTHOR 09/02/2019 [facility] DATE CREATED AUTHOR AUTHOR'S ORGANIZ ATION 03/11/2024 [facility] DATE CREATED AUTHOR AUTHOR'S ORGANIZ ATION 07/31/2024 [facility] EPIC DATE CREATED AUTHOR AUTHOR'S ORGANIZ ATION 09/09/2024 [facility] Reason for Visit (unrecogniz ed section and content) Status Reason Specialty Diagnoses / Procedures Referre d By Contact Referred To Contact Diagnoses Prostate CA (HCC) DX PROSTATE CA Procedures OR LAP,PROSTATECTOMY,RADICA L,W/NERVE SPARE,INCL ROBOTIC RADICAL PROSTATECTOMY LAPAROSCOPIC ROBOTIC XI WITH POSSIBLE PELVIC LYMPH NODE DISSECTION Nathan Proctor MD [address] [address] [facility] Reason Comments 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 [facility] [employer] provides no warranty or guarantee of the accuracy or completeness of information in this document.
== END 2024-09-29 10:23 | disposition home or self-care (01) ==
LOC: RAD 10:22
PROVIDERS: Visit Provider Podiatrist Foot & Ankle Surgery
DX: M25.572 Pain in left ankle and joints of left foot (principal)
CPT/HCPCS: 73610

== ENCOUNTER 2024-10-27 09:45 | Outpatient (OUT) | payer BC, SELFPAY ==
--- NOTE | 2024-10-27 09:48 | XR_ITS ---
The [address] [address] Patient Name: CONCHIS ANDREWS MRN: [id number] date: 1960 Sex: M Assigned Patient Location: [facility] Current Patient Location: Accession/Order Number: [id number] Exam Date: 10/27/2024 09:50 Report Date: 10/28/2024 10:27 At the request of: AMARIS BURRELL Procedure: XR ankle LT min 3V PROCEDURE: XR ankle LT min 3V HISTORY: Left Ankle Pain COMPARISON: XR ankle left 09/29/2024 FINDINGS: BONES:Mechanical fusion of the ankle joint and hindfoot via intramedullary justo and locking screws. Additional fusion screw traversing the tibiotalar joint. No appreciable hardware fracture or loosening. Prior resection of the distal fibula. Advanced degenerative changes of the ankle joint. SOFT TISSUES:Soft tissue swelling surrounding the ankle. Atherosclerotic disease. EFFUSION:None visible. OTHER: Negative. XR/XR ankle LT min 3V IMPRESSION: 1. Stable surgical changes without evidence of hardware failure or change in alignment. Electronically authenticated by: ОЛЬГА COFFEY Date: 10/28/2024 10:27
== END 2024-10-27 09:46 | disposition home or self-care (01) ==
LOC: RAD 09:45
PROVIDERS: Visit Provider Podiatrist Foot & Ankle Surgery
DX: M25.572 Pain in left ankle and joints of left foot (principal); M24.672 Ankylosis, left ankle
CPT/HCPCS: 73610

== ENCOUNTER 2024-11-18 10:13 | Outpatient (OUT) | payer BC, SELFPAY ==
--- NOTE | 2024-11-18 10:16 | XR_ITS ---
The [place] [id number] Patient Name: CONCHIS ANDREWS MRN: [id number] date: 1960 Sex: M Assigned Patient Location: RAD Current Patient Location: [facility] Accession/Order Number: [id number] Exam Date: 11/18/2024 23:10 Report Date: 11/18/2024 23:11 At the request of: AMARIS BURRELL DPShawn Procedure: XR ankle LT min 3V LEFT ANKLE - 3 views CLINICAL HISTORY: Follow-up left ankle fusion COMPARISON: Left ankle 10/27/2024 FINDINGS: Ankle fusion changes similar configuration to the prior study without evidence of hardware complication. XR/XR ankle LT min 3V IMPRESSION: ANKLE FUSION CHANGES SIMILAR TO THE PRIOR STUDY WITHOUT EVIDENCE OF HARDWARE COMPLICATION. Impression dictated by: Mike Umanzor Jr., DJuniorOJunior11/18/2024 11:11 PM Dictation Location: [employer] Electronically authenticated by: [id number] Y Date: 11/18/2024 23:11
== END 2024-11-18 10:14 | disposition home or self-care (01) ==
LOC: RAD 10:13
PROVIDERS: Visit Provider Podiatrist Foot & Ankle Surgery
DX: M25.572 Pain in left ankle and joints of left foot (principal); M24.672 Ankylosis, left ankle
CPT/HCPCS: 73610

== ENCOUNTER 2025-03-11 15:10 | Outpatient (OUT) | payer BC, SELFPAY ==
--- OUTSIDE RECORDS SUMMARY | 2024-10-02 07:30 | XMS_ITS ---
Author Organization [facility] in [place] Address [address] [place] [address] Care Team Providers Care Water Treatment Technician Name Role Phone Osorio Bahena D.O Primary Care Provider Mariana vailable Babs Danielle Unavailable [phone] REASON FOR VISIT suture removal Encounters Encounter Location Date Provider Diagnosis [facility] (PODIATRY) [address] [place] [address] [place] [address] 10/02/2024 Babs Danielle Plan Of Treatment No Information Progress Notes * Talat ANDREWSDOB:[birth year] (64 yo M)Acc No.[id number]:10/02/2024 Nurse Visit Patient: Talat DARBY Provider: Alexander Danielle PA-C :1960 A ge:64 Y S ex:Male Date:10/02/2024 Address:[address] [place] [address] Pcp:Osorio Bahena D.O Check In:11:28 AM EST Subjective: * Chief Complaints: * 1 . Suture removal. * HPI: G eneral: Pt here for removal of retained sutures, posterior heel. Sutures removed, incision well coated. Lateral incision, 2 small areas of maceration noted beneath steri-strips, a long with 2 retained sutures there as well. Sutures removed, betadine applied to lateral incision. I sent them home with more betadine swabs and instructed them to be sure incision is dry before covering with anything. They will call with any other concerns prior to their next appointment. 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, l eft foot Modified On:08/07/2024 Status:confirmed M24.572 Contracture, left an kle Modified On:08/07/2024 Status:confirmed M19.071 Primary osteoarthrit is, right ankle and foot Modified On:08/07/2024U Status:confirmed 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 Sutures removed, incision well coated. Lateral incision, 2 small areas of maceration noted beneath steri-strips, along with 2 retained sutures there as well. Sutures removed, betadine applied to lateral incision. I sent them home with more betadine swabs and instructed them to be sure incision is dry before covering with anything. They will call with any other concerns prior to their next appointment.
--- OUTSIDE RECORDS SUMMARY | 2024-10-27 06:30 | XMS_ITS ---
Author Organization The [facility] in [place] Address [address] [place] [address] Care Team Providers Care Hvac Designer Name Role Phone Osorio Bahena D.O Primary Care Provider Henri Smith [phone] Allergies Allergen (clinical drug ingredient) Drug/Non Drug Allergy documented on EMR Reaction Allergy Type Onset Date Status seasonal (uncoded) Unknown Allergy A ctive REASON FOR VISIT POV#3, notified of xray Medications Medication SIG (Take, Route, Frequency, Duration) Notes Start Date End Date Status Lisinopril-hydroCHLOROthia zide 20-12.5 MG Oral for 90 Days Active Diclofenac Sodium 75 MG Oral for 90 Days Active Social History Tobacco Use: Social History Observation Description Date Details (start date - stop date) Former Smoker NA - NA Tobacco Control (Standard) Question Answer Notes Tobacco use: Former smoker Vital Signs Heart Rate 82 /min 10/27/2024 Height 71 in 10/27/2024 Weight 189 lbs 10/27/2024 BMI 26.36 kg/m2 10/27/2024 Oximetry 98 % 10/27/2024 Encounters Encounter Location Date Provider Diagnosis [facility] (PODIATRY) [address] [place] [address] [address] [place] [address] 10/27/2024 Henri Gutierrez Left ankle pain M25.572 and Primary osteoarthritis, left ankle and foot M19.072 Assessments Encounter Date Diagnosis (ICD Code) Assessment Notes Treatment Notes Treatment Clinical Notes Section Notes 10/27/2024 Left ankle pain (ICD-10 - M25.572) 10/27/2024 Primary osteoarthritis , left ankle and foot (ICD-10 - M19.072) Patient is approximately 8 weeks status post ankle and hindfoot fusion with intramedullary nail and is doing very well. He may begin weightbearing as tolerated in a cam boot. He may remove the boot for sleep and when at rest. I recommended that he follow-up in 3 weeks with repeat ankle x-rays and hopeful transition to normal shoes Plan Of Treatment Treatment Notes Assessment Notes Primary osteoarthritis, left ankle and foot Patient is approximately 8 weeks status post ankle and hindfoot fusion with intramedullary nail and is doing very well. He may begin weightbearing as tolerated in a cam boot. He may remove the boot for sleep and when at rest. I recommended that he follow-up in 3 weeks with repeat ankle x-rays and hopeful transition to normal shoes Pending Test Test Name Order Date XR Ankle LT (3 views) * (164) 10/27/2024 Progress Notes * Talat ANDRE[birth year]SDOB:[birth year] (64 yo M)Acc No.[id number]:10/27/2024 Progress Note Patient: Talat DARBY Provider: Ana María Gutierrez DPM MS :1960 A ge:64 Y S ex:Male Date:10/27/2024 Address:[address] [place], [place] [id number] Pcp:Osorio Bahena D.O Check In:10:16 AM MANUELCheck O ut:12:02 PM EST Subjective: * Chief Complaints: * P OV#3, notified of xray * HPI: P odiatry HPI: Surgical Procedure: L eft ankle and subtalar joint fusion ,harvest of tibial bone graft, tendo Achilles lengthening DOS 08/31/24. Post-Op Site Complications: n one. Post-Op Constitutional Symptoms: n one. Post-Op Immobilization Method(s): c am boot. Post-Op Treatment: u ser of walker, use of knee scooter, use of crutches. Weight-bearing Status: p artial weight-bearing. Pt has no complaints of pain 0/10, minimal swelling noted. He notes plantar foot and lateral incision nerve sensitivity. All incisions well coated and scabbed with no area of concern. No longer needs to take pain medication. * ROS: G eneral/Constitutional: Chills d enies. F ever d enies. W eight gain?denies. W eight loss d enies. S kin: Skin Ulcers d enies. S kin lesion(s) d enies. ? C ardiovascular: Difficulty breathing on exertion d enies. L eg cramps?denies. E dolores d enies. C hest pain d enies. R espiratory: Difficulty breathing d enies. D yspnea d enies.?Cough d enies. G astrointestinal: Diarrhea d enies. N ausea d enies. V omiting?denies. M usculoskeletal: Bone/Joint Symptoms d enies. C intermediate Pain d enies.?Leg cramps d enies. N eurologic: Numbness d enies. T ingling d enies . G ait abnormality d enies. ? H ematology: Anemia D enies. E asy bruising d enies. ? A ll Other Systems: Review of Systems (ROS) S ee HPI for details,All others negative except those mentioned in HPI. 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, l eft foot Modified On:08/07/2024/U Status:confirmed M24.572 Contracture, left an kle Modified On:08/07/2024/U Status:confirmed M19.071 Primary osteoarthrit is, right ankle and foot Modified On:08/07/2024/U Status:confirmed 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 * Family History: M other: diagnosed with Unspecified essential hypertension. N on-Contributory. * Social History: T obacco Use: T obacco Control (Standard) T obacco use: F ormer smoker * Medications: T akingDiclofenac Sodium 75 MG Tablet Delayed Release Oral Lisinopril-hydroCHLOROthiazide 20-12.5 MG Tablet Oral Taking Diclofenac Sodium 75 MG Tablet Delayed Release Oral Taking Lisinopril-hydroCHLOROthiazide 20-12.5 MG Tablet Oral DiscontinuedAspirin 81 MG Tablet Delayed Release 1 tablet Orally Once a day Cephalexin 500 MG Capsule 1 capsule Orally bid oxyCODONE-Acetaminophen 5-325 MG Tablet 1 tablet as needed Orally every 4 hrs As neededPercocet(oxyCODONE-Acetaminophen) 5-325 MG Tablet 1 tablet as needed Orally every 4 hours predniSONE 10 MG Tablet Oral traMADol HCl 50 MG Tablet 1 tablet as needed Orally twice daily As neededTylenol 8 Hour(Acetaminophen ER) 650 MG Tablet Extended Release 2 tablets as needed Orally every 8 hrs Xarelto(Rivaroxaban) 10 MG Tablet 1 tablet with food Orally Once a day Medication List reviewed and reconciled with the patientDiscontinued Aspirin 81 MG Tablet Delayed Release 1 tablet Orally Once a day Discontinued Cephalexin 500 MG Capsule 1 capsule Orally bid Discontinued oxyCODONE-Acetaminophen 5-325 MG Tablet 1 tablet as needed Orally every 4 hrs As neededDiscontinued Percocet(oxyCODONE-Acetaminophen) 5-325 MG Tablet 1 tablet as needed Orally every 4 hours Discontinued predniSONE 10 MG Tablet Oral Discontinued traMADol HCl 50 MG Tablet 1 tablet as needed Orally twice daily As neededDiscontinued Tylenol 8 Hour(Acetaminophen ER) 650 MG Tablet Extended Release 2 tablets as needed Orally every 8 hrs Discontinued Xarelto(Rivaroxaban) 10 MG Tablet 1 tablet with food Orally Once a day Medication List reviewed and reconciled with the patient * Allergies: s easonalno[Allergies Verified] Objective: * Vitals: W t:189lbs, Ht: 71 in, HR:82/min, BMI:26.36Index, Pain scale:01-10, Oxygen sat %:98%, Ht-cm: 180.34 cm, Wt-k.73 kg. * Examination: A bdomen Exam:: I ncisions are well coapted with the exception of a small scab at the distal aspect of his lateral incision but there is no signs of infection. Patient has minimal swelling and there is no calf pain on squeeze. Pedal pulses are palpable. There is no range of motion from the ankle or subtalar joint and the hindfoot and ankle are in a neutral position X-rays obtained today demonstrate good bony apposition and interval bone healing at the ankle and subtalar joints. Fixation remains stable and bones remain in neutral position. Assessment: * Assessment: 1. P rimary osteoarthritis, left ankle and foot - M19.072 (Primary) 2 . L eft ankle pain - M25.572 Plan: * Treatment: 2. L eft ankle pain I maging: XR Ankle LT (3 views) * (164) * Procedure Codes: * * Sign off status: Completed Visit Status: C HK (Check Out) true * Provider: Ana María Gutierrez DPM, MS Date: 0 10/27/2024 Generated for Mitchel johnson/Malik/Yahiritting on: 0 03/11/2025 03:13 PM EDT History and Physical Notes * HPI (History of Present Illness) Category Sub-Category Detail Notes Category Not es Podiatry HPI Surgical Procedure: Left ankle a nd subtalar joint fusion ,harvest of tibial bone graft, tendo Achilles lengthening DOS 08/31/24 Pt has no complaints of pain 0/10, minimal swelling noted. He notes plantar foot and lateral incision nerve sensitivity. All incisions well coated and scabbed with no area of concern. No longer needs to take pain medication. Post-Op Site Complications: none Post-Op Constitutional Symptoms: none Post-Op Immobilization Method(s): cam harry ot Post-Op Treatment: user of walker, use of knee scooter, use of crutches Weight-bearing Status: partial weight-be aring Examination Category Sub-Category Detail Notes Category Not es Abdomen Exam: Incisions are well coapted with the exception of a small scab at the distal aspect of his lateral incision but there is no signs of infection. Patient has minimal swelling and there is no calf pain on squeeze. Pedal pulses are palpable. There is no range of motion from the ankle or subtalar joint and the hindfoot and ankle are in a neutral position X-rays obtained today demonstrate good bony apposition and interval bone healing at the ankle and subtalar joints. Fixation remains stable and bones remain in neutral position
--- OUTSIDE RECORDS SUMMARY | 2024-11-18 06:30 | XMS_ITS ---
Author Organization The [facility] in [place] Address [address] [place] [address] Care Team Providers Care Sharepoint Solutions Architect Name Role Phone Osorio Bahena D.O Primary Care Provider Mariana cabreraelenitabillie GutierrezHenri Eneida [phone] Allergies Allergen (clinical drug ingredient) Drug/Non Drug Allergy documented on EMR Reaction Allergy Type Onset Date Status seasonal (uncoded) Unknown Allergy A ctive REASON FOR VISIT 3 week f/u Medications Medication SIG (Take, Route, Frequency, Duration) Notes Start Date End Date Status Lisinopril-hydroCHLOROthia zide 20-12.5 MG Oral for 90 Days Active Diclofenac Sodium 75 MG Oral for 90 Days Active Social History Tobacco Use: Social History Observation Description Date Details (start date - stop date) Former Smoker NA - NA Tobacco Control (Standard) Question Answer Notes Tobacco use: Former smoker Vital Signs Temperature 98 degrees Fahrenheit 11/18/2024 Heart Rate 76 /min 11/18/2024 Height 71 in 11/18/2024 Weight 189 lbs 11/18/2024 BMI 26.36 kg/m2 11/18/2024 Oximetry 98 % 11/18/2024 Encounters Encounter Location Date Provider Diagnosis [facility] (PODIATRY) [address] [place] [address] [address] [place] [address] 11/18/2024 Henri Gutierrez Left ankle pain M25.572 and Primary osteoarthritis, left ankle and foot M19.072 Assessments Encounter Date Diagnosis (ICD Code) Assessment Notes Treatment Notes Treatment Clinical Notes Section Notes 11/18/2024 Left ankle pain (ICD-10 - M25.572) 11/18/2024 Primary osteoarthritis , left ankle and foot (ICD-10 - M19.072) Patient is less than 3 months status post ankle and hindfoot fusion and is doing very well. He has had no pain over the last several weeks and has walked without the boot around the house also without pain. He may discontinue the boot and return to normal shoes. I recommended physical therapy for gait training and generalized strengthening. He may return to work on 01/04/2025 but will call the office if any issues or concerns regarding return to work at that date otherwise he will follow-up in 3 months with ankle x-rays Plan Of Treatment Treatment Notes Assessment Notes Primary osteoarthritis, left ankle and foot Patient is less than 3 months status pos t ankle and hindfoot fusion and is doing very well. He has had no pain over the last several weeks and has walked without the boot around the house also without pain. He may discontinue the boot and return to normal shoes. I recommended physical therapy for gait training and generalized strengthening. He may return to work on 01/04/2025 but will call the office if any issues or concerns regarding return to work at that date otherwise he will follow-up in 3 months with ankle x-rays Pending Test Test Name Order Date XR Ankle LT (3 views) * (164) 11/18/2024 Progress Notes * Talat ANDRE[birth year]SDOB:[birth year] (64 yo M)Acc No.[id number]:11/18/2024 Follow Up Patient: Talat DARBY Provider: Ana María Gutierrez DPM, MS :1960 A ge:64 Y S ex:Male Date:11/18/2024 Address:[address] [place], [place] [id number] Pcp:Osorio Bahena D.O Check In:10:40 AM MANUELCheck O ut:11:18 AM EST Subjective: * Chief Complaints: * 3 week f/u * HPI: G eneral: left ankle and subtalar joint fusion, harvest of tibial bone graft, tendo Achilles lengthening DOS 08/31/24. Wearing cam boot , denies pain. He is very happy with his progress. * ROS: G eneral/Constitutional: Chills d enies. [...] M usculoskeletal: Bone/Joint Symptoms d enies. C mayra Pain d enies.?Leg cramps d enies. 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 * Family History: M other: diagnosed with Unspecified essential hypertension. * Social History: T obacco Use: T obacco Control (Standard) T obacco use: F ormer smoker * Medications: T akingDiclofenac Sodium 75 MG Tablet Delayed Release Oral Lisinopril-hydroCHLOROthiazide 20-12.5 MG Tablet Oral Medication List reviewed and reconciled with the patientTaking Diclofenac Sodium 75 MG Tablet Delayed Release Oral Taking Lisinopril-hydroCHLOROthiazide 20-12.5 MG Tablet Oral Medication List reviewed and reconciled with the patient * Allergies: s zay[Allergies Verified] Objective: * Vitals: W t:189lbs, Ht: 71 in, Temp:98F, HR:76/min, BMI:26.36Index, Pain scale:01-10, Oxygen sat %:98%, Ht-cm: 180.34 cm, Wt-k.73 kg. * Examination: P odiatry Examination: SKIN: s kin intact, n o sign of infection. MUSCULOSKELETAL: N o pain to palpation, N o gross deformity, N o ROM from the STJ or ankle. NEUROLOGICAL: l ight touch sensation intact, n egative tinel's sign. VASCULAR: P edal pulses palpable, C apillary refill is brisk to toe, D igital hair intact. X -rays: x-rays were obtained & reviewed in my office. Ankle and subtalar joints with bony bridging and osseous fusion. Stable screw and intramedullary nail fixation. Ankle and hindfoot are neutral positions. Assessment: * Assessment: 1. P rimary osteoarthritis, [...] Ana María Gutierrez DPM, MS Date: 0 11/18/2024 Generated for Mitchel johnson/Malik/Yessi on: 0 03/11/2025 03:13 PM EDT History and Physical Notes * HPI (History of Present Illness) Category Sub-Category Detail Notes Category Not es General left ankle and subtalar joint fusion, harvest of tibial bone graft, tendo Achilles lengthening DOS 08/31/24. Wearing cam boot , denies pain. He is very happy with his progress. Examination Category Sub-Category Detail Notes Category Not es Podiatry Examination SKIN: skin intact, no sign of infection X-ray s: x-rays were obtained & reviewed in my office. Ankle and subtalar joints with bony bridging and osseous fusion. Stable screw and intramedullary nail fixation. Ankle and hindfoot are neutral positions. MUSCULOSKELETAL: No pain to palpation , No gross deformity, No ROM from the STJ or ankle NEUROLOGICAL: light touch sensatio n intact, negative tinel's sign VASCULAR: Pedal pulses palpabl e, Capillary refill is brisk to toe, Digital hair intact
--- OUTSIDE RECORDS SUMMARY | 2025-03-11 15:14 | XMS_ITS | Clinical Summary ---
Author Organization [facility] Address [address] [place] [address] Care Team Providers Care Charcoal Burner Beehive Kiln Name Role Phone Osorio Bahena MD Primary Care Provider [phone] Allergies No known active allergies Medications diclofenac (Voltaren) 75 MG EC tablet Take 75 mg by mouth 4 Active lisinopril-hydroCHL OROthiazide 20-12.5 MG tablet 2 tablets 4 Active predniSONE (Deltasone) 10 MG tabletIndications:P rimary osteoarthritis of left ankle,Pain and swelling of left ankle,Acquired talipes varus of left foot 1 tablet twice daily x 7 days; followed by 1 tablet daily as directed until complete 21 tablet 4 Active Immunizations Immunization Administration Dates Next Due Influenza, injectable, quadrivalent 07/18/2020,1 Influenza, injectable, quadr ivalent, preservative free 07/18/2020,07/09/2019,07/09/2017,2016,06/27/2016 Tdap 03/21/2022 Zoster, Recombinant 05/02/2022,01/30/2022 Family History Medical History Relation Name Comments Heart attack Father Relation Name Status Comments Father Mother Social History Tobacco Use Types Packs/Day Years Used Date Smoking Tobacco: Never Smokeless Tobacco: Never Tobacco Cessation:Counseling Given: No Alcohol Use Standard Drinks/Week Comments Yes 0 (1 standard drink = 0.6 oz pur e alcohol) socially Sex and Gender Information Value Date Recorded Sex Assigned at Not on file Legal Sex Male 6:45 PM EDT Gender Identity Not on file Sexual Orientation Not on file Last Filed Vital Signs Vital Sign Reading Time Taken Comments Blood Pressure - - Pulse - - Temperature - - Respiratory Rate - - Oxygen Saturation - - Inhaled Oxygen Concentration - - Weight 85.3 kg (188 lb) 07/29/2024 10:59 AM EST Height 180.3 cm (5' 11 ) 07/29/2024 10:59 AM EST Body Mass Index 26.22 07/29/2024 10:59 AM EST Plan of Treatment Not on file Insurance BS BCBS Care Teams Charcoal [employer]er [employer] Relationship Specialty Start Date End Date Osorio Bahena MD PCP - General Family Medicine 07/29/24
--- OUTSIDE RECORDS SUMMARY | 2025-03-11 15:14 | XMS_ITS | Patient Health Record ---
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 Name Role Phone Osorio Bahena D.O Primary Care Provider Amaris Smith Unavailable [phone] Babs Danielle Unavailable [phone] Allergies Allergen (clinical drug ingredient) Drug/Non Drug Allergy documented on EMR Reaction Allergy Type Onset Date Status seasonal (uncoded) Unknown Allergy A ctive Results Component Value Reference Range Notes XR ankle SESAR min 3V (Not yet reviewed by provider) Interpretation: Performing Lab: Notes/Report: Source Facility: [place] [address] XRay Report Signed Patient: CONCHIS ANDREWS MR#: [id number] : 1960 Acct:[id number] Age/Sex: 64 / M ADM Date: 08/05/24 Loc: RAD Attending Dr: Amaris Gutierrez D.P.M. Ordering Physician: Amaris Gutierrez D.P.M. Date of Service: 08/05/24 Procedure(s): XR ankle SESAR min 3V Accession Number(s): [id number] cc: Amaris Gutierrez D.P.M.; Physician,Non-Staff [place] [address] Patient Name: CONCHIS ANDREWS MRN: [id number] date: 1960 Sex: M Assigned Patient Location: RAD Current Patient Location: [facility] Accession/Order Number: [id number] Exam Date: 08/05/2024 10:24 Report Date: 08/05/2024 12:47 At the request of: AMARIS GUTIERREZ Procedure: XR ankle SESAR min 3V EXAMINATION: XR foot SESAR min 3V, XR ankle SESAR min 3V HISTORY: Bilateral Foot Pain COMPARISON: No relevant comparison available. FINDINGS: RIGHT FINDINGS: BONES: No acute fracture or dislocation of the foot or ankle. Moderate to severe degenerative changes with hindfoot varus and easf-lg-thai articulation of the tibiotalar joint. Callus formation consistent with remote healed fracture of the third metatarsal SOFT TISSUES: Negative. No visible soft tissue swelling. OTHER: Negative. LEFT FINDINGS: BONES: No acute fracture or dislocation . Moderate to severe degenerative changes with hindfoot varus and rhhv-wg-gtmy articulation the tibiotalar joint. There is bony remodeling of the medial talar dome SOFT TISSUES: Negative. No visible soft tissue swelling. OTHER: Negative. XR/XR ankle SESAR min 3V IMPRESSION: Moderate to severe osteoarthritis with bilateral hindfoot varus and rltf-uw-zojj articulation of the tibiotalar joints Electronically authenticated by: NATHAN VAUGHN Date: 08/05/2024 12:47 Dictated By: Nathan Vaughn M.D. Signed By: 08/05/24 1250 DD/ 1247 TD/TT: Management Trainer: [place] [address] XRay Report Signed Patient: DEEPAK ANDREWS MR#: [id number] : 1960 Acct:[id number] Age/Sex: 64 / M ADM Date: 08/05/24 Loc: RAD Attending Dr: Amaris Gutierrez D.P.M. Ordering Physician: Amaris Gutierrez D.P.M. Date of Service: 08/05/24 Procedure(s): XR ank le SESAR min 3V Accession Number(s): [id number] cc: Amaris Gutierrez D.P.M.; Physician,Non-Staff [place] [id number] Patient Name: CONCHIS ANDREWS MRN: [id number]:[id number] date: 1960 Sex: M Assigned Patient Loc ation: RAD Current Patient Loca tion: RAD Accession/Order Numb er: [id number] Exam Date: 10:24 Report Date: 08/05/2024 12:47 At the request of: AMARIS GUTIERREZ Procedure: XR ankle SESAR min 3V EXAMINATION: XR foot SESAR min 3V, XR ankle SESAR min 3V HISTORY: Bilateral F oot Pain COMPARISON: No relev ant comparison available. FINDINGS: RIGHT FINDINGS: BONES: No acute frac ture or dislocation of the foot or ankle. Moderate to severe degenerative changes with hindfoot varus and xjuw-tf-zlrw articulation of the tibiotalar moise int. Callus formation consistent with remote healed fracture of the thir d metatarsal SOFT TISSUES: Negati ve. No visible soft tissue swelling. OTHER: Negative. LEFT FINDINGS: BONES: No acute frac ture or dislocation . Moderate to severe degenerative changes with hindfoo t varus and douy-hi-lola articulation the tibiotalar joint. There is bony remode ling of the medial talar dome SOFT TISSUES: Negati ve. No visible soft tissue swelling. OTHER: Negative. X R/XR ankle SESAR min 3V IMPRESSION: Moderate to severe osteoarthritis with bilateral hindfoot varus and abzs-ao-cbfd articul ation of the tibiotalar joints Electronically authenticated by: NATHAN VAUGHN Date: 08/05/2024 12:47 Dictated By: Taye Vaughn M.D. Signed By: 08/05/24 1250 DD/ 1247 TD/TT: Management Trainer: XR foot SESAR min 3V (Not yet reviewed by provider) Interpretation: Performing Lab: Notes/Report: Source Facility: [facility] [place] [address] [place] [address] XRay Report Signed Patient: CONCHIS ANDREWS MR#: [id number] : 1960 Acct:[id number] Age/Sex: 64 / M ADM Date: 08/05/24 Loc: RAD Attending Dr: Amaris Gutierrez D.P.M. Ordering Physician: Amaris Gutierrez D.P.M. Date of Service: 08/05/24 Procedure(s): XR foot SESAR min 3V Accession Number(s): [id number] cc: Amaris Gutierrez D.P.M.; Physician,Non-Staff [place] [id number] Patient Name: CONCHIS ANDREWS MRN: [id number] date: 1960 Sex: M Assigned Patient Location: RAD Current Patient Location: RAD Accession/Order Number: [id number] Exam Date: 08/05/2024 10:30 Report Date: 08/05/2024 12:47 At the request of: AMARIS GUTIERREZ Procedure: XR foot SESAR min 3V EXAMINATION: XR foot SESAR min 3V, XR ankle SESAR min 3V HISTORY: Bilateral Foot Pain COMPARISON: No relevant comparison available. FINDINGS: RIGHT FINDINGS: BONES: No acute fracture or dislocation of the foot or ankle. Moderate to severe degenerative changes with hindfoot varus and coqc-gs-wxzr articulation of the tibiotalar joint. Callus formation consistent with remote healed fracture of the third metatarsal SOFT TISSUES: Negative. No visible soft tissue swelling. OTHER: Negative. LEFT FINDINGS: BONES: No acute fracture or dislocation . Moderate to severe degenerative changes with hindfoot varus and qais-ph-xebw articulation the tibiotalar joint. There is bony remodeling of the medial talar dome SOFT TISSUES: Negative. No visible soft tissue swelling. OTHER: Negative. XR/XR foot SESAR min 3V IMPRESSION: Moderate to severe osteoarthritis with bilateral hindfoot varus and bihk-hs-ksxa articulation of the tibiotalar joints Electronically authenticated by: NATHAN VAUGHN Date: 08/05/2024 12:47 Dictated By: Nathan Vaughn M.D. Signed By: 08/05/24 1250 DD/ 1247 TD/TT: Management Trainer: [place] [address] XRay Report Signed Patient: DEEPAK ANDREWS MR#: [id number] : 1960 Acct:[id number] Age/Sex: 64 / M ADM Date: 08/05/24 Loc: RAD Attending Dr: Amaris Gutierrez D.P.M. Ordering Physician: Amaris Gutierrez D.P.M. Date of Service: 08/05/24 Procedure(s): XR lopez t SESAR min 3V Accession Number(s): [id number] cc: Amaris Gutierrez D.P.M.; Physician,Non-Staff [place] [address] Patient Name: CONCHIS ANDREWS MRN: [facility]:[id number] date: 1960 Sex: M Assigned Patient Loc ation: RAD Current Patient Loca tion: RAD Accession/Order Numb er: [id number] Exam Date: 10:30 Report Date: 08/05/2024 12:47 At the request of: AMARIS GUTIERREZ Procedure: XR foot B IL min 3V EXAMINATION: XR foot SESAR min 3V, XR ankle SESAR min 3V HISTORY: Bilateral F oot Pain COMPARISON: No relev ant comparison available. FINDINGS: RIGHT FINDINGS: BONES: No acute frac ture or dislocation of the foot or ankle. Moderate to severe degenerative changes with hindfoot varus and egnu-av-pxnr articulation of the tibiotalar moise int. Callus formation consistent with remote healed fracture of the thir d metatarsal SOFT TISSUES: Negati ve. No visible soft tissue swelling. OTHER: Negative. LEFT FINDINGS: BONES: No acute frac ture or dislocation . Moderate to severe degenerative changes with hindfoo t varus and tqko-wx-lrxg articulation the tibiotalar joint. There is bony remode ling of the medial talar dome SOFT TISSUES: Negati ve. No visible soft tissue swelling. OTHER: Negative. X R/XR foot SESAR min 3V IMPRESSION: Moderate to severe osteoarthritis with bilateral hindfoot varus and bnts-nn-sysh articul ation of the tibiotalar joints Electronically authenticated by: NATHAN VAUGHN Date: 08/05/2024 12:47 Dictated By: Taye Vaughn M.D. Signed By: 08/05/24 1250 DD/ 1247 TD/TT: Management Trainer: PROF VIKTORIYA Marti ([facility]) (Not yet reviewed by provider) Interpretation: Performing Lab: Notes/Report: [facility] , Sodium 137 136-145 mmol/L Potassium 4.4 3.5-5.1 mmol/L Chloride 100 98-107 mmol/L Carbon Dioxide 29.3 21.0-32.0 mmol/L Anion Gap 12.1 Glucose 96 74-106 mg/dL Blood Urea Nitrogen 15.0 7.0-18.0 mg/dL Creatinine 1.32 0.70-1.30 mg/dL Estimated GFR ( Patt >60 >=60 mL/min/1.73m 2 Estimated GFR (Non- Matilda 55 >=60 mL/min/1.73m 2 BUN Creatinine Ratio 11.4 Calcium 9.0 8.5-10.1 mg/dL Performing Lab: see note ML - [facility] LB ECG 12 lead (Not yet reviewe d by provider) Interpretation: Performing Lab: Notes/Report: Source Facility: [facility]-[address] [place] [address] [place] [address] Electrocardiograph Report Signed Patient: CONCHIS ANDREWS MR#: [id number] : 1960 Acct:[id number] Age/Sex: 64 / M ADM Date: 08/17/24 Loc: PST Attending Dr: Amaris Gutierrez D.P.M. Ordering Physician: Amaris Gutierrez D.P.M. 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 Signed By: 08/17/24 2311 DD/ 1450 TD/TT: Management Trainer: [place] [address] Electrocardiograph Report Signed Patient: DEEPAK ANDREWS MR#: [id number] : 1960 Acct:[id number] Age/Sex: 64 / M ADM Date: 08/17/24 Loc: PST Attending Dr: Amaris Gutierrez D.P.M. Ordering Physician: Amaris Gutierrez D.P.M. 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: : 1960 Requ ested By: AMARIS GUTIERREZ Order Number: [id number] Reading MD: ILIA HANNAH Measurements Intervals [place] Rate: 76 P: 27 WV: 175 QRS: 17 QRSD: 67 T: 30 QT: 369 QTc: 417 Interpretive Statements SINUS RHYTHM No previous ECG avai lable for comparison Electronically Milly d On 08-17-2024 23:11:35 EST by ILIA HANNAH Dictated By: Santhosh Hannah D.OJunior Signed By: 08/17/24 2311 DD/ 1450 TD/TT: Management Trainer: FL fluoroscopy <1hr NON-READ (Not yet reviewed by provider) Interpretation: Performing Lab: Notes/Report: Source Facility: [place] [address] [place] [address] Fluoroscopy Report Signed Patient: CONCHIS ANDREWS MR#: [id number] : 1960 Acct:[id number] Age/Sex: 64 / M ADM Date: 08/31/24 Loc: MS 215-[address]: Amaris Gutierrez D.P.M. Ordering Physician: Amaris Gutierrez D.P.M. Date of Service: 08/31/24 Procedure(s): FL fluoroscopy <1hr NON-READ Accession Number(s): [id number] cc: Amaris Gutierrez D.P.M.; Physician,Non-Staff [place] [address] Patient Name: CONCHIS ANDREWS MRN: [id number] date: 1960 Sex: M Assigned Patient Location: [facility] Current Patient Location: RAD Accession/Order Number: [id number] Exam Date: 08/31/2024 11:18 Report Date: 09/04/2024 07:46 At the request of: AMARIS GUTIERREZ Procedure: FL fluoroscopy <1hr NON-READ EXAM: FL fluoroscopy <1hr NON-READ HISTORY: TECHNIQUE: FINDINGS: Please see Operative Report. Electronically authenticated by: RADIOLOGIST NO Date: 09/04/2024 07:46 Dictated By: Mary Jo,Radiologist Signed By: 11/05/24 1225 DD/ 5 TD/TT: Management Trainer: [place] [address] Fluoroscopy Report Signed Patient: DEEPAK ANDREWS MR#: [id number] : 1960 Acct:[id number] Age/Sex: 64 / M ADM Date: 08/31/24 Loc: MS 215-[address]: Amaris Gutierrez D.P.M. Ordering Physician: Amaris Gutierrez D.P.M. Date of Service: 08/31/24 Procedure(s): FL fluoroscopy <1hr NON-READ Accession Number(s): [id number] cc: Amaris Gutierrez D.P.M.; Physician,Non-Staff [place] [address] Patient Name: CONCHIS ANDREWS MRN: [id number] date: 1960 Sex: M Assigned [facility] Current Patient Loca tion: RAD Accession/Order Numb er: [id number] Exam Date: 11:18 Report Date: 09/04/2024 07:46 At the request of: AMARIS GUTIERREZ Procedure: FL fluoro scopy <1hr NON-READ EXAM: FL fluoroscopy <1hr NON-READ HISTORY: TECHNIQUE: FINDINGS: Please see Operative Report. Electronically authenticated by: RADIOLOGIST NO Date: 09/04/2024 07:46 Dictated By: Mary Jo,Radiologist Signed By: 11/05/24 1225 DD/ 0746 TD/TT: Management Trainer: XR ankle LT min 3V (Not yet reviewed by provider) Interpretation: Performing Lab: Notes/Report: Source Facility: [place] [address] XRay Report Signed Patient: CONCHIS ANDREWS MR#: [id number] : 1960 Acct:[id number] Age/Sex: 64 / M ADM Date: 10/27/24 Loc: RAD Attending Dr: Amaris Gutierrez D.P.M. Ordering Physician: Amaris Gutierrez D.P.M. Date of Service: 10/27/24 Procedure(s): XR ankle LT min 3V Accession Number(s): [id number] cc: Amaris Gutierrez D.P.M.; Physician,Non-Staff [place] [address] Patient Name: CONCHIS ANDREWS MRN: [id number] date: 1960 Sex: M Assigned Patient Location: [facility] Current Patient Location: Accession/Order Number: [id number] Exam Date: 10/27/2024 09:50 Report Date: 10/28/2024 10:27 At the request of: AMARIS GUTIERREZ Procedure: XR ankle LT min 3V PROCEDURE: XR ankle LT min 3V HISTORY: Left Ankle Pain COMPARISON: XR ankle left 09/29/2024 FINDINGS: BONES:Mechanical fusion of the ankle joint and hindfoot via intramedullary justo and locking screws. Additional fusion screw traversing the tibiotalar joint. No appreciable hardware fracture or loosening. Prior resection of the distal fibula. Advanced degenerative changes of the ankle joint. SOFT TISSUES:Soft tissue swelling surrounding the ankle. Atherosclerotic disease. EFFUSION:None visible. OTHER: Negative. XR/XR ankle LT min 3V IMPRESSION: 1. Stable surgical changes without evidence of hardware failure or change in alignment. Electronically authenticated by: LINUS MOON Date: 10/28/2024 10:27 Dictated By: Linus Moon M.D. Signed By: 10/28/24 1030 DD/ 102 TD/TT: Management Trainer: [place] [address] XRay Report Signed Patient: DEEPAK ANDREWS MR#: [id number] : 1960 Acct:[id number] Age/Sex: 64 / M ADM Date: 10/27/24 Loc: RAD Attending Dr: Amaris Gutierrez D.P.M. Ordering Physician: Amaris Gutierrez D.P.M. Date of Service: 10/27/24 Procedure(s): XR ank le LT min 3V Accession Number(s): [id number] cc: Amaris Gutierrez D.P.M.; Physician,Non-Staff [place] [address] Patient Name: CONCHIS ANDREWS MRN: [id number] date: 1960 Sex: M Assigned Patient Loc ation: RAD Current Patient Location: Accession/Order Numb er: [id number] Exam Date: 10/27/2024 09:50 Report Date: 10/28/2024 10:27 At the request of: AMARIS GUTIERREZ Procedure: XR ankle LT min 3V PROCEDURE: XR ankle LT min 3V HISTORY: Left Ankle Pain COMPARISON: XR ankle left 09/29/2024 FINDINGS: BONES:Mechanical fus ion of the ankle joint and hindfoot via intramedullary justo and locking screws. Additional fusion screw traversing the tibiotalar joint. No appreciable hardware fracture or loosening. Prior resection of the distal fibula. Advanced degenerative changes of the ankle joint. SOFT TISSUES:Soft ti ssue swelling surrounding the ankle. Atherosclerotic disease. EFFUSION:None visible. OTHER: Negative. X R/XR ankle LT min 3V IMPRESSION: 1. Stable surgical c hanges without evidence of hardware failure or change in alignment. Electronically authenticated by: LINUS MOON Date: 10/28/2024 10:27 Dictated By: Linus Moon M.D. Signed By: 10/28/24 1030 DD/ 102 TD/TT: Management Trainer: XR ankle LT min 3V (Not yet reviewed by provider) Interpretation: Performing Lab: Notes/Report: Source Facility: [place] [address] [place] [address] XRay Report Signed Patient: CONCHIS ANDREWS MR#: [id number] : 1960 Acct:[id number] Age/Sex: 64 / M ADM Date: 11/18/24 Loc: RAD Attending Dr: Amaris Gutierrez D.P.M. Ordering Physician: Amaris Gutierrez D.P.M. Date of Service: 11/18/24 Procedure(s): XR ankle LT min 3V Accession Number(s): [id number] cc: Amaris Gutierrez D.P.M.; Physician,Non-Staff [place] [address] Patient Name: CONCHIS ANDREWS MRN: [facility]:[id number] date: 1960 Sex: M Assigned Patient Location: [facility] Current Patient Location: [facility] Accession/Order Number: [id number] Exam Date: 11/18/2024 23:10 Report Date: 11/18/2024 23:11 At the request of: AMARIS GUTIERREZ DPShawn Procedure: XR ankle LT min 3V LEFT ANKLE - 3 views CLINICAL HISTORY: Follow-up left ankle fusion COMPARISON: Left ankle 10/27/2024 FINDINGS: Ankle fusion changes similar configuration to the prior study without evidence of hardware complication. XR/XR ankle LT min 3V IMPRESSION: ANKLE FUSION CHANGES SIMILAR TO THE PRIOR STUDY WITHOUT EVIDENCE OF HARDWARE COMPLICATION. Impression dictated by: Mike Umaznor Jr., D.O.11/18/2024 11:11 PM Dictation Location: [place] [address] Electronically authenticated by: [id number] Y Date: 11/18/2024 23:11 Dictated By: Mike Umanzor M.D. Signed By: 11/18/24 2314 DD/ 10 TD/TT: Management Trainer: [place] [address] XRay Report Signed Patient: DEEPAK ANDREWS MR#: [id number] : 1960 Acct:[id number] Age/Sex: 64 / M ADM Date: 11/18/24 Loc: RAD Attending Dr: Amaris Gutierrez D.P.M. Ordering Physician: Amaris Gutierrez D.P.M. Date of Service: 11/18/24 Procedure(s): XR ank le LT min 3V Accession Number(s): [id number] cc: Amaris Gutierrez D.P.M.; Physician,Non-Staff [place] [address] Patient Name: CONCHIS ANDREWS MRN: [id number] date: 1960 Sex: M Assigned Patient Loc ation: RAD Current Patient Loca tion: RAD Accession/Order Numb er: [id number] Exam Date: 11/18/2024 23:10 Report Date: 11/18/2024 23:11 At the request of: AMARIS GUTIERREZ DPShawn Procedure: XR ankle LT min 3V LEFT ANKLE - 3 views CLINICAL HISTORY: Fo llow-up left ankle fusion COMPARISON: Left ank le 10/27/2024 FINDINGS: Ankle fusion changes similar configuration to the prior study without evidence of hardware complication. X R/XR ankle LT min 3V IMPRESSION: ANKLE FUSION CHANGES SIMILAR TO THE PRIOR STUDY WITHOUT EVIDENCE OF HARDWARE COMPLICATION. Impression dictated by: Isaias Pacheco Jr.OJunior11/18/2024 11:11 PM Dictation Location: [place] [address] Electronically authenticated by: [id number] Y Date: 11/18/2024 23:11 Dictated By: Mike Umanzor M.D. Signed By: 11/18/242313 DD/ 10 TD/TT: Management Trainer: CT ANKLE LT WO CON (Not yet reviewed by provider) Interpretation: Performing Lab: Notes/Report: Source Facility: [facility] [place] [address] [place] [address] CT Scan Report Signed Patient: CONCHIS ANDREWS MR#: [id number] : 1960 Acct:[id number] Age/Sex: 64 / M ADM Date: 08/05/24 Loc: RAD Attending Dr: Amaris Gutierrez D.P.M. Ordering Physician: Amaris Gutierrez D.P.M. Date of Service: 08/05/24 Procedure(s): CT ankle LT wo con Accession Number(s): [id number] cc: Physician,Non-Staff M.DJunior [place] [id number] Patient Name: CONCHIS ANDREWS MRN: [facility]:[id number] date: 1960 Sex: M Assigned Patient Location: RAD Current Patient Location: RAD Accession/Order Number: [id number] Exam Date: 08/05/2024 12:30 Report Date: 08/05/2024 15:56 At the request of: AMARIS GUTIERREZ Procedure: CT ankle LT wo con EXAMINATION: CT ankle LT wo con HISTORY: Ankle DJD COMPARISON: No relevant comparison available. TECHNIQUE: Multi-planar CT images were created without IV contrast. Dose reduction techniques were achieved by using automated exposure control and/or adjustment of mA and/or kV according to patient size and/or use of iterative reconstruction technique. FINDINGS: BONES: No acute fracture or dislocation. Moderate degenerative changes of the patella with enthesopathic spurring. Contour deformity of the proximal fibula, remote healed fracture. Enthesopathy of the anterior tibial tubercle, chronic apophysitis. Moderate to severe degenerative changes of the hindfoot with ljwi-dz-vujm articulation bony remodeling and subchondral cystic changes of the tibial plateau and talus. Contour deformity of the fourth metatarsal, remote healed fracture. Mild to moderate enthesopathic spurring of the calcaneus SOFT TISSUES: Negative. No visible soft tissue swelling. EFFUSION: None visible. OTHER: Moderate diffuse vascular calcifications CT/CT ankle LT wo con IMPRESSION: Moderate to severe osteoarthritis, most significant along the tibiotalar joint Electronically authenticated by: NATHAN VAUGHN Date: 08/05/2024 15:56 Dictated By: Nathan Vaughn M.D. Signed By: 08/05/24 1558 DD/ 1554 TD/TT: Management Trainer: [place] [address] CT Scan Report Signed Patient: DEEPAK ANDREWS MR#: [id number] : 1960 Acct:[id number] Age/Sex: 64 / M ADM Date: 08/05/24 Loc: RAD Attending Dr: Amaris Gutierrez D.P.M. Ordering Physician: Amaris Gutierrez D.P.M. Date of Service: 08/05/24 Procedure(s): CT ank le LT wo con Accession Number(s): [id number] cc: Physician,Non-St marleni [place] [id number] Patient Name: CONCHIS ANDREWS MRN: [id number] date: 1960 Sex: M Assigned Patient Loc ation: RAD Current Patient Loca tion: [facility] Accession/Order Numb er: [id number] Exam Date: 12:30 Report Date: 08/05/2024 15:56 At the request of: AMARIS GUTIERREZ Procedure: CT ankle LT wo con EXAMINATION: CT ankl e LT wo con HISTORY: Ankle DJD COMPARISON: No relev ant comparison available. TECHNIQUE: Multi-suzanne yoselin CT images were created without IV contrast. Dose reduction techniques were achieved by using automated exposure control and/or adjustment of mA and /or kV according to patient size and/or use of iterative reconstruction technique. FINDINGS: BONES: No acute frac ture or dislocation. Moderate degenerative changes of the patella with entheso pathic spurring. Contour deformity of the proximal fibula, remote healed fractu re. Enthesopathy of the anterior tibial tubercle, chronic apophysitis. Moderat e to severe degenerative changes of the hindfoot with bdvx-kx-zcig articul ation bony remodeling and subchondral cystic changes of the tibial plateau and t alus. Contour deformity of the fourth metatarsal, remote healed fracture. Mil d to moderate enthesopathic spurring of the calcaneus SOFT TISSUES: Negati ve. No visible soft tissue swelling. EFFUSION: None visible. OTHER: Moderate diff use vascular calcifications C T/CT ankle LT wo con IMPRESSION: Moderate to severe osteoarthritis, most significant along the tibiotalar joint Electronically authenticated by: NATHAN VAUGHN Date: 08/05/2024 15:56 Dictated By: Taye Vaughn M.D. Signed By: 08/05/24 1558 DD/ 1556 TD/TT: Management Trainer: XR Foot RT (3 views) * Reviewed date:09/14/2024 01:28:45 PM Interpretation: Performing Lab: Notes/Report: XR ankle LT min 3V (Not yet reviewed by provider) Interpretation: Performing Lab: Notes/Report: Source Facility: [place] [address] XRay Report Signed Patient: CONCHIS ANDREWS MR#: [id number] : 1960 Acct:[id number] Age/Sex: 64 / M ADM Date: 09/29/24 Loc: RAD Attending Dr: Amaris Gutierrez D.P.M. Ordering Physician: Amaris Gutierrez D.P.M. Date of Service: 09/29/24 Procedure(s): XR ankle LT min 3V Accession Number(s): [id number] cc: Amaris Gutierrez D.P.M.; Physician,Non-Staff [place] [address] Patient Name: CONCHIS ANDREWS MRN: [id number] date: 1960 Sex: M Assigned Patient Location: [facility] Current Patient Location: [facility] Accession/Order Number: [id number] Exam Date: 09/29/2024 10:23 Report Date: 09/29/2024 22:52 At the request of: AMARIS GUTIERREZ Procedure: XR ankle LT min 3V EXAM: XR ankle LT min 3V HISTORY: LEFT ANKLE PAIN COMPARISON: None. FINDINGS/IMPRESSION: 1. No acute fracture or dislocation. 2. Intramedullary justo of the distal tibia extending to the calcaneus. There are surgical screws of the hindfoot as well. 3. Mild to moderate degeneration of the mid foot. 4. Surgical resection of the distal fibula. 5. Subcutaneous soft tissue edema about the ankle. Electronically authenticated by: WINSTON WOODS Date: 09/29/2024 22:52 Dictated By: Winston Woods M.D. Signed By: 09/29/242254 DD/ 51 TD/TT: Management Trainer: [place] [address] XRay Report Signed Patient: DEEPAK ANDREWS MR#: [id number] : 1960 Acct:[id number] Age/Sex: 64 / M ADM Date: 09/29/24 Loc: RAD Attending Dr: Amaris Gutierrez D.P.M. Ordering Physician: Amaris Gutierrez D.P.M. Date of Service: 09/29/24 Procedure(s): XR ank le LT min 3V Accession Number(s): [id number] cc: Amaris Gutierrez D.P.M.; Physician,Non-Staff Mar[place] The [place] [address] Patient Name: CONCHIS ANDREWS MRN: [id number] date: 1960 Sex: M Assigned Patient Loc ation: RAD Current Patient Loca tion: RAD Accession/Order Numb er: [id number] Exam Date: 09/29/2024 10:23 Report Date: 09/29/2024 22:52 At the request of: AMARIS GUTIERREZ Procedure: XR ankle LT min 3V EXAM: XR ankle LT min 3V HISTORY: LEFT ANKLE PAIN COMPARISON: None. FINDINGS/IMPRESSION: 1. No acute fracture or dislocation. 2. Intramedullary ro d of the distal tibia extending to the calcaneus. There are surgical screws of t he hindfoot as well. 3. Mild to moderate degeneration of the mid foot. 4. Surgical resectio n of the distal fibula. 5. Subcutaneous soft tissue edema about the ankle. Electronically authenticated by: WINSTON WOODS Date: 09/29/2024 22:52 Dictated By: Aliya Woods M.D. Signed By: 09/29/242254 DD/ 51 TD/TT: Management Trainer: XR ankle LT min 3V (Not yet reviewed by provider) Interpretation: Performing Lab: Notes/Report: Source Facility: [facility] [place] [address] [address] XRay Report Signed Patient: CONCHIS ANDREWS MR#: [id number] : 1960 Acct:[id number] Age/Sex: 64 / M ADM Date: 08/31/24 Loc: [place] 215-[address]: Renetta Price D.O. Ordering Physician: Amaris Gutierrez D.P.M. Date of Service: 08/31/24 Procedure(s): XR ankle LT min 3V Accession Number(s): [id number] cc: Amaris Gutierrez D.P.M.; Physician,Non-Staff Marlon [facility] [place] [address] Patient Name: CONCHIS ANDREWS MRN: [id number] date: 1960 Sex: M Assigned Patient Location: [facility] Current Patient Location: [place] Accession/Order Number: [id number] Exam Date: 08/31/2024 12:00 Report Date: 09/01/2024 07:56 At the request of: AMARIS GUTIERREZ Procedure: XR ankle LT min 3V PROCEDURE: XR ankle LT min 3V COMPARISON: None. HISTORY: deformity + DJD FINDINGS: BONES:Ankle fusion utilizing a retrograde intramedullary nail and proximally and distally. Resection of the distal fibula. Underlying degenerative changes with stdf-mb-ycbj articulation of the tibiotalar joint SOFT TISSUES:Negative. No visible soft tissue swelling. EFFUSION:None visible. OTHER: Negative. XR/XR ankle LT min 3V IMPRESSION: Ankle fusion Electronically authenticated by: NATHAN VAUGHN Date: 09/01/2024 07:56 Dictated By: Nathan Vaughn M.D. Signed By: 09/01/24 0758 DD/ 0756 TD/TT: Management Trainer: [place] [address] XRay Report Signed Patient: DEEPAK ANDREWS MR#: [id number] : 1960 Acct:[id number] Age/Sex: 64 / M ADM Date: 08/31/24 Loc: [place] 215-[address]: Vikas Price D.O. Ordering Physician: Amaris Gutierrez D.P.M. Date of Service: 08/31/24 Procedure(s): XR ank le LT min 3V Accession Number(s): [id number] cc: Amaris Gutierrez D.P.M.; Physician,Non-Staff Marlon The [address] [address] Patient Name: CONCHSI ANDREWS MRN: [facility]:[id number] date: 1960 Sex: M Assigned Patient Loc ation: SURGOUT Current Patient Loca tion: [place] Accession/Order Numb er: [id number] Exam Date: 12:00 Report Date: 09/01/2024 07:56 At the request of: AMARIS GUTIERREZ Procedure: XR ankle LT min 3V PROCEDURE: XR ankle LT min 3V COMPARISON: None. HISTORY: deformity + DJD FINDINGS: BONES:Ankle fusion utilizing a retrograde intramedullary nail and proximally and distally. Resect ion of the distal fibula. Underlying degenerative changes with thrx-pp-ssfn articulation of the tibiotalar joint SOFT TISSUES:Negativ e. No visible soft tissue swelling. EFFUSION:None visible. OTHER: Negative. X R/XR ankle LT min 3V IMPRESSION: Ankle fusion Electronically authenticated by: NATHAN VAUGHN Date: 09/01/2024 07:56 Dictated By: Taye Vaughn M.D. Signed By: 09/01/24 0758 DD/ 0756 TD/TT: Management Trainer: Reason For Referral Reason Pre-Op Gait training to maintain NWB x 8 weeks Please call patient's significant other, Magda, for appointment [phone] Patient works from 6-2PM Diagnosis 1 Primary osteoarthrit is, left ankle and foot (M19.072) Referral Organization [facility] ([facility]OD[facility]) Referring Provider First Name Amaris Referring Provider Last Name Matt Referring Provider Speciality Podiatry Referred Provider Linda Durán PT Referred Provider Specialty Physical Med icine and Rehabilitation Referral Priority Routine Medications Medication SIG (Take, Route, Frequency, Duration) Notes Start Date End Date Status Lisinopril-hydroCHLOROthia zide 20-12.5 MG Oral for 90 Days Active Diclofenac Sodium 75 MG Oral for 90 Days Active Social History Tobacco Use: Social History Observation Description Date Details (start date - stop date) Former Smoker NA - NA Alcohol Screen (Audit-C) Question Answer Notes Did you have a drink contain ing alcohol in the past year? Yes How many drinks did you have on a typical day when you were drinking in the past year? 1 or 2 drinks (0 point) How often did you have a dri nk containing alcohol in the past year? 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) Active confirmed Problem 789346919 Contracture, left ankle (M24.572) Active confirmed Problem Arthralgia of the ankle and/or foot (120362336) Pain in right ankle and joints of right foot (M25.571) Active confirmed Problem Arthralgia of the ankle and/or foot (612054522) Pain in left ankle and joints of left foot (M25.572) Active confirmed Problem 875017562 Prostate cancer (C61) Active confirmed Problem Left ankle pain (M25.572) Active confirmed Problem Primary hypertension (I10) Active confirmed Problem Varus deformity of foot (476038488) 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) Active confirmed Vital Signs Heart Rate 76 /min 11/18/2024 Temperature 98 degrees Fahrenheit 11/18/2024 Oximetry 98 % 11/18/2024 Height 71 in 11/18/2024 Weight 189 lbs 11/18/2024 BMI 26.36 kg/m2 11/18/2024 Encounters Encounter Location Date Provider Diagnosis [facility] ([facility] [address] [place] [address] [address] [place] [address] 08/18/2024 Amaris Gutierrez [facility] [place] ([facility]) [address] [place] [address] [address] [place] [address] 08/18/2024 Amaris Gutierrez [facility] ([facility]) [address] [place] [place] [address] 08/18/2024 Amaris Gutierrez [facility] ([facility]) [address] [place] [address] [address] [place] [address] 08/31/2024 Amaris Gutierrez [facility] ([facility]) [address] [place] [place] [address] 08/31/2024 Amaris Gutierrez [facility] ([facility]) [address] [place] [place] [address] 09/03/2024 Amaris Gutierrez [facility] ([facility]) [address] [place] [place] [address] 08/05/2024 Amaris Gutierrez Primary osteoarthritis, left ankle and foot M19.072 ; Varus deformity, not elsewhere classified, left ankle M21.172 ; Acquired clubfoot, left foot M21.542 ; Contracture, left ankle M24.572 ; Primary osteoarthritis, right ankle and foot M19.071 ; Left ankle pain M25.572 ; Pain in left ankle and joints of left foot M25.572 and Pain in right ankle and joints of right foot M25.571 [facility]) [address] [place] [address] [address] [place] [address] 08/07/2024 Amaris Gutierrez Primary osteoarthritis, left ankle and foot M19.072 ; Varus deformity, not elsewhere classified, left ankle M21.172 ; Acquired clubfoot, left foot M21.542 and Contracture, left ankle M24.572 [facility]) [address] [place] [address] [address] [place] [address] 11/18/2024 Amaris Gutierrez Left ankle pain M25.572 and Primary osteoarthritis, left ankle and foot M19.072 [facility] [address] [place] [address] [address] [place] [address] 10/02/2024 Babs Danielle [facility] OUTPATIENT [facility] [place] [address] 08/31/2024 Amaris Gutierrez [facility]) [address] [place] [address] [address] [place] [address] 09/11/2024 Amaris Gutierrez Primary osteoarthritis, left ankle and foot M19.072 [facility]) [address] [place] [address] [address] [place] [address] 09/29/2024 Amaris Gutierrez Left ankle pain M25.572 and Primary osteoarthritis, left ankle and foot M19.072 [facility] [address] [place] [address] [address] [place] [address] 10/27/2024 Amaris Gutierrez Left ankle pain M25.572 and Primary osteoarthritis, left ankle and foot M19.072 Assessments Encounter Date Diagnosis (ICD Code) Assessment Notes Treatment Notes Treatment Clinical Notes Section Notes 08/05/2024 Primary osteoarthritis , left ankle and foot (ICD-10 - M19.072) Patient was referred by his training generalist Dr. Paige for worsening pain and dysfunction with bilateral ankles with his left being worse than his right. Patient has attempted multiple cgyb-ewr-kviwqsw braces as well as different shoes and boots. He has attempted multiple NSAIDs without help and despite prison, greater than 1 year of nonsurgical treatment patient's pain and dysfunction have only worsened and now is affecting his daily activities and work. I do long discussion with him regarding the potential risks and benefits of fusion versus replacement. I recommended a CT scan which was ordered today and he will follow-up after that is obtained 08/05/2024 Varus deformity, not elsewhere classified, left ankle (ICD-10 - M21.172) 09/11/2024 Primary osteoarthritis , left ankle and foot (ICD-10 - M19.072) Patient is 1 week status post ankle and subtalar joint fusion. He is doing well. No evidence of infection or blood clot. Patient should remain nonweightbearing.A fter verbal consent dry sterile dressing was placed over his incisions followed by a well-padded short leg fiberglass cast which was placed in a neutral position. Patient will follow-up in 2 weeks for cast removal and x-rays.Refill for Percocet was provided. Patient should continue Xarelto until finished then we will start on an aspirin daily until weightbearing 09/29/2024 Left ankle pain (ICD-10 - M25.572) 09/29/2024 Primary osteoarthritis , left ankle and foot (ICD-10 - M19.072) Patient is 4 weeks status post ankle and subtalar joint fusion and is doing well. No evidence of DVT or infection. He has finished Xarelto and is currently on aspirin. His pain has been controlled but still requiring 2-3 pain pills a day. Refill was provided. Sutures were discontinued. And he was placed into a cam boot and should remain nonambulatory but he may place partial weight to the heel for balance only. His x-rays were reviewed which shows interval bone healing and stable fixation. He will follow-up in 4 weeks with weightbearing left ankle x-rays. 10/27/2024 Left ankle pain (ICD-10 - M25.572) [...] x-rays and hopeful transition to normal shoes 11/18/2024 Left ankle pain (ICD-10 - M25.572) [...] follow-up in 3 months with ankle x-rays 08/07/2024 Primary osteoarthritis , left ankle and foot (ICD-10 - M19.072) Patient was seen and evaluated. Patient's condition was provided and all questions were answered to satisfaction. I reviewed x-rays,CT and physical exam findings. I reviewed again the pros and cons of fusion versus replacement.Patien t would like to undergo reconstructive surgery and would like to proceed with: Left ankle and hindfoot fusion with osteotomies, soft tissue balancing and bone graft as needed I reviewed the possible complications which include but not limited to infection, wound healing issue, numbness and tingling, bleeding, blood clot, pain, need for additional surgery. Other possible complications include malunion, nonunion, delayed union and painful hardware. Postoperative course was reviewed and the patient will likely be: None weightbearing for 8 weeks Patient will be: ADMITTED postoperatively Proposed anesthesia: General And regional Proposed implants: DynaNail, vilex beams 08/07/2024 Varus deformity, not elsewhere classified, left ankle (ICD-10 - M21.172) 08/07/2024 Acquired clubfoot, left foot (ICD-10 - M21.542) 08/05/2024 Acquired clubfoot, left foot (ICD-10 - M21.542) 08/05/2024 Contracture, left ankle (ICD-10 - M24.572) 08/07/2024 Contracture, left ankle (ICD-10 - M24.572) 08/05/2024 Primary osteoarthritis , right ankle and foot (ICD-10 - M19.071) 08/05/2024 Left ankle pain (ICD-10 - M25.572) referred by [facility] 08/05/2024 Pain in left ankle and joints of left foot (ICD-10 - M25.572) 08/05/2024 Pain in right ankle and joints of right foot (ICD-10 - M25.571) Plan Of Treatment Pending Test Test Name Order Date XR Ankle LT (3 views) * (164) 08/05/2024 XR Ankle LT (3 views) * (164) 09/29/2024 XR Ankle LT (3 views) * (164) 10/27/2024 XR Ankle LT (3 views) * (164) 11/18/2024 XR Ankle RT (3 views) * (161) 08/05/2024 XR Foot LT (3 views) * 08/05/2024 CT Ankle LT w/o contrast * (Optional 3D Rendering) 08/05/2024 PROF CHEM 8 (BAS METB) 08/17/2024 CT ANKLE LT WO CON 08/05/2024 XR ankle SESAR min 3V 08/05/2024 ECG 12 lead 08/17/2024 XR ankle LT min 3V 09/01/2024 XR ankle LT min 3V 09/29/2024 XR ankle LT min 3V 10/28/2024 XR ankle LT min 3V 11/18/2024 XR foot SESAR min 3V 08/05/2024 FL fluoroscopy <1hr NON-READ 09/04/2024 Future Test Test Name Order Date PSA, DIAGNOSTIC 01/14/2020 PSA, DIAGNOSTIC 03/10/2021 Insurance Providers Payer Name Payer Address Payer Phone Subscriber Number Group Number Insured Name Patient Relationship to Insured Coverage Start Date Coverage End Date [facility] [address] [place] [address] [id number] Conchis Andrews Self - patient is the insured 9 Medical (General) History Medical History History ICD Code kidney stones hypertension osteoarthritis elevated PSA Malignant neoplasm of prostate C61 Erectile dysfunction due to arterial ins ufficiency N52.01 Stress incontinence (female) (male) N39. 3 Surgical History Surgery Date(Month/Year) left knee meniscus repair 01/2024 Robotic radical prostatectomy 08/28/19 upper arm surgery extensive foot surgery left knee arthroscopy prostate biopsy 06/09/19
--- NOTE | 2025-03-11 15:15 | XR_ITS ---
[facility] [place] [address] Patient Name: CONCHIS ANDREWS MRN: [id number] date: 1960 Sex: M Assigned Patient Location: RAD Current Patient Location: [facility] Accession/Order Number: [id number] Exam Date: 03/11/2025 15:33 Report Date: 03/11/2025 15:34 At the request of: AMARIS BURRELL DPShawn Procedure: XR ankle LT min 3V LEFT ANKLE - 3 views CLINICAL HISTORY: Pain COMPARISON: Left ankle series of 11/18/2024 FINDINGS: Diffuse soft tissue swelling is noted. Ankle fusion surgery is seen without evidence of hardware complication. There is associated distal resection of the fibula. Degenerative changes involving the ankle mortise. No acute bony process. XR/XR ankle LT min 3V IMPRESSION: NO HARDWARE COMPLICATION. NO ACUTE BONY PROCESS. DIFFUSE SOFT TISSUE SWELLING. Impression dictated by: Mike Umanzor Jr. DJuniorOJunior 03/11/2025 3:34 PM Dictation Location: [place] [address] Electronically authenticated by: [id number] Y Date: 03/11/2025 15:34
== END 2025-03-11 15:11 | disposition home or self-care (01) ==
PROVIDERS: Visit Provider Podiatrist Foot & Ankle Surgery
DX: M25.572 Pain in left ankle and joints of left foot (principal); M25.472 Effusion, left ankle; M24.672 Ankylosis, left ankle
CPT/HCPCS: 73610